=== PATIENT | female | born 1950 | race Caucasian/White ===

== ENCOUNTER → 2016-07-22 | Outpatient (CLI) | payer MEDICARE ==
--- NOTE | 2016-07-23 12:52 | MM ---
Reason for exam: screening (asymptomatic). Last mammogram was performed 1 year ago. History: Patient is postmenopausal and is nulliparous. Physical Findings: A clinical breast exam by your physician is recommended on an annual basis and results should be correlated with mammographic findings. MG Screening Mammo w CAD Bilateral CC and MLO view(s) were taken. Prior study comparison: July 21, 2015, bilateral MG screening mammo w CAD. March 17, 2011, bilateral digital screening mammo w/CAD. The breast tissue is heterogeneously dense. This may lower the sensitivity of mammography. Finding: There are indeterminate calcifications in the upper quadrant of the left breast on MLO view only, 13cm from the nipple. New finding since July 21, 2015 and March 17, 2011. ASSESSMENT: Incomplete: need additional imaging evaluation, BI-RAD 0 RECOMMENDATION: Special view mammogram of the left breast. [facility] will attempt to contact patient to return for supplemental views.
== END | disposition home or self-care (01) ==
LOC: RADMAMWWP 12:56
PROVIDERS: ATTEND Family Medicine
DX: Z12.31 Encounter for screening mammogram for malignant neoplasm of breast (principal)

== ENCOUNTER → 2016-08-04 | Outpatient (CLI) | payer MEDICARE ==
--- NOTE | 2016-08-04 14:27 | MM ---
Reason for exam: additional evaluation requested from abnormal screening. Last mammogram was performed less than 1 month ago. History: Patient is postmenopausal and is nulliparous. Physical Findings: Nurse did not find any significant physical abnormalities on exam. MG 3D Work Up W/Cad LT ML, ML with magnification, and CC with magnification view(s) were taken of the left breast. Prior study comparison: July 22, 2016, bilateral MG screening mammo w CAD. July 21, 2015, bilateral MG screening mammo w CAD. The breast tissue is heterogeneously dense. This may lower the sensitivity of mammography. Tiny group of posterior microcalcifications. These are very small and appear superficially located possibly round and punctate. 6 month follow up recommended. These results were verbally communicated with the patient and result sheet given to the patient on 08/04/16. ASSESSMENT: Probably benign, BI-RAD 3 RECOMMENDATION: Follow-up diagnostic mammogram of the left breast in 6 months. DMITRIY
== END | disposition home or self-care (01) ==
LOC: RADMAMWWP 12:55
PROVIDERS: ATTEND Family Medicine
DX: R92.8 Other abnormal and inconclusive findings on diagnostic imaging of breast (principal)
CPT/HCPCS: G0206; G0279

== ENCOUNTER 2016-11-15 14:28 | Inpatient (IN) | payer MEDICARE ==
[2016-11-15] MEDS ORDERED: SODIUM CHLORIDE 0.9% 1,000 ML IV STA (15:39)
--- NOTE | 2016-11-15 15:48 | ED ---
General Adult HPI - General Chief complaint: GI Bleed Stated complaint: kidney stones Time Seen by Provider: 11/15/16 15:23 Source: patient, family, RN notes reviewed Mode of arrival: wheelchair Limitations: no limitations - History of Present Illness Initial comments: Chief complaint and history of present illness is a 66-year-old female complaint of having noticed blood per rectum on 2 occasions over the past several days. The patient has chronic kidney stone issues. Patient has chronic severe arthritis takes OxyContin 4-5 times daily. Has constipation frequently. - Related Data Home Medications Medication Instructions Recorded Confirmed ALPRAZolam [Xanax] 0.25 mg PO Q8HR PRN 11/15/16 11/15/16 Ascorbic Acid [Vitamin C] 500 mg PO DAILY 11/15/16 11/15/16 Aspirin EC [Ecotrin Low Dose] 81 mg PO DAILY 11/15/16 11/15/16 Cholecalciferol [Vitamin D3] 5,000 unit PO Q48H 11/15/16 11/15/16 Cyanocobalamin (Vitamin B-12) 1,000 mcg PO MOWEFR 11/15/16 11/15/16 [Vitamin B-12] Diltiazem HCl 120 mg PO Q8H 11/15/16 11/15/16 Flaxseed Oil [[place]-3 Flaxseed Oil] 1,000 mg PO DAILY 11/15/16 11/15/16 Folic Acid 0.4 mg PO DAILY 11/15/16 11/15/16 Furosemide [Lasix] 20 mg PO DAILY 11/15/16 11/15/16 Lutein 20 mg PO DAILY 11/15/16 11/15/16 Metoprolol Tartrate [Lopressor] 25 mg PO DAILY PRN 11/15/16 11/15/16 Pyridoxine HCl (Vitamin B6) 100 mg PO MOWEFR 11/15/16 11/15/16 [Vitamin B-6] Vitamin A 8,000 unit PO DAILY 11/15/16 11/15/16 oxyCODONE HCL 10 mg PO Q4-6H PRN 11/15/16 11/15/16 Previous Rx's Medication Instructions Recorded Ondansetron Odt [Zofran ODT] 4 mg PO Q8HR PRN #20 tab 05/08/15 Allergies Allergy/AdvReac Type Severity Reaction Status Date / Time erythromycin base Allergy Rash/Hives Verified 11/15/16 16:04 hydrochlorothiazide Allergy "DROPS Verified 11/15/16 16:04 SODIUM LEVEL" peppermint Allergy Rash/Hives Verified 11/15/16 16:04 Tetracyclines Allergy Swelling Verified 11/15/16 16:04 atenolol AdvReac PASSES OUT Verified 11/15/16 16:04 nifedipine [From Procardia] AdvReac HAIR LOSS Verified 11/15/16 16:04 pregabalin [From Lyrica] AdvReac LEG PAIN Verified 11/15/16 16:04 Yfkhgyc-Qzu-Egt Reductase AdvReac LEG PAIN Verified 11/15/16 16:04 Inhibitor [employer] Allergy Rash/Hives Uncoded 11/15/16 16:04 Review of Systems ROS Statement: Those systems with pertinent positive or pertinent negative responses have been documented in the HPI. Review of systems. Denies headache or visual acuity changes. Has chronic severe arthritic pain to her joints. Denies chest pain or shortness of breath. States she noted blood per rectum on 2 occasions. Has a history of kidney stones. Also history of hyponatremia from fluid overload or Lasix use. States she has history of renal insufficiency stage III. All systems reviewed. Past medical problems severe arthritis, coronary artery disease, hyperlipidemia, hypertension, gallstone, degenerative joint disease. Surgeries tonsils, adenoids and appendectomy. Also Lasix to her eyes. Family history heart disease. Patient has ALLERGIES to erythromycin base, tetracycline, atenolol and pregabalin. She reports she continues to smoke. Strongly encouraged to stop ROS Other: All systems not noted in ROS Statement are negative. Past Medical History Past Medical History: Coronary Artery Disease (CAD), Hyperlipidemia, Hypertension Additional Past Medical History / Comment(s): pancreatitis, djd, neuropathy History of Any Multi-Drug Resistant Organisms: None Reported Past Surgical History: Adenoidectomy, Appendectomy, Tonsillectomy Past Psychological History: Anxiety Smoking Status: Current every day smoker Past Alcohol Use History: None Reported Past Drug Use History: None Reported General Exam - General Exam Comments Initial Comments: General: The patient is awake and alert, under chronic musculoskeletal pains pressure to the joints. And blood per rectum on 2 occasions. Vital signs show temperature 99.9 pulse 90 respiratory rate 20 pulse ox 98% room air blood pressure 120/57 Eye: Pupils are equal, round and reactive to light, extra-ocular movements are intact ; there is normal conjunctiva bilaterally. No signs of icterus. Ears, nose, mouth and throat: There are moist mucous membranes and no oral lesions. Neck: The neck is supple, there is no tenderness . Cardiovascular: There is a regular rate and rhythm. No murmur, rub or gallop is appreciated. Respiratory: Lungs are clear to auscultation, respirations are non-labored, breath sounds are equal. No wheezes, stridor, rales, or rhonchi. Gastrointestinal: Tender to the left lower quadrant but no masses palpable. Back: Right back pain on opiates, degenerative joint disease. Musculoskeletal: Full range of motion of extremities but with discomfort of the joints. Neurological: No apparent neuro deficits no complained of. Skin: Skin is warm and dry and no rashes or lesions are noted. Limitations: no limitations Course Vital Signs 11/15/16 14:31 Temperature 99.9 F H Pulse Rate 90 Respiratory 20 Rate Blood Pressure 120/57 O2 Sat by Pulse 98 Oximetry Medical Decision Making - Medical Decision Making Medical decision making patient's white count is elevated 25,000 hemoglobin 10 hematocrit of 30 with a potassium 4.4. BUN 19 creatinine 0.93 to GFR greater than 60. Glucose 83. Lipase normal alk phos is elevated to 44. Tray of the patient's hip was done and reviewed by radiologist his impression is advanced degenerative change of the right hip. Left hip degenerative changes are noted on the AP pelvis as well. As read by Dr. Georges X-ray of the abdomen was done and reviewed by radiologist his impression is there is normal bowel gas pattern. Psoas margins are normal. No organomegaly is present. Advanced degenerative change with deformity of the femoral head and acetabulum is present on the left and right hips. Degenerative disc changes are present. Impression; no acute abdominal process. #2 advanced degenerative changes. As read by Guaiac was positive. Vital exam showed soft stool plus fresh blood no palpable masses. - Lab Data Result diagrams: 11/15/16 16:10 11/15/16 16:10 Lab Results 11/15/16 11/15/16 11/15/16 Range/Units 16:10 16:10 16:10 WBC 25.1 H* (3.8-10.6) k/uL RBC 3.34 L (3.80-5.40) m/uL Hgb 10.2 L D (11.4-16.0) gm/dL Hct 30.1 L (34.0-46.0) % MCV 90.1 D (80.0-100.0) fL MCH 30.4 (25.0-35.0) pg MCHC 33.7 (31.0-37.0) g/dL RDW 14.0 (11.5-15.5) % PT 12.0 (9.0-12.0) sec INR 1.2 (<1.1) APTT 30.8 H (22.0-30.0) sec Sodium 130 L (137-145) mmol/L Potassium 4.4 (3.5-5.1) mmol/L Chloride 92 L (98-107) mmol/L Carbon Dioxide 26 (22-30) mmol/L Anion Gap 12 mmol/L BUN 19 H (7-17) mg/dL Creatinine 0.93 (0.52-1.04) mg/dL Est GFR (MDRD) Af Amer >60 (>60 ml/min/1.73 sqM) Est GFR (MDRD) Non-Af >60 (>60 ml/min/1.73 sqM) Glucose 83 (74-99) mg/dL Plasma Lactic Acid Narendra (0.7-2.0) mmol/L Calcium 9.4 (8.4-10.2) mg/dL Total Bilirubin 0.8 (0.2-1.3) mg/dL AST 35 (14-36) U/L ALT 32 (9-52) U/L Alkaline Phosphatase 244 H (38-126) U/L Total Protein 6.7 (6.3-8.2) g/dL Albumin 3.9 (3.5-5.0) g/dL Lipase 39 (23-300) U/L 11/15/16 Range/Units 16:10 WBC (3.8-10.6) k/uL RBC (3.80-5.40) m/uL Hgb (11.4-16.0) gm/dL Hct (34.0-46.0) % MCV (80.0-100.0) fL MCH (25.0-35.0) pg MCHC (31.0-37.0) g/dL RDW (11.5-15.5) % PT (9.0-12.0) sec INR (<1.1) APTT (22.0-30.0) sec Sodium (137-145) mmol/L Potassium (3.5-5.1) mmol/L Chloride (98-107) mmol/L Carbon Dioxide (22-30) mmol/L Anion Gap mmol/L BUN (7-17) mg/dL Creatinine (0.52-1.04) mg/dL Est GFR (MDRD) Af Amer (>60 ml/min/1.73 sqM) Est GFR (MDRD) Non-Af (>60 ml/min/1.73 sqM) Glucose (74-99) mg/dL Plasma Lactic Acid Narendra 0.9 (0.7-2.0) mmol/L Calcium (8.4-10.2) mg/dL Total Bilirubin (0.2-1.3) mg/dL AST (14-36) U/L ALT (9-52) U/L Alkaline Phosphatase (38-126) U/L Total Protein (6.3-8.2) g/dL Albumin (3.5-5.0) g/dL Lipase (23-300) U/L Disposition Clinical Impression: GI bleeding Disposition: ADMITTED IP TO THIS [facility] Condition: Serious Referrals: Zachary Dorantes DO [Primary Care Provider] - 1-2 days
[2016-11-15 16:47] LABS: INR 1.2 (<1.1); Partial Thromboplastin Time 30.8 sec (22.0-30.0)
[2016-11-15 16:49] LABS: ALT 32 U/L (9-52); AST 35 U/L (14-36); Alkaline Phosphatase 244 U/L (38-126); Anion Gap 12 mmol/L; Blood Urea Nitrogen 19 mg/dL (7-17); Calcium 9.4 mg/dL (8.4-10.2); Carbon Dioxide 26 mmol/L (22-30); Chloride 92 mmol/L (98-107); Glucose 83 mg/dL (74-99); Non-African American GFR(MDRD) >60 (>60 ml/min/1.73 sqM); Potassium 4.4 mmol/L (3.5-5.1); Sodium 130 mmol/L (137-145); Total Bilirubin 0.8 mg/dL (0.2-1.3); Total Protein 6.7 g/dL (6.3-8.2)
--- NOTE | 2016-11-15 16:52 | XR ---
EXAMINATION TYPE: XR abdomen 2V DATE OF EXAM: 11/15/2016 COMPARISON: NONE INDICATION: GI bleed and rectal bleeding x2 days TECHNIQUE: Single view abdomen upright view FINDINGS: There is a normal bowel gas pattern. Psoas margins are normal. No organomegaly is present. Advanced degenerative change with deformity of the femoral head and acetabulum is present on the left and right hips. Degenerative disc changes are present. IMPRESSION: 1. No acute abdominal process. 2. Advanced degenerative changes.
--- NOTE | 2016-11-15 16:54 | XR ---
EXAMINATION TYPE: XR Hip RT and AP Pelvis DATE OF EXAM: 11/15/2016 COMPARISON: NONE HISTORY: Pain TECHNIQUE: AP pelvis and right hip 2 views FINDINGS: There is femoral head deformity present bilaterally. Subchondral cyst formation is present. There is destruction of the superior femoral head and acetabulum bilaterally. Spina bifida occulta L5 is present. Sacroiliac joints are preserved. Symphysis pubis is normal. IMPRESSION: 1. Advanced degenerative changes right hip. 2. Left hip and degenerative changes are noted on the AP pelvis as well.
[2016-11-15 16:55] LABS: Basophils # (A) 0.2 k/uL (0-0.2); Basophils % (A) 1 %; CH 30.2; CHCM 33.7; Eosinophils # (A) 0.2 k/uL (0-0.7); Eosinophils % (A) 1 %; HCT 30.1 % (34.0-46.0); HDW 2.51; Immature Gran Flag Marked; Large Platelets Flag Moderate; Luc # (Auto) 0.95; Luc % (Auto) 4; Lymphocytes # (A) 1.7 k/uL (1.0-4.8); Lymphocytes % (A) 7 %; MCH 30.4 pg (25.0-35.0); MCHC 33.7 g/dL (31.0-37.0); Mean Platelet Volume 12.4; Monocytes # (A) 2.6 k/uL (0-1.0); Monocytes % (A) 10 %; Neutrophils # (A) 19.5 k/uL (1.3-7.7); Neutrophils % (A) 78 %; RBC 3.34 m/uL (3.80-5.40)
[2016-11-15 16:57] LABS: HGB 10.2 gm/dL (11.4-16.0); MCV 90.1 fL (80.0-100.0)
[2016-11-15 16:58] LABS: WBC 25.1 k/uL (3.8-10.6)
[2016-11-15 17:28] LABS: Large Platelets Present; Manual Review Performed
[2016-11-15] MEDS ORDERED: NALOXONE 0.4 MG/ML 1 ML VIAL IV PRN (17:31)
[2016-11-15] MEDS ORDERED: ONDANSETRON 4 MG/2 ML VIAL IVP PRN (17:31)
[2016-11-15] MEDS ORDERED: HYDROmorphone 1 MG/ML 1 ML SYRINGE IV PRN (17:31)
[2016-11-15] MEDS: SODIUM CHLORIDE 0.9% 1,000 ML IV SCH (18:53)
[2016-11-15] MEDS: DILTIAZEM ORAL 60 MG TAB PO SCH (20:51)
[2016-11-15 21:39] LABS: Basophils # (A) 0.3 k/uL (0-0.2); Basophils % (A) 1 %; CH 30.2; CHCM 33.5; Eosinophils # (A) 0.1 k/uL (0-0.7); Eosinophils % (A) 1 %; HCT 28.5 % (34.0-46.0); HGB 9.5 gm/dL (11.4-16.0); Immature Gran Flag Marked; Large Platelets Flag Slight; Luc % (Auto) 4; Lymphocytes # (A) 2.1 k/uL (1.0-4.8); Lymphocytes % (A) 9 %; MCH 30.2 pg (25.0-35.0); MCHC 33.3 g/dL (31.0-37.0); MCV 90.5 fL (80.0-100.0); Mean Platelet Volume 11.9; Monocytes # (A) 2.4 k/uL (0-1.0); Monocytes % (A) 10 %; Neutrophils # (A) 18.1 k/uL (1.3-7.7); Neutrophils % (A) 76 %; RBC 3.15 m/uL (3.80-5.40); RDW 14.1 % (11.5-15.5); WBC 23.9 k/uL (3.8-10.6)
[2016-11-15 21:46] LABS: INR 1.3 (<1.1); Prothrombin Time 12.6 sec (9.0-12.0)
[2016-11-15 21:59] LABS: ALT 39 U/L (9-52); AST 29 U/L (14-36); Alkaline Phosphatase 241 U/L (38-126); Anion Gap 10 mmol/L; Blood Urea Nitrogen 16 mg/dL (7-17); Calcium 9.2 mg/dL (8.4-10.2); Carbon Dioxide 27 mmol/L (22-30); Chloride 96 mmol/L (98-107); Glucose 82 mg/dL (74-99); Magnesium 2.4 mg/dL (1.6-2.3); Non-African American GFR(MDRD) >60 (>60 ml/min/1.73 sqM); Phosphorous 4.6 mg/dL (2.5-4.5); Potassium 4.4 mmol/L (3.5-5.1); Sodium 133 mmol/L (137-145); Total Bilirubin 0.6 mg/dL (0.2-1.3); Total Protein 5.9 g/dL (6.3-8.2)
[2016-11-16] MEDS: ALPRAZolam 0.25 MG TAB PO PRN ×2 (01:01→09:05)
[2016-11-16] MEDS: DILTIAZEM ORAL 60 MG TAB PO SCH ×4 (01:40→21:02)
[2016-11-16 04:45] LABS: CH 30.2; CHCM 33.1; HCT 25.9 % (34.0-46.0); HDW 2.46; HGB 8.5 gm/dL (11.4-16.0); MCHC 32.7 g/dL (31.0-37.0); MCV 91.7 fL (80.0-100.0); RBC 2.82 m/uL (3.80-5.40); WBC 21.7 k/uL (3.8-10.6)
[2016-11-16 05:03] LABS: Anion Gap 8 mmol/L; Blood Urea Nitrogen 13 mg/dL (7-17); Calcium 8.8 mg/dL (8.4-10.2); Carbon Dioxide 28 mmol/L (22-30); Chloride 99 mmol/L (98-107); Glucose 76 mg/dL (74-99); Magnesium 2.3 mg/dL (1.6-2.3); Non-African American GFR(MDRD) >60 (>60 ml/min/1.73 sqM); Phosphorous 4.5 mg/dL (2.5-4.5); Potassium 4.3 mmol/L (3.5-5.1); Sodium 135 mmol/L (137-145)
[2016-11-16 05:46] LABS: Appearance,Urine Clear (Clear); Bacteria,Urine Occasional /hpf; Bilirubin,Urine Negative (Negative); Glucose,Urine (UA) Negative (Negative); Ketones,Urine Trace (Negative); Leukocyte Esterase,Urine Negative (Negative); Nitrite,Urine Negative (Negative); Particle Count 1224; Protein,Urine Negative (Negative); RBC,Urine 6 /hpf (0-5); Specific Gravity,Urine 1.004 (1.001-1.035); Squamous Epithelial Cell,Urine 1 /hpf (0-4); UA Billing (MACRO vs. MICRO) MICRO; Urobilinogen,Urine <2.0 mg/dL (<2.0); WBC,Urine 1 /hpf (0-5)
[2016-11-16] MEDS: FOLIC ACID 1 MG TAB PO SCH (08:46)
[2016-11-16] MEDS: SODIUM CHLORIDE 0.9% 1,000 ML IV SCH ×2 (08:46→21:03)
[2016-11-16] MEDS: ASCORBIC ACID 500 MG TAB PO SCH (08:46)
--- NOTE | 2016-11-16 08:55 | XR ---
EXAMINATION TYPE: XR chest 1V portable DATE OF EXAM: 11/16/2016 COMPARISON: 05/08/2014 INDICATION: Possible pneumonia TECHNIQUE: Single frontal view of the chest is obtained. Position is semiupright. FINDINGS: The heart size is normal. The pulmonary vasculature is normal. No suspicious infiltrates are evident. IMPRESSION: 1. No acute pulmonary process.
[2016-11-16] MEDS ORDERED: CHOLECALCIFEROL 1,000 UNIT TAB PO SCH (09:00)
[2016-11-16] MEDS ORDERED: NON-FORMULARY DRUG (Lutein [Lutein] 20 MG) PO SCH (09:00)
[2016-11-16 10:48] LABS: CH 30.1; CHCM 33.1; HCT 26.6 % (34.0-46.0); HDW 2.47; HGB 8.7 gm/dL (11.4-16.0); Large Platelets Flag Slight; MCH 30.1 pg (25.0-35.0); MCHC 32.8 g/dL (31.0-37.0); MCV 91.6 fL (80.0-100.0); Mean Platelet Volume 11.4; RBC 2.91 m/uL (3.80-5.40); WBC 23.1 k/uL (3.8-10.6)
[2016-11-16] MEDS: PANTOPRAZOLE 40 MG/10 ML VIAL IV SCH (10:56)
[2016-11-16] MEDS ORDERED: RX INFO: IV CONTRAST WAS GIVEN 1 EACH MISC MISCELLANE PRN (11:45)
[2016-11-16] MEDS: VITAMIN A 10,000 UNIT CAPSULE PO SCH (12:50)
[2016-11-16] MEDS: LEVOFLOXACIN 500MG-D5W PMX 500 MG in DEXTROSE/WATER 1 100ML.BAG IVPB SCH (12:50)
--- NOTE | 2016-11-16 12:59 | P.GSCN ---
History of Present Illness Consult date: 11/16/16 Reason for Consult: GI bleeding History of present illness: Recent history of bright red blood per rectum. She describes it as looking like siddiqui Blair-Aid. Denies any vaginal discharge. No history of similar events in the past. Some chronic abdominal pain. She has a history of pancreatic cysts and undergoes annual MRCP. Last MRCP was one year ago roughly. She was found to have thrombocytopenia and significant leukocytosis. She is in the ICU for observation purposes. Consultation to hematology has been placed. We are asked to see this patient for possible endoscopy. Denies any melanotic stools. Hemoglobin started at 10.2 currently 8.7. No significant active bleeding during the ICU stay. CT abdomen was ordered earlier today and those results are pending. Review of Systems The patient denies any acute changes in his vision or hearing, no dysphagia or odynophagia, no chest pain or shortness of breath, no dysuria or hematuria, no headache, no runny nose, no melena, no unexplained weight loss Past Medical History Past Medical History: Coronary Artery Disease (CAD), Hyperlipidemia, Hypertension, Osteoarthritis (OA) Additional Past Medical History / Comment(s): pancreatitis, djd, neuropathy, Chronic back pain, mild stenosis in the neck History of Any Multi-Drug Resistant Organisms: None Reported Past Surgical History: Adenoidectomy, Appendectomy, Tonsillectomy Additional Past Surgical History / Comment(s): B/L lasix in 1999 Past Anesthesia/Blood Transfusion Reactions: No Reported Reaction Past Psychological History: Anxiety Smoking Status: Current every day smoker Past Alcohol Use History: None Reported Past Drug Use History: None Reported - Past Family History Mother Family Medical History: Diabetes Mellitus, Hypertension, Renal Disease Additional Family Medical History / Comment(s): Heart and anxiety issues. Had quadraple bypass, Father Additional Family Medical History / Comment(s): Quad heart bypass Medications and Allergies Home Medications Medication Instructions Recorded Confirmed Type ALPRAZolam [Xanax] 0.25 mg PO Q8HR PRN 11/15/16 11/15/16 History Ascorbic Acid [Vitamin C] 500 mg PO DAILY 11/15/16 11/15/16 History Cholecalciferol [Vitamin D3] 5,000 unit PO Q48H 11/15/16 11/15/16 History Cyanocobalamin (Vitamin B-12) 1,000 mcg PO MOWEFR 11/15/16 11/15/16 History [Vitamin B-12] Diltiazem HCl 120 mg PO Q8H 11/15/16 11/15/16 History Folic Acid 0.4 mg PO DAILY 11/15/16 11/15/16 History Furosemide [Lasix] 20 mg PO DAILY 11/15/16 11/15/16 History Lutein 20 mg PO DAILY 11/15/16 11/15/16 History Metoprolol Tartrate [Lopressor] 25 mg PO DAILY PRN 11/15/16 11/15/16 History Pyridoxine HCl (Vitamin B6) 100 mg PO MOWEFR 11/15/16 11/15/16 History [Vitamin B-6] Vitamin A 8,000 unit PO DAILY 11/15/16 11/15/16 History oxyCODONE HCL 10 mg PO Q4HR PRN 11/15/16 11/15/16 History Allergies Allergy/AdvReac Type Severity Reaction Status Date / Time erythromycin base Allergy Rash/Hives Verified 11/15/16 20:23 hydrochlorothiazide Allergy "DROPS Verified 11/15/16 20:23 SODIUM LEVEL" peppermint Allergy Rash/Hives Verified 11/15/16 20:23 Tetracyclines Allergy Swelling Verified 11/15/16 20:23 atenolol AdvReac PASSES OUT Verified 11/15/16 20:23 nifedipine [From Procardia] AdvReac HAIR LOSS Verified 11/15/16 20:23 pregabalin [From Lyrica] AdvReac LEG PAIN Verified 11/15/16 20:23 Doenzwu-Asg-Gqk Reductase AdvReac LEG PAIN Verified 11/15/16 20:23 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[employer] Allergy Rash/Hives Uncoded 11/15/16 20:23 Surgical - Exam Vital Signs Temp Pulse Resp BP Pulse Ox 99.9 F H 90 20 120/57 98 11/15/16 14:31 11/15/16 14:31 11/15/16 14:31 11/15/16 14:31 11/15/16 14:31 Physical exam: General: Well-developed, malnourished appearing HEENT: Normocephalic, sclerae nonicteric Abdomen: Nontender, nondistended Extremities: No edema Neuro: Alert and oriented Results - Labs 11/16/16 10:33 11/16/16 04:30 Abnormal Lab Results - Last 24 Hours (Table) 11/15/16 11/15/16 11/15/16 Range/Units 16:10 16:10 16:10 WBC 25.1 H* (3.8-10.6) k/uL RBC 3.34 L (3.80-5.40) m/uL Hgb 10.2 L D (11.4-16.0) gm/dL Hct 30.1 L (34.0-46.0) % Plt Count 72 L D (150-450) k/uL Neutrophils # 19.5 H (1.3-7.7) k/uL Monocytes # 2.6 H (0-1.0) k/uL Basophils # (0-0.2) k/uL PT (9.0-12.0) sec APTT 30.8 H (22.0-30.0) sec Sodium 130 L (137-145) mmol/L Chloride 92 L (98-107) mmol/L BUN 19 H (7-17) mg/dL Phosphorus (2.5-4.5) mg/dL Magnesium (1.6-2.3) mg/dL Alkaline Phosphatase 244 H (38-126) U/L Total Protein (6.3-8.2) g/dL Urine Ketones (Negative) Urine Blood (Negative) Urine RBC (0-5) /hpf Urine Bacteria (None) /hpf Stool Occult Blood (Negative) 11/15/16 11/15/16 11/15/16 Range/Units 17:25 21:26 21:26 WBC 23.9 H (3.8-10.6) k/uL RBC 3.15 L (3.80-5.40) m/uL Hgb 9.5 L (11.4-16.0) gm/dL Hct 28.5 L (34.0-46.0) % Plt Count 69 L (150-450) k/uL Neutrophils # 18.1 H (1.3-7.7) k/uL Monocytes # 2.4 H (0-1.0) k/uL Basophils # 0.3 H (0-0.2) k/uL PT (9.0-12.0) sec APTT (22.0-30.0) sec Sodium 133 L (137-145) mmol/L Chloride 96 L (98-107) mmol/L BUN (7-17) mg/dL Phosphorus 4.6 H (2.5-4.5) mg/dL Magnesium 2.4 H (1.6-2.3) mg/dL Alkaline Phosphatase 241 H (38-126) U/L Total Protein 5.9 L (6.3-8.2) g/dL Urine Ketones (Negative) Urine Blood (Negative) Urine RBC (0-5) /hpf Urine Bacteria (None) /hpf Stool Occult Blood Positive H (Negative) 11/15/16 11/16/16 11/16/16 Range/Units 21:26 04:30 04:30 WBC 21.7 H (3.8-10.6) k/uL RBC 2.82 L (3.80-5.40) m/uL Hgb 8.5 L (11.4-16.0) gm/dL Hct 25.9 L (34.0-46.0) % Plt Count 49 L* (150-450) k/uL Neutrophils # (1.3-7.7) k/uL Monocytes # (0-1.0) k/uL Basophils # (0-0.2) k/uL PT 12.6 H (9.0-12.0) sec APTT (22.0-30.0) sec Sodium 135 L (137-145) mmol/L Chloride (98-107) mmol/L BUN (7-17) mg/dL Phosphorus (2.5-4.5) mg/dL Magnesium (1.6-2.3) mg/dL Alkaline Phosphatase (38-126) U/L Total Protein (6.3-8.2) g/dL Urine Ketones (Negative) Urine Blood (Negative) Urine RBC (0-5) /hpf Urine Bacteria (None) /hpf Stool Occult Blood (Negative) 11/16/16 11/16/16 Range/Units 05:00 10:33 WBC 23.1 H (3.8-10.6) k/uL RBC 2.91 L (3.80-5.40) m/uL Hgb 8.7 L (11.4-16.0) gm/dL Hct 26.6 L (34.0-46.0) % Plt Count 54 L (150-450) k/uL Neutrophils # (1.3-7.7) k/uL Monocytes # (0-1.0) k/uL Basophils # (0-0.2) k/uL PT (9.0-12.0) sec APTT (22.0-30.0) sec Sodium (137-145) mmol/L Chloride (98-107) mmol/L BUN (7-17) mg/dL Phosphorus (2.5-4.5) mg/dL Magnesium (1.6-2.3) mg/dL Alkaline Phosphatase (38-126) U/L Total Protein (6.3-8.2) g/dL Urine Ketones Trace H (Negative) Urine Blood Small H (Negative) Urine RBC 6 H (0-5) /hpf Urine Bacteria Occasional H (None) /hpf Stool Occult Blood (Negative) Microbiology - Last 24 Hours (Table) 11/16/16 05:00 Urine Culture - Preliminary Urine,Voided Diabetes panel 11/15/16 11/15/16 11/16/16 Range/Units 16:10 21:26 04:30 Sodium 130 L 133 L 135 L (137-145) mmol/L Potassium 4.4 4.4 4.3 (3.5-5.1) mmol/L Chloride 92 L 96 L 99 (98-107) mmol/L Carbon Dioxide 26 27 28 (22-30) mmol/L BUN 19 H 16 13 (7-17) mg/dL Creatinine 0.93 0.90 0.76 (0.52-1.04) mg/dL Glucose 83 82 76 (74-99) mg/dL Calcium 9.4 9.2 8.8 (8.4-10.2) mg/dL AST 35 29 (14-36) U/L ALT 32 39 (9-52) U/L Alkaline Phosphatase 244 H 241 H (38-126) U/L Total Protein 6.7 5.9 L (6.3-8.2) g/dL Albumin 3.9 3.5 (3.5-5.0) g/dL Calcium panel 11/15/16 11/15/16 11/16/16 Range/Units 16:10 21:26 04:30 Calcium 9.4 9.2 8.8 (8.4-10.2) mg/dL Phosphorus 4.6 H 4.5 (2.5-4.5) mg/dL Albumin 3.9 3.5 (3.5-5.0) g/dL Pituitary panel 11/15/16 11/15/16 11/16/16 Range/Units 16:10 21:26 04:30 Sodium 130 L 133 L 135 L (137-145) mmol/L Potassium 4.4 4.4 4.3 (3.5-5.1) mmol/L Chloride 92 L 96 L 99 (98-107) mmol/L Carbon Dioxide 26 27 28 (22-30) mmol/L BUN 19 H 16 13 (7-17) mg/dL Creatinine 0.93 0.90 0.76 (0.52-1.04) mg/dL Glucose 83 82 76 (74-99) mg/dL Calcium 9.4 9.2 8.8 (8.4-10.2) mg/dL Adrenal panel 11/15/16 11/15/16 11/16/16 Range/Units 16:10 21:26 04:30 Sodium 130 L 133 L 135 L (137-145) mmol/L Potassium 4.4 4.4 4.3 (3.5-5.1) mmol/L Chloride 92 L 96 L 99 (98-107) mmol/L Carbon Dioxide 26 27 28 (22-30) mmol/L BUN 19 H 16 13 (7-17) mg/dL Creatinine 0.93 0.90 0.76 (0.52-1.04) mg/dL Glucose 83 82 76 (74-99) mg/dL Calcium 9.4 9.2 8.8 (8.4-10.2) mg/dL Total Bilirubin 0.8 0.6 (0.2-1.3) mg/dL AST 35 29 (14-36) U/L ALT 32 39 (9-52) U/L Alkaline Phosphatase 244 H 241 H (38-126) U/L Total Protein 6.7 5.9 L (6.3-8.2) g/dL Albumin 3.9 3.5 (3.5-5.0) g/dL Assessment and Plan (1) GI bleeding Narrative/Plan: We'll await the findings of the CAT scan already ordered. Await oncology evaluation. Plan upper and lower endoscopy during this hospitalization. Status: Acute
[2016-11-16] MEDS: IOHEXOL 350 MG/ML 25 ML BOTTLE (ORAL USE) PO PRN ×2 (13:54→14:59)
[2016-11-16] MEDS: metroNIDAZOLE-NS PMX 500 MG in SALINE 1 100ML.BAG IVPB SCH ×2 (13:54→21:02)
[2016-11-16] MEDS ORDERED: ALPRAZolam 0.25 MG TAB PO STA (14:24)
--- NOTE | 2016-11-16 18:05 | CT ---
EXAMINATION TYPE: CT abdomen pelvis w con DATE OF EXAM: 11/16/2016 COMPARISON: MRCP December 18, 2015 HISTORY: Leukocytosis, abdominal pain and GI bleed. CT DLP: 427.70 mGycm. Automated exposure control for dose reduction was used. TECHNIQUE: Helical acquisition of images was performed from the lung bases through the pelvis. CONTRAST: Performed with Oral Contrast and with IV Contrast, patient injected with 100 mL of Omnipaqu e 300. FINDINGS: LUNG BASES: No significant abnormality is appreciated. Coronary calcifications noted. LIVER/GB AND PANCREAS: The previously seen dilated extrahepatic biliary tree and pancreatic ductal an atomy is redemonstrated, and similar in appearance. Would request liver function tests to assure no p hysiologic change. SPLEEN: No significant abnormality is seen. ADRENALS: No significant abnormality is seen. KIDNEYS: No significant abnormality is seen. FREE AIR: No free air is visualized. RETROPERITONEAL ADENOPATHY: None visualized REPRODUCTIVE ORGANS: No significant abnormality is seen URINARY BLADDER: No significant abnormality is seen. PELVIC ADENOPATHY: None visualized. OSSEOUS STRUCTURES: Bilateral hip markedly-advanced osteoarthritis changes, and multilevel markedly advanced lumbar spondylosis changes. No focal lesions. BOWEL: No significant abnormality is seen. VASCULATURE: Prominent pattern of nonaneurysmal atherosclerotic aortoiliac intimal calcifications. Co ronary calcifications also noted. IMPRESSION: 1. NO ACUTE PROCESS. 2. STABLE APPEARANCE TO THE BILIARY PANCREATIC DUCTAL DILATION, DISCUSSED. 3. ADVANCED AND DIFFUSE ATHEROSCLEROTIC CHANGES.
--- NOTE | 2016-11-16 18:28 | CONS ---
DATE OF CONSULTATION: 11/16/2016 REASON FOR CONSULTATION: History of hyponatremia. 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 She was admitted to the hospital with complaints of dark colored blood seen per rectum. This has been going on for about one to two days prior to admission. The patient does not use any nonsteroidal anti-inflammatory agents. She has not had any gastrointestinal bleed previously. She is also having some abdominal pain and she felt she was dealing with kidney stones. She has not had any episodes of kidney stones recently. Her GFR is well preserved. She does have a history of hyponatremia which has been fairly well controlled as outpatient. Serum sodium was at 130 on initial admission. She is maintained on normal saline and her sodium went up to 135. Of note, the patient was noted to have a platelet count of 72,000 which went down further to 49,000. Previous platelet count on 10/19/2016 was 236,000. 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 History of hyponatremia. Nutritional vitamin D deficiency. Hypertension. history of B12 deficiency, history of hyperlipidemia, coronary artery disease. The patient also has had pancreatitis, neuropathy. PAST SURGICAL HISTORY: Adenoidectomy, appendectomy, tonsillectomy, anxiety disorder. SOCIAL HISTORY: Positive for smoking. No history of drug abuse or alcohol abuse. MEDICATIONS: At home included: 1. Xanax. 2. Vitamin C. 3. Vitamin D3. 4. B12. 5. Diltiazem. 6. Folic acid. 7. Lasix. 8. Lutein. 9. Lopressor. 10. Vitamin A. 11. Oxycodone. ALLERGIES: MULTIPLE INCLUDE ERYTHROMYCIN, HYDROCHLOROTHIAZIDE, PEPPERMINT, TETRACYCLINE, ATENOLOL, PROCARDIA, LYRICA, STATINS, DIAL BRAND PRODUCTS. REVIEW OF SYSTEMS: Positive for bleeding per rectum. No vomiting. The patient did have some abdominal pain. No significant urinary symptoms. No fever, chills, no chest pains or shortness of breath. On examination , currently the patient is comfortable. She is awake, not in any acute distress. She is in tears and she is concerned about her thrombocytopenia. Blood pressure is 125/55. Heart rate 85 per minute. She is afebrile. Examination of the heart, S1, S2. Examination of the lungs bilateral breath sounds are heard. Abdomen is soft, nontender. Examination of the lower extremities shows no evidence of edema. CENTRAL NERVOUS SYSTEM: Grossly intact. The patient is moving all four extremities. Lymph nodes are not palpable. Thyroid is not enlarged. LABORATORY DATA: Sodium 135, potassium 4.3, creatinine 0.76. Hemoglobin 8.5 gm/dL. Platelet count 49,000 earlier. UA is unremarkable. Stool for occult blood was positive. ASSESSMENT: 1. History of hyponatremia as an outpatient, currently improved with sodium going up from 130 on initial admission to 135. The patient is receiving normal saline, therefore it was at this time hypovolemic, hyponatremia. I will continue with normal saline for now. We need to be careful with hydration as the patient is quite sensitive to fluids with history of development of significant edema. Worsening of the hyponatremia with large volume replacement. At this time, she was hypovolemic, therefore, we can continue particularly given her active gastrointestinal bleed. 2. Gastrointestinal bleed, surgery has been consulted. Hemoglobin was 8.7 gm/dL this morning. 3. Thrombocytopenia. Unclear etiology. Hematology has been consulted. PLAN: Continue with normal saline. Repeat labs in the a.m. Follow-up on consults with gastroenterology and follow-up with hematology and surgery. Thank you for this consultation, we will continue to follow the patient during her hospitalization.
[2016-11-16 18:45] LABS: CH 30.5; CHCM 33.9; HCT 27.4 % (34.0-46.0); HDW 2.56; MCH 29.9 pg (25.0-35.0); MCV 90.5 fL (80.0-100.0); Mean Platelet Volume 10.7; RBC 3.03 m/uL (3.80-5.40); RDW 13.8 % (11.5-15.5); WBC 21.8 k/uL (3.8-10.6)
--- NOTE | 2016-11-16 20:38 | CONS ---
DATE OF CONSULTATION: 11/16/2016 Ms. Rosita Bucio is a 66-year-old female who is seen, evaluated, examined in the ICU. Patient has issues associated with severe anemia, also has a history of renal calculi, has extensive history of smoking and nicotine use. Patient has been found to be not only anemic, but thrombocytopenic as well. I was asked to evaluate the patient from respiratory and critical care perspective. This patient admitted into the emergency department with 3 to 4-day history of increased swelling of the lower extremity. Patient has been taking her OxyContin 3 or 4 times a day for severe pain. She stopped taking her Lasix. Her legs were more swollen than the usual. One day prior to coming into the hospital, started having bleeding per rectum on multiple occasions throughout the day and symptoms started somewhere around 2 days prior to coming into the hospital initially, decided to come into the hospital yesterday. Patient has been admitted to ICU late last night. Patient was admitted to the medical floor and eventually due to drop in hemoglobin and ongoing intermittent bloody stools, transferred to the ICU. Patient is seeing Dr. Abrams for GI services and requesting Dr. Granados for renal services as well. PAST MEDICAL HISTORY: Significant for coronary artery disease, dyslipidemia, hypertension, hypertensive cardiovascular disease, chronic pancreatitis, degenerative joint disease, osteoarthritis, chronic neuropathy. PAST SURGICAL HISTORY: Significant for adenoidectomy, appendectomy, tonsillectomy. FAMILY HISTORY AND SOCIAL HISTORY: Significant for smoking 1 pack per day for over 40 years; lately, however, is smoking a few cigarettes a day. Does use prescription narcotic agents. Rest of the family history otherwise unremarkable and noncontributory. Medications at home reviewed. Current medications while in the hospital include: 1. Xanax 0.25 to 3 times a day. 2. Vitamin C 500 mg daily. 3. Also on cholecalciferol. 4. Vitamin B12. 5. Diltiazem is 120 mg p.o. 2 times a day. 6. Folic acid 0.5 daily. 7. Dilaudid for pain control. 8. Also on Levaquin 500 mg IV q.24. 9. Flagyl 500 mg q.8 hourly. 10. K-Mag-Phos replacement protocol. 11. Zofran. 12. Oxycodone. 13. Protonix 40 mg daily. 14. IV fluid normal saline at 80 mL an hour. 15. Thiamine. 16. Vitamin A. REVIEW OF SYSTEMS: Otherwise unremarkable and noncontributory. On examination, most recent vitals include blood pressure 132/50, respiratory rate 14, pulse 95, temperature 98, saturation 99% on room air. HEENT: Atraumatic, normocephalic. Pharynx clear. Narrow pharyngeal opening is present. NECK: Supple without any lymphadenopathy, jugular venous distention or carotid bruit. LUNGS: Bilateral good air entry is present without significant rales, rhonchi or rub. HEART: Regular rate and rhythm. S1 and S2 audible. ABDOMEN: Soft. No rebound or rigidity. Mild tenderness on deep palpation is present. EXTREMITIES: +1 peripheral pulses. NEUROLOGICAL: Otherwise, awake and alert Labs reviewed. Medications reviewed. The chest x-ray performed revealed no acute cardiopulmonary process. Abdominal x-ray performed in the ER. No acute abdomen is seen. The hip and pelvic x-ray: Right hip degenerative joint disease seen bilaterally. Other laboratory data reviewed. The white cell count is 23,900, hemoglobin of 9.7, hematocrit 28, platelet count 69,000 The white cell count remains elevated. Hemoglobin came down to 9.5. Repeat is 8.7. Platelet count was 72,000, came down to 49,000, up to 54,000. PT and INR and PTT within normal limits. Sodium is 130, potassium 4.4. BUN and creatinine 19 and 0.93. Alk phos is 244. Urinalysis is unremarkable. The stool for occult blood is positive. IMPRESSION: 1. Gastrointestinal bleed with acute blood loss anemia with heme positive stools along with thrombocytopenia and slowly dropping hemoglobin. CT scan of the abdomen is pending. Patient has component of inflammatory process. Bleeding, diverticulosis or diverticulitis cannot be excluded. For now, patient is empirically being started on Levaquin and Flagyl. Further recommendations pending as per finding on the CT scan of the abdomen and pelvis. General Surgery has been following. 2. Sepsis, likely intra-abdominal process. 3. History of renal calculi. 4. Anemia, thrombocytopenia, leukocytosis. 5. Chronic pain syndrome. 6. History of pancreatic cyst. Plan and recommendation is as above. Empiric antibiotics, IV rehydration, rosen cultures, including blood and urine. Follow up on CT scan. Will follow. Will transfuse blood if hemoglobin drops less than 7 and/or if the patient develops hypertension. In the meantime, continue supportive care. Consultation with Hematology has been initiated.
[2016-11-17 02:29] LABS: CH 29.9; CHCM 32.6; HDW 2.49; HGB 8.3 gm/dL (11.4-16.0); MCH 30.7 pg (25.0-35.0); MCHC 33.2 g/dL (31.0-37.0); MCV 92.5 fL (80.0-100.0); Mean Platelet Volume 10.6; RBC 2.71 m/uL (3.80-5.40); RDW 14.1 % (11.5-15.5); WBC 20.5 k/uL (3.8-10.6)
[2016-11-17] MEDS: metroNIDAZOLE-NS PMX 500 MG in SALINE 1 100ML.BAG IVPB SCH ×3 (04:50→20:22)
[2016-11-17] MEDS: ALPRAZolam 0.25 MG TAB PO PRN ×3 (05:05→21:08)
[2016-11-17] MEDS: DILTIAZEM ORAL 60 MG TAB PO SCH ×3 (05:12→21:09)
[2016-11-17 05:37] LABS: CH 30.2; CHCM 33.7; HDW 2.68; HGB 8.5 gm/dL (11.4-16.0); Immature Gran Flag Marked; MCH 30.8 pg (25.0-35.0); MCHC 34.1 g/dL (31.0-37.0); MCV 90.2 fL (80.0-100.0); Mean Platelet Volume 10.1; RBC 2.77 m/uL (3.80-5.40); RDW 13.9 % (11.5-15.5); WBC 22.3 k/uL (3.8-10.6); WBC (Perox) 23.55
[2016-11-17 05:41] LABS: ALT 24 U/L (9-52); AST 25 U/L (14-36); Alkaline Phosphatase 186 U/L (38-126); Anion Gap 8 mmol/L; Blood Urea Nitrogen 10 mg/dL (7-17); Calcium 8.8 mg/dL (8.4-10.2); Carbon Dioxide 26 mmol/L (22-30); Chloride 101 mmol/L (98-107); Glucose 57 mg/dL (74-99); Magnesium 2.1 mg/dL (1.6-2.3); Non-African American GFR(MDRD) >60 (>60 ml/min/1.73 sqM); Phosphorous 4.6 mg/dL (2.5-4.5); Potassium 4.5 mmol/L (3.5-5.1); Sodium 135 mmol/L (137-145); Total Bilirubin 0.7 mg/dL (0.2-1.3); Total Protein 5.5 g/dL (6.3-8.2)
[2016-11-17 06:53] LABS: Glucose,Whole Blood 62 mg/dL (75-99)
[2016-11-17 07:34] LABS: Glucose,Whole Blood 71 mg/dL (75-99)
[2016-11-17 07:47] LABS: Add Differential Manual Differential
[2016-11-17 07:53] LABS: Myelocytes % 6.5 %; Nucleated Red Blood Cells 0 /100 WBC (0-0); Total Cells Counted 200
[2016-11-17] MEDS: SODIUM CHLORIDE 0.9% 1,000 ML IV SCH ×2 (08:33→18:03)
[2016-11-17] MEDS: CHOLECALCIFEROL 1,000 UNIT TAB PO SCH (08:34)
[2016-11-17] MEDS: FOLIC ACID 1 MG TAB PO SCH (08:34)
[2016-11-17] MEDS: PANTOPRAZOLE 40 MG/10 ML VIAL IV SCH (08:34)
[2016-11-17] MEDS: CYANOCOBALAMIN 500 MCG TAB PO SCH ×2 (08:35→13:26)
[2016-11-17] MEDS: THIAMINE 100 MG TAB PO SCH (08:35)
[2016-11-17] MEDS: VITAMIN A 10,000 UNIT CAPSULE PO SCH (08:35)
[2016-11-17] MEDS: ASCORBIC ACID 500 MG TAB PO SCH ×2 (08:35→08:45)
[2016-11-17] MEDS: LEVOFLOXACIN 500MG-D5W PMX 500 MG in DEXTROSE/WATER 1 100ML.BAG IVPB SCH (08:37)
--- NOTE | 2016-11-17 10:16 | P.PN ---
Subjective This is a 66-year-old female patient is being seen, evaluated and examined in the ICU today. This patient have histories associated with severe anemia also history of renal calculi. She has an extensive history of smoking and nicotine use as well. The patient was found to not only be anemic bilateral thrombocytopenic as well. Patient was admitted to the emergency department with 3-4 day history of increased swelling of the lower extremity. Patient does take OxyContin 3-4 times a day for severe pain. Patient also states she stops taking her Lasix. Her legs were more swollen than usual. One day prior to coming into the hospital the patient stated she started having bleeding per rectum on multiple occasions throughout the day. Patient was admitted to the medical floor and eventually due to the drop in hemoglobin and intermittent bloody stools was transferred to the intensive care unit. Patient is being seen by Dr. Reyna and GI services, Dr. Granados for nephrology, and consults for hematology as well. Upon examination the patient's resting up in bed on room air. Patient denies any cough congestion shortness of breath at this time. Patient states she has not had a bowel movement or bleeding since yesterday. Hemoglobin has been stable today at 8.5, patient's platelet count is 35. Objective - Vital Signs Vital signs: Vital Signs Temp 98 F 11/17/16 08:00 Pulse 91 11/17/16 09:30 Resp 16 11/17/16 09:30 BP 120/56 11/17/16 09:30 Pulse Ox 96 11/17/16 09:30 Intake & Output 11/16/16 11/17/16 11/17/16 18:59 06:59 18:59 Intake Total 995 1000 360 Output Total 1050 1430 Balance -55 -430 360 Weight 52.4 kg 48 kg Intake: IV 75 Sodium Chloride 0.9% 1, 75 000 ml @ 75 mls/hr IV . [id number] [facility] Rx#:[id number] Intake, IV Titration 920 1000 260 Amount Levofloxacin 500Mg-D5w 100 Pmx 500 mg In Dextrose/ Water 1 100ml.bag @ 100 mls/hr IVPB Q24HR [facility] Rx# :[id number] Sodium Chloride 0.9% 1, 720 800 260 000 ml @ 80 mls/hr IV . [id number] [facility] Rx#:[id number] metroNIDAZOLE-NS PMX 500 100 200 mg In Saline 1 100ml.bag @ 100 mls/hr IVPB Q8H [facility] Rx#:[id number] Oral 100 Output: Urine 1050 1430 Other: Voiding Method Bedside Commode Bedside Commode Bedside Commode # Voids 1 1 - Exam GENERAL EXAM: Alert, active, comfortable in no apparent distress. HEAD: Normocephalic. EYES: Normal reaction of pupils, equal size. NOSE: Clear with pink turbinates. THROAT: No erythema or exudates. NECK: No masses, no JVD. CHEST: No chest wall deformity. LUNGS: Equal air entry with no crackles, wheeze, rhonchi or dullness. CVS: S1 and S2 normal with no audible mumurs, regular rhythm. ABDOMEN: No hepatosplenomegaly, normal bowel sounds, no guarding or rigidity. EXTREMITIES: No edema noted, pedal pulses palpable. SKIN: No rashes CENTRAL NERVOUS SYSTEM: No focal deficits, tone is normal in all 4 extremities. - Labs CBC & Chem 7: 11/17/16 05:02 11/17/16 05:02 Labs: Abnormal Lab Results - Last 24 Hours (Table) 11/16/16 11/16/16 11/16/16 Range/Units 10:33 18:16 18:16 WBC 23.1 H 21.8 H (3.8-10.6) k/uL RBC 2.91 L 3.03 L (3.80-5.40) m/uL Hgb 8.7 L 9.0 L (11.4-16.0) gm/dL Hct 26.6 L 27.4 L (34.0-46.0) % Plt Count 54 L 48 L* (150-450) k/uL Neutrophils # (Manual) (1.3-7.7) k/uL Monocytes # (Manual) (0-1.0) k/uL Sodium 133 L (137-145) mmol/L Glucose (74-99) mg/dL POC Glucose (mg/dL) (75-99) mg/dL Phosphorus (2.5-4.5) mg/dL Alkaline Phosphatase (38-126) U/L Total Protein (6.3-8.2) g/dL Albumin (3.5-5.0) g/dL 11/17/16 11/17/16 11/17/16 Range/Units 02:15 05:02 05:02 WBC 20.5 H 22.3 H (3.8-10.6) k/uL RBC 2.71 L 2.77 L (3.80-5.40) m/uL Hgb 8.3 L 8.5 L (11.4-16.0) gm/dL Hct 25.0 L 25.0 L (34.0-46.0) % Plt Count 38 L* 35 L* (150-450) k/uL Neutrophils # (Manual) 14.5 H (1.3-7.7) k/uL Monocytes # (Manual) 2.1 H (0-1.0) k/uL Sodium 135 L (137-145) mmol/L Glucose 57 L (74-99) mg/dL POC Glucose (mg/dL) (75-99) mg/dL Phosphorus 4.6 H (2.5-4.5) mg/dL Alkaline Phosphatase 186 H (38-126) U/L Total Protein 5.5 L (6.3-8.2) g/dL Albumin 3.0 L (3.5-5.0) g/dL 11/17/16 11/17/16 Range/Units 06:52 07:31 WBC (3.8-10.6) k/uL RBC (3.80-5.40) m/uL Hgb (11.4-16.0) gm/dL Hct (34.0-46.0) % Plt Count (150-450) k/uL Neutrophils # (Manual) (1.3-7.7) k/uL Monocytes # (Manual) (0-1.0) k/uL Sodium (137-145) mmol/L Glucose (74-99) mg/dL POC Glucose (mg/dL) 62 L 71 L (75-99) mg/dL Phosphorus (2.5-4.5) mg/dL Alkaline Phosphatase (38-126) U/L Total Protein (6.3-8.2) g/dL Albumin (3.5-5.0) g/dL Microbiology - Last 24 Hours (Table) 11/15/16 21:26 Blood Culture - Preliminary Blood No Growth after 24 hours 11/16/16 05:00 Urine Culture - Preliminary Urine,Voided Assessment and Plan Plan: Assessment Gastrointestinal bleed with acute blood loss anemia. Thrombocytopenia Sepsis, likely intra-abdominal process Anemia, thrombocytopenia, leukocytosis Chronic pain syndrome History of pancreatic cyst Nicotine dependence Plan Medications have been reviewed and will be continued as ordered. We will transfuse blood if hemoglobin drops less than 7 and/or if the patient becomes hemodynamically unstable. Continue empiric antibiotics, IV rehydration. Continue with pulmonary hygiene, coughing and deep breathing exercises, and supportive care. Supplemental oxygen to maintain oxygen saturations of 92% or better. GI and DVT prophylaxis. Diet as ordered per Dr. Abrams. Continue with consultations and recommendations. We will continue to monitor labs/results and adjust treatment as necessary. Further recommendations pending. I performed an examination of the patient and discussed their management with the nurse practitioner. I have reviewed the nurse practitioner's note and agree with the documented findings and plan of care.
[2016-11-17 10:37] VITALS: BMI 18.1
--- NOTE | 2016-11-17 13:03 | P.PN ---
Subjective Principal diagnosis: GI bleed Patient without further bleeding. Denies abdominal pain at this time. CAT scan was reviewed and shows no acute abnormalities. Platelet level remains low and the white blood cell count remains elevated. Objective - Vital Signs Vital signs: Vital Signs Temp 98.1 F 11/17/16 12:00 Pulse 89 11/17/16 12:00 Resp 12 11/17/16 12:00 BP 125/53 11/17/16 12:00 Pulse Ox 97 11/17/16 12:00 Intake & Output 11/16/16 11/17/16 11/17/16 18:59 06:59 18:59 Intake Total 995 1000 620 Output Total 1050 1430 500 Balance -55 -430 120 Weight 52.4 kg 48 kg Intake: IV 75 Sodium Chloride 0.9% 1, 75 000 ml @ 75 mls/hr IV . [id number] [facility] Rx#:[id number] Intake, IV Titration 920 1000 520 Amount Levofloxacin 500Mg-D5w 100 100 Pmx 500 mg In Dextrose/ Water 1 100ml.bag @ 100 mls/hr IVPB Q24HR [facility] Rx# :[id number] Sodium Chloride 0.9% 1, 720 800 420 000 ml @ 80 mls/hr IV . [id number] [facility] Rx#:[id number] metroNIDAZOLE-NS PMX 500 100 200 mg In Saline 1 100ml.bag @ 100 mls/hr IVPB Q8H [facility] Rx#:[id number] Oral 100 Output: Urine 1050 1430 500 Other: Voiding Method Bedside Commode Bedside Commode Bedside Commode # Voids 1 1 - Exam Abdomen: Soft, nontender, nondistended - Labs CBC & Chem 7: 11/17/16 05:02 11/17/16 05:02 Labs: Abnormal Lab Results - Last 24 Hours (Table) 11/16/16 11/16/16 11/17/16 Range/Units 18:16 18:16 02:15 WBC 21.8 H 20.5 H (3.8-10.6) k/uL RBC 3.03 L 2.71 L (3.80-5.40) m/uL Hgb 9.0 L 8.3 L (11.4-16.0) gm/dL Hct 27.4 L 25.0 L (34.0-46.0) % Plt Count 48 L* 38 L* (150-450) k/uL Neutrophils # (Manual) (1.3-7.7) k/uL Monocytes # (Manual) (0-1.0) k/uL Sodium 133 L (137-145) mmol/L Glucose (74-99) mg/dL POC Glucose (mg/dL) (75-99) mg/dL Phosphorus (2.5-4.5) mg/dL Alkaline Phosphatase (38-126) U/L Total Protein (6.3-8.2) g/dL Albumin (3.5-5.0) g/dL 11/17/16 11/17/16 11/17/16 Range/Units 05:02 05:02 06:52 WBC 22.3 H (3.8-10.6) k/uL RBC 2.77 L (3.80-5.40) m/uL Hgb 8.5 L (11.4-16.0) gm/dL Hct 25.0 L (34.0-46.0) % Plt Count 35 L* (150-450) k/uL Neutrophils # (Manual) 14.5 H (1.3-7.7) k/uL Monocytes # (Manual) 2.1 H (0-1.0) k/uL Sodium 135 L (137-145) mmol/L Glucose 57 L (74-99) mg/dL POC Glucose (mg/dL) 62 L (75-99) mg/dL Phosphorus 4.6 H (2.5-4.5) mg/dL Alkaline Phosphatase 186 H (38-126) U/L Total Protein 5.5 L (6.3-8.2) g/dL Albumin 3.0 L (3.5-5.0) g/dL 11/17/16 Range/Units 07:31 WBC (3.8-10.6) k/uL RBC (3.80-5.40) m/uL Hgb (11.4-16.0) gm/dL Hct (34.0-46.0) % Plt Count (150-450) k/uL Neutrophils # (Manual) (1.3-7.7) k/uL Monocytes # (Manual) (0-1.0) k/uL Sodium (137-145) mmol/L Glucose (74-99) mg/dL POC Glucose (mg/dL) 71 L (75-99) mg/dL Phosphorus (2.5-4.5) mg/dL Alkaline Phosphatase (38-126) U/L Total Protein (6.3-8.2) g/dL Albumin (3.5-5.0) g/dL Microbiology - Last 24 Hours (Table) 11/16/16 05:00 Urine Culture - Final Urine,Voided 11/15/16 21:26 Blood Culture - Preliminary Blood No Growth after 24 hours Assessment and Plan (1) GI bleeding Narrative/Plan: Patient with admission related to GI bleeding. No evidence of abdominal sepsis at this time. Continue workup of the patient's leukocytosis and thrombocytopenia. We'll plan upper and lower endoscopy when medically cleared. Possibly as outpatient. Status: Acute
--- NOTE | 2016-11-17 13:16 | P.HPIM ---
History of Present Illness H&P Date: 11/16/16 Chief Complaint: rectal blood This is a pleasant 66-year-old lady patient of Dr. Dorantes. He has underlying history off CAD hyperlipidemia hypertension pancreatitis neuropathy chronic back pain chronic opioid-induced constipation, admitted to the hospital secondary to anemia and hematochezia,. Her previous hemoglobin was 13.7 on and was admitted with hemoglobin of 10.2 apparently patient has been passing siddiqui colored stools her abdominal pain is localized mainly in the periumbilical region, her last colonoscopy is was at age 14 and on since, patient never had any imaging studies of her abdomen in the past evaluate for the chronic abdominal pain and chronic constipation. She also has a WBC count of 23.9 on admission with a previous wbc of 9.5 on 10/19/2016 patient denies any fever no chills dysuria no hematemesis, her last MRCP 12/18/2015 with findings showing distal pancreatic body with atrophic pancreas and dilated pancreatic duct reflecting chronic pancreatitis with adjacent pseudocyst formation She was admitted to the ICU secondary to ongoing lower GI losses with a current hemoglobin of 8.7 not requiring any blood transfusion, consults were made with Dr. Navarrete secondary to thrombocytopenia leukocytosis and anemia which is new, patient was started on IV Levaquin and Flagyl sepsis is in the consideration, CAT scan of the abdomen and pelvis will be done to evaluate abdominal pain and leukocytosis. No plans from Dr. Abrams for immediate colonoscopy however she would be needing it to evaluate GI bleed once platelet count stabilizes Review of Systems Constitutional: Reports as per HPI, Denies anorexia, Denies chills, Denies chronic headaches, Denies chronic pain, Denies daytime sleepiness, Denies fatigue, Denies fever, Denies lethargy, Denies malaise, Denies night sweats, Denies poor appetite, Denies sweats, Denies weakness, Denies weight gain, Denies weight loss Ears, nose, mouth and throat: Reports as per HPI, Denies ant. neck pain, Denies bleeding gums, Denies dental pain, Denies dysphagia, Denies epistaxis, Denies headache, Denies hoarseness, Denies mouth pain, Denies nasal congestion, Denies nasal discharge, Denies neck fullness/pressure, Denies neck lump, Denies nose pain, Denies odynophagia, Denies post-nasal drip, Denies sinus pain, Denies sinus pressure, Denies swelling in mouth, Denies swelling in throat, Denies sore throat, Denies vertigo, Denies voice changes Cardiovascular: Reports as per HPI, Denies chest pain, Denies claudication, Denies decreased exercise tolerance, Denies dyspnea on exertion, Denies edema, Denies high blood pressure, Denies irregular heart beat, Denies leg edema, Denies lightheadedness, Denies orthopnea, Denies palpitations, Denies paroxysmal nocturnal dyspnea, Denies phlebitis, Denies rapid heart beat, Denies shortness of breath, Denies syncope Past Medical History Past Medical History: Coronary Artery Disease (CAD), Hyperlipidemia, Hypertension, Osteoarthritis (OA) Additional Past Medical History / Comment(s): pancreatitis, djd, neuropathy, Chronic back pain, mild stenosis in the neck History of Any Multi-Drug Resistant Organisms: None Reported Past Surgical History: Adenoidectomy, Appendectomy, Tonsillectomy Additional Past Surgical History / Comment(s): B/L lasix in 1999 Past Anesthesia/Blood Transfusion Reactions: No Reported Reaction Past Psychological History: Anxiety Smoking Status: Current every day smoker Past Alcohol Use History: None Reported Past Drug Use History: None Reported - Past Family History Mother Family Medical History: Diabetes Mellitus, Hypertension, Renal Disease Additional Family Medical History / Comment(s): Heart and anxiety issues. Had quadraple bypass, Father Additional Family Medical History / Comment(s): Quad heart bypass Medications and Allergies Home Medications Medication Instructions Recorded Confirmed Type ALPRAZolam [Xanax] 0.25 mg PO Q8HR PRN 11/15/16 11/15/16 History Ascorbic Acid [Vitamin C] 500 mg PO DAILY 11/15/16 11/15/16 History Cholecalciferol [Vitamin D3] 5,000 unit PO Q48H 11/15/16 11/15/16 History Cyanocobalamin (Vitamin B-12) 1,000 mcg PO MOWEFR 11/15/16 11/15/16 History [Vitamin B-12] Diltiazem HCl 120 mg PO Q8H 11/15/16 11/15/16 History Folic Acid 0.4 mg PO DAILY 11/15/16 11/15/16 History Furosemide [Lasix] 20 mg PO DAILY 11/15/16 11/15/16 History Lutein 20 mg PO DAILY 11/15/16 11/15/16 History Metoprolol Tartrate [Lopressor] 25 mg PO DAILY PRN 11/15/16 11/15/16 History Pyridoxine HCl (Vitamin B6) 100 mg PO MOWEFR 11/15/16 11/15/16 History [Vitamin B-6] Vitamin A 8,000 unit PO DAILY 11/15/16 11/15/16 History oxyCODONE HCL 10 mg PO Q4HR PRN 11/15/16 11/15/16 History Allergies Allergy/AdvReac Type Severity Reaction Status Date / Time erythromycin base Allergy Rash/Hives Verified 11/15/16 20:23 hydrochlorothiazide Allergy "DROPS Verified 11/15/16 20:23 SODIUM LEVEL" peppermint Allergy Rash/Hives Verified 11/15/16 20:23 Tetracyclines Allergy Swelling Verified 11/15/16 20:23 atenolol AdvReac PASSES OUT Verified 11/15/16 20:23 nifedipine [From Procardia] AdvReac HAIR LOSS Verified 11/15/16 20:23 pregabalin [From Lyrica] AdvReac LEG PAIN Verified 11/15/16 20:23 Yfrmssj-Fcq-Foq Reductase AdvReac LEG PAIN Verified 11/15/16 20:23 Inhibitor [employer] Allergy Rash/Hives Uncoded 11/15/16 20:23 Physical Exam Vitals: Vital Signs Temp Pulse Pulse Resp BP BP Pulse Ox 11/16/16 10:00 91 12 118/54 96 11/16/16 09:30 85 14 119/57 93 L 11/16/16 09:00 86 14 132/80 95 11/16/16 08:30 98.2 F 87 15 122/58 96 11/16/16 08:00 87 14 130/55 94 L 11/16/16 07:00 93 137/58 96 11/16/16 06:30 89 131/52 93 L 11/16/16 06:00 99 133/53 96 11/16/16 05:30 91 134/57 11/16/16 05:00 104 H 134/57 98 11/16/16 04:30 89 135/57 96 11/16/16 04:00 87 90 14 135/57 95 11/16/16 03:30 83 123/54 96 11/16/16 03:00 84 123/54 92 L 11/16/16 02:30 88 134/60 94 L 11/16/16 02:00 88 134/60 95 11/16/16 01:30 87 140/67 93 L 11/16/16 01:00 92 97 11/16/16 00:30 98.2 F 91 124/53 96 11/16/16 00:00 93 92 14 124/53 97 11/15/16 23:30 91 140/60 97 11/15/16 23:00 90 140/60 96 11/15/16 22:40 90 11/15/16 22:17 98.2 F 92 14 128/60 98 11/15/16 21:50 94 19 142/63 99 11/15/16 20:00 16 11/15/16 19:13 98.8 F 92 16 144/71 99 11/15/16 17:27 99 F 83 18 131/61 95 11/15/16 14:31 99.9 F H 90 20 120/57 98 Intake and Output 11/15/16 11/16/16 11/16/16 22:59 06:59 14:59 Intake Total 600 315 Output Total 200 0 Balance 400 315 Intake: IV 600 75 Sodium Chloride 0.9% 1, 600 75 000 ml @ 75 mls/hr IV . [id number] Rx#:[id number] Intake, IV Titration 240 Amount Sodium Chloride 0.9% 1, 240 000 ml @ 80 mls/hr IV . [id number] KRISTI Rx#:[id number] Output: Urine 200 0 Other: Voiding Method Bedside Commode Bedside Commode Bedpan # Voids 1 Weight 52.8 kg 52.4 kg - Constitutional General appearance: cooperative, no acute distress, thin - EENT Eyes: anicteric sclerae, EOMI, PERRLA, poor dentition, normal appearance ENT: hearing grossly normal, NA/AT, normal oropharynx - Neck Neck: normal ROM - Respiratory Respiratory: bilateral: CTA, negative: diminished, dullness, rales, rhonchi, wheezing - Cardiovascular Rhythm: regular Heart sounds: normal: S1, S2 Abnormal Heart Sounds: no systolic murmur, no diastolic murmur, no rub, no S3 Gallop, no S4 Gallop, no click, no other - Gastrointestinal General gastrointestinal: normal bowel sounds, soft - Integumentary Integumentary: normal, normal turgor - Neurologic Neurologic: CNII-XII intact - Musculoskeletal Musculoskeletal: gait normal, strength equal bilaterally - Psychiatric Psychiatric: A&O x's 3, appropriate affect, intact judgment & insight Results CBC & Chem 7: 11/17/16 05:02 11/17/16 05:02 Labs: Abnormal Lab Results - Last 24 Hours (Table) 11/15/16 11/15/16 11/15/16 Range/Units 16:10 16:10 16:10 WBC 25.1 H* (3.8-10.6) k/uL RBC 3.34 L (3.80-5.40) m/uL Hgb 10.2 L D (11.4-16.0) gm/dL Hct 30.1 L (34.0-46.0) % Plt Count 72 L D (150-450) k/uL Neutrophils # 19.5 H (1.3-7.7) k/uL Monocytes # 2.6 H (0-1.0) k/uL Basophils # (0-0.2) k/uL PT (9.0-12.0) sec APTT 30.8 H (22.0-30.0) sec Sodium 130 L (137-145) mmol/L Chloride 92 L (98-107) mmol/L BUN 19 H (7-17) mg/dL Phosphorus (2.5-4.5) mg/dL Magnesium (1.6-2.3) mg/dL Alkaline Phosphatase 244 H (38-126) U/L Total Protein (6.3-8.2) g/dL Urine Ketones (Negative) Urine Blood (Negative) Urine RBC (0-5) /hpf Urine Bacteria (None) /hpf Stool Occult Blood (Negative) 11/15/16 11/15/16 11/15/16 Range/Units 17:25 21:26 21:26 WBC 23.9 H (3.8-10.6) k/uL RBC 3.15 L (3.80-5.40) m/uL Hgb 9.5 L (11.4-16.0) gm/dL Hct 28.5 L (34.0-46.0) % Plt Count 69 L (150-450) k/uL Neutrophils # 18.1 H (1.3-7.7) k/uL Monocytes # 2.4 H (0-1.0) k/uL Basophils # 0.3 H (0-0.2) k/uL PT (9.0-12.0) sec APTT (22.0-30.0) sec Sodium 133 L (137-145) mmol/L Chloride 96 L (98-107) mmol/L BUN (7-17) mg/dL Phosphorus 4.6 H (2.5-4.5) mg/dL Magnesium 2.4 H (1.6-2.3) mg/dL Alkaline Phosphatase 241 H (38-126) U/L Total Protein 5.9 L (6.3-8.2) g/dL Urine Ketones (Negative) Urine Blood (Negative) Urine RBC (0-5) /hpf Urine Bacteria (None) /hpf Stool Occult Blood Positive H (Negative) 11/15/16 11/16/16 11/16/16 Range/Units 21:26 04:30 04:30 WBC 21.7 H (3.8-10.6) k/uL RBC 2.82 L (3.80-5.40) m/uL Hgb 8.5 L (11.4-16.0) gm/dL Hct 25.9 L (34.0-46.0) % Plt Count 49 L* (150-450) k/uL Neutrophils # (1.3-7.7) k/uL Monocytes # (0-1.0) k/uL Basophils # (0-0.2) k/uL PT 12.6 H (9.0-12.0) sec APTT (22.0-30.0) sec Sodium 135 L (137-145) mmol/L Chloride (98-107) mmol/L BUN (7-17) mg/dL Phosphorus (2.5-4.5) mg/dL Magnesium (1.6-2.3) mg/dL Alkaline Phosphatase (38-126) U/L Total Protein (6.3-8.2) g/dL Urine Ketones (Negative) Urine Blood (Negative) Urine RBC (0-5) /hpf Urine Bacteria (None) /hpf Stool Occult Blood (Negative) 11/16/16 11/16/16 Range/Units 05:00 10:33 WBC 23.1 H (3.8-10.6) k/uL RBC 2.91 L (3.80-5.40) m/uL Hgb 8.7 L (11.4-16.0) gm/dL Hct 26.6 L (34.0-46.0) % Plt Count 54 L (150-450) k/uL Neutrophils # (1.3-7.7) k/uL Monocytes # (0-1.0) k/uL Basophils # (0-0.2) k/uL PT (9.0-12.0) sec APTT (22.0-30.0) sec Sodium (137-145) mmol/L Chloride (98-107) mmol/L BUN (7-17) mg/dL Phosphorus (2.5-4.5) mg/dL Magnesium (1.6-2.3) mg/dL Alkaline Phosphatase (38-126) U/L Total Protein (6.3-8.2) g/dL Urine Ketones Trace H (Negative) Urine Blood Small H (Negative) Urine RBC 6 H (0-5) /hpf Urine Bacteria Occasional H (None) /hpf Stool Occult Blood (Negative) Microbiology - Last 24 Hours (Table) 11/16/16 05:00 Urine Culture - Preliminary Urine,Voided Thrombosis Risk Factor Assmnt - Choose All That Apply Each Risk Factor Represents 2 Points: Age 61-74 years Thrombosis Risk Factor Assessment Total Risk Factor Score: 2 Thrombosis Risk Factor Assessment Level: Low Risk Assessment and Plan Plan: 1. Lower GI bleed with significant drop off hemoglobin, patient was monitored in the ICU for intensive retiring of H&H's and hemodynamic instability, patient would be to transfuse for hemoglobin of 7 and under, patient was seen consultation by Dr. Navarrete oncology secondary to bicytopenia with thrombocytopenia and leukocytosis, sepsis is in the differential, patient is followed closely by Dr. Abrams from general surgery, however in view of the thrombocytopenia this is on hold 2. Abdominal pain. Periumbilical, CAT scan of the abdomen and pelvis was ordered to evaluate for any clinical abscesses from diverticulitis patient is on IV Levaquin and IV Flagyl 3. Bicytopenia with thrombocytopenia and anemia, significant leukocytosis which is new, patient started on IV antibiotics for clinical diverticulitis, evaluate for CAT scan to look for pancreatic abscesses and diverticular abscesses 4. Chronic history off pancreatic duct", last MRCP was in December 2015 5. Chronic malabsorption state from poor oral intake, and ongoing pancreas problems, lipase to be checked, vitamin B12 would be obtained later await CAT scan 6. Weight loss off 17 pounds in 15 months nutritional supplementation would be ordered 7. GI prophylaxis on Protonix DVT prophylaxis on TRISTAN hose and SCDs, contraindication for chemical prophylaxis secondary to GI bleed in from the cytopenia
--- NOTE | 2016-11-17 23:47 | P.CONS ---
History of Present Illness - Reason for Consult Consult date: 11/17/16 Thrombocytopenia and anemia - History of Present Illness Patient is a 66-year-old lady with multiple medical issues. These include chronic pain, opioid dependence, as well as severe opioid-induced constipation and laxative use. The patient was admitted with complains of passing blood per rectum, over the last several days intermittently. This was associated with the some subjective feeling of weakness. On presentation, hemoglobin was found to be in the 10-11 range, with platelets 72,000 . CBC last month was normal. The patient was admitted to the ICU for close observation. Platelet count showed further decline to 35,000 today. Hemoglobin dropped into the 8 range and has been stable there over the last 24 hours. Consult was therefore placed for further evaluation. The patient denied any prior history of low platelet counts. She does report a history of upper respiratory tract infection in the last 2 weeks. She was treated with Keflex for the same. Review of Systems Constitutional: Reports chronic pain, Reports fatigue, Reports weakness Eyes: denies blurred vision, denies pain Ears: deny: decreased hearing, ear discharge, earache, tinnitus Ears, nose, mouth and throat: Denies headache, Denies sore throat Cardiovascular: Reports dyspnea on exertion Respiratory: Reports dyspnea Gastrointestinal: Reports abdominal pain (Chronic pancreatitis), Reports constipation, Reports hematochezia Genitourinary: Denies dysuria, Denies hematuria Menstruation: Reports postmenopausal Musculoskeletal: Denies myalgias Integumentary: Denies pruritus, Denies rash Neurological: Reports weakness, Denies numbness Psychiatric: Reports depression Endocrine: Denies fatigue, Denies weight change Hematologic/Lymphatic: Reports as per HPI Past Medical History Past Medical History: Coronary Artery Disease (CAD), Hyperlipidemia, Hypertension, Osteoarthritis (OA) Additional Past Medical History / Comment(s): pancreatitis, djd, neuropathy, Chronic back pain, mild stenosis in the neck History of Any Multi-Drug Resistant Organisms: None Reported Past Surgical History: Adenoidectomy, Appendectomy, Tonsillectomy Additional Past Surgical History / Comment(s): B/L lasix in 1999 Past Anesthesia/Blood Transfusion Reactions: No Reported Reaction Past Psychological History: Anxiety Smoking Status: Current every day smoker Past Alcohol Use History: None Reported Past Drug Use History: None Reported - Past Family History Mother Family Medical History: Diabetes Mellitus, Hypertension, Renal Disease Additional Family Medical History / Comment(s): Heart and anxiety issues. Had quadraple bypass, Father Additional Family Medical History / Comment(s): Quad heart bypass Medications and Allergies Home Medications Medication Instructions Recorded Confirmed Type ALPRAZolam [Xanax] 0.25 mg PO Q8HR PRN 11/15/16 11/15/16 History Ascorbic Acid [Vitamin C] 500 mg PO DAILY 11/15/16 11/15/16 History Cholecalciferol [Vitamin D3] 5,000 unit PO Q48H 11/15/16 11/15/16 History Cyanocobalamin (Vitamin B-12) 1,000 mcg PO MOWEFR 11/15/16 11/15/16 History [Vitamin B-12] Diltiazem HCl 120 mg PO Q8H 11/15/16 11/15/16 History Folic Acid 0.4 mg PO DAILY 11/15/16 11/15/16 History Furosemide [Lasix] 20 mg PO DAILY 11/15/16 11/15/16 History Lutein 20 mg PO DAILY 11/15/16 11/15/16 History Metoprolol Tartrate [Lopressor] 25 mg PO DAILY PRN 11/15/16 11/15/16 History Pyridoxine HCl (Vitamin B6) 100 mg PO MOWEFR 11/15/16 11/15/16 History [Vitamin B-6] Vitamin A 8,000 unit PO DAILY 11/15/16 11/15/16 History oxyCODONE HCL 10 mg PO Q4HR PRN 11/15/16 11/15/16 History Allergies Allergy/AdvReac Type Severity Reaction Status Date / Time erythromycin base Allergy Rash/Hives Verified 11/15/16 20:23 hydrochlorothiazide Allergy "DROPS Verified 11/15/16 20:23 SODIUM LEVEL" peppermint Allergy Rash/Hives Verified 11/15/16 20:23 Tetracyclines Allergy Swelling Verified 11/15/16 20:23 atenolol AdvReac PASSES OUT Verified 11/15/16 20:23 nifedipine [From Procardia] AdvReac HAIR LOSS Verified 11/15/16 20:23 pregabalin [From Lyrica] AdvReac LEG PAIN Verified 11/15/16 20:23 Ljvddqn-Lae-Vld Reductase AdvReac LEG PAIN Verified 11/15/16 20:23 Inhibitor [employer] Allergy Rash/Hives Uncoded 11/15/16 20:23 Physical Exam Vitals: Vital Signs Temp Pulse Resp BP Pulse Ox 11/17/16 21:00 99 16 137/67 96 11/17/16 20:00 98.4 F 88 12 136/54 96 11/17/16 19:00 93 14 155/52 95 11/17/16 18:00 112 H 14 150/58 98 11/17/16 17:00 97 20 150/58 97 11/17/16 16:00 98.9 F 94 14 137/63 95 11/17/16 15:00 97 14 158/54 98 11/17/16 14:00 108 H 14 124/60 99 11/17/16 13:00 92 12 131/58 98 11/17/16 12:00 98.1 F 89 12 125/53 97 11/17/16 11:00 85 14 125/57 97 11/17/16 10:30 90 12 125/57 96 11/17/16 10:00 93 12 120/56 96 11/17/16 09:30 91 16 120/56 96 11/17/16 09:00 92 12 125/54 97 11/17/16 08:30 84 14 125/54 92 L 11/17/16 08:00 98 F 90 12 127/57 97 11/17/16 07:46 96 11/17/16 07:30 95 99 11/17/16 07:00 85 16 122/52 96 11/17/16 06:30 88 122/52 93 L 11/17/16 06:00 82 128/56 98 11/17/16 05:30 87 95 11/17/16 05:00 90 119/52 98 11/17/16 04:30 86 94 L 11/17/16 04:00 98.3 F 85 121/52 97 11/17/16 03:30 80 94 L 11/17/16 03:00 79 16 120/50 96 11/17/16 02:30 81 16 96 11/17/16 02:00 76 16 119/50 96 11/17/16 01:30 78 16 96 11/17/16 01:00 86 16 111/46 96 11/17/16 00:30 79 16 97 11/17/16 00:02 80 16 116/49 95 11/17/16 00:00 98.2 F 80 116/49 96 11/16/16 23:59 14 11/16/16 23:30 103 H 96 Intake and Output 11/17/16 11/17/16 11/18/16 14:59 22:59 06:59 Intake Total 800 865 Output Total 500 500 Balance 300 365 Intake: IV 600 0.9 normal saline at 80 400 flagyl 200 Intake, IV Titration 700 Amount Levofloxacin 500Mg-D5w 100 Pmx 500 mg In Dextrose/ Water 1 100ml.bag @ 100 mls/hr IVPB Q24HR KRISTI Rx# :[id number] Sodium Chloride 0.9% 1, 500 000 ml @ 80 mls/hr IV . [id number] KRISTI Rx#:[id number] metroNIDAZOLE-NS PMX 500 100 mg In Saline 1 100ml.bag @ 100 mls/hr IVPB Q8H KRISTI Rx#:[id number] Oral 100 265 Output: Urine 500 500 Other: Voiding Method Bedside Commode Bedside Commode # Voids 1 Weight 48 kg 48 kg Patient Weight 11/18/16 06:59 Weight 48 kg - Constitutional General appearance: no acute distress - EENT Eyes: EOMI, PERRLA ENT: hearing grossly normal, normal oropharynx - Neck Neck: no lymphadenopathy Thyroid: bilateral: normal size - Respiratory Respiratory: bilateral: CTA - Cardiovascular Rhythm: regular Heart sounds: normal: S1, S2 - Gastrointestinal General gastrointestinal: normal bowel sounds, soft Localized gastrointestinal: tender: epigastric periumbilical - Integumentary Integumentary: normal - Neurologic Neurologic: CNII-XII intact - Musculoskeletal Musculoskeletal: generalized weakness - Psychiatric Psychiatric: A&O x's 3, appropriate affect Results CBC & Chem 7: 11/17/16 05:02 11/17/16 05:02 Labs: Abnormal Lab Results - Last 24 Hours (Table) 11/17/16 11/17/16 11/17/16 Range/Units 02:15 05:02 05:02 WBC 20.5 H 22.3 H (3.8-10.6) k/uL RBC 2.71 L 2.77 L (3.80-5.40) m/uL Hgb 8.3 L 8.5 L (11.4-16.0) gm/dL Hct 25.0 L 25.0 L (34.0-46.0) % Plt Count 38 L* 35 L* (150-450) k/uL Neutrophils # (Manual) 14.5 H (1.3-7.7) k/uL Monocytes # (Manual) 2.1 H (0-1.0) k/uL Sodium 135 L (137-145) mmol/L Glucose 57 L (74-99) mg/dL POC Glucose (mg/dL) (75-99) mg/dL Phosphorus 4.6 H (2.5-4.5) mg/dL Alkaline Phosphatase 186 H (38-126) U/L Total Protein 5.5 L (6.3-8.2) g/dL Albumin 3.0 L (3.5-5.0) g/dL 11/17/16 11/17/16 Range/Units 06:52 07:31 WBC (3.8-10.6) k/uL RBC (3.80-5.40) m/uL Hgb (11.4-16.0) gm/dL Hct (34.0-46.0) % Plt Count (150-450) k/uL Neutrophils # (Manual) (1.3-7.7) k/uL Monocytes # (Manual) (0-1.0) k/uL Sodium (137-145) mmol/L Glucose (74-99) mg/dL POC Glucose (mg/dL) 62 L 71 L (75-99) mg/dL Phosphorus (2.5-4.5) mg/dL Alkaline Phosphatase (38-126) U/L Total Protein (6.3-8.2) g/dL Albumin (3.5-5.0) g/dL Microbiology - Last 24 Hours (Table) 11/16/16 05:00 Urine Culture - Final Urine,Voided 11/15/16 21:26 Blood Culture - Preliminary Blood No Growth after 24 hours Chest x-ray: report reviewed Abdominal x-ray: report reviewed CT scan - abdomen: report reviewed CT scan - pelvis: report reviewed Assessment and Plan (1) Thrombocytopenia Narrative/Plan: This is a new finding for her. Previous labs were reviewed going back to 2014. Platelet counts previously have been normal. They were normal even last month. Given the acuity of the drop, and the history of using a new medication specifically beta-lactam antibiotics in the last couple of weeks, a drug- induced immune phenomenon is most likely. Labs to rule out other causes will be ordered. Drug induced immune thrombocytopenia is likely to be self-limiting. Transfusion support can be provided in the meantime as appropriate. Currently the patient does not appear to be having any active bleeding, and her hemoglobin is stable. Therefore platelet count of greater than 30,000 is appropriate. If recurrent bleeding occurs, transfusions can be ordered when necessary to try to keep platelet counts greater than 35-40,000. Status: Acute (2) Anemia due to blood loss, acute Narrative/Plan: Active bleeding appears to have CTs, with hemoglobin stable over the last 24- 48 hours. The patient will need a GI workup. If hemoglobin remains stable, this can be performed once [place] [id number]. If procedure is required emergently due to recurrent bleeding, this can be performed with the pleasure transfusions at the time of the procedure. A possible cause could be laxative induced colitis. Status: Acute
[2016-11-18] MEDS: metroNIDAZOLE-NS PMX 500 MG in SALINE 1 100ML.BAG IVPB SCH ×3 (03:54→20:05)
[2016-11-18 04:57] LABS: CH 30.2; CHCM 33.4; HDW 2.63; HGB 8.7 gm/dL (11.4-16.0); Immature Gran Flag Marked; MCH 30.3 pg (25.0-35.0); MCHC 33.3 g/dL (31.0-37.0); Mean Platelet Volume 9.8; RBC 2.86 m/uL (3.80-5.40); RDW 13.9 % (11.5-15.5); WBC 20.1 k/uL (3.8-10.6); WBC (Perox) 21.41
[2016-11-18 05:09] LABS: ALT 35 U/L (9-52); AST 25 U/L (14-36); Alkaline Phosphatase 182 U/L (38-126); Anion Gap 8 mmol/L; Blood Urea Nitrogen 9 mg/dL (7-17); Calcium 9.1 mg/dL (8.4-10.2); Carbon Dioxide 25 mmol/L (22-30); Chloride 101 mmol/L (98-107); Glucose 79 mg/dL (74-99); Non-African American GFR(MDRD) >60 (>60 ml/min/1.73 sqM); Sodium 134 mmol/L (137-145); Total Bilirubin 0.5 mg/dL (0.2-1.3); Total Protein 5.5 g/dL (6.3-8.2)
[2016-11-18 05:12] LABS: Rheumatoid Factor, Qnt <9 IU/mL (<12)
[2016-11-18 05:23] LABS: Add Differential Manual Differential
[2016-11-18 05:28] LABS: Band Neutrophils % 7.5 %; Manual Review Performed; Metamyelocytes % 4.5 %; Myelocytes % 13.5 %; Nucleated Red Blood Cells 0 /100 WBC (0-0); Total Cells Counted 200
[2016-11-18] MEDS: ALPRAZolam 0.25 MG TAB PO PRN ×4 (06:00→21:59)
[2016-11-18] MEDS: DILTIAZEM ORAL 60 MG TAB PO SCH ×3 (06:59→21:59)
[2016-11-18] MEDS: VITAMIN A 10,000 UNIT CAPSULE PO SCH (09:08)
[2016-11-18] MEDS: LEVOFLOXACIN 500MG-D5W PMX 500 MG in DEXTROSE/WATER 1 100ML.BAG IVPB SCH (09:08)
[2016-11-18] MEDS: FOLIC ACID 1 MG TAB PO SCH (09:08)
[2016-11-18] MEDS: PANTOPRAZOLE 40 MG/10 ML VIAL IV SCH (09:08)
[2016-11-18] MEDS: ASCORBIC ACID 500 MG TAB PO SCH (09:09)
--- NOTE | 2016-11-18 09:48 | P.PN ---
Subjective This is a pleasant 66-year-old lady patient of Dr. Dorantes. He has underlying history off CAD hyperlipidemia hypertension pancreatitis neuropathy chronic back pain chronic opioid-induced constipation, admitted to the hospital secondary to anemia and hematochezia,. Her previous hemoglobin was 13.7 on and was admitted with hemoglobin of 10.2 apparently patient has been passing siddiqui colored stools her abdominal pain is localized mainly in the periumbilical region, her last colonoscopy is was at age 14 and on since, patient never had any imaging studies of her abdomen in the past evaluate for the chronic abdominal pain and chronic constipation. She also has a WBC count of 23.9 on admission with a previous wbc of 9.5 on 10/19/2016 patient denies any fever no chills dysuria no hematemesis, her last MRCP 12/18/2015 with findings showing distal pancreatic body with atrophic pancreas and dilated pancreatic duct reflecting chronic pancreatitis with adjacent pseudocyst formation She was admitted to the ICU secondary to ongoing lower GI losses with a current hemoglobin of 8.7 not requiring any blood transfusion, consults were made with Dr. Navarrete secondary to thrombocytopenia leukocytosis and anemia which is new, patient was started on IV Levaquin and Flagyl sepsis is in the consideration, CAT scan of the abdomen and pelvis will be done to evaluate abdominal pain and leukocytosis. No plans from Dr. Abrams for immediate colonoscopy however she would be needing it to evaluate GI bleed once platelet count stabilizes 11/17: Patient has been seen by Dr. Abrams with plan for colonoscopy but platelet count is now 38. She is on clear liquids and we will plan for full liquids until colonoscopy can be scheduled possibly tomorrow. Patient would start a clear liquid diet in the morning tomorrow. Oncology consult has been requested for bicytopenia and leukocytosis. Dr. Granados is following regarding history of hyponatremia with recommendations for normal saline. Dr. Coleman is following for intensive care management. CAT scan of the abdomen and pelvis shows no acute process. Stable appearance of the biliary pancreatic ductal dilatation. Prajapati and diffuse atherosclerotic changes. Platelet count and hemoglobin remained low at 35 and 8.5 respectively. White count is at 22.3. Sodium today is 135. Blood sugars have been on the low side running in the 50s to 70s. Alkaline phosphatase 186. Blood culture showing no growth after 24 hours and urine culture is in progress. Patient has been afebrile and hemodynamically stable. She has not had a bowel movement in the past 24 hours. Plan to monitor in the intensive care unit overnight and transferred to [facility] for tomorrow. Vitamin B12 level will be obtained. Objective - Vital Signs Vital signs: Vital Signs Temp 98 F 11/17/16 08:00 Pulse 90 11/17/16 08:00 Resp 12 11/17/16 08:00 BP 127/57 11/17/16 08:00 Pulse Ox 97 11/17/16 08:00 Intake & Output 11/16/16 11/17/16 11/17/16 18:59 06:59 18:59 Intake Total 995 1000 280 Output Total 1050 1430 Balance -55 -430 280 Weight 52.4 kg 48 kg Intake: IV 75 Sodium Chloride 0.9% 1, 75 000 ml @ 75 mls/hr IV . [id number] [facility] Rx#:[id number] Intake, IV Titration 920 1000 180 Amount Levofloxacin 500Mg-D5w 100 Pmx 500 mg In Dextrose/ Water 1 100ml.bag @ 100 mls/hr IVPB Q24HR [facility] Rx# :[id number] Sodium Chloride 0.9% 1, 720 800 180 000 ml @ 80 mls/hr IV . [id number] [facility] Rx#:[id number] metroNIDAZOLE-NS PMX 500 100 200 mg In Saline 1 100ml.bag @ 100 mls/hr IVPB Q8H [facility] Rx#:[id number] Oral 100 Output: Urine 1050 1430 Other: Voiding Method Bedside Commode Bedside Commode Bedside Commode # Voids 1 1 - Exam General appearance: cooperative, no acute distress, thin - EENT Eyes: anicteric sclerae, EOMI, PERRLA, poor dentition, normal appearance ENT: hearing grossly normal, NA/AT, normal oropharynx - Neck Neck: normal ROM - Respiratory Respiratory: bilateral: CTA, negative: diminished, dullness, rales, rhonchi, wheezing - Cardiovascular Rhythm: regular Heart sounds: normal: S1, S2 Abnormal Heart Sounds: no systolic murmur, no diastolic murmur, no rub, no S3 Gallop, no S4 Gallop, no click, no other - Gastrointestinal General gastrointestinal: normal bowel sounds, soft - Integumentary Integumentary: normal, normal turgor - Neurologic Neurologic: CNII-XII intact - Musculoskeletal Musculoskeletal: gait normal, strength equal bilaterally - Psychiatric Psychiatric: A&O x's 3, appropriate affect, intact judgment & insight - Labs CBC & Chem 7: 11/18/16 04:15 11/18/16 04:15 Labs: Abnormal Lab Results - Last 24 Hours (Table) 11/16/16 11/16/16 11/16/16 Range/Units 10:33 18:16 18:16 WBC 23.1 H 21.8 H (3.8-10.6) k/uL RBC 2.91 L 3.03 L (3.80-5.40) m/uL Hgb 8.7 L 9.0 L (11.4-16.0) gm/dL Hct 26.6 L 27.4 L (34.0-46.0) % Plt Count 54 L 48 L* (150-450) k/uL Neutrophils # (Manual) (1.3-7.7) k/uL Monocytes # (Manual) (0-1.0) k/uL Sodium 133 L (137-145) mmol/L Glucose (74-99) mg/dL POC Glucose (mg/dL) (75-99) mg/dL Phosphorus (2.5-4.5) mg/dL Alkaline Phosphatase (38-126) U/L Total Protein (6.3-8.2) g/dL Albumin (3.5-5.0) g/dL 11/17/16 11/17/16 11/17/16 Range/Units 02:15 05:02 05:02 WBC 20.5 H 22.3 H (3.8-10.6) k/uL RBC 2.71 L 2.77 L (3.80-5.40) m/uL Hgb 8.3 L 8.5 L (11.4-16.0) gm/dL Hct 25.0 L 25.0 L (34.0-46.0) % Plt Count 38 L* 35 L* (150-450) k/uL Neutrophils # (Manual) 14.5 H (1.3-7.7) k/uL Monocytes # (Manual) 2.1 H (0-1.0) k/uL Sodium 135 L (137-145) mmol/L Glucose 57 L (74-99) mg/dL POC Glucose (mg/dL) (75-99) mg/dL Phosphorus 4.6 H (2.5-4.5) mg/dL Alkaline Phosphatase 186 H (38-126) U/L Total Protein 5.5 L (6.3-8.2) g/dL Albumin 3.0 L (3.5-5.0) g/dL 11/17/16 11/17/16 Range/Units 06:52 07:31 WBC (3.8-10.6) k/uL RBC (3.80-5.40) m/uL Hgb (11.4-16.0) gm/dL Hct (34.0-46.0) % Plt Count (150-450) k/uL Neutrophils # (Manual) (1.3-7.7) k/uL Monocytes # (Manual) (0-1.0) k/uL Sodium (137-145) mmol/L Glucose (74-99) mg/dL POC Glucose (mg/dL) 62 L 71 L (75-99) mg/dL Phosphorus (2.5-4.5) mg/dL Alkaline Phosphatase (38-126) U/L Total Protein (6.3-8.2) g/dL Albumin (3.5-5.0) g/dL Microbiology - Last 24 Hours (Table) 11/15/16 21:26 Blood Culture - Preliminary Blood No Growth after 24 hours 11/16/16 05:00 Urine Culture - Preliminary Urine,Voided Assessment and Plan Plan: 1. Acute lower GI bleed with acute blood loss anemia. Monitor in the ICU, patient would be to transfuse for hemoglobin of 7 and under, patient was seen consultation by Dr. Navarrete oncology secondary to bicytopenia with thrombocytopenia and leukocytosis, sepsis is in the differential, patient is followed closely by Dr. Abrams from general surgery with plan for colonoscopy however in view of the thrombocytopenia this is on hold 2. Abdominal pain. Periumbilical,. CAT scan as above. Patient is on IV Levaquin and Flagyl. 3. Bicytopenia with thrombocytopenia and anemia, significant leukocytosis which is new, patient started on IV antibiotics for clinical diverticulitis, evaluate for CAT scan as above. 4. Chronic history of pancreatic duct cysts, last MRCP was in December 2015 5. Chronic malabsorption state from poor oral intake, and ongoing pancreas problems, lipase to be checked, vitamin B12 would be obtained later await CAT scan 6. Weight loss of 17 pounds in 15 months and a BMI of 18 with severe protein calorie malnutrition. Nutritional supplementation would be ordered 7. GI prophylaxis on Protonix DVT prophylaxis on TRISTAN hose and SCDs, contraindication for chemical prophylaxis secondary to GI bleed and thrombocytopenia. Discharge plan: To be determined, most likely return home Impression and plan of care have been directed as dictated by the signing physician. Kelli Marion nurse practitioner acting as scribe for signing physician.
--- NOTE | 2016-11-18 11:19 | P.PN ---
Subjective This is a 66-year-old female patient is being seen, evaluated and examined in the ICU today. This patient have histories associated with severe anemia also history of renal calculi. She has an extensive history of smoking and nicotine use as well. The patient was found to not only be anemic bilateral thrombocytopenic as well. Patient was admitted to the emergency department with 3-4 day history of increased swelling of the lower extremity. Patient does take OxyContin 3-4 times a day for severe pain. Patient also states she stops taking her Lasix. Her legs were more swollen than usual. One day prior to coming into the hospital the patient stated she started having bleeding per rectum on multiple occasions throughout the day. Patient was admitted to the medical floor and eventually due to the drop in hemoglobin and intermittent bloody stools was transferred to the intensive care unit. Patient is being seen by Dr. Reyna and GI services, Dr. Granados for nephrology, and consults for hematology as well. Upon examination the patient's resting up in bed on room air. Patient denies any cough congestion shortness of breath at this time. Patient continues to have no further bleeding, no bowel movement however does pass flatus. Hemoglobin has been stable today at 8.7, patient's platelet count is 37. Patient has been hemodynamically stable and could be transferred out of the intensive care unit today. Objective - Vital Signs Vital signs: Vital Signs Temp 98.1 F 11/18/16 08:00 Pulse 88 11/18/16 11:00 Resp 16 11/18/16 08:00 BP 128/60 11/18/16 11:00 Pulse Ox 93 L 11/18/16 11:00 Intake & Output 11/17/16 11/18/16 11/18/16 18:59 06:59 18:59 Intake Total 1365 1040 460 Output Total 1000 1600 400 Balance 365 -560 60 Weight 48 kg 48 kg 48 kg Intake: IV 340 1000 240 0.9 normal saline at 80 240 800 240 flagyl 100 200 Intake, IV Titration 700 100 Amount Levofloxacin 500Mg-D5w 100 100 Pmx 500 mg In Dextrose/ Water 1 100ml.bag @ 100 mls/hr IVPB Q24HR [facility] Rx# :[id number] Sodium Chloride 0.9% 1, 500 000 ml @ 80 mls/hr IV . [id number] [facility] Rx#:[id number] metroNIDAZOLE-NS PMX 500 100 mg In Saline 1 100ml.bag @ 100 mls/hr IVPB Q8H [facility] Rx#:[id number] Oral 325 40 120 Output: Urine 1000 1600 400 Other: Voiding Method Bedside Commode Bedside Commode Bedside Commode # Voids 1 1 - Exam GENERAL EXAM: Alert, active, comfortable in no apparent distress. HEAD: Normocephalic. EYES: Normal reaction of pupils, equal size. NOSE: Clear with pink turbinates. THROAT: No erythema or exudates. NECK: No masses, no JVD. CHEST: No chest wall deformity. LUNGS: Equal air entry with no crackles, wheeze, rhonchi or dullness. CVS: S1 and S2 normal with no audible mumurs, regular rhythm. ABDOMEN: No hepatosplenomegaly, normal bowel sounds, no guarding or rigidity. EXTREMITIES: No edema noted, pedal pulses palpable. SKIN: No rashes CENTRAL NERVOUS SYSTEM: No focal deficits, tone is normal in all 4 extremities. - Labs CBC & Chem 7: 11/18/16 04:15 11/18/16 04:15 Labs: Abnormal Lab Results - Last 24 Hours (Table) 11/18/16 11/18/16 Range/Units 04:15 04:15 WBC 20.1 H (3.8-10.6) k/uL RBC 2.86 L (3.80-5.40) m/uL Hgb 8.7 L (11.4-16.0) gm/dL Hct 26.0 L (34.0-46.0) % Plt Count 37 L* (150-450) k/uL Neutrophils # (Manual) 13.0 H (1.3-7.7) k/uL Monocytes # (Manual) 2.2 H (0-1.0) k/uL Sodium 134 L (137-145) mmol/L Alkaline Phosphatase 182 H (38-126) U/L Total Protein 5.5 L (6.3-8.2) g/dL Albumin 3.1 L (3.5-5.0) g/dL Microbiology - Last 24 Hours (Table) 11/15/16 21:26 Blood Culture - Preliminary Blood No Growth after 48 hours 11/16/16 05:00 Urine Culture - Final Urine,Voided Assessment and Plan Plan: Assessment Gastrointestinal bleed with acute blood loss anemia. Thrombocytopenia Sepsis, likely intra-abdominal process Anemia, thrombocytopenia, leukocytosis Chronic pain syndrome History of pancreatic cyst Nicotine dependence Plan Patient could be downgraded from the intensive care unit today as long as other consults agree. Medications have been reviewed and will be continued as ordered. We will transfuse blood if hemoglobin drops less than 7 and/or if the patient becomes hemodynamically unstable. Continue to monitor For any further bleeding. Continue empiric antibiotics, IV rehydration. Continue with pulmonary hygiene, coughing and deep breathing exercises, and supportive care. Supplemental oxygen to maintain oxygen saturations of 92% or better. GI and DVT prophylaxis. Diet as ordered per Dr. Abrams. At this time due to the patient's platelet level a scope will be held and possibly done in the outpatient setting. Continue with consultations and recommendations. We will continue to monitor labs/results and adjust treatment as necessary. Further recommendations pending. I performed an examination of the patient and discussed their management with the nurse practitioner. I have reviewed the nurse practitioner's note and agree with the documented findings and plan of care.
[2016-11-18 12:29] LABS: % Iron Saturation 50.3 % (20-50)
[2016-11-18] MEDS: LACTULOSE 20 GM/30 ML CUP PO SCH ×3 (13:45→21:58)
--- NOTE | 2016-11-18 14:36 | P.PN ---
Subjective This is a pleasant 66-year-old lady patient of Dr. Dorantes. He has underlying history off CAD hyperlipidemia hypertension pancreatitis neuropathy chronic back pain chronic opioid-induced constipation, admitted to the hospital secondary to anemia and hematochezia,. Her previous hemoglobin was 13.7 on and was admitted with hemoglobin of 10.2 apparently patient has been passing siddiqui colored stools her abdominal pain is localized mainly in the periumbilical region, her last colonoscopy is was at age 14 and on since, patient never had any imaging studies of her abdomen in the past evaluate for the chronic abdominal pain and chronic constipation. She also has a WBC count of 23.9 on admission with a previous wbc of 9.5 on 10/19/2016 patient denies any fever no chills dysuria no hematemesis, her last MRCP 12/18/2015 with findings showing distal pancreatic body with atrophic pancreas and dilated pancreatic duct reflecting chronic pancreatitis with adjacent pseudocyst formation She was admitted to the ICU secondary to ongoing lower GI losses with a current hemoglobin of 8.7 not requiring any blood transfusion, consults were made with Dr. Navarrete secondary to thrombocytopenia leukocytosis and anemia which is new, patient was started on IV Levaquin and Flagyl sepsis is in the consideration, CAT scan of the abdomen and pelvis will be done to evaluate abdominal pain and leukocytosis. No plans from Dr. Abrams for immediate colonoscopy however she would be needing it to evaluate GI bleed once platelet count stabilizes 11/17: Patient has been seen by Dr. Abrams with plan for colonoscopy but platelet count is now 38. She is on clear liquids and we will plan for full liquids until colonoscopy can be scheduled possibly tomorrow. Patient would start a clear liquid diet in the morning tomorrow. Oncology consult has been requested for bicytopenia and leukocytosis. Dr. Granados is following regarding history of hyponatremia with recommendations for normal saline. Dr. Coleman is following for intensive care management. CAT scan of the abdomen and pelvis shows no acute process. Stable appearance of the biliary pancreatic ductal dilatation. Prajapati and diffuse atherosclerotic changes. Platelet count and hemoglobin remained low at 35 and 8.5 respectively. White count is at 22.3. Sodium today is 135. Blood sugars have been on the low side running in the 50s to 70s. Alkaline phosphatase 186. Blood culture showing no growth after 24 hours and urine culture is in progress. Patient has been afebrile and hemodynamically stable. She has not had a bowel movement in the past 24 hours. Plan to monitor in the intensive care unit overnight and transferred to [facility] for tomorrow. Vitamin B12 level will be obtained. 11/18: Patient remains in intensive care unit. Dr. Abrams will do upper and lower endoscopy once patient was stable or as an outpatient. Patient was seen by Dr. Navarrete. Thrombocytopenia thought to be due to drug-induced immune phenomenon most likely which will be self-limiting. Transfusion to keep platelet count between 35 and 40,000. Platelet count is at 37 today and hemoglobin 8.7. CA 199 was 6.6, vitamin B12 greater than 1000 and rheumatoid factor less than 9. She has been afebrile and hemodynamically stable. Patient will be transferred to [facility] floor today. We anticipate possible discharge by or Tuesday. Iron studies have been ordered. Diet advanced to soft. Objective - Vital Signs Vital signs: Vital Signs Temp 98.1 F 11/18/16 08:00 Pulse 82 11/18/16 09:00 Resp 16 11/18/16 08:00 BP 133/54 11/18/16 09:00 Pulse Ox 96 11/18/16 09:00 Intake & Output 11/17/16 11/18/16 11/18/16 18:59 06:59 18:59 Intake Total 1365 1040 380 Output Total 1000 1600 400 Balance 365 -560 -20 Weight 48 kg 48 kg 48 kg Intake: IV 340 1000 160 0.9 normal saline at 80 240 800 160 flagyl 100 200 Intake, IV Titration 700 100 Amount Levofloxacin 500Mg-D5w 100 100 Pmx 500 mg In Dextrose/ Water 1 100ml.bag @ 100 mls/hr IVPB Q24HR [facility] Rx# :[id number] Sodium Chloride 0.9% 1, 500 000 ml @ 80 mls/hr IV . [id number] [facility] Rx#:[id number] metroNIDAZOLE-NS PMX 500 100 mg In Saline 1 100ml.bag @ 100 mls/hr IVPB Q8H [facility] Rx#:[id number] Oral 325 40 120 Output: Urine 1000 1600 400 Other: Voiding Method Bedside Commode Bedside Commode Bedside Commode # Voids 1 1 - Exam General appearance: cooperative, no acute distress, thin - EENT Eyes: anicteric sclerae, EOMI, PERRLA, poor dentition, normal appearance ENT: hearing grossly normal, NA/AT, normal oropharynx - Neck Neck: normal ROM - Respiratory Respiratory: bilateral: CTA, negative: diminished, dullness, rales, rhonchi, wheezing - Cardiovascular Rhythm: regular Heart sounds: normal: S1, S2 Abnormal Heart Sounds: no systolic murmur, no diastolic murmur, no rub, no S3 Gallop, no S4 Gallop, no click, no other - Gastrointestinal General gastrointestinal: normal bowel sounds, soft - Integumentary Integumentary: normal, normal turgor - Neurologic Neurologic: CNII-XII intact - Musculoskeletal Musculoskeletal: gait normal, strength equal bilaterally - Psychiatric Psychiatric: A&O x's 3, appropriate affect, intact judgment & insight - Labs CBC & Chem 7: 11/18/16 04:15 11/18/16 04:15 Labs: Abnormal Lab Results - Last 24 Hours (Table) 11/18/16 11/18/16 Range/Units 04:15 04:15 WBC 20.1 H (3.8-10.6) k/uL RBC 2.86 L (3.80-5.40) m/uL Hgb 8.7 L (11.4-16.0) gm/dL Hct 26.0 L (34.0-46.0) % Plt Count 37 L* (150-450) k/uL Neutrophils # (Manual) 13.0 H (1.3-7.7) k/uL Monocytes # (Manual) 2.2 H (0-1.0) k/uL Sodium 134 L (137-145) mmol/L Alkaline Phosphatase 182 H (38-126) U/L Total Protein 5.5 L (6.3-8.2) g/dL Albumin 3.1 L (3.5-5.0) g/dL Microbiology - Last 24 Hours (Table) 11/15/16 21:26 Blood Culture - Preliminary Blood No Growth after 48 hours 11/16/16 05:00 Urine Culture - Final Urine,Voided Assessment and Plan Plan: 1. Acute lower GI bleed with acute blood loss anemia. Monitor in the ICU, patient would be to transfuse for hemoglobin of 7 and under, patient was seen consultation by Dr. Navarrete oncology secondary to bicytopenia with thrombocytopenia and leukocytosis, sepsis is in the differential, patient is followed closely by Dr. Abrams from general surgery with plan for endoscopies probably as an outpatient. Patient transferred to the [facility] floor. 2. Abdominal pain. Periumbilical,. CAT scan as above. Continue IV Levaquin and Flagyl for subclinical diverticulitis. 3. Bicytopenia with thrombocytopenia and anemia, significant leukocytosis which is new, patient started on IV antibiotics for clinical diverticulitis, evaluate for CAT scan as above. Secondary to drug-induced immune thrombocytopenia. 4. Chronic history of pancreatic duct cysts, last MRCP was in December 2015 5. Chronic malabsorption state from poor oral intake, and ongoing pancreas problems, lipase to be checked, vitamin B12 would be obtained later await CAT scan 6. Weight loss of 17 pounds in 15 months and a BMI of 18 with severe protein calorie malnutrition. Nutritional supplementation would be ordered 7. GI prophylaxis on Protonix DVT prophylaxis on TRISTAN hose and SCDs, contraindication for chemical prophylaxis secondary to GI bleed and thrombocytopenia. Discharge plan: To be determined, most likely return home. PT and OT added. Impression and plan of care have been directed as dictated by the signing physician. Kelli Marion nurse practitioner acting as scribe for signing physician.
[2016-11-18] MEDS: SODIUM CHLORIDE 0.9% 1,000 ML IV SCH (14:39)
--- NOTE | 2016-11-18 16:03 | PN ---
Patient is seen for followup for hyponatremia and chronic kidney disease. Her renal function has been stable. Sodium has been staying at 133 to 135 mEq/L. Patient was admitted with thrombocytopenia which is presumed to be possibly related to medications, possibly the Keflex. She has been evaluated by Hematology. Patient also had GI bleed at the time of admission, which seems to have stopped for now. On examination, blood pressure is 133/57, heart rate 92 per minute. She is afebrile. EXAMINATION OF THE HEART: S1 and S2. EXAMINATION OF LUNGS: Bilateral breath sounds are heard. ABDOMEN: Soft, nontender. Examination of lower extremities shows no significant edema. FINISHED YARN EXAMINER exam is grossly intact. Labs show sodium of 134, potassium 4.0, serum creatinine 0.8. Hemoglobin was 8.7 g/dL. Platelet count of 37,000. ASSESSMENT: 1. History of hyponatremia; serum sodium staying at about 130 to 135. Patient is maintained on saline. She has been started on clear liquid diet. I will discontinue the saline for now. We will repeat labs in a.m. 2. Thrombocytopenia, possibly related to antibiotics in the form of Keflex prior to admission. Patient has been evaluated by Hematology. 3. Gastrointestinal bleed, with no active bleeding noted at this time. PLAN: Hep-Lock IV fluids. Repeat labs in a.m.
[2016-11-18 16:14] LABS: ANA w/Reflex to Titer NEGATIVE (NEGATIVE)
--- NOTE | 2016-11-18 16:31 | P.PN ---
Subjective Principal diagnosis: GI bleed Patient has no new complaints. She was transferred out of the ICU today. No rectal bleeding. Labs are not significantly changed. Denies abdominal pain currently. She is tolerating her diet thus far. Objective - Vital Signs Vital signs: Vital Signs Temp 98.5 F 11/18/16 15:00 Pulse 97 11/18/16 15:00 Resp 16 11/18/16 15:00 BP 142/69 11/18/16 15:00 Pulse Ox 96 11/18/16 15:00 Intake & Output 11/17/16 11/18/16 11/18/16 18:59 06:59 18:59 Intake Total 1365 1040 800 Output Total 1000 1600 1800 Balance 365 -560 -1000 Weight 48 kg 48 kg 48 kg Intake: IV 340 1000 580 0.9 normal saline at 80 240 800 480 flagyl 100 200 100 Intake, IV Titration 700 100 Amount Levofloxacin 500Mg-D5w 100 100 Pmx 500 mg In Dextrose/ Water 1 100ml.bag @ 100 mls/hr IVPB Q24HR [facility] Rx# :[id number] Sodium Chloride 0.9% 1, 500 000 ml @ 80 mls/hr IV . [id number] [facility] Rx#:[id number] metroNIDAZOLE-NS PMX 500 100 mg In Saline 1 100ml.bag @ 100 mls/hr IVPB Q8H [facility] Rx#:[id number] Oral 325 40 120 Output: Urine 1000 1600 1800 Other: Voiding Method Bedside Commode Bedside Commode Bedside Commode # Voids 1 1 - Exam Abdomen: Soft, nondistended, minimal lower abdominal tenderness - Labs CBC & Chem 7: 11/18/16 04:15 11/18/16 04:15 Labs: Abnormal Lab Results - Last 24 Hours (Table) 11/18/16 11/18/16 11/18/16 Range/Units 04:15 04:15 04:15 WBC 20.1 H (3.8-10.6) k/uL RBC 2.86 L (3.80-5.40) m/uL Hgb 8.7 L (11.4-16.0) gm/dL Hct 26.0 L (34.0-46.0) % Plt Count 37 L* (150-450) k/uL Neutrophils # (Manual) 13.0 H (1.3-7.7) k/uL Monocytes # (Manual) 2.2 H (0-1.0) k/uL Sodium 134 L (137-145) mmol/L TIBC 171 L (265-497) ug/dL % Saturation 50.3 H (20-50) % Ferritin 639 H (11-264) ng/mL Alkaline Phosphatase 182 H (38-126) U/L Total Protein 5.5 L (6.3-8.2) g/dL Albumin 3.1 L (3.5-5.0) g/dL Microbiology - Last 24 Hours (Table) 11/15/16 21:26 Blood Culture - Preliminary Blood No Growth after 48 hours 11/16/16 05:00 Urine Culture - Final Urine,Voided Assessment and Plan (1) GI bleeding Narrative/Plan: Continue diet as tolerated. Anticipate outpatient colonoscopy and upper endoscopy once medically stable. We'll sign off this point. Please contact if needed. Status: Acute
[2016-11-19] MEDS: metroNIDAZOLE 500 MG TAB PO SCH ×3 (05:48→19:31)
[2016-11-19] MEDS: ALPRAZolam 0.25 MG TAB PO PRN ×3 (06:16→22:24)
[2016-11-19] MEDS: DILTIAZEM ORAL 60 MG TAB PO SCH ×3 (06:17→22:22)
[2016-11-19] MEDS: THIAMINE 100 MG TAB PO SCH (08:52)
[2016-11-19] MEDS: CHOLECALCIFEROL 1,000 UNIT TAB PO SCH (08:52)
[2016-11-19] MEDS: PANTOPRAZOLE 40 MG TABLET PO SCH (08:52)
[2016-11-19] MEDS: LACTULOSE 20 GM/30 ML CUP PO SCH (08:53)
[2016-11-19] MEDS: VITAMIN A 10,000 UNIT CAPSULE PO SCH (08:53)
[2016-11-19] MEDS: CYANOCOBALAMIN 500 MCG TAB PO SCH (08:53)
[2016-11-19] MEDS: FOLIC ACID 1 MG TAB PO SCH (08:53)
[2016-11-19] MEDS: LEVOFLOXACIN 500 MG TAB PO SCH (08:53)
[2016-11-19] MEDS: ASCORBIC ACID 500 MG TAB PO SCH (08:53)
[2016-11-19 08:55] LABS: CH 29.9; CHCM 33.5; HCT 25.3 % (34.0-46.0); HDW 2.69; HGB 8.7 gm/dL (11.4-16.0); Immature Gran Flag Marked; Large Platelets Flag Marked; MCH 30.7 pg (25.0-35.0); MCHC 34.2 g/dL (31.0-37.0); MCV 89.8 fL (80.0-100.0); Mean Platelet Volume 11.9; RBC 2.82 m/uL (3.80-5.40); RDW 14.2 % (11.5-15.5); WBC 24.8 k/uL (3.8-10.6); WBC (Perox) 26.09
[2016-11-19 09:31] LABS: Add Differential Manual Differential
[2016-11-19 09:35] LABS: Nucleated Red Blood Cells 0 /100 WBC (0-0); Plasma Cells % 0.5; Total Cells Counted 200
[2016-11-19 09:36] LABS: Large Platelets Present
[2016-11-19 12:00] LABS: Free Kappa Lt Chain Qnt, Serum 2.15 mg/dL (0.33 - 1.94); Kappa/Lambda Light Chain Ratio 0.75 (0.26 - 1.65)
[2016-11-19 12:06] LABS: Anion Gap 8 mmol/L; Blood Urea Nitrogen 8 mg/dL (7-17); Carbon Dioxide 25 mmol/L (22-30); Chloride 103 mmol/L (98-107); Glucose 86 mg/dL (74-99); Non-African American GFR(MDRD) >60 (>60 ml/min/1.73 sqM); Potassium 3.9 mmol/L (3.5-5.1); Sodium 136 mmol/L (137-145)
[2016-11-19] MEDS ORDERED: LACTULOSE 20 GM/30 ML CUP PO PRN (13:04)
--- NOTE | 2016-11-19 14:10 | P.PN ---
Subjective This is a pleasant 66-year-old lady patient of Dr. Dorantes. He has underlying history off CAD hyperlipidemia hypertension pancreatitis neuropathy chronic back pain chronic opioid-induced constipation, admitted to the hospital secondary to anemia and hematochezia,. Her previous hemoglobin was 13.7 on and was admitted with hemoglobin of 10.2 apparently patient has been passing siddiqui colored stools her abdominal pain is localized mainly in the periumbilical region, her last colonoscopy is was at age 14 and on since, patient never had any imaging studies of her abdomen in the past evaluate for the chronic abdominal pain and chronic constipation. She also has a WBC count of 23.9 on admission with a previous wbc of 9.5 on 10/19/2016 patient denies any fever no chills dysuria no hematemesis, her last MRCP 12/18/2015 with findings showing distal pancreatic body with atrophic pancreas and dilated pancreatic duct reflecting chronic pancreatitis with adjacent pseudocyst formation She was admitted to the ICU secondary to ongoing lower GI losses with a current hemoglobin of 8.7 not requiring any blood transfusion, consults were made with Dr. Navarrete secondary to thrombocytopenia leukocytosis and anemia which is new, patient was started on IV Levaquin and Flagyl sepsis is in the consideration, CAT scan of the abdomen and pelvis will be done to evaluate abdominal pain and leukocytosis. No plans from Dr. Abrams for immediate colonoscopy however she would be needing it to evaluate GI bleed once platelet count stabilizes 11/17: Patient has been seen by Dr. Abrams with plan for colonoscopy but platelet count is now 38. She is on clear liquids and we will plan for full liquids until colonoscopy can be scheduled possibly tomorrow. Patient would start a clear liquid diet in the morning tomorrow. Oncology consult has been requested for bicytopenia and leukocytosis. Dr. Granados is following regarding history of hyponatremia with recommendations for normal saline. Dr. Coleman is following for intensive care management. CAT scan of the abdomen and pelvis shows no acute process. Stable appearance of the biliary pancreatic ductal dilatation. Prajapati and diffuse atherosclerotic changes. Platelet count and hemoglobin remained low at 35 and 8.5 respectively. White count is at 22.3. Sodium today is 135. Blood sugars have been on the low side running in the 50s to 70s. Alkaline phosphatase 186. Blood culture showing no growth after 24 hours and urine culture is in progress. Patient has been afebrile and hemodynamically stable. She has not had a bowel movement in the past 24 hours. Plan to monitor in the intensive care unit overnight and transferred to [facility] for tomorrow. Vitamin B12 level will be obtained. 11/18: Patient remains in intensive care unit. Dr. Abrams will do upper and lower endoscopy once patient was stable or as an outpatient. Patient was seen by Dr. Navarrete. Thrombocytopenia thought to be due to drug-induced immune phenomenon most likely which will be self-limiting. Transfusion to keep platelet count between 35 and 40,000. Platelet count is at 37 today and hemoglobin 8.7. CA 199 was 6.6, vitamin B12 greater than 1000 and rheumatoid factor less than 9. She has been afebrile and hemodynamically stable. Patient will be transferred to [facility] floor today. We anticipate possible discharge by or Tuesday. Iron studies have been ordered. Diet advanced to soft. 11/19: Patient is now on the [facility] floor. She has not had any more bleeding. Wbc to 24.8, hemoglobin same at 8.7 and platelet count at 36. Patient has been continued on Levaquin with note improvement of leukocytosis. Consult placed with Dr. Saravia from infectious disease. Patient has urinary retention with bladder scan for 117 postoperative residual and Flomax started. Patient will need follow-up as an outpatient with Dr. Navarrete regarding anemia and thrombocytopenia Objective - Vital Signs Vital signs: Vital Signs Temp 98.1 F 11/19/16 07:00 Pulse 89 11/19/16 07:00 Resp 14 11/19/16 07:00 BP 135/63 11/19/16 07:00 Pulse Ox 95 11/19/16 07:00 Intake & Output 11/18/16 11/19/16 11/19/16 18:59 06:59 18:59 Intake Total 800 Output Total 1800 Balance -1000 Weight 48 kg Intake: IV 580 0.9 normal saline at 80 480 flagyl 100 Intake, IV Titration 100 Amount Levofloxacin 500Mg-D5w 100 Pmx 500 mg In Dextrose/ Water 1 100ml.bag @ 100 mls/hr IVPB Q24HR KRISTI Rx# :[id number] Oral 120 Output: Urine 1800 Other: Voiding Method Bedside Commode Bedside Commode # Voids 1 1 # Bowel Movements 2 - Exam General appearance: cooperative, no acute distress, thin - EENT Eyes: anicteric sclerae, EOMI, PERRLA, poor dentition, normal appearance ENT: hearing grossly normal, NA/AT, normal oropharynx - Neck Neck: normal ROM - Respiratory Respiratory: bilateral: CTA, negative: diminished, dullness, rales, rhonchi, wheezing - Cardiovascular Rhythm: regular Heart sounds: normal: S1, S2 Abnormal Heart Sounds: no systolic murmur, no diastolic murmur, no rub, no S3 Gallop, no S4 Gallop, no click, no other - Gastrointestinal General gastrointestinal: normal bowel sounds, soft - Integumentary Integumentary: normal, normal turgor - Neurologic Neurologic: CNII-XII intact - Musculoskeletal Musculoskeletal: gait normal, strength equal bilaterally - Psychiatric Psychiatric: A&O x's 3, appropriate affect, intact judgment & insight - Labs CBC & Chem 7: 11/19/16 07:04 11/19/16 07:04 Labs: Abnormal Lab Results - Last 24 Hours (Table) 11/18/16 11/18/16 11/18/16 Range/Units 04:15 04:15 04:15 WBC (3.8-10.6) k/uL RBC (3.80-5.40) m/uL Hgb (11.4-16.0) gm/dL Hct (34.0-46.0) % Plt Count (150-450) k/uL Neutrophils # (Manual) (1.3-7.7) k/uL Monocytes # (Manual) (0-1.0) k/uL Plasma Lactic Acid Narendra (0.7-2.0) mmol/L TIBC 171 L (265-497) ug/dL % Saturation 50.3 H (20-50) % Ferritin 639 H (11-264) ng/mL Total Protein (PEP) 5.5 L (6.2-8.2) g/dL RBC Folate 1,283 H (280 - 791) ng/mL 11/19/16 11/19/16 Range/Units 01:48 07:04 WBC 24.8 H (3.8-10.6) k/uL RBC 2.82 L (3.80-5.40) m/uL Hgb 8.7 L (11.4-16.0) gm/dL Hct 25.3 L (34.0-46.0) % Plt Count 36 L* (150-450) k/uL Neutrophils # (Manual) 17.7 H (1.3-7.7) k/uL Monocytes # (Manual) 2.2 H (0-1.0) k/uL Plasma Lactic Acid Narendra 0.6 L (0.7-2.0) mmol/L TIBC (265-497) ug/dL % Saturation (20-50) % Ferritin (11-264) ng/mL Total Protein (PEP) (6.2-8.2) g/dL RBC Folate (280 - 791) ng/mL Microbiology - Last 24 Hours (Table) 11/15/16 21:26 Blood Culture - Preliminary Blood No Growth after 72 hours Assessment and Plan Plan: 1. Acute lower GI bleed with acute blood loss anemia. Patient was seen consultation by Dr. Navarrete oncology secondary to bicytopenia with thrombocytopenia and leukocytosis, patient is followed closely by Dr. Abrams from general surgery with plan for endoscopies probably as an outpatient. Patient transferred to the [facility] floor. 2. Abdominal pain. Periumbilical,. CAT scan as above. Continue IV Levaquin and Flagyl for subclinical diverticulitis. 3. Bicytopenia with thrombocytopenia and anemia, significant leukocytosis which is new, patient started on IV antibiotics for clinical diverticulitis, evaluate for CAT scan as above. Secondary to drug-induced immune thrombocytopenia as evaluated by Dr. Navarrete. Due to consistent leukocytosis, consult with Dr. Saravia added. 4. Chronic history of pancreatic duct cysts, last MRCP was in December 2015 5. Chronic malabsorption state from poor oral intake, and ongoing pancreas problems, lipase to be checked, vitamin B12 would be obtained later await CAT scan 6. Weight loss of 17 pounds in 15 months and a BMI of 18 with severe protein calorie malnutrition. Nutritional supplementation would be ordered 7. GI prophylaxis on Protonix DVT prophylaxis on TRISTAN hose and SCDs, contraindication for chemical prophylaxis secondary to GI bleed and thrombocytopenia. Discharge plan: return home on Tuesday. PT recommended home with homecare Impression and plan of care have been directed as dictated by the signing physician. Kelli Marion nurse practitioner acting as scribe for signing physician.
[2016-11-19] MEDS: TAMSULOSIN 0.4 MG CAP.ER.24H PO SCH (14:31)
--- NOTE | 2016-11-19 14:57 | P.PN ---
Subjective This is a 66-year-old female patient is being seen, evaluated and examined in the ICU today. This patient have histories associated with severe anemia also history of renal calculi. She has an extensive history of smoking and nicotine use as well. The patient was found to not only be anemic bilateral thrombocytopenic as well. Patient was admitted to the emergency department with 3-4 day history of increased swelling of the lower extremity. Patient does take OxyContin 3-4 times a day for severe pain. Patient also states she stops taking her Lasix. Her legs were more swollen than usual. One day prior to coming into the hospital the patient stated she started having bleeding per rectum on multiple occasions throughout the day. Patient was admitted to the medical floor and eventually due to the drop in hemoglobin and intermittent bloody stools was transferred to the intensive care unit. Patient is being seen by Dr. Reyna and GI services, Dr. Granados for nephrology, and consults for hematology as well. Upon examination the patient's resting up in bed on room air. Patient denies any cough congestion shortness of breath at this time. Patient continues to have no further bleeding. Patient has had a normal bowel movement with no blood noted. Hemoglobin has remained stable today at 8.7, patient's platelet count is 36. W BC is 24.8 today. Objective - Vital Signs Vital signs: Vital Signs Temp 98.1 F 11/19/16 07:00 Pulse 89 11/19/16 07:00 Resp 14 11/19/16 07:00 BP 135/63 11/19/16 07:00 Pulse Ox 95 11/19/16 07:00 Intake & Output 11/18/16 11/19/16 11/19/16 18:59 06:59 18:59 Intake Total 800 Output Total 1800 Balance -1000 Weight 48 kg Intake: IV 580 0.9 normal saline at 80 480 flagyl 100 Intake, IV Titration 100 Amount Levofloxacin 500Mg-D5w 100 Pmx 500 mg In Dextrose/ Water 1 100ml.bag @ 100 mls/hr IVPB Q24HR KRISTI Rx# :[id number] Oral 120 Output: Urine 1800 Other: Voiding Method Bedside Commode Bedside Commode # Voids 1 1 # Bowel Movements 2 - Exam GENERAL EXAM: Alert, active, comfortable in no apparent distress. HEAD: Normocephalic. EYES: Normal reaction of pupils, equal size. NOSE: Clear with pink turbinates. THROAT: No erythema or exudates. NECK: No masses, no JVD. CHEST: No chest wall deformity. LUNGS: Equal air entry with no crackles, wheeze, rhonchi or dullness. CVS: S1 and S2 normal with no audible mumurs, regular rhythm. ABDOMEN: No hepatosplenomegaly, normal bowel sounds, no guarding or rigidity. EXTREMITIES: No edema noted, pedal pulses palpable. SKIN: No rashes CENTRAL NERVOUS SYSTEM: No focal deficits, tone is normal in all 4 extremities. - Labs CBC & Chem 7: 11/19/16 07:04 11/19/16 07:04 Labs: Abnormal Lab Results - Last 24 Hours (Table) 11/18/16 11/18/16 11/18/16 Range/Units 04:15 04:15 04:15 WBC (3.8-10.6) k/uL RBC (3.80-5.40) m/uL Hgb (11.4-16.0) gm/dL Hct (34.0-46.0) % Plt Count (150-450) k/uL Neutrophils # (Manual) (1.3-7.7) k/uL Monocytes # (Manual) (0-1.0) k/uL Plasma Lactic Acid Narendra (0.7-2.0) mmol/L TIBC 171 L (265-497) ug/dL % Saturation 50.3 H (20-50) % Ferritin 639 H (11-264) ng/mL Total Protein (PEP) 5.5 L (6.2-8.2) g/dL RBC Folate 1,283 H (280 - 791) ng/mL 11/19/16 11/19/16 Range/Units 01:48 07:04 WBC 24.8 H (3.8-10.6) k/uL RBC 2.82 L (3.80-5.40) m/uL Hgb 8.7 L (11.4-16.0) gm/dL Hct 25.3 L (34.0-46.0) % Plt Count 36 L* (150-450) k/uL Neutrophils # (Manual) 17.7 H (1.3-7.7) k/uL Monocytes # (Manual) 2.2 H (0-1.0) k/uL Plasma Lactic Acid Narendra 0.6 L (0.7-2.0) mmol/L TIBC (265-497) ug/dL % Saturation (20-50) % Ferritin (11-264) ng/mL Total Protein (PEP) (6.2-8.2) g/dL RBC Folate (280 - 791) ng/mL Microbiology - Last 24 Hours (Table) 11/15/16 21:26 Blood Culture - Preliminary Blood No Growth after 72 hours Assessment and Plan Plan: Assessment Gastrointestinal bleed with acute blood loss anemia. Thrombocytopenia Sepsis, likely intra-abdominal process Anemia, thrombocytopenia, leukocytosis Chronic pain syndrome History of pancreatic cyst Nicotine dependence Plan Patient could be cleared for discharge from pulmonary standpoint in the near future. Medications have been reviewed and will be continued as ordered. Patient has had no further bleeding. She is having normal bowel movements. Hemoglobin and platelet count have remained stable. Continue to monitor For any further bleeding. Continue empiric antibiotics, IV rehydration. Continue with pulmonary hygiene, coughing and deep breathing exercises, and supportive care. GI and DVT prophylaxis. At this time due to the patient's platelet level a scope will be held and possibly done in the outpatient setting. Continue with consultations and recommendations. Infectious disease new consult. We will continue to monitor labs/results and adjust treatment as necessary. Further recommendations pending. I performed an examination of the patient and discussed their management with the nurse practitioner. I have reviewed the nurse practitioner's note and agree with the documented findings and plan of care.
--- NOTE | 2016-11-19 17:32 | P.PN ---
Subjective Principal diagnosis: thrombocytopenia, leukocytosis Pt seen today in follow up, she denies fevers, nausea, appetite is fair, no SOB , cough, swelling or progressive pain to report Objective - Vital Signs Vital signs: Vital Signs Temp 99.5 F 11/19/16 14:52 Pulse 90 11/19/16 14:52 Resp 16 11/19/16 14:52 BP 151/55 11/19/16 14:52 Pulse Ox 95 11/19/16 14:52 Intake & Output 11/18/16 11/19/16 11/19/16 18:59 06:59 18:59 Intake Total 800 Output Total 1800 Balance -1000 Weight 48 kg 48 kg Intake: IV 580 0.9 normal saline at 80 480 flagyl 100 Intake, IV Titration 100 Amount Levofloxacin 500Mg-D5w 100 Pmx 500 mg In Dextrose/ Water 1 100ml.bag @ 100 mls/hr IVPB Q24HR KRISTI Rx# :[id number] Oral 120 Output: Urine 1800 Other: Voiding Method Bedside Commode Bedside Commode # Voids 1 1 1 # Bowel Movements 2 1 - Constitutional General appearance: Present: cooperative, no acute distress, thin - Neurologic Neurologic: Present: CNII-XII intact - Musculoskeletal Musculoskeletal: Present: generalized weakness, strength equal bilaterally - Psychiatric Psychiatric: Present: A&O x's 3, appropriate affect, intact judgment & insight - Labs CBC & Chem 7: 11/19/16 07:04 11/19/16 07:04 Labs: Abnormal Lab Results - Last 24 Hours (Table) 11/18/16 11/18/16 11/19/16 Range/Units 04:15 04:15 01:48 WBC (3.8-10.6) k/uL RBC (3.80-5.40) m/uL Hgb (11.4-16.0) gm/dL Hct (34.0-46.0) % Plt Count (150-450) k/uL Neutrophils # (Manual) (1.3-7.7) k/uL Monocytes # (Manual) (0-1.0) k/uL Sodium (137-145) mmol/L Plasma Lactic Acid Narendra 0.6 L (0.7-2.0) mmol/L Total Protein (PEP) 5.5 L (6.2-8.2) g/dL RBC Folate 1,283 H (280 - 791) ng/mL Free [place] LC, Quant 2.15 H (0.33 - 1.94) mg/dL Free Lambda LC, Quant 2.86 H (0.57 - 2.63) mg/dL 11/19/16 11/19/16 Range/Units 07:04 07:04 WBC 24.8 H (3.8-10.6) k/uL RBC 2.82 L (3.80-5.40) m/uL Hgb 8.7 L (11.4-16.0) gm/dL Hct 25.3 L (34.0-46.0) % Plt Count 36 L* (150-450) k/uL Neutrophils # (Manual) 17.7 H (1.3-7.7) k/uL Monocytes # (Manual) 2.2 H (0-1.0) k/uL Sodium 136 L (137-145) mmol/L Plasma Lactic Acid Narendra (0.7-2.0) mmol/L Total Protein (PEP) (6.2-8.2) g/dL RBC Folate (280 - 791) ng/mL Free [place] LC, Quant (0.33 - 1.94) mg/dL Free Lambda LC, Quant (0.57 - 2.63) mg/dL Microbiology - Last 24 Hours (Table) 11/15/16 21:26 Blood Culture - Preliminary Blood No Growth after 72 hours Assessment and Plan (1) Neutrophilic leukocytosis Status: Acute (2) Thrombocytopenia Status: Acute Plan: Work up in progress, so far no results available are leading to a cause. Labs stable at this time. Recommended to pt that she follow up with Dr. Navarrete in 4 weeks for CBC and complete work up results. She will check to see if he is a Physician on her medical plan and call office for appt.
--- NOTE | 2016-11-19 20:29 | CONS ---
DATE OF CONSULTATION: 11/19/2016 REASON FOR CONSULTATION: Persistent leukocytosis. HISTORY OF PRESENT ILLNESS: The patient is a 66-year-old female who was presented to the ER at [facility] 11/15/2016 with chief complaints of bleeding per rectum. The patient was noticed to have siddiqui covered stools the day of presentation to the hospital. The patient did mention that she recently has been treated with oral Keflex for a sinus infection. She finished her antibiotic on Tuesday or Tuesday and Tuesday she started having this problem with bleeding per rectum. She did have some lower crampy abdominal pain, nausea but no vomiting. No high-grade fever. Subsequently, the patient was evaluated by the ER physician. The patient did have CT of the abdomen and pelvis that was negative for any acute wine. Chest x-ray reported to be negative for any acute pulmonary process. Patient with no fever during this hospital admission, only 99.9 on admission. The patient did have a white count of 23.1 on admission that did come up to 20.5 as of 11/17, but is now up to 24.8. The patient did have a UA that was relatively negative. The urine culture negative. Blood cultures so far are negative. Patient treated with Levaquin and Flagyl. I was asked to see the patient today for further recommendation regarding her persistently elevated white count. In addition to that the patient also has a low hemoglobin and low platelet count for which the patient is being monitored by Hematology and Oncology Service and thinks it is more likely related to drug effect ( ). Patient did mention that her not having any further bleeding per rectum. Still has some creamy colored stools though. REVIEW OF SYSTEMS: CONSTITUTIONAL: Positive for weakness and no high-grade fever. EYES: No complaint. ENT: No complaint. RESPIRATORY: As per HPI. CARDIOVASCULAR: No complaint. GENITOURINARY: No complaint. GASTROINTESTINAL: As per HPI. MUSCULOSKELETAL: No complaint. INTEGUMENTARY: No complaint. PSYCHOLOGICAL: No complaint. ENDOCRINE: No complaint. NEUROLOGICAL: No complaint. PAST MEDICAL HISTORY: Significant for coronary artery disease, hypertension, hyperlipidemia, osteoarthritis, pancreatitis, degenerative joint disease, neuropathy, chronic back pain. PAST SURGICAL HISTORY: Adenoidectomy, appendectomy, tonsillectomy, bilateral knee surgery. SOCIAL HISTORY: Patient is currently an every day smoker. No drinking or drug use. FAMILY HISTORY: Mother with history of diabetes, hypertension, renal disease. Father with history of coronary artery disease. ALLERGIES TO MULTIPLE MEDICATIONS INCLUDING ERYTHROMYCIN, ( ), HYDROCHLOROTHIAZIDE, PREMARIN, TETRACYCLINE, PARASTATIN. Medications currently include the patient is on Xanax, vitamin E, vitamin D3, Cardizem, folic acid, Dilaudid, lactulose, levofloxacin, Flagyl, Narcan, Zofran, oxycodone, Flomax. On examination, blood pressure is 151/55 with a pulse of 90, temperature 99.5. She is 95% on room air. General description is an elderly female up in the chair in no distress. HEENT EXAMINATION: Shows pallor. No scleral icterus. Oral mucous membrane dry. NECK: Trach central. No thyromegaly. LUNGS: Unlabored breathing. Clear to auscultation anteriorly. No wheeze or crackles. HEART: S1, S2. Regular rate and rhythm and rhythm. ABDOMEN: Soft. No tenderness. EXTREMITIES: No edema feet. SKIN EXAMINATION: No rash or mass palpable. NEUROLOGICAL: The patient awake, alert, oriented x3. Mood and affect normal. LABS: Hemoglobin 8.7, white count 24.8, platelet count is 36, BUN of 8 with a creatinine 0.71. Urine not significantly positive. Chest x-ray and CT report as mentioned above. DIAGNOSTIC IMPRESSION AND PLAN: Patient with an unexplained leukocytosis in patient admitted to hospital with bleeding per rectum in a patient who does give some history of diarrhea and recent exposure to antibiotics in the form of Keflex for sinus infection. Underlying ( ) needs to be ruled out though the CT abdomen and pelvis did not show any acute abnormality that would make it less likely, though not entirely exclude. Patient with no other clinical focus of infection. Urine is negative. Chest x-ray report is negative. No evidence of any cellulitis. In view of the underlying anemia as well as thrombocytopenia an underlying hematological malignancy needs to be ruled out as well. PLAN: 1. Will check a stool for C. difficile with PCR and stool culture. 2. Continue antibiotic Levaquin and Flagyl at this point. 3. Will follow up on the clinical condition and cultures to further adjust the medication if needed. Thank you for this consultation. Will follow this patient along with you.
[2016-11-20] MEDS: DILTIAZEM ORAL 60 MG TAB PO SCH ×3 (05:51→21:45)
[2016-11-20] MEDS: metroNIDAZOLE 500 MG TAB PO SCH ×3 (05:51→20:07)
[2016-11-20] MEDS: ALPRAZolam 0.25 MG TAB PO PRN ×3 (06:34→23:09)
[2016-11-20 07:41] LABS: CH 29.7; CHCM 32.3; HCT 25.8 % (34.0-46.0); HDW 2.62; HGB 8.4 gm/dL (11.4-16.0); Large Platelets Flag Moderate; MCH 30.1 pg (25.0-35.0); MCHC 32.4 g/dL (31.0-37.0); MCV 92.8 fL (80.0-100.0); Mean Platelet Volume 11.9; RBC 2.79 m/uL (3.80-5.40); RDW 14.4 % (11.5-15.5)
[2016-11-20] MEDS: TAMSULOSIN 0.4 MG CAP.ER.24H PO SCH (07:58)
[2016-11-20] MEDS: LEVOFLOXACIN 500 MG TAB PO SCH (07:58)
[2016-11-20] MEDS: PANTOPRAZOLE 40 MG TABLET PO SCH (07:58)
[2016-11-20] MEDS: ASCORBIC ACID 500 MG TAB PO SCH (07:58)
[2016-11-20] MEDS: VITAMIN A 10,000 UNIT CAPSULE PO SCH (07:58)
[2016-11-20] MEDS: FOLIC ACID 1 MG TAB PO SCH (07:58)
[2016-11-20 08:02] LABS: WBC 27.8 k/uL (3.8-10.6)
[2016-11-20 08:13] LABS: ALT 20 U/L (9-52); AST 21 U/L (14-36); Alkaline Phosphatase 160 U/L (38-126); Anion Gap 8 mmol/L; Blood Urea Nitrogen 9 mg/dL (7-17); Calcium 9.2 mg/dL (8.4-10.2); Carbon Dioxide 25 mmol/L (22-30); Chloride 103 mmol/L (98-107); Glucose 91 mg/dL (74-99); Non-African American GFR(MDRD) >60 (>60 ml/min/1.73 sqM); Potassium 3.9 mmol/L (3.5-5.1); Sodium 136 mmol/L (137-145); Total Bilirubin 0.7 mg/dL (0.2-1.3); Total Protein 5.6 g/dL (6.3-8.2)
--- NOTE | 2016-11-20 15:16 | PN ---
INTERVAL HISTORY: The patient continues to be hemodynamically stable. No major events reported by nursing staff. Patient is currently alert and oriented x3. Denying chest pain, shortness breath, nausea, vomiting, abdominal pain, dizziness, lightheadedness, or blurry vision. The patient said that there is no bloody bowel movement or blood coming out of rectum since yesterday. Vital signs continue to be stable. Hemoglobin is stable this morning. PHYSICAL EXAMINATION: VITAL SIGNS: 97.9, highest temperature in last 24 hours was yesterday night 99.9, otherwise afebrile. Heart rate 85, respiratory rate 16, blood pressure 127/52, saturation is 93% on room air. LUNGS: Clear to auscultation bilaterally. HEART: Normal S1, S2. ABDOMEN: Soft, no tenderness, positive bowel sounds in all 4 quadrants. LOWER EXTREMITY: No edema. PSYCH: Alert, awake and oriented. NEURO: No focal deficit. IMAGING AND LABS: White blood count showed increase in the white blood count to 27 from 24 yesterday. Platelets dropped to 32 from 35 yesterday. Hemoglobin is stable at 8.4. Sodium stable at 136. Normal chemistry otherwise. Total albumin is 3.0. Stool culture and blood cultures are negative. ASSESSMENT AND PLAN: 1. Lower gastrointestinal bleed. The patient was evaluated by Dr. Abrams who recommended EGD and colonoscopy but this needs to be done outpatient and after stability of her platelets where her platelets continue to drop 32. 2. Thrombocytopenia with leukocytosis. I had a long discussion with Dr. Navarrete over the phone where he felt that this is a response to recent antibiotics used and likely will resolve on its own. He will consider transfusion of platelets only if it drops further, but currently will continue conservative management. Consider discharging patient home once the number is improving. Regarding the leukocytosis he felt that this could be a reaction to the lower gastrointestinal bleed and he would like to watch carefully. No diarrhea reported in the last 24 hours and stool study for Clostridium difficile is pending, but need to be canceled given the patient's no bowel movement for the last 24 hours. 3. Chronic history of pancreatic duct cyst and close followup was done with Dr. Bourgeois at [facility] with EUS yearly and the patient is due in December 2016 to follow up outpatient closely. 4. Ongoing weight loss and patient said that she lost greater than 15 pounds in the last one year. Patient to follow up closely with Dr. Navarrete and with her GI specialist at [place]. 5. Chronic pain syndrome. Will continue current pain regimen. 6. Discharge planning as mentioned above.
--- NOTE | 2016-11-20 17:12 | PN ---
She was seen on 11/20/2016. She does not complain of any respiratory distress. She feels fairly well. On physical examination, her blood pressure 127/52, respiratory rate 16, pulse rate of 85, temperature 97.9, O2 sat on room air is 93%. HEENT is unremarkable. Chest reveals decreased breath sounds. Cardiovascular system reveals an S1, S2. Abdomen is soft. There is no edema. Platelet count of 32,000. White count 27.8. Hemoglobin of 8.4. Sodium 136, potassium 3.9, chloride 103, bicarb 25. IMPRESSION AT THIS TIME: 1. Neutrophilic leukocytosis. 2. Thrombocytopenia with anemia, etiology of which is unclear. At this point in time, would continue supportive care. Increase her activity level. Continue Levaquin. ID is following the patient. She will require bone marrow evaluation which can be done as an outpatient as well. She was counseled regarding her condition and this approach and has a fair understanding of her condition.
[2016-11-21] MEDS: metroNIDAZOLE 500 MG TAB PO SCH ×3 (03:37→20:29)
[2016-11-21] MEDS: DILTIAZEM ORAL 60 MG TAB PO SCH ×3 (06:23→22:27)
[2016-11-21] MEDS: ALPRAZolam 0.25 MG TAB PO PRN ×2 (07:57→16:05)
[2016-11-21] MEDS: PANTOPRAZOLE 40 MG TABLET PO SCH (07:59)
[2016-11-21] MEDS: TAMSULOSIN 0.4 MG CAP.ER.24H PO SCH (07:59)
[2016-11-21] MEDS: VITAMIN A 10,000 UNIT CAPSULE PO SCH (07:59)
[2016-11-21] MEDS: FOLIC ACID 1 MG TAB PO SCH (07:59)
[2016-11-21] MEDS: ASCORBIC ACID 500 MG TAB PO SCH (07:59)
[2016-11-21] MEDS: CHOLECALCIFEROL 1,000 UNIT TAB PO SCH (08:00)
[2016-11-21] MEDS: LEVOFLOXACIN 500 MG TAB PO SCH (08:00)
[2016-11-21 09:01] LABS: CH 29.8; CHCM 32.6; HCT 28.9 % (34.0-46.0); HDW 2.66; HGB 9.4 gm/dL (11.4-16.0); Immature Gran Flag Marked; Large Platelets Flag Marked; MCHC 32.6 g/dL (31.0-37.0); MCV 92.1 fL (80.0-100.0); Mean Platelet Volume 12.6; RBC 3.13 m/uL (3.80-5.40); RDW 14.4 % (11.5-15.5); WBC (Perox) 34.19
[2016-11-21 09:10] LABS: WBC 31.5 k/uL (3.8-10.6)
[2016-11-21 09:13] LABS: ALT 26 U/L (9-52); AST 22 U/L (14-36); Alkaline Phosphatase 171 U/L (38-126); Anion Gap 10 mmol/L; Blood Urea Nitrogen 10 mg/dL (7-17); Calcium 9.6 mg/dL (8.4-10.2); Carbon Dioxide 24 mmol/L (22-30); Chloride 103 mmol/L (98-107); Glucose 139 mg/dL (74-99); Non-African American GFR(MDRD) >60 (>60 ml/min/1.73 sqM); Potassium 3.8 mmol/L (3.5-5.1); Sodium 137 mmol/L (137-145); Total Bilirubin 0.7 mg/dL (0.2-1.3)
[2016-11-21 10:20] LABS: Add Differential Manual Differential
[2016-11-21 10:24] LABS: Band Neutrophils % 13.5 %; Manual Review Performed; Metamyelocytes % 6.5 %; Nucleated Red Blood Cells 0 /100 WBC (0-0); Promyelocytes % 1.5 %; Total Cells Counted 200
[2016-11-21 10:26] LABS: Toxic Granulation Present
[2016-11-21] MEDS ORDERED: MD COMMUNICATION TO PHARMACY 1 EACH MISC PO PRN (13:23)
[2016-11-21] MEDS ORDERED: [UNRECOGNIZED DRUG - OTHER] TOPICAL PRN (13:28)
--- NOTE | 2016-11-21 15:27 | PN ---
Patient is seen for follow-up for hyponatremia. She was mainly admitted for thrombocytopenia on this admission, which was quite remarkable following initiation of Keflex as outpatient. Patient also took MiraLax. Not sure if it was related to these medications. Patient is being followed by director orange. Her previous platelet count was 236 on 10/19/2016. She was mainly admitted with GI bleed and there is no plan for colonoscopy at this time given her thrombocytopenia. Her serum sodium has remained fairly stable during her admission. On examination, blood pressure is 120/56, heart rate 98 per minute. Patient is euvolemic, No significant edema noted in her lower extremities. ABDOMEN: Soft, nontender. Labs show a white count of 31.5. Hemoglobin 9.4, platelet count is 41,000. Serum sodium was 137. ASSESSMENT: 1. History of hyponatremia as outpatient, currently stable. Patient is not on any IV fluids or diuretics. 2. Gastrointestinal bleed, currently stable with no further active bleeding noted. 3. Thrombocytopenia, being followed by hematology. Platelet count is slightly improved. PLAN: We will follow as outpatient. No changes from nephrology standpoint.
--- NOTE | 2016-11-21 18:39 | PN ---
INTERVAL HISTORY: Patient continued to be hemodynamically stable, still complaining of some back pain and muscle aches. Patient white blood count this morning showed increase to 31.5. Platelet still around 41. Repeated stat ordered confirmed the stability of the numbers. The patient is denying chest pain, shortness breath, nausea, vomiting, abdominal pain, dizziness, lightheadedness, or blurry vision. Patient denied any fever or chills and her vital signs continue to be stable over the last 24 hours. PHYSICAL EXAMINATION: VITAL SIGNS: Patient has been afebrile since admission. Blood pressure with normal limits and saturation 97% on room air. LUNGS: Clear to auscultation bilaterally. HEART: Normal S1, S2. ABDOMEN: Soft, no tenderness, positive bowel sounds in all 4 quadrants. LOWER EXTREMITIES: Stable from prior examination. SKIN: No new rash. PSYCH: Alert, and oriented x3. Imaging and labs: White blood count is a 31.5, up from 127 yesterday, hemoglobin stable at 9.4, platelets slightly improved since yesterday 241, from 32, chemistry showed normal findings and the albumin is slightly low at 3.4, alk phos slightly elevated at 171, and blood cultures are still pending, negative. ASSESSMENT AND PLAN: 1. Leukocytosis with still unclear etiology. I discussed the case with hematology/oncology felt that this likely reactive. Patient continued to be afebrile, asymptomatic and I would like to keep the patient 24 hours in the hospital if she continues to be afebrile and asymptomatic without obvious signs of infection, I might pick consider discharging patient home with white blood count to be followed by oncology outpatient. We will follow up with her recommendation. 2. Thrombocytopenia slight improvement since yesterday. Again hematology evaluated the patient and we will consider discharging patient if there is continued improvement in the morning. 3. Lower gastrointestinal bleed, resolved. Hemoglobin is stable. Patient will benefit from EGD and colonoscopy as an outpatient by Dr. Wood agreeable to the current treatment plan. 4. Chronic history of pancreatic duct cyst and close follow-up was done at [facility] with recent EUS which has been done yearly for a long time, patient follow up outpatient with her primary GI specialist at [facility]. 5. Ongoing weight loss, suspicion for malignancy. Patient will require appropriate age screening outpatient as mentioned above and the patient will follow up outpatient. 6. Chronic back pain. Patient required her ointment to be labeled and given here during the hospital stay and discussed with the nursing staff. 7. Hypertension, seems to be under fair control. 8. Gastroesophageal reflux disease. We will continue Protonix. 9. Anxiety. The patient will be continued on Xanax as needed.
[2016-11-21] MEDS ORDERED: FLUCONAZOLE 100 MG TAB PO SCH (19:30)
--- NOTE | 2016-11-21 20:39 | PN ---
DATE OF SERVICE: 11/21/2016 Patient has been hemodynamically stable. She does not have any respiratory distress. Blood pressure 120/56, respiratory rate 20, pulse rate of 98, temperature 97.9, O2 sat on room air is 97%. HEENT is an unremarkable. Chest reveals occasional rhonchi. Cardiovascular S1 and S2. Abdomen is soft. There is no edema. Microbiological cultures were negative. White count is 31.5, hemoglobin 9.4, platelet count of 41,000. IMPRESSION: 1. Acute gastrointestinal bleed. 2. Thrombocytopenia with leukocytosis. 3. Chronic pain. Increase her activity and agree with possible discharge planning from a pulmonary standpoint.
[2016-11-21 22:16] VITALS: RESP 18
[2016-11-21] MEDS: NYSTATIN 100,000 UNIT/ML SUSP 500,000 UNIT/5 ML CUP PO SCH (22:27)
[2016-11-22] MEDS: ALPRAZolam 0.25 MG TAB PO PRN ×2 (00:58→09:16)
[2016-11-22] MEDS: metroNIDAZOLE 500 MG TAB PO SCH ×2 (03:21→13:06)
[2016-11-22] MEDS ORDERED: DILTIAZEM ORAL 30 MG TAB PO ONE (06:00)
[2016-11-22 06:46] LABS: Methylmalonic Acid 0.24 umol/L (<0.40)
[2016-11-22 07:43] VITALS: BP 90/51; PULSE 103; TEMP 96.9
[2016-11-22] MEDS: NYSTATIN 100,000 UNIT/ML SUSP 500,000 UNIT/5 ML CUP PO SCH ×2 (07:59→13:06)
[2016-11-22] MEDS: VITAMIN A 10,000 UNIT CAPSULE PO SCH (07:59)
[2016-11-22] MEDS: PANTOPRAZOLE 40 MG TABLET PO SCH (07:59)
[2016-11-22] MEDS: ASCORBIC ACID 500 MG TAB PO SCH (07:59)
[2016-11-22] MEDS: CYANOCOBALAMIN 500 MCG TAB PO SCH (07:59)
[2016-11-22] MEDS: THIAMINE 100 MG TAB PO SCH (07:59)
[2016-11-22] MEDS: TAMSULOSIN 0.4 MG CAP.ER.24H PO SCH (08:00)
[2016-11-22] MEDS: FOLIC ACID 1 MG TAB PO SCH (08:00)
[2016-11-22 08:18] LABS: Anion Gap 13 mmol/L; Blood Urea Nitrogen 14 mg/dL (7-17); Calcium 9.5 mg/dL (8.4-10.2); Carbon Dioxide 22 mmol/L (22-30); Chloride 101 mmol/L (98-107); Glucose 97 mg/dL (74-99); Non-African American GFR(MDRD) >60 (>60 ml/min/1.73 sqM); Potassium 3.6 mmol/L (3.5-5.1); Sodium 136 mmol/L (137-145)
[2016-11-22 08:21] LABS: CH 29.7; CHCM 32.9; HCT 27.2 % (34.0-46.0); HDW 2.87; Immature Gran Flag Marked; Large Platelets Flag Marked; MCH 30.2 pg (25.0-35.0); MCHC 33.2 g/dL (31.0-37.0); Mean Platelet Volume 11.8; RBC 2.99 m/uL (3.80-5.40); RDW 14.3 % (11.5-15.5); WBC (Perox) 31.29
[2016-11-22 08:23] LABS: WBC 29.5 k/uL (3.8-10.6)
--- NOTE | 2016-11-22 08:23 | PN ---
DATE OF SERVICE: 11/21/2016 Reason for followup is leukocytosis. INTERVAL HISTORY: The patient is afebrile. She is breathing comfortably. Denies any significant chest pain. Occasional cough. No significant abdominal pain. Did admit the diarrhea has improved. Did have some semi-formed stool. On examination, blood pressure 118/58 with a pulse of 91, temperature 96.2. She is 95% on room air. General description is an elderly female lying in bed in no distress. RESPIRATORY SYSTEM: Unlabored breathing. Clear to auscultation anteriorly. HEART: S1, S2, Regular rate and rhythm. ABDOMEN: Soft, no tenderness. EXTREMITIES: No edema of feet. LABS: Hemoglobin is 9.4, white count is 31.5 with a BUN of 10 and creatinine 0.71. Stool for C. difficile was requested, unfortunately ( ) PCR. Urine cultures were negative. DIAGNOSTIC IMPRESSION AND PLAN: Patient with leukocytosis ( ) admitted to the hospital with acute gastrointestinal bleed. The patient did give history of antibiotic exposure with ( ) Clostridium difficile. Stool for Clostridium difficile requested, unfortunately ( ) PCR with overall improvement in the diarrhea pattern. Will continue the patient on Flagyl. Discontinue the Levaquin. Patient also has slight component of oral thrush for which Nystatin swish and swallow ( ) will be order and repeating a CBC tomorrow. Continue supportive care.
[2016-11-22 09:42] LABS: Add Differential Manual Differential
[2016-11-22 09:47] LABS: Manual Review Performed; Metamyelocytes % 7.5 %; Myelocytes % 6.5 %; Nucleated Red Blood Cells 0 /100 WBC (0-0); Total Cells Counted 200
--- NOTE | 2016-11-22 10:12 | P.PN ---
Subjective This is a 66-year-old female patient is being seen, evaluated and examined in the ICU today. This patient have histories associated with severe anemia also history of renal calculi. She has an extensive history of smoking and nicotine use as well. The patient was found to not only be anemic bilateral thrombocytopenic as well. Patient was admitted to the emergency department with 3-4 day history of increased swelling of the lower extremity. Patient does take OxyContin 3-4 times a day for severe pain. Patient also states she stops taking her Lasix. Her legs were more swollen than usual. One day prior to coming into the hospital the patient stated she started having bleeding per rectum on multiple occasions throughout the day. Patient was admitted to the medical floor and eventually due to the drop in hemoglobin and intermittent bloody stools was transferred to the intensive care unit. Patient is being seen by Dr. Reyna and GI services, Dr. Granados for nephrology, and consults for hematology as well. Upon examination the patient's resting up in bed on room air. Patient denies any cough congestion shortness of breath at this time. Patient continues to have no further bleeding. Patient has had a bowel movement with no blood noted. Hemoglobin has remained stable today at 9.0, patient's platelet count is 36. WBC is 29.5 today. Patient has continued to remain hemodynamically stable. Patient should continue to increase her activity. Objective - Vital Signs Vital signs: Vital Signs Temp 96.9 F L 11/22/16 07:00 Pulse 103 H 11/22/16 07:00 Resp 18 11/22/16 07:00 BP 90/51 11/22/16 07:00 Pulse Ox 96 11/22/16 07:00 Intake & Output 11/21/16 11/22/16 11/22/16 18:59 06:59 18:59 Output Total 551 Balance -551 Output: Urine 551 Other: Voiding Method Bedside Commode # Voids 3 3 # Bowel Movements 1 - Exam GENERAL EXAM: Alert, active, comfortable in no apparent distress. HEAD: Normocephalic. EYES: Normal reaction of pupils, equal size. NOSE: Clear with pink turbinates. THROAT: No erythema or exudates. NECK: No masses, no JVD. CHEST: No chest wall deformity. LUNGS: Equal air entry with no crackles, wheeze, rhonchi or dullness. CVS: S1 and S2 normal with no audible mumurs, regular rhythm. ABDOMEN: No hepatosplenomegaly, normal bowel sounds, no guarding or rigidity. EXTREMITIES: No edema noted, pedal pulses palpable. SKIN: No rashes CENTRAL NERVOUS SYSTEM: No focal deficits, tone is normal in all 4 extremities. - Labs CBC & Chem 7: 11/22/16 07:44 11/22/16 07:44 Labs: Abnormal Lab Results - Last 24 Hours (Table) 11/21/16 11/22/16 11/22/16 Range/Units 08:26 07:44 07:44 WBC 31.5 H* 29.5 H* (3.8-10.6) k/uL RBC 3.13 L 2.99 L (3.80-5.40) m/uL Hgb 9.4 L 9.0 L (11.4-16.0) gm/dL Hct 28.9 L 27.2 L (34.0-46.0) % Plt Count 41 L* 36 L* (150-450) k/uL Neutrophils # (Manual) 19.2 H 17.4 H (1.3-7.7) k/uL Monocytes # (Manual) 2.0 H 4.6 H (0-1.0) k/uL Sodium 136 L (137-145) mmol/L Microbiology - Last 24 Hours (Table) 11/19/16 18:00 Stool Culture - Preliminary Stool Martine albicans 11/15/16 21:26 Blood Culture - Final Blood No Growth after 144 hours Assessment and Plan Plan: Assessment Gastrointestinal bleed with acute blood loss anemia. Thrombocytopenia Sepsis, likely intra-abdominal process Anemia, thrombocytopenia, leukocytosis Chronic pain syndrome History of pancreatic cyst Nicotine dependence Plan Patient could be cleared for discharge from pulmonary standpoint. Medications have been reviewed and will be continued as ordered. Patient has had no further bleeding. She is having normal bowel movements. Hemoglobin has remained stable. Continue to monitor For any further bleeding. Continue empiric antibiotics. Continue with pulmonary hygiene, coughing and deep breathing exercises, and supportive care. GI and DVT prophylaxis. Continue with consultations and recommendations. We will follow-up with this patient in the outpatient setting. Please don't hesitate to contact us if there is any change in the patient's condition or a decline in respiratory status. I performed an examination of the patient and discussed their management with the nurse practitioner. I have reviewed the nurse practitioner's note and agree with the documented findings and plan of care.
--- NOTE | 2016-11-22 10:29 | P.PN ---
Subjective Patient is seen in follow-up for hyponatremia. Sodium level is stable at 136. Patient has history of urinary retention and is maintained on Flomax. Admits to good urine output. Oral intake is good. Denies any active bleeding. No melena or hematochezia. Vital signs are stable. General: The patient appeared well nourished and normally developed. HEENT: Head exam is unremarkable. Neck is without jugular venous distension. LUNGS: Lungs are clear to auscultation and percussion. Breath sounds decreased. HEART: Rate and Rhythm are regular. First and second heart sounds normal. No murmurs, rubs or gallops. ABDOMEN: Abdominal exam reveals normal bowel sounds. Non-tender and non- distended. No evidence of peritonitis. EXTREMITITES: No clubbing, cyanosis, or edema. Objective - Vital Signs Vital signs: Vital Signs Temp 96.9 F L 11/22/16 07:00 Pulse 103 H 11/22/16 07:00 Resp 18 11/22/16 07:00 BP 90/51 11/22/16 07:00 Pulse Ox 96 11/22/16 07:00 Intake & Output 11/21/16 11/22/16 11/22/16 18:59 06:59 18:59 Output Total 551 Balance -551 Output: Urine 551 Other: Voiding Method Bedside Commode # Voids 3 3 # Bowel Movements 1 - Labs CBC & Chem 7: 11/22/16 07:44 11/22/16 07:44 Labs: Abnormal Lab Results - Last 24 Hours (Table) 11/21/16 11/22/16 11/22/16 Range/Units 08:26 07:44 07:44 WBC 29.5 H* (3.8-10.6) k/uL RBC 2.99 L (3.80-5.40) m/uL Hgb 9.0 L (11.4-16.0) gm/dL Hct 27.2 L (34.0-46.0) % Plt Count 41 L* 36 L* (150-450) k/uL Neutrophils # (Manual) 19.2 H 17.4 H (1.3-7.7) k/uL Monocytes # (Manual) 2.0 H 4.6 H (0-1.0) k/uL Sodium 136 L (137-145) mmol/L Microbiology - Last 24 Hours (Table) 11/19/16 18:00 Stool Culture - Preliminary Stool Martine albicans 11/15/16 21:26 Blood Culture - Final Blood No Growth after 144 hours Assessment and Plan Plan: Assessment: #1. Euvolemic hyponatremia. Sodium level stable at 136 today. #2. History of urinary retention maintained on Flomax. #3. Thrombocytopenia. Oncology following. #4. GI bleed. No active bleeding at this time. Plan: Encourage oral intake as tolerated. Maintain Flomax. No changes from nephrology standpoint.
[2016-11-22] MEDS ORDERED: DILTIAZEM ORAL 60 MG TAB PO SCH (14:00)
--- NOTE | 2016-11-22 16:13 | P.DS ---
Providers Date of admission: 11/15/16 17:31 Expected date of discharge: 11/22/16 Attending physician: Shaneka Burrell Consults: 11/15/16 17:31 Consult Physician Stat Consulting Provider: Tony Abrams Consult Reason/Comments: GI bleed Do you want consulting provider notified?: Yes 11/15/16 21:39 Consult Physician Stat Consulting Provider: Kwame Coleman Consult Reason/Comments: ICU management Do you want consulting provider notified?: Yes 11/16/16 10:18 Consult Physician Routine Consulting Provider: Ariana Granados Consult Reason/Comments: renal calculi/patient request Do you want consulting provider notified?: Yes 11/16/16 10:42 Consult Physician Urgent Consulting Provider: Nimesh Navarrete Consult Reason/Comments: thrombocytopenia Do you want consulting provider notified?: Yes 11/16/16 11:46 Consult Physician Routine Consulting Provider: Nimesh Navarrete Consult Reason/Comments: bicytopenia, leukocytosis Do you want consulting provider notified?: Yes 11/19/16 12:59 Consult Physician Routine Consulting Provider: Vinicius Saravia Consult Reason/Comments: Persistent leukocytosis Do you want consulting provider notified?: Yes Primary care physician: Zachary Dorantes [facility] Course: This is a pleasant 66-year-old lady patient of Dr. Dorantes. He has underlying history off CAD hyperlipidemia hypertension pancreatitis neuropathy chronic back pain chronic opioid-induced constipation, admitted to the hospital secondary to anemia and hematochezia,. Her previous hemoglobin was 13.7 on and was admitted with hemoglobin of 10.2 apparently patient has been passing siddiqui colored stools her abdominal pain is localized mainly in the periumbilical region, her last colonoscopy is was at age 14 and on since, patient never had any imaging studies of her abdomen in the past evaluate for the chronic abdominal pain and chronic constipation. She also has a WBC count of 23.9 on admission with a previous wbc of 9.5 on 10/19/2016 patient denies any fever no chills dysuria no hematemesis, her last MRCP 12/18/2015 with findings showing distal pancreatic body with atrophic pancreas and dilated pancreatic duct reflecting chronic pancreatitis with adjacent pseudocyst formation She was admitted to the ICU secondary to ongoing lower GI losses with a current hemoglobin of 8.7 not requiring any blood transfusion, consults were made with Dr. Navarrete secondary to thrombocytopenia leukocytosis and anemia which is new, patient was started on IV Levaquin and Flagyl sepsis is in the consideration, CAT scan of the abdomen and pelvis will be done to evaluate abdominal pain and leukocytosis. No plans from Dr. Abrams for immediate colonoscopy however she would be needing it to evaluate GI bleed once platelet count stabilizes 11/17: Patient has been seen by Dr. Abrams with plan for colonoscopy but platelet count is now 38. She is on clear liquids and we will plan for full liquids until colonoscopy can be scheduled possibly tomorrow. Patient would start a clear liquid diet in the morning tomorrow. Oncology consult has been requested for bicytopenia and leukocytosis. Dr. Granados is following regarding history of hyponatremia with recommendations for normal saline. Dr. Coleman is following for intensive care management. CAT scan of the abdomen and pelvis shows no acute process. Stable appearance of the biliary pancreatic ductal dilatation. Prajapati and diffuse atherosclerotic changes. Platelet count and hemoglobin remained low at 35 and 8.5 respectively. White count is at 22.3. Sodium today is 135. Blood sugars have been on the low side running in the 50s to 70s. Alkaline phosphatase 186. Blood culture showing no growth after 24 hours and urine culture is in progress. Patient has been afebrile and hemodynamically stable. She has not had a bowel movement in the past 24 hours. Plan to monitor in the intensive care unit overnight and transferred to [facility] for tomorrow. Vitamin B12 level will be obtained. 11/18: Patient remains in intensive care unit. Dr. Abrams will do upper and lower endoscopy once patient was stable or as an outpatient. Patient was seen by Dr. Navarrete. Thrombocytopenia thought to be due to drug-induced immune phenomenon most likely which will be self-limiting. Transfusion to keep platelet count between 35 and 40,000. Platelet count is at 37 today and hemoglobin 8.7. CA 199 was 6.6, vitamin B12 greater than 1000 and rheumatoid factor less than 9. She has been afebrile and hemodynamically stable. Patient will be transferred to [facility] floor today. We anticipate possible discharge by or Tuesday. Iron studies have been ordered. Diet advanced to soft. 11/19: Patient is now on the [facility] floor. She has not had any more bleeding. Wbc to 24.8, hemoglobin same at 8.7 and platelet count at 36. Patient has been continued on Levaquin with note improvement of leukocytosis. Consult placed with Dr. Saravia from infectious disease. Patient has urinary retention with bladder scan for 117 postoperative residual and Flomax started. Patient will need follow-up as an outpatient with Dr. Navarrete regarding anemia and thrombocytopenia 11/22: Patient has also been followed by Dr. Cervantes for hyponatremia which is improved. Dr. Saravia has recommended continuing Flagyl and nystatin for oral thrush. Patient has no new complaints. Vital signs are stable. Patient will be discharged home today in stable condition. Discharge diagnoses: 1. Acute lower GI bleed with acute blood loss anemia. 2. Abdominal pain. Secondary to diverticulitis. 3. Bicytopenia with thrombocytopenia and anemia, significant leukocytosis possibly due to drug-induced immune thrombocytopenia or diverticulitis, mild dysplasia not ruled out. Patient will need further workup with Dr. Navarrete as an outpatient 4. Chronic history of pancreatic duct cysts, last MRCP was in December 2015 5. Chronic malabsorption state from poor oral intake, and ongoing pancreas problems 6. Weight loss of 17 pounds in 15 months and a BMI of 18 with severe protein calorie malnutrition 7. Euvolemic hyponatremia 8. Urinary retention Discharge plan: home with homecare Impression and plan of care have been directed as dictated by the signing physician. Kelli Marion nurse practitioner acting as scribe for signing physician. Patient Condition at Discharge: Good Plan - Discharge Summary New Discharge Prescriptions: New metroNIDAZOLE [Flagyl] 500 mg PO Q8H #21 tab Nystatin 100,000 Unit/ml Susp [Mycostatin Oral Susp] 500,000 unit PO QID # 250 ml Pantoprazole [Protonix] 40 mg PO DAILY #30 tab Tamsulosin [Flomax] 0.4 mg PO PC-BRKFST #30 cap Continue Ondansetron Odt [Zofran ODT] 4 mg PO Q8HR PRN #20 tab PRN Reason: Nausea Lutein 20 mg PO DAILY Folic Acid 0.4 mg PO DAILY Ascorbic Acid [Vitamin C] 500 mg PO DAILY Pyridoxine HCl (Vitamin B6) [Vitamin B-6] 100 mg PO MOWEFR Cyanocobalamin (Vitamin B-12) [Vitamin B-12] 1,000 mcg PO MOWEFR Cholecalciferol [Vitamin D3] 5,000 unit PO Q48H ALPRAZolam [Xanax] 0.25 mg PO Q8HR PRN PRN Reason: Muscle Spasm oxyCODONE HCL 10 mg PO Q4HR PRN PRN Reason: Severe Pain Diltiazem HCl 120 mg PO Q8H Vitamin A 8,000 unit PO DAILY Furosemide [Lasix] 20 mg PO DAILY #0 Discontinued Metoprolol Tartrate [Lopressor] 25 mg PO DAILY PRN PRN Reason: HEART RATE>125 Discharge Medication List Ondansetron Odt [Zofran ODT] 4 mg PO Q8HR PRN #20 tab 05/08/15 [Rx] ALPRAZolam [Xanax] 0.25 mg PO Q8HR PRN 11/15/16 [History] Ascorbic Acid [Vitamin C] 500 mg PO DAILY 11/15/16 [History] Cholecalciferol [Vitamin D3] 5,000 unit PO Q48H 11/15/16 [History] Cyanocobalamin (Vitamin B-12) [Vitamin B-12] 1,000 mcg PO MOWEFR 11/15/16 [ History] Diltiazem HCl 120 mg PO Q8H 11/15/16 [History] Folic Acid 0.4 mg PO DAILY 11/15/16 [History] Lutein 20 mg PO DAILY 11/15/16 [History] Pyridoxine HCl (Vitamin B6) [Vitamin B-6] 100 mg PO MOWEFR 11/15/16 [History] Vitamin A 8,000 unit PO DAILY 11/15/16 [History] oxyCODONE HCL 10 mg PO Q4HR PRN 11/15/16 [History] Furosemide [Lasix] 20 mg PO DAILY #0 11/22/16 [Rx] Nystatin 100,000 Unit/ml Susp [Mycostatin Oral Susp] 500,000 unit PO QID #250 ml 11/22/16 [Rx] Pantoprazole [Protonix] 40 mg PO DAILY #30 tab 11/22/16 [Rx] Tamsulosin [Flomax] 0.4 mg PO PC-BRKFST #30 cap 11/22/16 [Rx] metroNIDAZOLE [Flagyl] 500 mg PO Q8H #21 tab 11/22/16 [Rx] Follow up Appointment(s)/Referral(s): Nimesh Navarrete MD [STAFF PHYSICIAN] - 12/16/16 (Office closed, please call for appointment. ) [facility], [NON-STAFF] - As Needed Zachary Dorantes DO [Primary Care Provider] - 1 Week (Office will call you with appointment time. ) Kwame Coleman MD [STAFF PHYSICIAN] - 11/30/16 2:45 pm Vinicius Saravia MD [STAFF PHYSICIAN] - 12/09/16 9:45 am Patient Instructions/Handouts: Gastrointestinal Bleeding (DC) Activity/Diet/Wound Care/Special Instructions: Cardiac diet. NO smoking, cessation information provided Fall precautions, up with walker. Discharge Disposition: HOME WITH HOME HEALTH SERVICES
--- NOTE | 2016-11-22 16:40 | PN ---
DATE OF SERVICE: 11/22/2016 REASON FOR FOLLOWUP: Leukocytosis with a question of possible oral thrush. INTERVAL HISTORY: The patient is afebrile. She is feeling better. Denies any difficulty in swallowing. Denies significant chest pain or shortness of breath or cough. No abdominal pain and no diarrhea. On examination, blood pressure is 90/51 with a pulse of 103, temperature 96.9. She is 96% on room air. General description is an elderly female lying in bed in no distress. HEENT EXAMINATION: Oral mucous membrane is moist. LUNGS: Unlabored breathing. Clear to auscultation anteriorly. HEART: S1, S2. Regular rate and rhythm. ABDOMEN: Soft. No tenderness. LABS: Hemoglobin is 9 with a white count of 29.5. BUN of 14, creatinine 0.93. DIAGNOSTIC IMPRESSION AND PLAN: Patient with elevated white count, more likely multifactorial with a component of possible reactive oral thrush. White count is slightly improved with Nystatin swish and swallow and Diflucan. That should be continued for about a week. Continue supportive care.
== END 2016-11-22 14:56 | disposition home health service (06) | DRG 871 ==
LOC: EC 14:28 → 3OBS 17:31 → OBSVTOIN 17:31 → 3OBS 18:01 → 6ICU 21:43 → 4MS4W 11-18 14:35
PROVIDERS: ADMIT Family Medicine; ATTEND Family Medicine
DX: A41.9 Sepsis, unspecified organism (principal); K57.33 Diverticulitis of large intestine without perforation or abscess with bleeding; E43 Unspecified severe protein-calorie malnutrition; D69.59 Other secondary thrombocytopenia; K86.2 Cyst of pancreas; B37.0 Candidal stomatitis; I13.10 Hypertensive heart and chronic kidney disease without heart failure, with stage 1 through stage 4 chronic kidney disease, or unspecified chronic kidney disease; D62 Acute posthemorrhagic anemia; E87.1 Hypo-osmolality and hyponatremia; F11.20 Opioid dependence, uncomplicated; K86.3 Pseudocyst of pancreas; K86.1 Other chronic pancreatitis; Z68.1 Body mass index [BMI] 19.9 or less, adult; G62.9 Polyneuropathy, unspecified; M48.02 Spinal stenosis, cervical region; T40.2X5A Adverse effect of other opioids, initial encounter; K59.03 Drug induced constipation; R33.9 Retention of urine, unspecified; K21.9 Gastro-esophageal reflux disease without esophagitis; N18.2 Chronic kidney disease, stage 2 (mild); E86.1 Hypovolemia; T36.1X5A Adverse effect of cephalosporins and other beta-lactam antibiotics, initial encounter; E78.5 Hyperlipidemia, unspecified; F41.9 Anxiety disorder, unspecified; E55.9 Vitamin D deficiency, unspecified; E53.8 Deficiency of other specified B group vitamins; M54.9 Dorsalgia, unspecified; D72.828 Other elevated white blood cell count; R53.1 Weakness; R05 Cough; R19.7 Diarrhea, unspecified; I25.10 Atherosclerotic heart disease of native coronary artery without angina pectoris; M19.90 Unspecified osteoarthritis, unspecified site; M16.0 Bilateral primary osteoarthritis of hip; F17.210 Nicotine dependence, cigarettes, uncomplicated; G89.4 Chronic pain syndrome; Z87.442 Personal history of urinary calculi; Z71.3 Dietary counseling and surveillance; Z71.6 Tobacco abuse counseling; Z82.49 Family history of ischemic heart disease and other diseases of the circulatory system; Z83.3 Family history of diabetes mellitus; Z79.899 Other long term (current) drug therapy; Z90.49 Acquired absence of other specified parts of digestive tract; Z84.1 Family history of disorders of kidney and ureter; Z78.0 Asymptomatic menopausal state; Z88.1 Allergy status to other antibiotic agents; Z88.8 Allergy status to other drugs, medicaments and biological substances; Z91.048 Other nonmedicinal substance allergy status; Z87.09 Personal history of other diseases of the respiratory system; Z86.19 Personal history of other infectious and parasitic diseases
CPT/HCPCS: 36415; 71010; 73502; 74020; 74177; 80048; 80053; 81001; 82272; 82607; 82728; 82747; 83540; 83550; 83605; 83690; 83735; 83883; 83921; 84100; 84165; 84295; 84484; 85025; 85027; 85610; 85730; 86038; 86301; 86334; 86431; 86850; 86900; 86901; 87040; 87045; 87046; 87086; 87324; 96360; 96361; 99285

== ENCOUNTER 2016-11-24 00:42 | Emergency (ER) | payer MEDICARE ==
--- NOTE | 2016-11-24 02:02 | ED ---
Female Urogenital HPI - General Chief complaint: Urogenital Stated complaint: problems urinating Time Seen by Provider: 11/24/16 00:56 Source: patient, RN notes reviewed, old records reviewed Mode of arrival: wheelchair Limitations: no limitations - History of Present Illness Initial comments: Patient is a 66 yEAR old female with CC of urinary retention for one day. She reports she last urinated yesterday at 5pm. She states that she was discharged from the hospital yesterday. She denies having any bowel movement since then either. Patient is concerned that she is not able to urinate as she is constipated. She reports she takes flomax for urinary retention, and they did attempt to place a shepard in the hospital while she was in last week. She states that she did not drink much water day. Patient reports that she did well with constiapiotn with lactulose that was given in the hospital. She reports that she did not get a script for lactulose. - Related Data Home Medications Medication Instructions Recorded Confirmed ALPRAZolam [Xanax] 0.25 mg PO Q8HR PRN 11/15/16 11/15/16 Ascorbic Acid [Vitamin C] 500 mg PO DAILY 11/15/16 11/15/16 Cholecalciferol [Vitamin D3] 5,000 unit PO Q48H 11/15/16 11/15/16 Cyanocobalamin (Vitamin B-12) 1,000 mcg PO MOWEFR 11/15/16 11/15/16 [Vitamin B-12] Diltiazem HCl 120 mg PO Q8H 11/15/16 11/15/16 Folic Acid 0.4 mg PO DAILY 11/15/16 11/15/16 Lutein 20 mg PO DAILY 11/15/16 11/15/16 Pyridoxine HCl (Vitamin B6) 100 mg PO MOWEFR 11/15/16 11/15/16 [Vitamin B-6] Vitamin A 8,000 unit PO DAILY 11/15/16 11/15/16 oxyCODONE HCL 10 mg PO Q4HR PRN 11/15/16 11/15/16 Previous Rx's Medication Instructions Recorded Ondansetron Odt [Zofran ODT] 4 mg PO Q8HR PRN #20 tab 05/08/15 Furosemide [Lasix] 20 mg PO DAILY #0 06/19/17 Nystatin 100,000 Unit/ml Susp 500,000 unit PO QID #250 ml 11/22/16 [Mycostatin Oral Susp] Pantoprazole [Protonix] 40 mg PO DAILY #30 tab 11/22/16 Tamsulosin [Flomax] 0.4 mg PO PC-BRKFST #30 cap 11/22/16 metroNIDAZOLE [Flagyl] 500 mg PO Q8H #21 tab 11/22/16 Lactulose [Cephulac] 20 gm PO BID #60 ml 11/24/16 Allergies Allergy/AdvReac Type Severity Reaction Status Date / Time erythromycin base Allergy Rash/Hives Verified 11/24/16 00:49 hydrochlorothiazide Allergy "DROPS Verified 11/24/16 00:49 SODIUM LEVEL" peppermint Allergy Rash/Hives Verified 11/24/16 00:49 Tetracyclines Allergy Swelling Verified 11/24/16 00:49 atenolol AdvReac PASSES OUT Verified 11/24/16 00:49 nifedipine [From Procardia] AdvReac HAIR LOSS Verified 11/24/16 00:49 pregabalin [From Lyrica] AdvReac LEG PAIN Verified 11/24/16 00:49 Emmmpma-Jak-Ovz Reductase AdvReac LEG PAIN Verified 11/24/16 00:49 Inhibitor [employer] Allergy Rash/Hives Uncoded 11/24/16 00:49 Review of Systems ROS Statement: Those systems with pertinent positive or pertinent negative responses have been documented in the HPI. ROS Other: All systems not noted in ROS Statement are negative. Past Medical History Past Medical History: Coronary Artery Disease (CAD), Hyperlipidemia, Hypertension, Osteoarthritis (OA) Additional Past Medical History / Comment(s): pancreatitis, djd, neuropathy, Chronic back pain, mild stenosis in the neck History of Any Multi-Drug Resistant Organisms: None Reported Past Surgical History: Adenoidectomy, Appendectomy, Tonsillectomy Additional Past Surgical History / Comment(s): B/L lasix in 1999 Past Anesthesia/Blood Transfusion Reactions: No Reported Reaction Past Psychological History: Anxiety Smoking Status: Current every day smoker Past Alcohol Use History: None Reported Past Drug Use History: None Reported - Past Family History Mother Family Medical History: Diabetes Mellitus, Hypertension, Renal Disease Additional Family Medical History / Comment(s): Heart and anxiety issues. Had quadraple bypass, Father Additional Family Medical History / Comment(s): Quad heart bypass General Exam Limitations: no limitations General appearance: alert, in no apparent distress Head exam: Present: atraumatic, normocephalic, normal inspection Eye exam: Present: normal appearance, PERRL, EOMI. Absent: scleral icterus, conjunctival injection, periorbital swelling ENT exam: Present: normal exam, mucous membranes moist Neck exam: Present: normal inspection. Absent: tenderness, meningismus, lymphadenopathy Respiratory exam: Present: normal lung sounds bilaterally. Absent: respiratory distress, wheezes, rales, rhonchi, stridor Cardiovascular Exam: Present: regular rate, normal rhythm, normal heart sounds. Absent: systolic murmur, diastolic murmur, rubs, gallop, clicks GI/Abdominal exam: Present: soft, tenderness (suprapubic tenderness. ), normal bowel sounds. Absent: distended, guarding, rebound, rigid Extremities exam: Present: normal inspection, full ROM, normal capillary refill. Absent: tenderness, pedal edema, joint swelling, calf tenderness Back exam: Present: normal inspection Neurological exam: Present: alert, oriented X3, CN II-XII intact Psychiatric exam: Present: normal affect, normal mood Skin exam: Present: warm, dry, intact, normal color. Absent: rash Course Vital Signs 11/24/16 11/24/16 00:46 02:30 Temperature 97.3 F L 97.6 F Pulse Rate 60 91 Respiratory 16 18 Rate Blood Pressure 110/53 127/58 O2 Sat by Pulse 98 99 Oximetry Medical Decision Making - Medical Decision Making Patient is a 66 yEAR old female with CC of urinary retention for one day. She reports she last urinated yesterday at 5pm. She states that she was discharged from the hospital yesterday. She denies having any bowel movement since then either. Patient is concerned that she is not able to urinate as she is constipated. She reports she takes flomax for urinary retention, and they did attempt to place a shepard in the hospital while she was in last week. She states that she did not drink much water day. 3 attempts made to initiate a shepard catheter, patient has abnormal anatomy. bladder scan showed 500 cc. She is refusing further attempts for urinary catheter. Patient is very concerned about not recieving lactullose to have a bowel mocment. Patient given first dose of lactulose in EC. She refuses any other treatment or testing. Patient will be discharged AMA without able to aleve urinary retention. Patient understands treatment plan and will comply. Disposition Clinical Impression: Constipation, Acute urinary retention Disposition: Left Against Medical Advice Condition: Stable Additional Instructions: Follow up with her primary care provider tomorrow. Patient can take second dose of lactulose. Return to the emergency department if any alarming signs or symptoms occur. Prescriptions: Lactulose [Cephulac] 20 gm PO BID #60 ml Referrals: Zachary Dorantes DO [Primary Care Provider] - 1-2 days Time of Disposition: 02:00
[2016-11-24] MEDS: LACTULOSE 20 GM/30 ML CUP PO ONE (02:03)
[2016-11-24] MEDS: LACTULOSE 20 GM/30 ML CUP PO STA (02:23)
[2016-11-24 02:37] VITALS: BP 127/58; PULSE 91; RESP 18; TEMP 97.6
== END 2016-11-24 02:41 | disposition left against medical advice (07) ==
LOC: EC 00:42
DX: K59.00 Constipation, unspecified (principal); R33.9 Retention of urine, unspecified; I10 Essential (primary) hypertension; F17.200 Nicotine dependence, unspecified, uncomplicated; Z79.899 Other long term (current) drug therapy; Z88.1 Allergy status to other antibiotic agents; Z88.8 Allergy status to other drugs, medicaments and biological substances; Z91.018 Allergy to other foods; Z91.09 Other allergy status, other than to drugs and biological substances; Z90.49 Acquired absence of other specified parts of digestive tract; Z84.1 Family history of disorders of kidney and ureter
CPT/HCPCS: 51798; 99284

== ENCOUNTER 2016-11-26 21:13 | Inpatient (IN) | payer MEDICARE ==
[2016-11-26 22:21] LABS: CH 29.6; HCT 22.1 % (34.0-46.0); HDW 2.87; HGB 7.9 gm/dL (11.4-16.0); Immature Gran Flag Marked; MCH 31.1 pg (25.0-35.0); MCHC 35.5 g/dL (31.0-37.0); MCV 87.6 fL (80.0-100.0); Mean Platelet Volume 10.8; RBC 2.53 m/uL (3.80-5.40); RDW 14.5 % (11.5-15.5); WBC (Perox) 24.66
[2016-11-26 22:29] LABS: INR 1.3 (<1.1); Partial Thromboplastin Time 26.9 sec (22.0-30.0); Prothrombin Time 12.6 sec (9.0-12.0)
[2016-11-26 22:30] LABS: ALT 19 U/L (9-52); AST 18 U/L (14-36); Alkaline Phosphatase 175 U/L (38-126); Anion Gap 13 mmol/L; Blood Urea Nitrogen 17 mg/dL (7-17); Carbon Dioxide 24 mmol/L (22-30); Chloride 96 mmol/L (98-107); Glucose 116 mg/dL (74-99); Magnesium 1.9 mg/dL (1.6-2.3); Non-African American GFR(MDRD) >60 (>60 ml/min/1.73 sqM); Potassium 3.9 mmol/L (3.5-5.1); Sodium 133 mmol/L (137-145); Total Bilirubin 0.6 mg/dL (0.2-1.3); Total Protein 6.2 g/dL (6.3-8.2)
[2016-11-26 22:34] LABS: Add Differential Manual Differential
[2016-11-26 22:40] LABS: Metamyelocytes % 3.5 %; Nucleated Red Blood Cells 0 /100 WBC (0-0); Total Cells Counted 200
[2016-11-26 22:41] LABS: Manual Review Performed
[2016-11-26 22:43] LABS: WBC 25.1 k/uL (3.8-10.6)
[2016-11-26 22:58] LABS: Appearance,Urine Clear (Clear); Bilirubin,Urine Negative (Negative); Glucose,Urine (UA) Negative (Negative); Ketones,Urine Negative (Negative); Leukocyte Esterase,Urine Negative (Negative); Nitrite,Urine Negative (Negative); Protein,Urine Negative (Negative); Specific Gravity,Urine 1.003 (1.001-1.035); UA Billing (MACRO vs. MICRO) CHEM; Urobilinogen,Urine <2.0 mg/dL (<2.0)
[2016-11-26] MEDS ORDERED: NALOXONE 0.4 MG/ML 1 ML VIAL IV PRN (23:45)
[2016-11-26] MEDS ORDERED: ONDANSETRON 4 MG/2 ML VIAL IVP PRN (23:45)
[2016-11-26] MEDS ORDERED: ACETAMINOPHEN TAB 325 MG TAB PO PRN (23:45)
--- NOTE | 2016-11-27 00:47 | ED ---
Recheck HPI - General Chief Complaint: Recheck/Abnormal Lab/Rx Stated Complaint: blood transfusion-sent by Time Seen by Provider: 11/26/16 21:27 Source: patient Mode of arrival: wheelchair Limitations: no limitations - History of Present Illness Initial Comments: This patient is a 66-year-old woman who states that she was called by her primary physician Dr. Espino, and told to come to the emergency department to have a transfusion because the blood counts that he checked yesterday were low. Patient had been in the hospital for a number of hematologic abnormalities , including anemia, thrombocytopenia and leukocytosis. She had gone home on the prior day and then when she checked back today she had her CBC rechecked and was informed that the results were lower than at discharge. The patient does state that she has been feeling weaker than usual and having shortness of breath. MD Complaint: abnormal lab -: hour(s) - Related Data Home Medications Medication Instructions Recorded Confirmed ALPRAZolam [Xanax] 0.25 mg PO Q8HR PRN 11/15/16 11/26/16 Ascorbic Acid [Vitamin C] 500 mg PO DAILY 11/15/16 11/26/16 Cholecalciferol [Vitamin D3] 5,000 unit PO Q48H 11/15/16 11/26/16 Cyanocobalamin (Vitamin B-12) 1,000 mcg PO MOWEFR 11/15/16 11/26/16 [Vitamin B-12] Diltiazem HCl 120 mg PO Q8H 11/15/16 11/26/16 Folic Acid 0.4 mg PO DAILY 11/15/16 11/26/16 Lutein 20 mg PO DAILY 11/15/16 11/26/16 Vitamin A 8,000 unit PO DAILY 11/15/16 11/26/16 oxyCODONE HCL 10 mg PO Q4HR PRN 11/15/16 11/26/16 Fluconazole [Diflucan] 100 mg PO DAILY 11/26/16 11/26/16 Previous Rx's Medication Instructions Recorded Ondansetron Odt [Zofran ODT] 4 mg PO Q8HR PRN #20 tab 05/08/15 Furosemide [Lasix] 20 mg PO DAILY #0 11/22/16 Nystatin 100,000 Unit/ml Susp 500,000 unit PO QID #250 ml 11/22/16 [Mycostatin Oral Susp] Pantoprazole [Protonix] 40 mg PO DAILY #30 tab 11/22/16 Tamsulosin [Flomax] 0.4 mg PO PC-BRKFST #30 cap 11/22/16 metroNIDAZOLE [Flagyl] 500 mg PO Q8H #21 tab 11/22/16 Lactulose [Cephulac] 20 gm PO BID #60 ml 11/24/16 Allergies Allergy/AdvReac Type Severity Reaction Status Date / Time erythromycin base Allergy Rash/Hives Verified 11/26/16 22:17 hydrochlorothiazide Allergy "DROPS Verified 11/26/16 22:17 SODIUM LEVEL" peppermint Allergy Rash/Hives Verified 11/26/16 22:17 Tetracyclines Allergy Swelling Verified 11/26/16 22:17 atenolol AdvReac PASSES OUT Verified 11/26/16 22:17 nifedipine [From Procardia] AdvReac HAIR LOSS Verified 11/26/16 22:17 pregabalin [From Lyrica] AdvReac LEG PAIN Verified 11/26/16 22:17 Gvjmjlw-Fpp-Uxz Reductase AdvReac LEG PAIN Verified 11/26/16 22:17 Inhibitor [employer] Allergy Rash/Hives Uncoded 11/26/16 21:20 Review of Systems ROS Statement: Those systems with pertinent positive or pertinent negative responses have been documented in the HPI. ROS Other: All systems not noted in ROS Statement are negative. Constitutional: Reports: weakness. Denies: fever, chills ENT: Reports: throat pain Respiratory: Denies: cough, dyspnea Cardiovascular: Denies: chest pain, palpitations, edema, syncope Gastrointestinal: Denies: abdominal pain, vomiting Genitourinary: Denies: dysuria Musculoskeletal: Denies: back pain Skin: Denies: rash Neurological: Reports: weakness (Generalized). Denies: headache, numbness, paresthesias Hematological/Lymphatic: Denies: easy bleeding Past Medical History Past Medical History: Coronary Artery Disease (CAD), Hyperlipidemia, Hypertension, Osteoarthritis (OA) Additional Past Medical History / Comment(s): pancreatitis, djd, neuropathy, Chronic back pain, mild stenosis in the neck History of Any Multi-Drug Resistant Organisms: None Reported Past Surgical History: Adenoidectomy, Appendectomy, Tonsillectomy Additional Past Surgical History / Comment(s): B/L lasix in 1999 Past Anesthesia/Blood Transfusion Reactions: No Reported Reaction Past Psychological History: Anxiety Smoking Status: Current every day smoker Past Alcohol Use History: None Reported Past Drug Use History: None Reported - Past Family History Mother Family Medical History: Diabetes Mellitus, Hypertension, Renal Disease Additional Family Medical History / Comment(s): Heart and anxiety issues. Had quadraple bypass, Father Additional Family Medical History / Comment(s): Quad heart bypass General Exam Limitations: no limitations General appearance: alert, in no apparent distress Head exam: Present: atraumatic, normocephalic Eye exam: Present: normal appearance. Absent: scleral icterus, conjunctival injection ENT exam: Present: mucous membranes dry, other (Mild injection of the pharynx and mild glossitis) Neck exam: Present: normal inspection, full ROM Respiratory exam: Present: normal lung sounds bilaterally. Absent: respiratory distress, wheezes, rales, rhonchi, stridor Cardiovascular Exam: Present: regular rate, normal rhythm, systolic murmur ( Rate 16 systolic ejection murmur). Absent: diastolic murmur, rubs, gallop GI/Abdominal exam: Present: soft. Absent: distended, tenderness, guarding, rebound, rigid Back exam: Present: normal inspection. Absent: CVA tenderness (R), CVA tenderness (L) Neurological exam: Present: alert Skin exam: Present: warm, dry, intact, pallor. Absent: rash Course Vital Signs 11/26/16 11/26/16 11/26/16 21:15 22:10 23:10 Temperature 98.7 F Pulse Rate 107 H 97 99 Respiratory 20 20 20 Rate Blood Pressure 120/57 132/62 131/64 O2 Sat by Pulse 98 96 99 Oximetry 11/27/16 00:57 Temperature 97.9 F Pulse Rate 110 H Respiratory 20 Rate Blood Pressure 126/58 O2 Sat by Pulse 96 Oximetry Medical Decision Making - Lab Data Result diagrams: 11/26/16 21:45 11/26/16 21:45 Lab Results 11/26/16 11/26/16 11/26/16 Range/Units 21:45 21:45 21:45 WBC 25.1 H* (3.8-10.6) k/uL RBC 2.53 L (3.80-5.40) m/uL Hgb 7.9 L (11.4-16.0) gm/dL Hct 22.1 L (34.0-46.0) % MCV 87.6 (80.0-100.0) fL MCH 31.1 (25.0-35.0) pg MCHC 35.5 (31.0-37.0) g/dL RDW 14.5 (11.5-15.5) % Plt Count 27 L* (150-450) k/uL Neutrophils % (Manual) 51.5 % Band Neutrophils % 22.0 % Lymphocytes % (Manual) 13.5 % Monocytes % (Manual) 2.5 % Metamyelocytes % 3.5 % Myelocytes % 7.0 % Neutrophils # (Manual) 18.4 H (1.3-7.7) k/uL Lymphocytes # (Manual) 3.4 (1.0-4.8) k/uL Monocytes # (Manual) 0.6 (0-1.0) k/uL Nucleated RBCs 0 (0-0) /100 WBC Manual Slide Review Performed Poikilocytosis (manual Present PT (9.0-12.0) sec INR (<1.1) APTT (22.0-30.0) sec Sodium 133 L (137-145) mmol/L Potassium 3.9 (3.5-5.1) mmol/L Chloride 96 L (98-107) mmol/L Carbon Dioxide 24 (22-30) mmol/L Anion Gap 13 mmol/L BUN 17 (7-17) mg/dL Creatinine 0.91 (0.52-1.04) mg/dL Est GFR (MDRD) Af Amer >60 (>60 ml/min/1.73 sqM) Est GFR (MDRD) Non-Af >60 (>60 ml/min/1.73 sqM) Glucose 116 H (74-99) mg/dL Plasma Lactic Acid Narendra 0.6 L (0.7-2.0) mmol/L Calcium 9.0 (8.4-10.2) mg/dL Magnesium 1.9 (1.6-2.3) mg/dL Total Bilirubin 0.6 (0.2-1.3) mg/dL AST 18 (14-36) U/L ALT 19 (9-52) U/L Alkaline Phosphatase 175 H (38-126) U/L Troponin I (0.000-0.034) ng/mL Total Protein 6.2 L (6.3-8.2) g/dL Albumin 3.6 (3.5-5.0) g/dL Urine Color Urine Appearance (Clear) Urine pH (5.0-8.0) Ur Specific [place] (1.001-1.035) Urine Protein (Negative) Urine Glucose (UA) (Negative) Urine Ketones (Negative) Urine Blood (Negative) Urine Nitrite (Negative) Urine Bilirubin (Negative) Urine Urobilinogen (<2.0) mg/dL Ur Leukocyte Esterase (Negative) Blood Type Blood Type Recheck Antibody Screen Crossmatch Spec Expiration Date 11/26/16 11/26/16 11/26/16 Range/Units 21:45 21:45 21:45 WBC (3.8-10.6) k/uL RBC (3.80-5.40) m/uL Hgb (11.4-16.0) gm/dL Hct (34.0-46.0) % MCV (80.0-100.0) fL MCH (25.0-35.0) pg MCHC (31.0-37.0) g/dL RDW (11.5-15.5) % Plt Count (150-450) k/uL Neutrophils % (Manual) % Band Neutrophils % % Lymphocytes % (Manual) % Monocytes % (Manual) % Metamyelocytes % % Myelocytes % % Neutrophils # (Manual) (1.3-7.7) k/uL Lymphocytes # (Manual) (1.0-4.8) k/uL Monocytes # (Manual) (0-1.0) k/uL Nucleated RBCs (0-0) /100 WBC Manual Slide Review Poikilocytosis (manual PT 12.6 H (9.0-12.0) sec INR 1.3 (<1.1) APTT 26.9 (22.0-30.0) sec Sodium (137-145) mmol/L Potassium (3.5-5.1) mmol/L Chloride (98-107) mmol/L Carbon Dioxide (22-30) mmol/L Anion Gap mmol/L BUN (7-17) mg/dL Creatinine (0.52-1.04) mg/dL Est GFR (MDRD) Af Amer (>60 ml/min/1.73 sqM) Est GFR (MDRD) Non-Af (>60 ml/min/1.73 sqM) Glucose (74-99) mg/dL Plasma Lactic Acid Narendra (0.7-2.0) mmol/L Calcium (8.4-10.2) mg/dL Magnesium (1.6-2.3) mg/dL Total Bilirubin (0.2-1.3) mg/dL AST (14-36) U/L ALT (9-52) U/L Alkaline Phosphatase (38-126) U/L Troponin I <0.012 (0.000-0.034) ng/mL Total Protein (6.3-8.2) g/dL Albumin (3.5-5.0) g/dL Urine Color Urine Appearance (Clear) Urine pH (5.0-8.0) Ur Specific [place] (1.001-1.035) Urine Protein (Negative) Urine Glucose (UA) (Negative) Urine Ketones (Negative) Urine Blood (Negative) Urine Nitrite (Negative) Urine Bilirubin (Negative) Urine Urobilinogen (<2.0) mg/dL Ur Leukocyte Esterase (Negative) Blood Type O Positive Blood Type Recheck No Antibody Screen NEGATIVE Crossmatch See Detail Spec Expiration Date 11/29/2016 - 6428 11/26/16 Range/Units 22:40 WBC (3.8-10.6) k/uL RBC (3.80-5.40) m/uL Hgb (11.4-16.0) gm/dL Hct (34.0-46.0) % MCV (80.0-100.0) fL MCH (25.0-35.0) pg MCHC (31.0-37.0) g/dL RDW (11.5-15.5) % Plt Count (150-450) k/uL Neutrophils % (Manual) % Band Neutrophils % % Lymphocytes % (Manual) % Monocytes % (Manual) % Metamyelocytes % % Myelocytes % % Neutrophils # (Manual) (1.3-7.7) k/uL Lymphocytes # (Manual) (1.0-4.8) k/uL Monocytes # (Manual) (0-1.0) k/uL Nucleated RBCs (0-0) /100 WBC Manual Slide Review Poikilocytosis (manual PT (9.0-12.0) sec INR (<1.1) APTT (22.0-30.0) sec Sodium (137-145) mmol/L Potassium (3.5-5.1) mmol/L Chloride (98-107) mmol/L Carbon Dioxide (22-30) mmol/L Anion Gap mmol/L BUN (7-17) mg/dL Creatinine (0.52-1.04) mg/dL Est GFR (MDRD) Af Amer (>60 ml/min/1.73 sqM) Est GFR (MDRD) Non-Af (>60 ml/min/1.73 sqM) Glucose (74-99) mg/dL Plasma Lactic Acid Narendra (0.7-2.0) mmol/L Calcium (8.4-10.2) mg/dL Magnesium (1.6-2.3) mg/dL Total Bilirubin (0.2-1.3) mg/dL AST (14-36) U/L ALT (9-52) U/L Alkaline Phosphatase (38-126) U/L Troponin I (0.000-0.034) ng/mL Total Protein (6.3-8.2) g/dL Albumin (3.5-5.0) g/dL Urine Color Light Yellow Urine Appearance Clear (Clear) Urine pH 5.0 (5.0-8.0) Ur Specific [place] 1.003 (1.001-1.035) Urine Protein Negative (Negative) Urine Glucose (UA) Negative (Negative) Urine Ketones Negative (Negative) Urine Blood Negative (Negative) Urine Nitrite Negative (Negative) Urine Bilirubin Negative (Negative) Urine Urobilinogen <2.0 (<2.0) mg/dL Ur Leukocyte Esterase Negative (Negative) Blood Type Blood Type Recheck Antibody Screen Crossmatch Spec Expiration Date - EKG Data -: EKG Interpreted by Ok EKG shows normal: sinus rhythm, axis (Normal), intervals (Normal), QRS complexes (Normal), ST-T waves (Normal) Rate: normal (Rate 96 bpm) Interpretation: normal EKG Disposition Clinical Impression: Thrombocytopenia, Anemia due to blood loss, acute, Neutrophilic leukocytosis Disposition: ADMITTED IP TO THIS [facility] Condition: Poor
[2016-11-27 02:57] VITALS: BMI 20.8
[2016-11-27] MEDS: metroNIDAZOLE 500 MG TAB PO SCH ×4 (03:09→23:48)
[2016-11-27] MEDS: SODIUM CHLORIDE 0.9% 1,000 ML IV SCH ×2 (03:10→22:33)
[2016-11-27] MEDS: DILTIAZEM ORAL 60 MG TAB PO SCH ×3 (06:49→22:31)
[2016-11-27] MEDS ORDERED: NON-FORMULARY DRUG (Lutein [Lutein] 20 MG) PO SCH (09:00)
[2016-11-27] MEDS ORDERED: FLUCONAZOLE 100 MG TAB PO SCH (09:00)
[2016-11-27] MEDS ORDERED: FOLIC ACID 1 MG TAB PO SCH (09:00)
[2016-11-27] MEDS ORDERED: ASCORBIC ACID 500 MG TAB PO SCH (09:00)
[2016-11-27] MEDS: PANTOPRAZOLE 40 MG TABLET PO SCH (09:15)
[2016-11-27] MEDS: LACTULOSE 20 GM/30 ML CUP PO SCH ×2 (09:16→20:15)
[2016-11-27] MEDS: NYSTATIN 100,000 UNIT/ML SUSP 500,000 UNIT/5 ML CUP PO SCH ×4 (09:16→20:17)
[2016-11-27] MEDS: ALPRAZolam 0.25 MG TAB PO PRN ×2 (09:19→22:32)
[2016-11-27] MEDS: TAMSULOSIN 0.4 MG CAP.ER.24H PO SCH (10:18)
[2016-11-27] MEDS ORDERED: VITAMIN A 10,000 UNIT CAPSULE PO SCH (12:00)
[2016-11-27 12:02] LABS: CH 29.8; HCT 27.8 % (34.0-46.0); HDW 2.79; HGB 8.9 gm/dL (11.4-16.0); Immature Gran Flag Marked; MCH 29.2 pg (25.0-35.0); MCHC 32.1 g/dL (31.0-37.0); Mean Platelet Volume 7.9; RBC 3.05 m/uL (3.80-5.40); RDW 14.7 % (11.5-15.5); WBC 19.4 k/uL (3.8-10.6); WBC (Perox) 19.68
[2016-11-27 12:08] LABS: Anion Gap 10 mmol/L; Blood Urea Nitrogen 11 mg/dL (7-17); Calcium 9.2 mg/dL (8.4-10.2); Carbon Dioxide 27 mmol/L (22-30); Chloride 99 mmol/L (98-107); Glucose 106 mg/dL (74-99); Non-African American GFR(MDRD) >60 (>60 ml/min/1.73 sqM); Sodium 136 mmol/L (137-145)
[2016-11-27 13:59] LABS: Add Differential Manual Differential
[2016-11-27 14:02] LABS: Metamyelocytes % 8.5 %; Nucleated Red Blood Cells 0 /100 WBC (0-0); Total Cells Counted 200
[2016-11-27 14:03] LABS: Manual Review Performed
--- NOTE | 2016-11-27 14:54 | P.HPIM ---
History of Present Illness H&P Date: 11/27/16 Chief Complaint: anemia/thrombocytopenia This is a pleasant 66-year-old lady patient of Dr. Dorantes. He has underlying history of CAD, hyperlipidemia, hypertension, pancreatitis, neuropathy chronic back pain chronic opioid-induced constipation, admitted to the hospital secondary to anemia and hematochezia,. Her previous hemoglobin was 13.7 on 10/19/2016 and was admitted with hemoglobin of 10.2 apparently patient has been passing siddiqui colored stools her abdominal pain is localized mainly in the periumbilical region, her last colonoscopy is was at age 14 and on since, patient never had any imaging studies of her abdomen in the past evaluate for the chronic abdominal pain and chronic constipation. She also had a WBC count of 23.9 on admission with a previous wbc of 9.5 on 10/19/2016 patient denies any fever no chills dysuria no hematemesis, her last MRCP 2015 with findings showing distal pancreatic body with atrophic pancreas and dilated pancreatic duct reflecting chronic pancreatitis with adjacent pseudocyst formation. She was admitted to the ICU secondary to ongoing lower GI losses with a hemoglobin of 8.7 not requiring any blood transfusion, consults were made with Dr. Navarrete secondary to thrombocytopenia leukocytosis and anemia which is new, patient was started on IV Levaquin and Flagyl sepsis is in the consideration, CAT scan of the abdomen and pelvis was done and that showed biliary extrahepatic dilatation and pancreatic duct dilatation without any significant change from the prior study. Patient has been seen by Dr. Abrams with plan for EGD and colonoscopy as an outpatient, at that time she was seen by and was placed on Diflucan and nystatin for oral thrush along with nephrology evaluation for hyponatremia which was then resolved and the patient was released home on 11/22/2016. Patient went for follow up with yesterday and had laboratory evaluation that documented anemia and thrombocytopenia and she was sent to the ER because of ongoing issues with anemia and thrombocytopenia that was thought to be due to drug- related,and was subsequently admitted to the hospital for further evaluation. Review of Systems Constitutional: Reports anorexia, Reports chronic pain, Reports fatigue, Reports malaise, Reports weakness, Reports weight loss, Denies chills Eyes: denies blurred vision, denies bulging eye, denies decreased vision, denies diplopia, denies discharge Ears: deny: decreased hearing Ears, nose, mouth and throat: Denies dysphagia, Denies neck lump, Denies swelling in throat, Denies sore throat, Denies vertigo Cardiovascular: Denies chest pain, Denies decreased exercise tolerance, Denies dyspnea on exertion, Denies high blood pressure, Denies phlebitis, Denies rapid heart beat, Denies shortness of breath, Denies syncope Respiratory: Denies congestion, Denies cough, Denies cough with sputum, Denies home oxygen, Denies respiratory infections, Denies sleep apnea, Denies snoring, Denies wheezing Gastrointestinal: Reports abdominal pain, Reports BRBPR, Reports change in bowel habits, Reports constipation, Reports loss of appetite, Reports nausea, Denies bloating, Denies heartburn, Denies melena, Denies vomiting Genitourinary: Denies dysuria, Denies urgency Menstruation: Reports postmenopausal Musculoskeletal: Reports gait dysfunction, Reports morning stiffness, Denies myalgias Musculoskeletal: bilateral: ankle swelling, hip pain, hip stiffness, hip swelling, absent: ankle pain, ankle stiffness, elbow pain, elbow stiffness, elbow swelling, foot pain, foot stiffness, foot swelling, hand pain, hand stiffness, hand swelling, knee pain, knee stiffness, knee swelling, shoulder pain, shoulder stiffness, shoulder swelling, wrist pain, wrist stiffness, wrist swelling Integumentary: Denies pruritus, Denies rash Neurological: Denies numbness, Denies weakness Psychiatric: Reports anxiety Endocrine: Denies fatigue, Denies weight change Past Medical History Past Medical History: Coronary Artery Disease (CAD), Hyperlipidemia, Hypertension, Osteoarthritis (OA), Renal Disease Additional Past Medical History / Comment(s): pancreatitis, djd, neuropathy, Chronic back pain, mild stenosis in the neck History of Any Multi-Drug Resistant Organisms: None Reported Past Surgical History: Adenoidectomy, Appendectomy, Tonsillectomy Additional Past Surgical History / Comment(s): B/L lasix in 1999 Past Anesthesia/Blood Transfusion Reactions: No Reported Reaction Past Psychological History: Anxiety Smoking Status: Current every day smoker Past Alcohol Use History: None Reported Past Drug Use History: None Reported - Past Family History Mother Family Medical History: Diabetes Mellitus, Hypertension, Renal Disease Additional Family Medical History / Comment(s): Heart and anxiety issues. Had quadraple bypass, Father Additional Family Medical History / Comment(s): Quad heart bypass Medications and Allergies Home Medications Medication Instructions Recorded Confirmed Type ALPRAZolam [Xanax] 0.25 mg PO Q8HR PRN 11/15/16 11/26/16 History Ascorbic Acid [Vitamin C] 500 mg PO DAILY 11/15/16 11/26/16 History Cholecalciferol [Vitamin D3] 5,000 unit PO Q48H 11/15/16 11/26/16 History Cyanocobalamin (Vitamin B-12) 1,000 mcg PO MOWEFR 11/15/16 11/26/16 History [Vitamin B-12] Diltiazem HCl 120 mg PO Q8H 11/15/16 11/26/16 History Folic Acid 0.4 mg PO DAILY 11/15/16 11/26/16 History Lutein 20 mg PO DAILY 11/15/16 11/26/16 History Vitamin A 8,000 unit PO DAILY 11/15/16 11/26/16 History oxyCODONE HCL 10 mg PO Q4HR PRN 11/15/16 11/26/16 History Fluconazole [Diflucan] 100 mg PO DAILY 11/26/16 11/26/16 History Allergies Allergy/AdvReac Type Severity Reaction Status Date / Time erythromycin base Allergy Rash/Hives Verified 11/26/16 22:17 hydrochlorothiazide Allergy "DROPS Verified 11/26/16 22:17 SODIUM LEVEL" peppermint Allergy Rash/Hives Verified 11/26/16 22:17 Tetracyclines Allergy Swelling Verified 11/26/16 22:17 atenolol AdvReac PASSES OUT Verified 11/26/16 22:17 nifedipine [From Procardia] AdvReac HAIR LOSS Verified 11/26/16 22:17 pregabalin [From Lyrica] AdvReac LEG PAIN Verified 11/26/16 22:17 Dedexho-Onx-Ucw Reductase AdvReac LEG PAIN Verified 11/26/16 22:17 Inhibitor [employer] Allergy Rash/Hives Uncoded 11/26/16 21:20 Physical Exam Vitals: Vital Signs Temp Pulse Pulse Resp BP BP Pulse Ox 11/27/16 07:00 96.5 F L 94 14 122/58 96 11/27/16 03:11 97.1 F L 93 16 121/61 97 11/27/16 02:41 97.1 F L 96 16 128/64 11/27/16 02:34 97.0 F L 92 16 120/53 11/27/16 02:31 97.0 F L 92 16 120/53 11/27/16 02:12 97.2 F L 72 18 136/62 99 11/27/16 00:57 97.9 F 110 H 20 126/58 96 11/26/16 23:10 99 20 131/64 99 11/26/16 22:10 97 20 132/62 96 11/26/16 21:15 98.7 F 107 H 20 120/57 98 Intake and Output 11/26/16 11/27/16 11/27/16 22:59 06:59 14:59 Intake Total 310 Output Total 800 Balance -800 310 Intake: Blood Product 310 Rc As-1 Unit 310 [id number] Output: Urine 800 Other: # Voids 2 Weight 51.256 kg 55 kg - Constitutional General appearance: mild distress, thin - EENT Eyes: anicteric sclerae, EOMI, PERRLA, no ptosis, no scleral icterus, normal appearance ENT: hearing grossly normal, normal oropharynx, thrush Ears: bilateral: normal - Neck Neck: no lymphadenopathy, normal ROM, no rigidity, no stridor, no thyromegaly Carotids: bilateral: upstroke normal Thyroid: bilateral: normal size - Respiratory Respiratory: bilateral: diminished, negative: dullness, rales, rhonchi, wheezing , prolonged expiration, prolonged inspiration - Cardiovascular Rhythm: regular Heart sounds: normal: S1, S2 Abnormal Heart Sounds: systolic murmur, no rub, no S3 Gallop, no S4 Gallop, no click - Gastrointestinal General gastrointestinal: normal bowel sounds, soft, no splenomegaly, no tenderness, no umbilical hernia, no ventral hernia - Integumentary Integumentary: normal, normal turgor, no rash, ulcer (Stage II buttock ulcer.) - Neurologic Neurologic: CNII-XII intact - Musculoskeletal Musculoskeletal: generalized weakness, strength equal bilaterally - Psychiatric Psychiatric: A&O x's 3, appropriate affect, intact judgment & insight Results CBC & Chem 7: 11/27/16 11:32 11/27/16 11:32 Labs: Abnormal Lab Results - Last 24 Hours (Table) 11/26/16 11/26/16 11/26/16 Range/Units 21:45 21:45 21:45 WBC 25.1 H* (3.8-10.6) k/uL RBC 2.53 L (3.80-5.40) m/uL Hgb 7.9 L (11.4-16.0) gm/dL Hct 22.1 L (34.0-46.0) % Plt Count 27 L* (150-450) k/uL Neutrophils # (Manual) 18.4 H (1.3-7.7) k/uL PT (9.0-12.0) sec Sodium 133 L (137-145) mmol/L Chloride 96 L (98-107) mmol/L Glucose 116 H (74-99) mg/dL Plasma Lactic Acid Narendra 0.6 L (0.7-2.0) mmol/L Alkaline Phosphatase 175 H (38-126) U/L Total Protein 6.2 L (6.3-8.2) g/dL Crossmatch 11/26/16 11/26/16 Range/Units 21:45 21:45 WBC (3.8-10.6) k/uL RBC (3.80-5.40) m/uL Hgb (11.4-16.0) gm/dL Hct (34.0-46.0) % Plt Count (150-450) k/uL Neutrophils # (Manual) (1.3-7.7) k/uL PT 12.6 H (9.0-12.0) sec Sodium (137-145) mmol/L Chloride (98-107) mmol/L Glucose (74-99) mg/dL Plasma Lactic Acid Narendra (0.7-2.0) mmol/L Alkaline Phosphatase (38-126) U/L Total Protein (6.3-8.2) g/dL Crossmatch See Detail Thrombosis Risk Factor Assmnt - DVT/VTE Prophylaxis DVT/VTE Prophylaxis: Mechanical Prophylaxis ordered, Contraindicated - See note - Choose All That Apply Any of the Below Risk Factors Present?: No Other Risk Factors: Yes Each Risk Factor Represents 2 Points: Age 61-74 years Thrombosis Risk Factor Assessment Total Risk Factor Score: 2 Thrombosis Risk Factor Assessment Level: Low Risk Assessment and Plan Plan: Assessment and Plan Plan: 1. Lower GI bleed thought to be due to diverticvulitis and low platelets.patient was admitted for 1 unit of PRBC transfusion. We will maintain the patient on oral antibiotic in the form of metronidazole 500 mg orally 3 times every day, advance diet as tolerated. 2. Bicytopenia with thrombocytopenia and anemia. we will consult hematology again. This is likely related immune-related the form of cytopenia, patient may need to go on solid ventral 60 mg IV push every 6 hours 4 doses, and she may need to be on IVIG if her platelet count did drop again. 3. Chronic history of pancreatic duct stent, last MRCP was in December 2015. Her computed tomography scan of the abdomen and pelvis did show dilatation of the extrahepatic biliary and pancreatic duct. Without any significant changes 4. Chronic malabsorption state from poor oral intake, and ongoing pancreas problems, lipase to be checked, vitamin B12 would be obtained later await CAT scan 5. Weight loss off 17 pounds in 15 months nutritional supplementation would be ordered, patient would need to go for an EGD and colonoscopy, she would need to have a celiac panel. 6. GI prophylaxis on Protonix 40 mg orally once every day. 7. DVT prophylaxis on TRISTAN hose and SCDs. 8. Anxiety. Continue Xanax as needed. 9. Urinary retention. Continue patient on Flomax 0.4 mg orally once every day. 10. Reported history of renal disease stage II. Her GFR is greater than 60. Avoid NSAIDs. Her intact PTH is elevated. 11. Chronic pain syndrome. Continue patient on current pain management. 12. Severe osteoarthritis of both hips. Continue to use the walker and avoid falling. 13. Admit to inpatient. Estimated length of stay 2 midnights.
[2016-11-27 16:50] LABS: CH 29.9; CHCM 33.3; HCT 26.6 % (34.0-46.0); HDW 2.81; HGB 8.9 gm/dL (11.4-16.0); Immature Gran Flag Marked; MCH 30.5 pg (25.0-35.0); MCHC 33.7 g/dL (31.0-37.0); MCV 90.5 fL (80.0-100.0); Mean Platelet Volume 7.4; RBC 2.93 m/uL (3.80-5.40); RDW 14.8 % (11.5-15.5); WBC (Perox) 18.83
--- NOTE | 2016-11-27 16:53 | P.PN ---
Progress Note - Text Consult dictated Impression: 1- Progression of Anemia/Thrombocytopenia 2- Leukocytosis 3- R/O Bone marrow myeloproliferative disorder (Acute Leukemia) Rec: 1- Reviewed CBC results with patient/family 2- Advise Bone Marrow aspirate & Bx > she agrees, but not sure if she wants it done under systemic sedation or bedside with local anesthesia 3- PLT transfusion if PLT < 20K Answered all questions/concerns
[2016-11-27] MEDS: FUROSEMIDE 20 MG TAB PO SCH (17:39)
[2016-11-27] MEDS: FLUCONAZOLE 100 MG TAB PO SCH (17:40)
[2016-11-27 17:53] LABS: Add Differential Manual Differential
[2016-11-27 17:59] LABS: Myelocytes % 3.5 %; Nucleated Red Blood Cells 0 /100 WBC (0-0); Total Cells Counted 200
[2016-11-27 18:00] LABS: Manual Review Performed
--- NOTE | 2016-11-27 20:10 | CONS ---
REASON FOR CONSULTATION: Thrombocytopenia, anemia and leukocytosis. HISTORY OF PRESENT ILLNESS: Rosita is a 66-year-old female who was seen by my associate Dr. Navarrete on 11/17/2016. For further details, please refer to his consultation. The patient then was seen for thrombocytopenia and anemia. She was thought to be reactive to GI bleed and consumption; however, the patient had no further significant bleeding until she was admitted to the hospital at this time with suspected GI blood loss. She was found to be anemic with hemoglobin of 7.9, given 2 units of packed red blood cells and hemoglobin is stable at 8.9. Platelet counts were found to be 27,000 and today it they were 20,000. There was no immediate blood loss noted while hospitalized. Chemistry studies were relatively unremarkable except slight elevation of alkaline phosphatase. The patient was found to have leukocytosis with a differential showing most white cells are mature neutrophils and slightly monocytosis as well. The patient denies any prior hematologic diseases. For past medical and surgical history, please refer to our recent consultation. CURRENT MEDICATIONS: Reviewed and listed in electronic medical record. On examination, the patient was alert and oriented. She was pale but not icteric. Hair distribution within normal for age and gender. Blood pressure was 133/68, pulse is 92 and regular, respiratory rate was 18, not labored, temperature was 98.1. There were no pathologic cervical, supraclavicular, infraclavicular or axillary lymphadenopathy. Trachea was in midline. CHEST: Clear with good air exchange bilaterally. Heart sounds are normal, S1 and S2. There was no S3, rubs or murmurs auscultated. ABDOMEN: Soft. The liver and the spleen were not clinically palpable. There were no masses, tenderness or inguinal lymphadenopathy. Extremities appear to be grossly unremarkable. Range of motion was within normal. No deformity seen. Neurologic showed no focal motor or sensory deficits. Cranial nerves 2-12 unremarkable. IMPRESSION: Progressive thrombocytopenia with anemia as well as leukocytosis. This has not recovered since the initial consultation 10 days ago. The findings are concerning for potential underlying bone marrow process, including myeloproliferative disorder such as acute leukemia. A chronic bone marrow disease is felt to be unlikely, knowing that previously totally normal peripheral blood findings. RECOMMENDATIONS: 1. Reviewed CBC results with the patient along with the suspicion for potential underlying bone marrow process. 2. Transfusion support if platelets under 20,000. 3. I strongly advise bone marrow aspirate and biopsy. The patient agrees. She is unsure if she wants the study done under systemic sedation or local anesthesia. The study would be performed on 11/29/2016. We will follow the patient along with you in the hospital.
[2016-11-28 00:13] LABS: CH 29.7; CHCM 33.4; HCT 24.1 % (34.0-46.0); HDW 2.93; HGB 8.5 gm/dL (11.4-16.0); Immature Gran Flag Marked; MCH 31.6 pg (25.0-35.0); MCHC 35.3 g/dL (31.0-37.0); MCV 89.4 fL (80.0-100.0); Mean Platelet Volume 7.7; RDW 14.7 % (11.5-15.5); WBC 17.5 k/uL (3.8-10.6); WBC (Perox) 17.67
[2016-11-28 00:50] LABS: Add Differential Manual Differential
[2016-11-28 00:54] LABS: Myelocytes % 11.5 %; Nucleated Red Blood Cells 0 /100 WBC (0-0); Total Cells Counted 200
[2016-11-28 00:55] LABS: Manual Review Performed
[2016-11-28 04:54] LABS: CH 29.5; CHCM 32.8; HCT 26.7 % (34.0-46.0); HDW 2.86; HGB 8.5 gm/dL (11.4-16.0); Immature Gran Flag Marked; MCH 28.9 pg (25.0-35.0); MCHC 31.9 g/dL (31.0-37.0); MCV 90.5 fL (80.0-100.0); Mean Platelet Volume 7.6; RBC 2.95 m/uL (3.80-5.40); RDW 14.9 % (11.5-15.5); WBC 14.6 k/uL (3.8-10.6); WBC (Perox) 15.09
[2016-11-28 05:15] LABS: ALT 28 U/L (9-52); AST 15 U/L (14-36); Alkaline Phosphatase 171 U/L (38-126); Anion Gap 8 mmol/L; Blood Urea Nitrogen 9 mg/dL (7-17); Calcium 9.1 mg/dL (8.4-10.2); Carbon Dioxide 27 mmol/L (22-30); Chloride 102 mmol/L (98-107); Glucose 73 mg/dL (74-99); Non-African American GFR(MDRD) >60 (>60 ml/min/1.73 sqM); Potassium 3.7 mmol/L (3.5-5.1); Sodium 137 mmol/L (137-145); Total Bilirubin 0.4 mg/dL (0.2-1.3); Total Protein 5.5 g/dL (6.3-8.2)
[2016-11-28 05:32] LABS: Add Differential Manual Differential
[2016-11-28 05:36] LABS: Manual Review Performed; Nucleated Red Blood Cells 0 /100 WBC (0-0); Total Cells Counted 200
[2016-11-28] MEDS: FOLIC ACID 1 MG TAB PO SCH ×2 (05:55→10:09)
[2016-11-28] MEDS: CHOLECALCIFEROL 1,000 UNIT TAB PO SCH (05:55)
[2016-11-28] MEDS: LACTULOSE 20 GM/30 ML CUP PO SCH ×2 (10:08→21:40)
[2016-11-28] MEDS: PANTOPRAZOLE 40 MG TABLET PO SCH (10:09)
[2016-11-28] MEDS: metroNIDAZOLE 500 MG TAB PO SCH ×2 (10:09→17:29)
[2016-11-28] MEDS: NYSTATIN 100,000 UNIT/ML SUSP 500,000 UNIT/5 ML CUP PO SCH ×4 (10:09→21:40)
[2016-11-28] MEDS: TAMSULOSIN 0.4 MG CAP.ER.24H PO SCH (10:09)
[2016-11-28] MEDS: DILTIAZEM ORAL 60 MG TAB PO SCH ×4 (10:17→23:06)
[2016-11-28] MEDS ORDERED: VITAMIN A 10,000 UNIT CAPSULE PO SCH (12:00)
[2016-11-28] MEDS ORDERED: CHOLECALCIFEROL 1,000 UNIT TAB PO SCH (12:00)
[2016-11-28 12:06] LABS: CH 29.6; CHCM 32.8; HCT 26.5 % (34.0-46.0); HDW 2.81; HGB 8.7 gm/dL (11.4-16.0); Immature Gran Flag Marked; MCH 29.7 pg (25.0-35.0); MCHC 32.7 g/dL (31.0-37.0); Mean Platelet Volume 7.7; RBC 2.91 m/uL (3.80-5.40); RDW 14.8 % (11.5-15.5); WBC 19.2 k/uL (3.8-10.6); WBC (Perox) 20.24
--- NOTE | 2016-11-28 13:02 | P.PN ---
Subjective his is a pleasant 66-year-old lady patient of Dr. Dorantes. He has underlying history of CAD, hyperlipidemia, hypertension, pancreatitis, neuropathy chronic back pain chronic opioid-induced constipation, admitted to the hospital secondary to anemia and hematochezia,. Her previous hemoglobin was 13.7 on 10/19/2016 and was admitted with hemoglobin of 10.2 apparently patient has been passing siddiqui colored stools her abdominal pain is localized mainly in the periumbilical region, her last colonoscopy is was at age 14 and on since, patient never had any imaging studies of her abdomen in the past evaluate for the chronic abdominal pain and chronic constipation. She also had a WBC count of 23.9 on admission with a previous wbc of 9.5 on 10/19/2016 patient denies any fever no chills dysuria no hematemesis, her last MRCP 2015 with findings showing distal pancreatic body with atrophic pancreas and dilated pancreatic duct reflecting chronic pancreatitis with adjacent pseudocyst formation. She was admitted to the ICU secondary to ongoing lower GI losses with a hemoglobin of 8.7 not requiring any blood transfusion, consults were made with Dr. Navarrete secondary to thrombocytopenia leukocytosis and anemia which is new, patient was started on IV Levaquin and Flagyl sepsis is in the consideration, CAT scan of the abdomen and pelvis was done and that showed biliary extrahepatic dilatation and pancreatic duct dilatation without any significant change from the prior study. Patient has been seen by Dr. Abrams with plan for EGD and colonoscopy as an outpatient, at that time she was seen by and was placed on Diflucan and nystatin for oral thrush along with nephrology evaluation for hyponatremia which was then resolved and the patient was released home on 11/22/2016. Patient went for follow up with yesterday and had laboratory evaluation that documented anemia and thrombocytopenia and she was sent to the ER because of ongoing issues with anemia and thrombocytopenia that was thought to be due to drug- related,and was subsequently admitted to the hospital for further evaluation. 11/28/2016: Patient was seen in consultation by hematology yesterday, he was recommended for the patient to go for bone marrow aspirate, her platelet count dropped to 18,000 yesterday and now 16,000 was recommended for the patient have a platelet transfusion.. Objective - Vital Signs Vital signs: Vital Signs Temp 97.2 F L 11/28/16 06:59 Pulse 88 11/28/16 06:59 Resp 16 11/28/16 06:59 BP 122/60 11/28/16 06:59 Pulse Ox 96 11/28/16 06:59 Intake & Output 11/27/16 11/28/16 11/28/16 18:59 06:59 18:59 Other: Voiding Method Bedside Commode Bedside Commode # Voids 3 2 # Bowel Movements 1 - Exam - Constitutional General appearance: mild distress, thin - EENT Eyes: anicteric sclerae, EOMI, PERRLA, no ptosis, no scleral icterus, normal appearance ENT: hearing grossly normal, normal oropharynx, thrush Ears: bilateral: normal - Neck Neck: no lymphadenopathy, normal ROM, no rigidity, no stridor, no thyromegaly Carotids: bilateral: upstroke normal Thyroid: bilateral: normal size - Respiratory Respiratory: bilateral: diminished, negative: dullness, rales, rhonchi, wheezing , prolonged expiration, prolonged inspiration - Cardiovascular Rhythm: regular Heart sounds: normal: S1, S2 Abnormal Heart Sounds: systolic murmur, no rub, no S3 Gallop, no S4 Gallop, no click - Gastrointestinal General gastrointestinal: normal bowel sounds, soft, no splenomegaly, no tenderness, no umbilical hernia, no ventral hernia - Integumentary Integumentary: normal, normal turgor, no rash, ulcer (Stage II buttock ulcer.) - Neurologic Neurologic: CNII-XII intact - Musculoskeletal Musculoskeletal: generalized weakness, strength equal bilaterally - Psychiatric Psychiatric: A&O x's 3, appropriate affect, intact judgment & insight - Labs CBC & Chem 7: 11/28/16 11:36 11/28/16 04:41 Labs: Abnormal Lab Results - Last 24 Hours (Table) 11/27/16 11/27/16 11/27/16 Range/Units 11:32 11:32 11:32 WBC 19.4 H (3.8-10.6) k/uL RBC 3.05 L (3.80-5.40) m/uL Hgb 8.9 L (11.4-16.0) gm/dL Hct 27.8 L (34.0-46.0) % Plt Count 20 L* (150-450) k/uL Neutrophils # (Manual) 12.5 H (1.3-7.7) k/uL Monocytes # (Manual) 2.3 H (0-1.0) k/uL Sodium 136 L (137-145) mmol/L Glucose 106 H (74-99) mg/dL Plasma Lactic Acid Narendra 0.6 L (0.7-2.0) mmol/L Alkaline Phosphatase (38-126) U/L Total Protein (6.3-8.2) g/dL Albumin (3.5-5.0) g/dL 11/27/16 11/28/16 11/28/16 Range/Units 16:26 00:00 04:41 WBC 21.0 H 17.5 H (3.8-10.6) k/uL RBC 2.93 L 2.70 L (3.80-5.40) m/uL Hgb 8.9 L 8.5 L (11.4-16.0) gm/dL Hct 26.6 L 24.1 L (34.0-46.0) % Plt Count 22 L* 18 L* (150-450) k/uL Neutrophils # (Manual) 14.5 H 11.6 H (1.3-7.7) k/uL Monocytes # (Manual) 1.7 H 2.1 H (0-1.0) k/uL Sodium (137-145) mmol/L Glucose 73 L (74-99) mg/dL Plasma Lactic Acid Narendra (0.7-2.0) mmol/L Alkaline Phosphatase 171 H (38-126) U/L Total Protein 5.5 L (6.3-8.2) g/dL Albumin 3.2 L (3.5-5.0) g/dL 11/28/16 Range/Units 04:41 WBC 14.6 H (3.8-10.6) k/uL RBC 2.95 L (3.80-5.40) m/uL Hgb 8.5 L (11.4-16.0) gm/dL Hct 26.7 L (34.0-46.0) % Plt Count 16 L* (150-450) k/uL Neutrophils # (Manual) 9.0 H (1.3-7.7) k/uL Monocytes # (Manual) (0-1.0) k/uL Sodium (137-145) mmol/L Glucose (74-99) mg/dL Plasma Lactic Acid Narendra (0.7-2.0) mmol/L Alkaline Phosphatase (38-126) U/L Total Protein (6.3-8.2) g/dL Albumin (3.5-5.0) g/dL Assessment and Plan Plan: Assessment and Plan Plan: 1. Lower GI bleed thought to be due to diverticvulitis and low platelets.patient was admitted for 1 unit of PRBC transfusion. We will maintain the patient on oral antibiotic in the form of metronidazole 500 mg orally 3 times every day, advance diet as tolerated. 2. Bicytopenia with thrombocytopenia and anemia. we will consult hematology again. This is likely related immune-related the form of cytopenia, patient may need to go on solu-medroll 60 mg IV push every 6 hours 4 doses, and she may need to be on IVIG if her platelet count did drop again, and/or bone marrow aspirate. 3. Chronic history of pancreatic duct stent, last MRCP was in December 2015. Her computed tomography scan of the abdomen and pelvis did show dilatation of the extrahepatic biliary and pancreatic duct. Without any significant changes 4. Chronic malabsorption state from poor oral intake, and ongoing pancreas problems, lipase to be checked, vitamin B12 would be obtained later await CAT scan 5. Weight loss off 17 pounds in 15 months nutritional supplementation would be ordered, patient would need to go for an EGD and colonoscopy, she would need to have a celiac panel. 6. GI prophylaxis on Protonix 40 mg orally once every day. 7. DVT prophylaxis on TRISTAN hose and SCDs. 8. Anxiety. Continue Xanax as needed. 9. Urinary retention. Continue patient on Flomax 0.4 mg orally once every day. 10. Reported history of renal disease stage II. Her GFR is greater than 60. Avoid NSAIDs. Her intact PTH is elevated. 11. Chronic pain syndrome. Continue patient on current pain management. 12. Severe osteoarthritis of both hips. Continue to use the walker and avoid falling. 13. Overall prognosis guarded. 14. Patient will need it admitted for transfusion since she dropped less than 20,000.
[2016-11-28 13:36] LABS: Add Differential Manual Differential
[2016-11-28 13:41] LABS: Band Neutrophils % 9.5 %; Metamyelocytes % 17.5 %; Nucleated Red Blood Cells 0 /100 WBC (0-0); Total Cells Counted 200
[2016-11-28] MEDS: ALPRAZolam 0.25 MG TAB PO PRN ×2 (14:43→23:10)
[2016-11-28] MEDS: FLUCONAZOLE 100 MG TAB PO SCH (16:43)
[2016-11-28] MEDS: FUROSEMIDE 20 MG TAB PO SCH (16:43)
[2016-11-28 20:52] LABS: CH 29.7; CHCM 33.1; HCT 24.6 % (34.0-46.0); HDW 2.93; HGB 8.6 gm/dL (11.4-16.0); Immature Gran Flag Marked; MCH 31.4 pg (25.0-35.0); MCHC 34.7 g/dL (31.0-37.0); MCV 90.5 fL (80.0-100.0); Mean Platelet Volume 10.4; RBC 2.72 m/uL (3.80-5.40); RDW 14.7 % (11.5-15.5); WBC 16.1 k/uL (3.8-10.6); WBC (Perox) 17.56
[2016-11-28 21:09] LABS: Add Differential Manual Differential
[2016-11-28 21:16] LABS: Manual Review Performed; Metamyelocytes % 4.5 %; Nucleated Red Blood Cells 0 /100 WBC (0-0); Total Cells Counted 200
[2016-11-28 21:17] LABS: Toxic Granulation Present
[2016-11-29] MEDS: metroNIDAZOLE 500 MG TAB PO SCH ×4 (00:07→23:42)
[2016-11-29] MEDS: SODIUM CHLORIDE 0.9% 1,000 ML IV SCH (01:48)
[2016-11-29] MEDS: VITAMIN A 10,000 UNIT CAPSULE PO SCH (05:41)
[2016-11-29 07:26] LABS: CH 29.8; CHCM 32.9; HCT 27.5 % (34.0-46.0); HDW 2.81; HGB 8.9 gm/dL (11.4-16.0); Immature Gran Flag Marked; MCH 29.5 pg (25.0-35.0); MCHC 32.4 g/dL (31.0-37.0); MCV 91.2 fL (80.0-100.0); Mean Platelet Volume 7.6; RBC 3.01 m/uL (3.80-5.40); RDW 14.8 % (11.5-15.5); Reticulocyte % 0.3 % (0.5-2.0); WBC 16.4 k/uL (3.8-10.6); WBC (Perox) 17.12
[2016-11-29] MEDS: PANTOPRAZOLE 40 MG TABLET PO SCH (07:43)
[2016-11-29] MEDS: DILTIAZEM ORAL 60 MG TAB PO SCH ×2 (07:44→21:50)
[2016-11-29] MEDS: FOLIC ACID 1 MG TAB PO SCH (07:44)
[2016-11-29] MEDS: ALPRAZolam 0.25 MG TAB PO PRN ×3 (07:45→23:42)
[2016-11-29] MEDS: NYSTATIN 100,000 UNIT/ML SUSP 500,000 UNIT/5 ML CUP PO SCH ×4 (07:45→21:50)
[2016-11-29] MEDS: LACTULOSE 20 GM/30 ML CUP PO SCH ×2 (08:04→21:48)
[2016-11-29] MEDS: FUROSEMIDE 20 MG TAB PO SCH (08:29)
[2016-11-29] MEDS: TAMSULOSIN 0.4 MG CAP.ER.24H PO SCH ×2 (08:29→15:44)
[2016-11-29 08:42] LABS: ALT 15 U/L (9-52); AST 15 U/L (14-36); Alkaline Phosphatase 174 U/L (38-126); Anion Gap 7 mmol/L; Blood Urea Nitrogen 9 mg/dL (7-17); Calcium 8.9 mg/dL (8.4-10.2); Carbon Dioxide 27 mmol/L (22-30); Chloride 104 mmol/L (98-107); Glucose 87 mg/dL (74-99); Non-African American GFR(MDRD) >60 (>60 ml/min/1.73 sqM); Potassium 3.5 mmol/L (3.5-5.1); Sodium 138 mmol/L (137-145); Total Bilirubin 0.5 mg/dL (0.2-1.3); Total Protein 5.5 g/dL (6.3-8.2)
[2016-11-29 09:09] LABS: Add Differential Manual Differential
[2016-11-29 09:16] LABS: Myelocytes % 9.5 %; Nucleated Red Blood Cells 0 /100 WBC (0-0); Promyelocytes % 2.5 %; Total Cells Counted 200
[2016-11-29 09:41] LABS: LDH 1974 U/L (313-618)
[2016-11-29 11:03] LABS: Iron 113 ug/dL (37-170)
[2016-11-29] MEDS: CYANOCOBALAMIN 500 MCG TAB PO SCH (11:11)
[2016-11-29 11:14] LABS: % Iron Saturation 71.5 % (20-50); Total Iron Binding Capacity 158 ug/dL (265-497)
[2016-11-29] MEDS ORDERED: CYANOCOBALAMIN 500 MCG TAB PO SCH (12:00)
[2016-11-29 12:04] LABS: Vitamin B12 >1000 pg/mL
--- NOTE | 2016-11-29 12:58 | P.PN ---
Subjective his is a pleasant 66-year-old lady patient of Dr. Dorantes. He has underlying history of CAD, hyperlipidemia, hypertension, pancreatitis, neuropathy chronic back pain chronic opioid-induced constipation, admitted to the hospital secondary to anemia and hematochezia,. Her previous hemoglobin was 13.7 on 10/19/2016 and was admitted with hemoglobin of 10.2 apparently patient has been passing siddiqui colored stools her abdominal pain is localized mainly in the periumbilical region, her last colonoscopy is was at age 14 and on since, patient never had any imaging studies of her abdomen in the past evaluate for the chronic abdominal pain and chronic constipation. She also had a WBC count of 23.9 on admission with a previous wbc of 9.5 on 10/19/2016 patient denies any fever no chills dysuria no hematemesis, her last MRCP 2015 with findings showing distal pancreatic body with atrophic pancreas and dilated pancreatic duct reflecting chronic pancreatitis with adjacent pseudocyst formation. She was admitted to the ICU secondary to ongoing lower GI losses with a hemoglobin of 8.7 not requiring any blood transfusion, consults were made with Dr. Navarrete secondary to thrombocytopenia leukocytosis and anemia which is new, patient was started on IV Levaquin and Flagyl sepsis is in the consideration, CAT scan of the abdomen and pelvis was done and that showed biliary extrahepatic dilatation and pancreatic duct dilatation without any significant change from the prior study. Patient has been seen by Dr. Abrams with plan for EGD and colonoscopy as an outpatient, at that time she was seen by and was placed on Diflucan and nystatin for oral thrush along with nephrology evaluation for hyponatremia which was then resolved and the patient was released home on 11/22/2016. Patient went for follow up with yesterday and had laboratory evaluation that documented anemia and thrombocytopenia and she was sent to the ER because of ongoing issues with anemia and thrombocytopenia that was thought to be due to drug- related,and was subsequently admitted to the hospital for further evaluation. 11/28/2016: Patient was seen in consultation by hematology yesterday, he was recommended for the patient to go for bone marrow aspirate, her platelet count dropped to 18,000 yesterday and now 16,000 was recommended for the patient have a platelet transfusion.. 11/29/2016: Patient sitting up in bed in no apparent distress, she denies any chest pain, shortness of breath, she has no abdominal pain, nausea, she is constipated, she was seen earlier by Dr. Navarrete and the plan is to go for bone marrow aspirate hopefully in the next 24 hours. Objective - Vital Signs Vital signs: Vital Signs Temp 97.8 F 11/29/16 07:00 Pulse 101 H 11/29/16 07:00 Resp 18 11/29/16 07:00 BP 147/62 11/29/16 07:00 Pulse Ox 98 11/29/16 07:00 Intake & Output 11/28/16 11/29/16 11/29/16 18:59 06:59 18:59 Intake Total 220 Output Total 800 Balance -580 Intake: Intake, IV Titration 220 Amount Sodium Chloride 0.9% 1, 220 000 ml @ 20 mls/hr IV . Q24H [facility] Rx#:[id number] Oral 0 Output: Urine 800 Other: Voiding Method Bedside Commode Bedside Commode Bedside Commode # Voids 3 1 1 - Exam - Constitutional General appearance: mild distress, thin - EENT Eyes: anicteric sclerae, EOMI, PERRLA, no ptosis, no scleral icterus, normal appearance ENT: hearing grossly normal, normal oropharynx, thrush Ears: bilateral: normal - Neck Neck: no lymphadenopathy, normal ROM, no rigidity, no stridor, no thyromegaly Carotids: bilateral: upstroke normal Thyroid: bilateral: normal size - Respiratory Respiratory: bilateral: diminished, negative: dullness, rales, rhonchi, wheezing , prolonged expiration, prolonged inspiration - Cardiovascular Rhythm: regular Heart sounds: normal: S1, S2 Abnormal Heart Sounds: systolic murmur, no rub, no S3 Gallop, no S4 Gallop, no click - Gastrointestinal General gastrointestinal: normal bowel sounds, soft, no splenomegaly, no tenderness, no umbilical hernia, no ventral hernia - Integumentary Integumentary: normal, normal turgor, no rash, ulcer (Stage II buttock ulcer.) - Neurologic Neurologic: CNII-XII intact - Musculoskeletal Musculoskeletal: generalized weakness, strength equal bilaterally - Psychiatric Psychiatric: A&O x's 3, appropriate affect, intact judgment & insight - Labs CBC & Chem 7: 11/29/16 07:02 11/29/16 07:02 Labs: Abnormal Lab Results - Last 24 Hours (Table) 11/28/16 11/28/16 11/29/16 Range/Units 11:36 20:23 07:02 WBC 19.2 H 16.1 H 16.4 H (3.8-10.6) k/uL RBC 2.91 L 2.72 L 3.01 L (3.80-5.40) m/uL Hgb 8.7 L 8.6 L 8.9 L (11.4-16.0) gm/dL Hct 26.5 L 24.6 L 27.5 L (34.0-46.0) % Plt Count 21 L* 25 L* 18 L* (150-450) k/uL Neutrophils # (Manual) 12.0 H 10.3 H 10.4 H (1.3-7.7) k/uL Monocytes # (Manual) 1.2 H 1.2 H (0-1.0) k/uL Alkaline Phosphatase (38-126) U/L Lactate Dehydrogenase (313-618) U/L Total Protein (6.3-8.2) g/dL Albumin (3.5-5.0) g/dL 11/29/16 Range/Units 07:02 WBC (3.8-10.6) k/uL RBC (3.80-5.40) m/uL Hgb (11.4-16.0) gm/dL Hct (34.0-46.0) % Plt Count (150-450) k/uL Neutrophils # (Manual) (1.3-7.7) k/uL Monocytes # (Manual) (0-1.0) k/uL Alkaline Phosphatase 174 H (38-126) U/L Lactate Dehydrogenase 1974 H (313-618) U/L Total Protein 5.5 L (6.3-8.2) g/dL Albumin 3.1 L (3.5-5.0) g/dL Assessment and Plan Plan: Assessment and Plan Plan: 1. Lower GI bleed thought to be due to diverticvulitis and low platelets.patient was admitted for 1 unit of PRBC transfusion. We will maintain the patient on oral antibiotic in the form of metronidazole 500 mg orally 3 times every day, advance diet as tolerated. 2. Bicytopenia with thrombocytopenia and anemia. we will consult hematology again. This is likely related immune-related the form of cytopenia, patient may need to go on solu-medroll 60 mg IV push every 6 hours 4 doses, and she may need to be on IVIG if her platelet count did drop again, and/or bone marrow aspirate. 3. Chronic history of pancreatic duct stent, last MRCP was in December 2015. Her computed tomography scan of the abdomen and pelvis did show dilatation of the extrahepatic biliary and pancreatic duct. Without any significant changes 4. Chronic malabsorption state from poor oral intake, and ongoing pancreas problems, lipase to be checked, vitamin B12 would be obtained later await CAT scan 5. Weight loss off 17 pounds in 15 months nutritional supplementation would be ordered, patient would need to go for an EGD and colonoscopy, she would need to have a celiac panel. 6. GI prophylaxis on Protonix 40 mg orally once every day. 7. DVT prophylaxis on TRISTAN hose and SCDs. 8. Anxiety. Continue Xanax as needed. 9. Urinary retention. Continue patient on Flomax 0.4 mg orally once every day. 10. Reported history of renal disease stage II. Her GFR is greater than 60. Avoid NSAIDs. Her intact PTH is elevated. 11. Chronic pain syndrome. Continue patient on current pain management. 12. Severe osteoarthritis of both hips. Continue to use the walker and avoid falling. 13. Overall prognosis guarded. 14. Patient will need it admitted for transfusion since she dropped less than 20,000.
[2016-11-29] MEDS ORDERED: DILTIAZEM CD 120 MG CAP.ER.24H PO SCH (14:00)
[2016-11-29 15:32] LABS: CH 29.4; CHCM 32.7; HCT 25.7 % (34.0-46.0); HDW 2.89; HGB 8.8 gm/dL (11.4-16.0); Immature Gran Flag Marked; MCH 30.9 pg (25.0-35.0); MCV 90.7 fL (80.0-100.0); Mean Platelet Volume 8.4; RBC 2.84 m/uL (3.80-5.40); RDW 14.9 % (11.5-15.5); WBC 15.7 k/uL (3.8-10.6); WBC (Perox) 16.69
[2016-11-29] MEDS: FLUCONAZOLE 100 MG TAB PO SCH (15:33)
--- NOTE | 2016-11-29 15:43 | P.PN ---
Subjective Principal diagnosis: Bicytopenia with leukocytosis Pt seen in follow up, she is weak, very tired, has difficulty positioning herself in the bed. She denies fever, has SOB with exertion, no chest pain or bleeding. Objective - Vital Signs Vital signs: Vital Signs Temp 97.8 F 11/29/16 07:00 Pulse 101 H 11/29/16 07:00 Resp 18 11/29/16 07:00 BP 147/62 11/29/16 07:00 Pulse Ox 98 11/29/16 07:00 Intake & Output 11/28/16 11/29/16 11/29/16 18:59 06:59 18:59 Intake Total 220 Output Total 800 Balance -580 Weight 55 kg Intake: Intake, IV Titration 220 Amount Sodium Chloride 0.9% 1, 220 000 ml @ 20 mls/hr IV . Q24H [facility] Rx#:[id number] Oral 0 Output: Urine 800 Other: Voiding Method Bedside Commode Bedside Commode Bedside Commode # Voids 3 1 2 - Constitutional General appearance: Present: no acute distress, thin - EENT Eyes: Present: anicteric sclerae - Neurologic Neurologic: Present: CNII-XII intact - Musculoskeletal Musculoskeletal: Present: generalized weakness, strength equal bilaterally - Psychiatric Psychiatric: Present: A&O x's 3, appropriate affect, intact judgment & insight - Labs CBC & Chem 7: 11/29/16 07:02 11/29/16 07:02 Labs: Abnormal Lab Results - Last 24 Hours (Table) 11/28/16 11/29/16 11/29/16 Range/Units 20:23 07:02 07:02 WBC 16.1 H 16.4 H (3.8-10.6) k/uL RBC 2.72 L 3.01 L (3.80-5.40) m/uL Hgb 8.6 L 8.9 L (11.4-16.0) gm/dL Hct 24.6 L 27.5 L (34.0-46.0) % Plt Count 25 L* 18 L* (150-450) k/uL Neutrophils # (Manual) 10.3 H 10.4 H (1.3-7.7) k/uL Monocytes # (Manual) 1.2 H (0-1.0) k/uL Retic Count 0.3 L (0.5-2.0) % TIBC 158 L (265-497) ug/dL % Saturation 71.5 H (20-50) % Ferritin 699 H (11-264) ng/mL Alkaline Phosphatase 174 H (38-126) U/L Lactate Dehydrogenase 1974 H (313-618) U/L Total Protein 5.5 L (6.3-8.2) g/dL Albumin 3.1 L (3.5-5.0) g/dL Assessment and Plan (1) Bicytopenia Status: Acute (2) Neutrophilic leukocytosis Status: Acute Plan: Pt CBC is not recovering and all previous work up has not identified an underlying cause to bone marrow evaluation is indicated. Dr. Navarrete discussed bone marrow biopsy and aspirate procedure, purpose, risks and benefits with pt, she verbalized understanding and is agreeable to have procedure under conscious sedation. Sched will be contacted, pt will be NPO after midnight. NO asa, NSAIDs or anticoagulation due to throbocytopenia CBC reviewed, no transfusion for today. Labs in AM
[2016-11-29 16:16] LABS: Add Differential Manual Differential
[2016-11-29 16:25] LABS: Band Neutrophils % 18.5 %; Metamyelocytes % 5.5 %; Myelocytes % 10.5 %; Nucleated Red Blood Cells 0 /100 WBC (0-0); Promyelocytes % 3.5 %; Total Cells Counted 200
[2016-11-29 16:26] LABS: Manual Review Performed
[2016-11-29 16:27] LABS: Spherocytes Present
[2016-11-29] MEDS: LACTATED RINGERS 1,000 ML IV SCH (17:51)
[2016-11-30] MEDS: SODIUM CHLORIDE 0.9% 1,000 ML IV SCH ×2 (04:18→22:14)
[2016-11-30] MEDS: VITAMIN A 10,000 UNIT CAPSULE PO SCH (07:39)
[2016-11-30] MEDS: CHOLECALCIFEROL 1,000 UNIT TAB PO SCH (07:39)
[2016-11-30] MEDS: PANTOPRAZOLE 40 MG TABLET PO SCH (07:39)
[2016-11-30] MEDS: DILTIAZEM ORAL 60 MG TAB PO SCH ×3 (07:39→22:10)
[2016-11-30] MEDS: LACTULOSE 20 GM/30 ML CUP PO SCH ×2 (07:39→22:10)
[2016-11-30] MEDS: TAMSULOSIN 0.4 MG CAP.ER.24H PO SCH (07:59)
[2016-11-30] MEDS: NYSTATIN 100,000 UNIT/ML SUSP 500,000 UNIT/5 ML CUP PO SCH ×4 (08:00→22:11)
[2016-11-30] MEDS: ALPRAZolam 0.25 MG TAB PO PRN ×2 (08:00→17:10)
[2016-11-30] MEDS: FOLIC ACID 1 MG TAB PO SCH (08:00)
[2016-11-30] MEDS: metroNIDAZOLE 500 MG TAB PO SCH ×3 (08:00→23:00)
[2016-11-30] MEDS: FUROSEMIDE 20 MG TAB PO SCH (08:00)
[2016-11-30 08:09] LABS: CH 29.1; CHCM 32.6; HCT 23.6 % (34.0-46.0); HDW 2.92; HGB 8.3 gm/dL (11.4-16.0); Immature Gran Flag Marked; MCH 31.4 pg (25.0-35.0); MCV 89.8 fL (80.0-100.0); Mean Platelet Volume 7.5; RBC 2.63 m/uL (3.80-5.40); RDW 14.8 % (11.5-15.5); WBC 14.2 k/uL (3.8-10.6); WBC (Perox) 15.18
[2016-11-30 08:17] LABS: INR 1.2 (<1.1); Prothrombin Time 11.6 sec (9.0-12.0)
[2016-11-30 08:31] LABS: Anion Gap 6 mmol/L; Blood Urea Nitrogen 10 mg/dL (7-17); Calcium 8.8 mg/dL (8.4-10.2); Carbon Dioxide 28 mmol/L (22-30); Chloride 105 mmol/L (98-107); Glucose 89 mg/dL (74-99); Non-African American GFR(MDRD) >60 (>60 ml/min/1.73 sqM); Potassium 3.8 mmol/L (3.5-5.1); Sodium 139 mmol/L (137-145)
[2016-11-30 08:44] LABS: Add Differential Manual Differential
[2016-11-30 08:49] LABS: Blast Cells 0.5; Myelocytes % 6.5 %; Nucleated Red Blood Cells 0 /100 WBC (0-0); Total Cells Counted 200
[2016-11-30 08:50] LABS: Manual Review Performed
[2016-11-30] MEDS ORDERED: LIDOCAINE 2% INJ 20 MG/ML SQ ONE ×2 (12:39→13:20)
--- NOTE | 2016-11-30 12:50 | P.PN ---
Subjective This is a pleasant 66-year-old lady patient of Dr. Dorantes. He has underlying history of CAD, hyperlipidemia, hypertension, pancreatitis, neuropathy chronic back pain chronic opioid-induced constipation, admitted to the hospital secondary to anemia and hematochezia,. Her previous hemoglobin was 13.7 on 10/19/2016 and was admitted with hemoglobin of 10.2 apparently patient has been passing siddiqui colored stools her abdominal pain is localized mainly in the periumbilical region, her last colonoscopy is was at age 14 and on since, patient never had any imaging studies of her abdomen in the past evaluate for the chronic abdominal pain and chronic constipation. She also had a WBC count of 23.9 on admission with a previous wbc of 9.5 on 10/19/2016 patient denies any fever no chills dysuria no hematemesis, her last MRCP 2015 with findings showing distal pancreatic body with atrophic pancreas and dilated pancreatic duct reflecting chronic pancreatitis with adjacent pseudocyst formation. She was admitted to the ICU secondary to ongoing lower GI losses with a hemoglobin of 8.7 not requiring any blood transfusion, consults were made with Dr. Navrarete secondary to thrombocytopenia leukocytosis and anemia which is new, patient was started on IV Levaquin and Flagyl sepsis is in the consideration, CAT scan of the abdomen and pelvis was done and that showed biliary extrahepatic dilatation and pancreatic duct dilatation without any significant change from the prior study. Patient has been seen by Dr. Abrams with plan for EGD and colonoscopy as an outpatient, at that time she was seen by and was placed on Diflucan and nystatin for oral thrush along with nephrology evaluation for hyponatremia which was then resolved and the patient was released home on 11/22/2016. Patient went for follow up with yesterday and had laboratory evaluation that documented anemia and thrombocytopenia and she was sent to the ER because of ongoing issues with anemia and thrombocytopenia that was thought to be due to drug- related,and was subsequently admitted to the hospital for further evaluation. 11/28/2016: Patient was seen in consultation by hematology yesterday, he was recommended for the patient to go for bone marrow aspirate, her platelet count dropped to 18,000 yesterday and now 16,000 was recommended for the patient have a platelet transfusion.. 11/29/2016: Patient sitting up in bed in no apparent distress, she denies any chest pain, shortness of breath, she has no abdominal pain, nausea, she is constipated, she was seen earlier by Dr. Navarrete and the plan is to go for bone marrow aspirate hopefully in the next 24 hours. 11/30: Patient is scheduled for bone marrow biopsy today. Platelet count is down to 15. She has been afebrile and vital signs stable. Objective - Vital Signs Vital signs: Vital Signs Temp 97.8 F 11/30/16 07:00 Pulse 87 11/30/16 07:00 Resp 18 11/30/16 07:00 BP 118/58 11/30/16 07:00 Pulse Ox 99 11/30/16 07:00 Intake & Output 11/29/16 11/30/16 11/30/16 18:59 06:59 18:59 Intake Total 0 Balance 0 Weight 55 kg Intake: Oral 0 Other: Voiding Method Bedside Commode Bedside Commode Bedside Commode # Voids 2 3 - Exam General appearance: mild distress, thin - EENT Eyes: anicteric sclerae, EOMI, PERRLA, no ptosis, no scleral icterus, normal appearance ENT: hearing grossly normal, normal oropharynx, thrush Ears: bilateral: normal - Neck Neck: no lymphadenopathy, normal ROM, no rigidity, no stridor, no thyromegaly Carotids: bilateral: upstroke normal Thyroid: bilateral: normal size - Respiratory Respiratory: bilateral: diminished, negative: dullness, rales, rhonchi, wheezing , prolonged expiration, prolonged inspiration - Cardiovascular Rhythm: regular Heart sounds: normal: S1, S2 Abnormal Heart Sounds: systolic murmur, no rub, no S3 Gallop, no S4 Gallop, no click - Gastrointestinal General gastrointestinal: normal bowel sounds, soft, no splenomegaly, no tenderness, no umbilical hernia, no ventral hernia - Integumentary Integumentary: normal, normal turgor, no rash, ulcer (Stage II buttock ulcer.) - Neurologic Neurologic: CNII-XII intact - Musculoskeletal Musculoskeletal: generalized weakness, strength equal bilaterally - Psychiatric Psychiatric: A&O x's 3, appropriate affect, intact judgment & insight - Labs CBC & Chem 7: 11/30/16 07:47 11/30/16 07:47 Labs: Abnormal Lab Results - Last 24 Hours (Table) 0611/29/16 11/29/16 Range/Units 07:02 07:02 15:17 WBC 15.7 H (3.8-10.6) k/uL RBC 2.84 L (3.80-5.40) m/uL Hgb 8.8 L (11.4-16.0) gm/dL Hct 25.7 L (34.0-46.0) % Plt Count 21 L* (150-450) k/uL Neutrophils # (Manual) 10.2 H (1.3-7.7) k/uL Monocytes # (Manual) 1.2 H (0-1.0) k/uL Retic Count 0.3 L (0.5-2.0) % TIBC 158 L (265-497) ug/dL % Saturation 71.5 H (20-50) % Ferritin 699 H (11-264) ng/mL 11/30/16 Range/Units 07:47 WBC 14.2 H (3.8-10.6) k/uL RBC 2.63 L (3.80-5.40) m/uL Hgb 8.3 L (11.4-16.0) gm/dL Hct 23.6 L (34.0-46.0) % Plt Count 15 L* (150-450) k/uL Neutrophils # (Manual) 9.4 H (1.3-7.7) k/uL Monocytes # (Manual) 1.6 H (0-1.0) k/uL Retic Count (0.5-2.0) % TIBC (265-497) ug/dL % Saturation (20-50) % Ferritin (11-264) ng/mL Assessment and Plan Plan: 1. Lower GI bleed thought to be due to diverticvulitis and low platelets.patient was admitted for 1 unit of PRBC transfusion. We will maintain the patient on oral antibiotic in the form of metronidazole 500 mg orally 3 times every day, advance diet as tolerated. 2. Bicytopenia with thrombocytopenia and anemia. we will consult hematology again. This is likely related immune-related the form of cytopenia, patient may need to go on solu-medroll 60 mg IV push every 6 hours 4 doses, and she may need to be on IVIG if her platelet count did drop again, and/or bone marrow aspirate. 3. Chronic history of pancreatic duct stent, last MRCP was in December 2015. Her computed tomography scan of the abdomen and pelvis did show dilatation of the extrahepatic biliary and pancreatic duct. Without any significant changes 4. Chronic malabsorption state from poor oral intake, and ongoing pancreas problems, lipase to be checked, vitamin B12 would be obtained later await CAT scan 5. Weight loss off 17 pounds in 15 months nutritional supplementation would be ordered, patient would need to go for an EGD and colonoscopy, she would need to have a celiac panel. 6. GI prophylaxis on Protonix 40 mg orally once every day. 7. DVT prophylaxis on TRISTAN hose and SCDs. 8. Anxiety. Continue Xanax as needed. 9. Urinary retention. Continue patient on Flomax 0.4 mg orally once every day. 10. Reported history of renal disease stage II. Her GFR is greater than 60. Avoid NSAIDs. Her intact PTH is elevated. 11. Chronic pain syndrome. Continue patient on current pain management. 12. Severe osteoarthritis of both hips. Continue to use the walker and avoid falling. 13. Overall prognosis guarded. 14. Patient will need it admitted for transfusion since she dropped less than 20,000. Discharge plan: Home with [facility] Impression and plan of care have been directed as dictated by the signing physician. Kelli Marion nurse practitioner acting as scribe for signing physician.
[2016-11-30] MEDS ORDERED: IV FLUID CONTINUATION 1,000 ML IV ONE (13:06)
[2016-11-30] MEDS ORDERED: PROPOFOL 10 MG/ML 20 ML VIAL IV ONE (13:10)
[2016-11-30] MEDS ORDERED: LIDOCAINE 1% INJ 10MG/ML (20 ML MDV) ONE (13:10)
[2016-11-30] MEDS: FLUCONAZOLE 100 MG TAB PO SCH (15:20)
[2016-11-30] MEDS: LACTATED RINGERS 1,000 ML IV SCH (15:20)
--- NOTE | 2016-12-01 00:33 | P.PN ---
Subjective Pt was evaluated prior to procedure. No new bleeding. Her chronic pain issues are stable. No f/c/n/v/ Objective - Vital Signs Vital signs: Vital Signs Temp 97.6 F 11/30/16 23:00 Pulse 101 H 11/30/16 23:00 Resp 16 11/30/16 23:00 BP 128/60 11/30/16 23:00 Pulse Ox 97 11/30/16 23:00 Intake & Output 11/30/16 11/30/16 12/01/16 06:59 18:59 06:59 Intake Total 0 300 120 Balance 0 300 120 Intake: IV 300 Oral 0 120 Other: Voiding Method Bedside Commode Bedside Commode # Voids 3 1 - Constitutional General appearance: Present: no acute distress - EENT Eyes: Present: EOMI, PERRLA ENT: Present: hearing grossly normal, normal oropharynx - Respiratory Respiratory: bilateral: CTA - Cardiovascular Rhythm: regular Heart sounds: normal: S1, S2 - Gastrointestinal General gastrointestinal: Present: normal bowel sounds, soft - Integumentary Integumentary: Present: normal - Musculoskeletal Musculoskeletal: Present: generalized weakness - Psychiatric Psychiatric: Present: A&O x's 3 - Labs CBC & Chem 7: 11/30/16 07:47 11/30/16 07:47 Labs: Abnormal Lab Results - Last 24 Hours (Table) 11/30/16 Range/Units 07:47 WBC 14.2 H (3.8-10.6) k/uL RBC 2.63 L (3.80-5.40) m/uL Hgb 8.3 L (11.4-16.0) gm/dL Hct 23.6 L (34.0-46.0) % Plt Count 15 L* (150-450) k/uL Neutrophils # (Manual) 9.4 H (1.3-7.7) k/uL Monocytes # (Manual) 1.6 H (0-1.0) k/uL Assessment and Plan (1) Thrombocytopenia Narrative/Plan: This is slowly progressive. As there is no obvious bleeding with stable Hgb, and plt > 10K ( [id number] today), plt transfusion is not required. A primary marrow etiology is now suspected, given progressive decline, and other CBC findings. Thus a bone marrow is being performed. The procedure has been explained in detail to the pt Status: Acute (2) Neutrophilic leukocytosis Narrative/Plan: Over the last 2 days, there has been a progressive left shift, with appearance of blasts and other immature forms noted more prominently today. Bone marrow is being performed as noted Status: Acute (3) Anemia due to blood loss, acute Narrative/Plan: No obvious bleeding noted, with HGb stable. If bleeding recurs, measures from the Heme standpoint would include plt transfusion, and medications ( DDAVP/ Sandostatin/Amicar) Status: Acute
[2016-12-01] MEDS: ALPRAZolam 0.25 MG TAB PO PRN ×3 (00:45→17:08)
[2016-12-01] MEDS: VITAMIN A 10,000 UNIT CAPSULE PO SCH (06:25)
[2016-12-01 07:47] LABS: CH 29.5; CHCM 33.3; HCT 26.9 % (34.0-46.0); HDW 2.91; HGB 9.1 gm/dL (11.4-16.0); MCH 30.1 pg (25.0-35.0); MCHC 33.7 g/dL (31.0-37.0); MCV 89.3 fL (80.0-100.0); Mean Platelet Volume 7.4; RBC 3.01 m/uL (3.80-5.40); RDW 14.8 % (11.5-15.5); WBC 16.9 k/uL (3.8-10.6)
[2016-12-01] MEDS: DILTIAZEM ORAL 60 MG TAB PO SCH ×3 (08:18→22:07)
[2016-12-01] MEDS: metroNIDAZOLE 500 MG TAB PO SCH (08:21)
[2016-12-01] MEDS: PANTOPRAZOLE 40 MG TABLET PO SCH (08:21)
[2016-12-01] MEDS: FUROSEMIDE 20 MG TAB PO SCH (08:22)
[2016-12-01] MEDS: TAMSULOSIN 0.4 MG CAP.ER.24H PO SCH (08:22)
[2016-12-01] MEDS: FOLIC ACID 1 MG TAB PO SCH (08:22)
[2016-12-01] MEDS: LACTULOSE 20 GM/30 ML CUP PO SCH ×2 (08:23→21:58)
[2016-12-01] MEDS: NYSTATIN 100,000 UNIT/ML SUSP 500,000 UNIT/5 ML CUP PO SCH ×4 (08:23→21:59)
[2016-12-01] MEDS: LACTATED RINGERS 1,000 ML IV SCH (08:24)
[2016-12-01 08:42] LABS: ALT 25 U/L (9-52); AST 18 U/L (14-36); Alkaline Phosphatase 192 U/L (38-126); Anion Gap 10 mmol/L; Blood Urea Nitrogen 11 mg/dL (7-17); Calcium 9.3 mg/dL (8.4-10.2); Carbon Dioxide 24 mmol/L (22-30); Chloride 105 mmol/L (98-107); Glucose 83 mg/dL (74-99); Non-African American GFR(MDRD) >60 (>60 ml/min/1.73 sqM); Potassium 3.8 mmol/L (3.5-5.1); Sodium 139 mmol/L (137-145); Total Bilirubin 0.6 mg/dL (0.2-1.3)
[2016-12-01] MEDS: CYANOCOBALAMIN 500 MCG TAB PO SCH (11:42)
--- NOTE | 2016-12-01 14:09 | P.PN ---
Subjective This is a pleasant 66-year-old lady patient of Dr. Dorantes. He has underlying history of CAD, hyperlipidemia, hypertension, pancreatitis, neuropathy chronic back pain chronic opioid-induced constipation, admitted to the hospital secondary to anemia and hematochezia,. Her previous hemoglobin was 13.7 on 10/19/2016 and was admitted with hemoglobin of 10.2 apparently patient has been passing siddiqui colored stools her abdominal pain is localized mainly in the periumbilical region, her last colonoscopy is was at age 14 and on since, patient never had any imaging studies of her abdomen in the past evaluate for the chronic abdominal pain and chronic constipation. She also had a WBC count of 23.9 on admission with a previous wbc of 9.5 on 10/19/2016 patient denies any fever no chills dysuria no hematemesis, her last MRCP 2015 with findings showing distal pancreatic body with atrophic pancreas and dilated pancreatic duct reflecting chronic pancreatitis with adjacent pseudocyst formation. She was admitted to the ICU secondary to ongoing lower GI losses with a hemoglobin of 8.7 not requiring any blood transfusion, consults were made with Dr. Navarrete secondary to thrombocytopenia leukocytosis and anemia which is new, patient was started on IV Levaquin and Flagyl sepsis is in the consideration, CAT scan of the abdomen and pelvis was done and that showed biliary extrahepatic dilatation and pancreatic duct dilatation without any significant change from the prior study. Patient has been seen by Dr. Abrams with plan for EGD and colonoscopy as an outpatient, at that time she was seen by and was placed on Diflucan and nystatin for oral thrush along with nephrology evaluation for hyponatremia which was then resolved and the patient was released home on 11/22/2016. Patient went for follow up with yesterday and had laboratory evaluation that documented anemia and thrombocytopenia and she was sent to the ER because of ongoing issues with anemia and thrombocytopenia that was thought to be due to drug- related,and was subsequently admitted to the hospital for further evaluation. 11/28/2016: Patient was seen in consultation by hematology yesterday, he was recommended for the patient to go for bone marrow aspirate, her platelet count dropped to 18,000 yesterday and now 16,000 was recommended for the patient have a platelet transfusion.. 11/29/2016: Patient sitting up in bed in no apparent distress, she denies any chest pain, shortness of breath, she has no abdominal pain, nausea, she is constipated, she was seen earlier by Dr. Navarrete and the plan is to go for bone marrow aspirate hopefully in the next 24 hours. 11/30: Patient is scheduled for bone marrow biopsy today. Platelet count is down to 15. She has been afebrile and vital signs stable. 12/01: Patient underwent bone marrow biopsy. Platelet count today is 18, white count 16.9 and hemoglobin at 9.1. Patient has had no nausea vomiting or diarrhea. Alkaline phosphatase is increased to 192. Objective - Vital Signs Vital signs: Vital Signs Temp 98.0 F 12/01/16 07:47 Pulse 99 12/01/16 08:00 Resp 16 12/01/16 08:00 BP 124/52 12/01/16 07:47 Pulse Ox 99 12/01/16 07:53 Intake & Output 11/30/16 12/01/16 12/01/16 18:59 06:59 18:59 Intake Total 300 120 Balance 300 120 Intake: IV 300 Oral 120 Other: Voiding Method Bedside Commode Bedside Commode Bedside Commode # Voids 1 1 - Exam General appearance: mild distress, thin - EENT Eyes: anicteric sclerae, EOMI, PERRLA, no ptosis, no scleral icterus, normal appearance ENT: hearing grossly normal, normal oropharynx, thrush Ears: bilateral: normal - Neck Neck: no lymphadenopathy, normal ROM, no rigidity, no stridor, no thyromegaly Carotids: bilateral: upstroke normal Thyroid: bilateral: normal size - Respiratory Respiratory: bilateral: diminished, negative: dullness, rales, rhonchi, wheezing , prolonged expiration, prolonged inspiration - Cardiovascular Rhythm: regular Heart sounds: normal: S1, S2 Abnormal Heart Sounds: systolic murmur, no rub, no S3 Gallop, no S4 Gallop, no click - Gastrointestinal General gastrointestinal: normal bowel sounds, soft, no splenomegaly, no tenderness, no umbilical hernia, no ventral hernia - Integumentary Integumentary: normal, normal turgor, no rash, ulcer (Stage II buttock ulcer.) - Neurologic Neurologic: CNII-XII intact - Musculoskeletal Musculoskeletal: generalized weakness, strength equal bilaterally - Psychiatric Psychiatric: A&O x's 3, appropriate affect, intact judgment & insight - Labs CBC & Chem 7: 12/01/16 07:34 12/01/16 07:34 Labs: Abnormal Lab Results - Last 24 Hours (Table) 12/01/16 12/01/16 Range/Units 07:34 07:34 WBC 16.9 H (3.8-10.6) k/uL RBC 3.01 L (3.80-5.40) m/uL Hgb 9.1 L (11.4-16.0) gm/dL Hct 26.9 L (34.0-46.0) % Plt Count 18 L* (150-450) k/uL Alkaline Phosphatase 192 H (38-126) U/L Total Protein 6.0 L (6.3-8.2) g/dL Assessment and Plan Plan: 1. Lower GI bleed thought to be due to diverticvulitis and low platelets.patient was admitted for 1 unit of PRBC transfusion. We will maintain the patient on oral antibiotic in the form of metronidazole 500 mg orally 3 times every day, advance diet as tolerated. 2. Bicytopenia with thrombocytopenia and anemia. we will consult hematology again. This is likely related immune-related the form of cytopenia, patient may need to go on solu-medroll 60 mg IV push every 6 hours 4 doses, and she may need to be on IVIG if her platelet count did drop again, and/or bone marrow aspirate. 3. Chronic history of pancreatic duct stent, last MRCP was in December 2015. Her computed tomography scan of the abdomen and pelvis did show dilatation of the extrahepatic biliary and pancreatic duct. Without any significant changes 4. Chronic malabsorption state from poor oral intake, and ongoing pancreas problems, lipase to be checked, vitamin B12 would be obtained later await CAT scan 5. Weight loss off 17 pounds in 15 months nutritional supplementation would be ordered, patient would need to go for an EGD and colonoscopy, she would need to have a celiac panel. 6. GI prophylaxis on Protonix 40 mg orally once every day. 7. DVT prophylaxis on TRISTAN hose and SCDs. 8. Anxiety. Continue Xanax as needed. 9. Urinary retention. Continue patient on Flomax 0.4 mg orally once every day. 10. Reported history of renal disease stage II. Her GFR is greater than 60. Avoid NSAIDs. Her intact PTH is elevated. 11. Chronic pain syndrome. Continue patient on current pain management. 12. Severe osteoarthritis of both hips. Continue to use the walker and avoid falling. 13. Overall prognosis guarded. Discharge plan: Home with [facility] Impression and plan of care have been directed as dictated by the signing physician. Kelli Marion nurse practitioner acting as scribe for signing physician.
[2016-12-02] MEDS: SODIUM CHLORIDE 0.9% 1,000 ML IV SCH ×2 (00:36→23:47)
[2016-12-02] MEDS: ALPRAZolam 0.25 MG TAB PO PRN ×3 (01:49→20:35)
[2016-12-02] MEDS: VITAMIN A 10,000 UNIT CAPSULE PO SCH (06:31)
[2016-12-02] MEDS: DILTIAZEM ORAL 60 MG TAB PO SCH ×3 (06:31→21:20)
[2016-12-02 08:01] LABS: CH 28.7; CHCM 32.2; HCT 26.3 % (34.0-46.0); HDW 2.98; HGB 8.9 gm/dL (11.4-16.0); MCH 30.2 pg (25.0-35.0); MCHC 33.6 g/dL (31.0-37.0); MCV 89.9 fL (80.0-100.0); Mean Platelet Volume 7.4; RBC 2.93 m/uL (3.80-5.40)
[2016-12-02] MEDS: FOLIC ACID 1 MG TAB PO SCH (08:04)
[2016-12-02] MEDS: PANTOPRAZOLE 40 MG TABLET PO SCH (08:08)
[2016-12-02] MEDS: LACTULOSE 20 GM/30 ML CUP PO SCH ×2 (08:08→21:18)
[2016-12-02] MEDS: NYSTATIN 100,000 UNIT/ML SUSP 500,000 UNIT/5 ML CUP PO SCH ×4 (08:09→21:20)
[2016-12-02] MEDS: TAMSULOSIN 0.4 MG CAP.ER.24H PO SCH (08:11)
[2016-12-02] MEDS: CHOLECALCIFEROL 1,000 UNIT TAB PO SCH (08:12)
[2016-12-02 08:14] LABS: ALT 17 U/L (9-52); AST 17 U/L (14-36); Alkaline Phosphatase 194 U/L (38-126); Anion Gap 8 mmol/L; Blood Urea Nitrogen 13 mg/dL (7-17); Calcium 9.5 mg/dL (8.4-10.2); Carbon Dioxide 24 mmol/L (22-30); Chloride 106 mmol/L (98-107); Glucose 131 mg/dL (74-99); Non-African American GFR(MDRD) >60 (>60 ml/min/1.73 sqM); Sodium 138 mmol/L (137-145); Total Bilirubin 0.5 mg/dL (0.2-1.3); Total Protein 6.2 g/dL (6.3-8.2)
[2016-12-02] MEDS: FUROSEMIDE 20 MG TAB PO SCH (10:26)
[2016-12-02 15:42] VITALS: RESP 18
--- NOTE | 2016-12-02 15:49 | P.PN ---
Subjective This is a pleasant 66-year-old lady patient of Dr. Dorantes. He has underlying history of CAD, hyperlipidemia, hypertension, pancreatitis, neuropathy chronic back pain chronic opioid-induced constipation, admitted to the hospital secondary to anemia and hematochezia,. Her previous hemoglobin was 13.7 on 10/19/2016 and was admitted with hemoglobin of 10.2 apparently patient has been passing siddiqui colored stools her abdominal pain is localized mainly in the periumbilical region, her last colonoscopy is was at age 14 and on since, patient never had any imaging studies of her abdomen in the past evaluate for the chronic abdominal pain and chronic constipation. She also had a WBC count of 23.9 on admission with a previous wbc of 9.5 on 10/19/2016 patient denies any fever no chills dysuria no hematemesis, her last MRCP 2015 with findings showing distal pancreatic body with atrophic pancreas and dilated pancreatic duct reflecting chronic pancreatitis with adjacent pseudocyst formation. She was admitted to the ICU secondary to ongoing lower GI losses with a hemoglobin of 8.7 not requiring any blood transfusion, consults were made with Dr. Navarrete secondary to thrombocytopenia leukocytosis and anemia which is new, patient was started on IV Levaquin and Flagyl sepsis is in the consideration, CAT scan of the abdomen and pelvis was done and that showed biliary extrahepatic dilatation and pancreatic duct dilatation without any significant change from the prior study. Patient has been seen by Dr. Abrams with plan for EGD and colonoscopy as an outpatient, at that time she was seen by and was placed on Diflucan and nystatin for oral thrush along with nephrology evaluation for hyponatremia which was then resolved and the patient was released home on 11/22/2016. Patient went for follow up with yesterday and had laboratory evaluation that documented anemia and thrombocytopenia and she was sent to the ER because of ongoing issues with anemia and thrombocytopenia that was thought to be due to drug- related,and was subsequently admitted to the hospital for further evaluation. 11/28/2016: Patient was seen in consultation by hematology yesterday, he was recommended for the patient to go for bone marrow aspirate, her platelet count dropped to 18,000 yesterday and now 16,000 was recommended for the patient have a platelet transfusion.. 11/29/2016: Patient sitting up in bed in no apparent distress, she denies any chest pain, shortness of breath, she has no abdominal pain, nausea, she is constipated, she was seen earlier by Dr. Navarrete and the plan is to go for bone marrow aspirate hopefully in the next 24 hours. 11/30: Patient is scheduled for bone marrow biopsy today. Platelet count is down to 15. She has been afebrile and vital signs stable. 12/01: Patient underwent bone marrow biopsy. Platelet count today is 18, white count 16.9 and hemoglobin at 9.1. Patient has had no nausea vomiting or diarrhea. Alkaline phosphatase is increased to 192. 12/02: Repeat labs this morning show white count of 16, hemoglobin 8.9 and platelet count of 27. Alkaline phosphatase is 194. Bone marrow biopsy is still not available. Patient is complaining of feeling tired. She denies any shortness of breath. Objective - Vital Signs Vital signs: Vital Signs Temp 97.0 F L 12/02/16 07:38 Pulse 104 H 12/02/16 07:38 Resp 16 12/02/16 07:38 BP 128/63 12/02/16 07:38 Pulse Ox 99 12/02/16 07:38 Intake & Output 12/01/16 12/02/16 12/02/16 18:59 06:59 18:59 Intake Total 920 160 Balance 920 160 Intake: IV 160 160 Sodium Chloride 0.9% 1, 160 160 000 ml @ 20 mls/hr IV . Q24H [facility] Rx#:[id number] Oral 760 Other: Voiding Method Bedside Commode # Voids 2 - Exam General appearance: mild distress, thin - EENT Eyes: anicteric sclerae, EOMI, PERRLA, no ptosis, no scleral icterus, normal appearance ENT: hearing grossly normal, normal oropharynx, thrush Ears: bilateral: normal - Neck Neck: no lymphadenopathy, normal ROM, no rigidity, no stridor, no thyromegaly Carotids: bilateral: upstroke normal Thyroid: bilateral: normal size - Respiratory Respiratory: bilateral: diminished, negative: dullness, rales, rhonchi, wheezing , prolonged expiration, prolonged inspiration - Cardiovascular Rhythm: regular Heart sounds: normal: S1, S2 Abnormal Heart Sounds: systolic murmur, no rub, no S3 Gallop, no S4 Gallop, no click - Gastrointestinal General gastrointestinal: normal bowel sounds, soft, no splenomegaly, no tenderness, no umbilical hernia, no ventral hernia - Integumentary Integumentary: normal, normal turgor, no rash, ulcer (Stage II buttock ulcer.) - Neurologic Neurologic: CNII-XII intact - Musculoskeletal Musculoskeletal: generalized weakness, strength equal bilaterally - Psychiatric Psychiatric: A&O x's 3, appropriate affect, intact judgment & insight - Labs CBC & Chem 7: 12/02/16 07:45 12/02/16 07:45 Labs: Abnormal Lab Results - Last 24 Hours (Table) 12/02/16 12/02/16 Range/Units 07:45 07:45 WBC 16.0 H (3.8-10.6) k/uL RBC 2.93 L (3.80-5.40) m/uL Hgb 8.9 L (11.4-16.0) gm/dL Hct 26.3 L (34.0-46.0) % Plt Count 27 L* (150-450) k/uL Glucose 131 H (74-99) mg/dL Alkaline Phosphatase 194 H (38-126) U/L Total Protein 6.2 L (6.3-8.2) g/dL Assessment and Plan Plan: 1. Lower GI bleed thought to be due to diverticvulitis and low platelets.patient was admitted for 1 unit of PRBC transfusion. We will maintain the patient on oral antibiotic in the form of metronidazole 500 mg orally 3 times every day, advance diet as tolerated. 2. Bicytopenia with thrombocytopenia and anemia. we will consult hematology again. This is likely related immune-related the form of cytopenia, patient may need to go on solu-medroll 60 mg IV push every 6 hours 4 doses, and she may need to be on IVIG if her platelet count did drop again, and/or bone marrow aspirate. 3. Chronic history of pancreatic duct stent, last MRCP was in December 2015. Her computed tomography scan of the abdomen and pelvis did show dilatation of the extrahepatic biliary and pancreatic duct. Without any significant changes 4. Chronic malabsorption state from poor oral intake, and ongoing pancreas problems, lipase to be checked, vitamin B12 would be obtained later await CAT scan 5. Weight loss off 17 pounds in 15 months nutritional supplementation would be ordered, patient would need to go for an EGD and colonoscopy, she would need to have a celiac panel. 6. GI prophylaxis on Protonix 40 mg orally once every day. 7. DVT prophylaxis on TRISTAN hose and SCDs. 8. Anxiety. Continue Xanax as needed. 9. Urinary retention. Continue patient on Flomax 0.4 mg orally once every day. 10. Reported history of renal disease stage II. Her GFR is greater than 60. Avoid NSAIDs. Her intact PTH is elevated. 11. Chronic pain syndrome. Continue patient on current pain management. 12. Severe osteoarthritis of both hips. Continue to use the walker and avoid falling. 13. Overall prognosis guarded. Discharge plan: Home with [facility] Impression and plan of care have been directed as dictated by the signing physician. Kelli Marion nurse practitioner acting as scribe for signing physician.
[2016-12-03] MEDS: ALPRAZolam 0.25 MG TAB PO PRN ×2 (06:04→14:36)
[2016-12-03] MEDS: DILTIAZEM ORAL 60 MG TAB PO SCH ×2 (06:07→12:53)
[2016-12-03] MEDS: VITAMIN A 10,000 UNIT CAPSULE PO SCH (06:32)
[2016-12-03] MEDS: FOLIC ACID 1 MG TAB PO SCH (08:13)
[2016-12-03] MEDS: TAMSULOSIN 0.4 MG CAP.ER.24H PO SCH (08:13)
[2016-12-03] MEDS: PANTOPRAZOLE 40 MG TABLET PO SCH (08:13)
[2016-12-03] MEDS: FUROSEMIDE 20 MG TAB PO SCH (08:14)
[2016-12-03] MEDS: LACTULOSE 20 GM/30 ML CUP PO SCH (08:15)
[2016-12-03] MEDS: NYSTATIN 100,000 UNIT/ML SUSP 500,000 UNIT/5 ML CUP PO SCH ×2 (08:16→12:52)
[2016-12-03 08:37] LABS: CH 29.6; HCT 26.5 % (34.0-46.0); HDW 3.01; HGB 8.9 gm/dL (11.4-16.0); MCH 30.4 pg (25.0-35.0); MCHC 33.5 g/dL (31.0-37.0); MCV 90.6 fL (80.0-100.0); Mean Platelet Volume 10.9; RBC 2.92 m/uL (3.80-5.40); RDW 15.1 % (11.5-15.5); WBC 18.7 k/uL (3.8-10.6)
[2016-12-03 08:54] LABS: ALT 19 U/L (9-52); AST 19 U/L (14-36); Alkaline Phosphatase 205 U/L (38-126); Anion Gap 10 mmol/L; Blood Urea Nitrogen 10 mg/dL (7-17); Calcium 9.5 mg/dL (8.4-10.2); Carbon Dioxide 25 mmol/L (22-30); Chloride 105 mmol/L (98-107); Glucose 101 mg/dL (74-99); Non-African American GFR(MDRD) >60 (>60 ml/min/1.73 sqM); Potassium 3.9 mmol/L (3.5-5.1); Sodium 140 mmol/L (137-145); Total Bilirubin 0.5 mg/dL (0.2-1.3); Total Protein 6.3 g/dL (6.3-8.2)
[2016-12-03 10:49] VITALS: BP 118/54; PULSE 88; TEMP 97
[2016-12-03] MEDS: CYANOCOBALAMIN 500 MCG TAB PO SCH (12:53)
--- NOTE | 2016-12-03 14:31 | P.PN ---
Subjective This is a pleasant 66-year-old lady patient of Dr. Dorantes. He has underlying history of CAD, hyperlipidemia, hypertension, pancreatitis, neuropathy chronic back pain chronic opioid-induced constipation, admitted to the hospital secondary to anemia and hematochezia,. Her previous hemoglobin was 13.7 on 10/19/2016 and was admitted with hemoglobin of 10.2 apparently patient has been passing siddiqui colored stools her abdominal pain is localized mainly in the periumbilical region, her last colonoscopy is was at age 14 and on since, patient never had any imaging studies of her abdomen in the past evaluate for the chronic abdominal pain and chronic constipation. She also had a WBC count of 23.9 on admission with a previous wbc of 9.5 on 10/19/2016 patient denies any fever no chills dysuria no hematemesis, her last MRCP 2015 with findings showing distal pancreatic body with atrophic pancreas and dilated pancreatic duct reflecting chronic pancreatitis with adjacent pseudocyst formation. She was admitted to the ICU secondary to ongoing lower GI losses with a hemoglobin of 8.7 not requiring any blood transfusion, consults were made with Dr. Navarrete secondary to thrombocytopenia leukocytosis and anemia which is new, patient was started on IV Levaquin and Flagyl sepsis is in the consideration, CAT scan of the abdomen and pelvis was done and that showed biliary extrahepatic dilatation and pancreatic duct dilatation without any significant change from the prior study. Patient has been seen by Dr. Abrams with plan for EGD and colonoscopy as an outpatient, at that time she was seen by and was placed on Diflucan and nystatin for oral thrush along with nephrology evaluation for hyponatremia which was then resolved and the patient was released home on 11/22/2016. Patient went for follow up with yesterday and had laboratory evaluation that documented anemia and thrombocytopenia and she was sent to the ER because of ongoing issues with anemia and thrombocytopenia that was thought to be due to drug- related,and was subsequently admitted to the hospital for further evaluation. 11/28/2016: Patient was seen in consultation by hematology yesterday, he was recommended for the patient to go for bone marrow aspirate, her platelet count dropped to 18,000 yesterday and now 16,000 was recommended for the patient have a platelet transfusion.. 11/29/2016: Patient sitting up in bed in no apparent distress, she denies any chest pain, shortness of breath, she has no abdominal pain, nausea, she is constipated, she was seen earlier by Dr. Navarrete and the plan is to go for bone marrow aspirate hopefully in the next 24 hours. 11/30: Patient is scheduled for bone marrow biopsy today. Platelet count is down to 15. She has been afebrile and vital signs stable. 12/01: Patient underwent bone marrow biopsy. Platelet count today is 18, white count 16.9 and hemoglobin at 9.1. Patient has had no nausea vomiting or diarrhea. Alkaline phosphatase is increased to 192. 12/02: Repeat labs this morning show white count of 16, hemoglobin 8.9 and platelet count of 27. Alkaline phosphatase is 194. Bone marrow biopsy is still not available. Patient is complaining of feeling tired. She denies any shortness of breath. 12/03: WBC is 18.7, hemoglobin 8.9 and platelet count is up to 43. Alkaline phosphatase 205. Bone marrow biopsy remains pending. No new issues from the patient. Patient will be prepared for discharge home and patient can make arrangements for her brother to pick her up, otherwise patient will be discharged home in the morning. Objective - Vital Signs Vital signs: Vital Signs Temp 96.6 F L 12/03/16 07:28 Pulse 93 12/03/16 08:54 Resp 18 12/03/16 07:28 BP 119/58 12/03/16 07:28 Pulse Ox 98 12/03/16 07:50 Intake & Output 12/02/16 12/03/16 12/03/16 18:59 06:59 18:59 Intake Total 320 Balance 320 Weight 55 kg Intake: IV 320 Sodium Chloride 0.9% 1, 320 000 ml @ 20 mls/hr IV . Q24H [facility] Rx#:[id number] Other: Voiding Method Bedside Commode # Voids 3 4 # Bowel Movements 2 - Exam General appearance: mild distress, thin - EENT Eyes: anicteric sclerae, EOMI, PERRLA, no ptosis, no scleral icterus, normal appearance ENT: hearing grossly normal, normal oropharynx, thrush Ears: bilateral: normal - Neck Neck: no lymphadenopathy, normal ROM, no rigidity, no stridor, no thyromegaly Carotids: bilateral: upstroke normal Thyroid: bilateral: normal size - Respiratory Respiratory: bilateral: diminished, negative: dullness, rales, rhonchi, wheezing , prolonged expiration, prolonged inspiration - Cardiovascular Rhythm: regular Heart sounds: normal: S1, S2 Abnormal Heart Sounds: systolic murmur, no rub, no S3 Gallop, no S4 Gallop, no click - Gastrointestinal General gastrointestinal: normal bowel sounds, soft, no splenomegaly, no tenderness, no umbilical hernia, no ventral hernia - Integumentary Integumentary: normal, normal turgor, no rash, ulcer (Stage II buttock ulcer.) - Neurologic Neurologic: CNII-XII intact - Musculoskeletal Musculoskeletal: generalized weakness, strength equal bilaterally - Psychiatric Psychiatric: A&O x's 3, appropriate affect, intact judgment & insight - Labs CBC & Chem 7: 12/03/16 08:20 12/03/16 08:20 Labs: Abnormal Lab Results - Last 24 Hours (Table) 12/03/16 12/03/16 Range/Units 08:20 08:20 WBC 18.7 H (3.8-10.6) k/uL RBC 2.92 L (3.80-5.40) m/uL Hgb 8.9 L (11.4-16.0) gm/dL Hct 26.5 L (34.0-46.0) % Plt Count 43 L* D (150-450) k/uL Glucose 101 H (74-99) mg/dL Alkaline Phosphatase 205 H (38-126) U/L Assessment and Plan Plan: 1. Lower GI bleed thought to be due to diverticvulitis and low platelets.patient was admitted for 1 unit of PRBC transfusion. We will maintain the patient on oral antibiotic in the form of metronidazole 500 mg orally 3 times every day, advance diet as tolerated. 2. Bicytopenia with thrombocytopenia and anemia. we will consult hematology again. This is likely related immune-related the form of cytopenia, patient may need to go on solu-medroll 60 mg IV push every 6 hours 4 doses, and she may need to be on IVIG if her platelet count did drop again, and/or bone marrow aspirate. 3. Chronic history of pancreatic duct stent, last MRCP was in December 2015. Her computed tomography scan of the abdomen and pelvis did show dilatation of the extrahepatic biliary and pancreatic duct. Without any significant changes 4. Chronic malabsorption state from poor oral intake, and ongoing pancreas problems, lipase to be checked, vitamin B12 would be obtained later await CAT scan 5. Weight loss of 17 pounds in 15 months nutritional supplementation would be ordered, patient would need to go for an EGD and colonoscopy, she would need to have a celiac panel. 6. GI prophylaxis on Protonix 40 mg orally once every day. 7. DVT prophylaxis on TRISTAN hose and SCDs. 8. Anxiety. Continue Xanax as needed. 9. Urinary retention. Continue patient on Flomax 0.4 mg orally once every day. 10. Reported history of renal disease stage II. Her GFR is greater than 60. Avoid NSAIDs. Her intact PTH is elevated. 11. Chronic pain syndrome. Continue patient on current pain management. 12. Severe osteoarthritis of both hips. Continue to use the walker and avoid falling. 13. Overall prognosis guarded. Discharge plan: Home with [facility] Impression and plan of care have been directed as dictated by the signing physician. Kelli Marion nurse practitioner acting as scribe for signing physician.
--- NOTE | 2016-12-03 14:59 | PCN ---
DATE OF SERVICE: 11/30/2016 TYPE OF PROCEDURE: Bone marrow aspiration biopsy. INDICATIONS FOR PROCEDURE: Thrombocytopenia and leukocytosis. TYPE OF ANESTHESIA: Local with IV sedation. PROCEDURE NOTE: The procedure was explained in detail to the patient on the floor. Informed consent was obtained on the floor. She presented to the outpatient endoscopy suite. She was placed in the right lateral decubitus position. An area over both posterior iliac crests was cleaned and prepped with chlorhexidine and sterile draping. IV sedation was then initiated. Local anesthesia was administered with lidocaine. A Jamshidi needle was then inserted and bone marrow aspirate and biopsy were obtained. On withdrawal of the needle, hemostasis was easily achieved. Blood loss was minimal and recovery from sedation was satisfactory. She appeared to have tolerated the procedure well, without any obvious complications. DMITRIY
== END 2016-12-03 17:05 | disposition home health service (06) | DRG 378 ==
LOC: EC 21:13 → 4MS4W 23:45 → OBSVTOIN 11-27 10:04
PROVIDERS: ADMIT Internal Medicine; ATTEND Internal Medicine
PROC: 30233N1 Transfusion of Nonautologous Red Blood Cells into Peripheral Vein, Percutaneous Approach (ICD-10-PCS; principal; 2016-11-27)
PROC: 07DR3ZX Extraction of Iliac Bone Marrow, Percutaneous Approach, Diagnostic (ICD-10-PCS; 2016-12-03)
DX: K57.93 Diverticulitis of intestine, part unspecified, without perforation or abscess with bleeding (principal); D62 Acute posthemorrhagic anemia; K90.9 Intestinal malabsorption, unspecified; D69.6 Thrombocytopenia, unspecified; G62.9 Polyneuropathy, unspecified; D72.828 Other elevated white blood cell count; E78.5 Hyperlipidemia, unspecified; F17.200 Nicotine dependence, unspecified, uncomplicated; F41.9 Anxiety disorder, unspecified; G89.4 Chronic pain syndrome; I25.10 Atherosclerotic heart disease of native coronary artery without angina pectoris; M16.0 Bilateral primary osteoarthritis of hip; R33.9 Retention of urine, unspecified; K59.03 Drug induced constipation; L98.499 Non-pressure chronic ulcer of skin of other sites with unspecified severity; M54.9 Dorsalgia, unspecified; I12.9 Hypertensive chronic kidney disease with stage 1 through stage 4 chronic kidney disease, or unspecified chronic kidney disease; N18.2 Chronic kidney disease, stage 2 (mild); R63.4 Abnormal weight loss; Z68.20 Body mass index [BMI] 20.0-20.9, adult; Z79.899 Other long term (current) drug therapy; Z88.1 Allergy status to other antibiotic agents; Z88.8 Allergy status to other drugs, medicaments and biological substances; Z82.49 Family history of ischemic heart disease and other diseases of the circulatory system
CPT/HCPCS: 36415; 38221; 80048; 80053; 81003; 82607; 82728; 82746; 83540; 83550; 83605; 83615; 83735; 84484; 85025; 85027; 85045; 85610; 85730; 86038; 86850; 86900; 86901; 86920; 93005; 99285

== ENCOUNTER 2016-12-08 20:18 | Inpatient (IN) | payer MEDICARE ==
[2016-12-08] MEDS ORDERED: MORPHINE SULFATE 2 MG/ML SYRINGE IVP STA (20:40)
[2016-12-08] MEDS ORDERED: SODIUM CHLORIDE 0.9% 1,000 ML IV STA (20:40)
[2016-12-08] MEDS ORDERED: ONDANSETRON 4 MG/2 ML VIAL IVP STA (20:40)
[2016-12-08 21:40] LABS: Aty Lym Flag Moderate; CH 29.6; HCT 21.7 % (34.0-46.0); HDW 3.01; HGB 7.6 gm/dL (11.4-16.0); MCH 30.7 pg (25.0-35.0); MCV 87.8 fL (80.0-100.0); Mean Platelet Volume 10.6; RBC 2.47 m/uL (3.80-5.40); RDW 15.7 % (11.5-15.5)
--- NOTE | 2016-12-08 21:45 | XR ---
EXAMINATION TYPE: XR chest 2V DATE OF EXAM: 12/08/2016 COMPARISON: 11/16/2016 HISTORY: Chest pain TECHNIQUE: Frontal and lateral views of the chest are obtained. FINDINGS: There is no heart failure nor confluent pneumonic infiltrate. Heart size is normal. There are chest leads. Bony thorax is intact. IMPRESSION: No active cardiopulmonary disease. No change.
[2016-12-08 21:54] LABS: INR 1.3 (<1.1); Partial Thromboplastin Time 28.3 sec (22.0-30.0); Prothrombin Time 12.9 sec (9.0-12.0)
[2016-12-08 22:02] LABS: ALT 22 U/L (9-52); AST 40 U/L (14-36); Alkaline Phosphatase 273 U/L (38-126); Anion Gap 10 mmol/L; Blood Urea Nitrogen 13 mg/dL (7-17); Calcium 9.3 mg/dL (8.4-10.2); Carbon Dioxide 27 mmol/L (22-30); Chloride 93 mmol/L (98-107); Glucose 129 mg/dL (74-99); Non-African American GFR(MDRD) >60 (>60 ml/min/1.73 sqM); Potassium 4.7 mmol/L (3.5-5.1); Sodium 130 mmol/L (137-145); Total Protein 6.4 g/dL (6.3-8.2)
[2016-12-08 22:03] LABS: Creatine Kinase <20 U/L (30-135)
[2016-12-08 22:06] LABS: Add Differential Manual Differential
[2016-12-08 22:13] LABS: Nucleated Red Blood Cells 0 /100 WBC (0-0)
[2016-12-08 22:16] LABS: Creatine Kinase MB <0.2 ng/mL (0.0-2.4); Troponin I <0.012 ng/mL (0.000-0.034)
[2016-12-08 22:18] LABS: Band Neutrophils % 8.5 %; Myelocytes % 4.5 %; Promyelocytes % 1.5 %; Total Cells Counted 200
[2016-12-08 22:19] LABS: Manual Review Performed; Polychromasia Present
[2016-12-08 22:22] LABS: WBC 27.2 k/uL (3.8-10.6)
[2016-12-08] MEDS ORDERED: RX INFO: IV CONTRAST WAS GIVEN 1 EACH MISC MISCELLANE PRN (22:57)
[2016-12-08] MEDS ORDERED: PIPERACILLIN-TAZOBACTAM 3.375 GM in DEXTROSE/WATER 1 50ML.BAG IVPB STA (22:58)
[2016-12-08 23:04] LABS: Appearance,Urine Cloudy (Clear); Bilirubin,Urine Negative (Negative); Glucose,Urine (UA) Negative (Negative); Granular Casts,Urine 160 /lpf (0); Ketones,Urine Negative (Negative); Leukocyte Esterase,Urine Negative (Negative); Mucus,Urine Rare /hpf; Nitrite,Urine Negative (Negative); Particle Count 10479; Protein,Urine 2+ (Negative); RBC,Urine 3 /hpf (0-5); Specific Gravity,Urine 1.018 (1.001-1.035); Squamous Epithelial Cell,Urine 5 /hpf (0-4); UA Billing (MACRO vs. MICRO) MICRO; WBC,Urine 6 /hpf (0-5)
[2016-12-08] MEDS ORDERED: ALPRAZolam 0.25 MG TAB PO STA (23:09)
[2016-12-08] MEDS ORDERED: MORPHINE SULFATE 2 MG/ML SYRINGE IVP ONE (23:34)
--- NOTE | 2016-12-09 00:20 | ED ---
Chest Pain HPI - General Chief Complaint: Chest Pain Stated Complaint: chest pain/fever Time Seen by Provider: 12/08/16 20:33 Source: patient, family Mode of arrival: wheelchair Limitations: no limitations - History of Present Illness Initial Comments: Extremities 6 years old female presents with chest pain, she is bit vague about the onset of her chest pain she thought it started yesterday and it got worse today. She also had a fever on arrival was 100.8 complaining about shortness of breath and it hurts when she takes a deep breath she denies any trauma to the chest wall or any fall. She recently had quite a complex) she had history of GI bleed and she developed some anemia anxious and then she dropped her platelet counts several quite low and she has seen infectious disease doctors. She denies any headaches no neck stiffness does have a chest pain or shortness of breath no abdominal pain no frequency urgency dysuria - Related Data Home Medications Medication Instructions Recorded Confirmed ALPRAZolam [Xanax] 0.25 mg PO Q8HR PRN 11/15/16 12/08/16 Cholecalciferol [Vitamin D3] 5,000 unit PO Q48H 11/15/16 12/08/16 Cyanocobalamin (Vitamin B-12) 1,000 mcg PO MOWEFR 11/15/16 12/08/16 [Vitamin B-12] Diltiazem HCl 120 mg PO TID@0600,1400,2200 11/15/16 12/08/16 Folic Acid 0.4 mg PO DAILY 11/15/16 12/08/16 Lutein 20 mg PO DAILY 11/15/16 12/08/16 Vitamin A 8,000 unit PO DAILY 11/15/16 12/08/16 oxyCODONE HCL 10 mg PO Q4HR PRN 11/15/16 12/08/16 Compounded Cream 1 applic TOPICAL QID PRN 12/08/16 12/08/16 Furosemide [Lasix] 20 mg PO DAILY PRN 12/08/16 12/08/16 Lactulose [Cephulac] 20 gm PO BID PRN 12/08/16 12/08/16 SILVER sulfADIAZINE CREAM 1 applic TOPICAL BID 12/08/16 12/08/16 [Silvadene Cream] Unknown Cream 1 applic TOPICAL DIRECTED 12/08/16 12/08/16 Vitamin C Odt Tablet 1 tab PO DAILY 12/08/16 12/08/16 Previous Rx's Medication Instructions Recorded Ondansetron Odt [Zofran ODT] 4 mg PO Q8HR PRN #20 tab 05/08/15 Nystatin 100,000 Unit/ml Susp 500,000 unit PO QID #250 ml 11/22/16 [Mycostatin Oral Susp] Pantoprazole [Protonix] 40 mg PO DAILY #30 tab 11/22/16 Tamsulosin [Flomax] 0.4 mg PO PC-BRKFST #30 cap 11/22/16 Allergies Allergy/AdvReac Type Severity Reaction Status Date / Time erythromycin base Allergy Rash/Hives Verified 12/08/16 20:25 hydrochlorothiazide Allergy "DROPS Verified 12/08/16 20:25 SODIUM LEVEL" peppermint Allergy Rash/Hives Verified 12/08/16 20:25 Tetracyclines Allergy Swelling Verified 12/08/16 20:25 atenolol AdvReac PASSES OUT Verified 12/08/16 20:25 nifedipine [From Procardia] AdvReac HAIR LOSS Verified 12/08/16 20:25 pregabalin [From Lyrica] AdvReac LEG PAIN Verified 12/08/16 20:25 Rtdwcxf-Ljq-Dud Reductase AdvReac LEG PAIN Verified 12/08/16 20:25 Inhibitor [employer] Allergy Rash/Hives Uncoded 12/08/16 20:25 Review of Systems ROS Statement: Those systems with pertinent positive or pertinent negative responses have been documented in the HPI. ROS Other: All systems not noted in ROS Statement are negative. EKG Findings - EKG Comments: EKG Findings:: KG is a sinus tachycardia heart rate is 11 CT interval is 148 QRS duration is 68 QT/QTc is 324/420) EKG does not reveal any ST elevation or ST depression Past Medical History Past Medical History: Coronary Artery Disease (CAD), Hyperlipidemia, Hypertension, Osteoarthritis (OA), Renal Disease Additional Past Medical History / Comment(s): pancreatitis, djd, neuropathy, Chronic back pain, mild stenosis in the neck History of Any Multi-Drug Resistant Organisms: None Reported Past Surgical History: Adenoidectomy, Appendectomy, Tonsillectomy Additional Past Surgical History / Comment(s): B/L lasix in 1999 Past Anesthesia/Blood Transfusion Reactions: No Reported Reaction Past Psychological History: Anxiety Smoking Status: Current every day smoker Past Alcohol Use History: None Reported Past Drug Use History: None Reported - Past Family History Mother Family Medical History: Diabetes Mellitus, Hypertension, Renal Disease Additional Family Medical History / Comment(s): Heart and anxiety issues. Had quadraple bypass, Father Additional Family Medical History / Comment(s): Quad heart bypass General Exam - General Exam Comments Initial Comments: General: The patient is awake and alert, in no distress, and does not appear acutely ill. ACS is 15 Skin: Skin is warm and dry and no rashes or lesions are noted. Eye: Pupils are equal, round and reactive to light, extra-ocular movements are intact; there is normal conjunctiva bilaterally. Ears, nose, mouth and throat: Looks bit dehydrated Neck: The neck is supple, there is no tenderness or signs of meningitis Cardiovascular: There is a regular rate and rhythm. No murmur, rub or gallop is appreciated. Respiratory: To auscultation bilateral, it is some crackles at the bases Gastrointestinal: Soft, non-distended, non-tender abdomen without masses or organomegaly noted. There is no rebound or guarding present. Bowel sounds are unremarkable. Back: There is no tenderness to palpation in the midline. There is no obvious deformity. Musculoskeletal: Normal ROM, no tenderness, There is no pedal edema. There is no calf tenderness or swelling. No cords were appreciated. Neurological: CN II-XII intact, Cranial nerves III through XII are intact. There are no obvious motor or sensory deficits. Coordination appears grossly intact. Speech is normal. Psychiatric: Cooperative, appropriate mood & affect, normal judgment. Limitations: no limitations Course Vital Signs 12/08/16 12/08/16 12/08/16 20:21 21:26 22:46 Temperature 100.8 F H 99.0 F Pulse Rate 104 H 97 97 Respiratory 20 16 16 Rate Blood Pressure 129/60 148/68 144/67 O2 Sat by Pulse 96 98 98 Oximetry 12/09/16 00:01 Temperature 100.6 F H Pulse Rate 97 Respiratory 16 Rate Blood Pressure 151/69 O2 Sat by Pulse 99 Oximetry - Reevaluation(s) Reevaluation #1: 12/09/16 00:44 CT chest angiogram TO rule out PE, she be admitted to Dr. Hdz service infectious disease and cardiology be consulted Considering her severe anemia and recent history of thrombocytopenia I am canal hold off the blood thinners Disposition Clinical Impression: Fever, Leukocytosis, Anemia, Chest pain Disposition: ADMITTED IP TO THIS HOSP Condition: Good Referrals: Zachary Dorantes DO [Primary Care Provider] - 1-2 days
[2016-12-09] MEDS ORDERED: ACETAMINOPHEN TAB 500 MG TAB PO STA (00:22)
--- NOTE | 2016-12-09 00:34 | CT ---
EXAM: CT Angiography Chest With Intravenous Contrast CLINICAL HISTORY: Reason: Pain TECHNIQUE: Axial computed tomographic angiography images of the chest with intravenous contrast using pulmonary embolism protocol. CTDI is 72.90 mGy and DLP is 147.70 mGy-cm. This CT exam was performed using one or more of the following dose reduction techniques: automated exposure control, adjustment of the mA and/or kV according to patient size, and/or use of iterative reconstruction technique. MIP reconstructed images were created and reviewed. COMPARISON: Earlier chest radiographs of the same evening. FINDINGS: Limitations: Note that the degree of pulmonary arterial enhancement is similar to the degree of systemic arterial enhancement. Pulmonary arteries: No definite evidence of pulmonary embolism including no central or segmental PE seen. Aorta: Atherosclerotic changes throughout the aorta without evidence of aneurysm. Lungs: Mild dependent changes in both lungs. Pleural space: Trace bilateral pleural effusions. No pneumothorax. Heart: Coronary atherosclerotic calcifications. Trace pericardial effusion. Bones/joints: Degenerative changes without acute fracture. Soft tissues: Unremarkable. Lymph nodes: No adenopathy. IMPRESSION: 1. No definite evidence of acute pulmonary embolism is seen. 2. Trace bilateral pleural effusions. 3. Additional findings as above.
[2016-12-09] MEDS ORDERED: NALOXONE 0.4 MG/ML 1 ML VIAL IV PRN (00:46)
[2016-12-09] MEDS ORDERED: FUROSEMIDE 20 MG TAB PO PRN (00:51)
[2016-12-09] MEDS: CHOLECALCIFEROL 1,000 UNIT TAB PO SCH (05:30)
[2016-12-09] MEDS: DILTIAZEM ORAL 60 MG TAB PO SCH ×3 (05:48→21:35)
[2016-12-09] MEDS ORDERED: NON-FORMULARY DRUG (Lutein [Lutein] 20 MG) PO SCH (09:00)
[2016-12-09] MEDS: VITAMIN A 10,000 UNIT CAPSULE PO SCH (09:08)
[2016-12-09] MEDS: FOLIC ACID 1 MG TAB PO SCH (09:08)
[2016-12-09] MEDS: ASCORBIC ACID 500 MG TAB PO SCH (09:08)
[2016-12-09] MEDS: NYSTATIN 100,000 UNIT/ML SUSP 500,000 UNIT/5 ML CUP PO SCH ×4 (09:08→21:36)
[2016-12-09] MEDS: ALPRAZolam 0.25 MG TAB PO PRN ×2 (10:15→14:06)
[2016-12-09] MEDS: ENOXAPARIN 40 MG/0.4 ML SYRINGE SQ SCH (10:15)
[2016-12-09] MEDS: PANTOPRAZOLE 40 MG TABLET PO SCH (10:17)
[2016-12-09] MEDS: TAMSULOSIN 0.4 MG CAP.ER.24H PO SCH (10:17)
[2016-12-09 10:20] LABS: Creatine Kinase <20 U/L (30-135)
--- NOTE | 2016-12-09 10:48 | P.CRDCN ---
History of Present Illness Consult date: 12/09/16 Requesting physician: Shaneka Burrell Consult reason: chest pain Chief complaint: Chest pain History of present illness: This is a 66-year-old patient, underlying history of hyperlipidemia, hypertension, chronic pancreatitis, neuropathy, recent GI bleed requiring blood transfusion. She was hospitalized in November. Patient has history also of progressive thrombocytopenia, anemia, and leukocytosis and is being followed by Dr. Navarrete as an outpatient. She underwent a bone marrow aspiration, with biopsy last month. Patient presents to the hospital on this occasion with symptoms of chest discomfort. Pain is very atypical in nature, she describes it as worsening with taking a deep breath or coughing. She denies any associated shortness of breath, diaphoresis. EKG shows a sinus tachycardia with no acute changes. Chest x-ray does not reveal any active cardiopulmonary disease. CT of the chest does not reveal any evidence of pulmonary embolism. Blood pressure 126/70 with a heart rate in the 80s, 99% on room air. WBC 27.2, hemoglobin 7.6, platelet count 131, d-dimer 3.2. Sodium 1:30, potassium 4.7, BUN 13, creatinine 0.8. Magnesium 2.0. Troponin 0.012, BNP 2120. Past Medical History Past Medical History: Coronary Artery Disease (CAD), GI Bleed, Hyperlipidemia, Hypertension, Osteoarthritis (OA), Renal Disease Additional Past Medical History / Comment(s): pancreatitis, djd, neuropathy, Chronic back pain, mild stenosis in the neck, anemia, thrombocyopenia History of Any Multi-Drug Resistant Organisms: None Reported Past Surgical History: Adenoidectomy, Appendectomy, Tonsillectomy Additional Past Surgical History / Comment(s): B/L lasix in 1999 Past Anesthesia/Blood Transfusion Reactions: No Reported Reaction Past Psychological History: Anxiety Smoking Status: Current every day smoker Past Alcohol Use History: None Reported Past Drug Use History: None Reported - Past Family History Mother Family Medical History: Diabetes Mellitus, Hypertension, Renal Disease Additional Family Medical History / Comment(s): Heart and anxiety issues. Had quadraple bypass, Father Additional Family Medical History / Comment(s): Quad heart bypass Medications and Allergies Home Medications Medication Instructions Recorded Confirmed Type ALPRAZolam [Xanax] 0.25 mg PO Q8HR PRN 11/15/16 12/08/16 History Cholecalciferol [Vitamin D3] 5,000 unit PO Q48H 11/15/16 12/08/16 History Cyanocobalamin (Vitamin B-12) 1,000 mcg PO MOWEFR 11/15/16 12/08/16 History [Vitamin B-12] Diltiazem HCl 120 mg PO TID@0600,1400,2200 11/15/16 12/08/16 History Folic Acid 0.4 mg PO DAILY 11/15/16 12/08/16 History Lutein 20 mg PO DAILY 11/15/16 12/08/16 History Vitamin A 8,000 unit PO DAILY 11/15/16 12/08/16 History oxyCODONE HCL 10 mg PO Q4HR PRN 11/15/16 12/08/16 History Compounded Cream 1 applic TOPICAL QID PRN 12/08/16 12/08/16 History Furosemide [Lasix] 20 mg PO DAILY PRN 12/08/16 12/08/16 History Lactulose [Cephulac] 20 gm PO BID PRN 12/08/16 12/08/16 History SILVER sulfADIAZINE CREAM 1 applic TOPICAL BID 12/08/16 12/08/16 History [Silvadene Cream] Unknown Cream 1 applic TOPICAL DIRECTED 12/08/16 12/08/16 History Vitamin C Odt Tablet 1 tab PO DAILY 12/08/16 12/08/16 History Allergies Allergy/AdvReac Type Severity Reaction Status Date / Time erythromycin base Allergy Rash/Hives Verified 12/08/16 20:25 hydrochlorothiazide Allergy "DROPS Verified 12/08/16 20:25 SODIUM LEVEL" peppermint Allergy Rash/Hives Verified 12/08/16 20:25 Tetracyclines Allergy Swelling Verified 12/08/16 20:25 atenolol AdvReac PASSES OUT Verified 12/08/16 20:25 nifedipine [From Procardia] AdvReac HAIR LOSS Verified 12/08/16 20:25 pregabalin [From Lyrica] AdvReac LEG PAIN Verified 12/08/16 20:25 Fwgroeh-Ezv-Ltx Reductase AdvReac LEG PAIN Verified 12/08/16 20:25 Inhibitor [employer] Allergy Rash/Hives Uncoded 12/08/16 20:25 Physical Exam Vitals: Vital Signs Temp Pulse Pulse Resp BP BP Pulse Ox 12/09/16 08:00 97.3 F L 88 18 126/73 99 12/09/16 04:00 88 18 135/67 100 12/09/16 01:22 100.8 F H 100 16 158/72 100 12/09/16 01:03 99.0 F 105 H 18 125/59 98 12/09/16 00:01 100.6 F H 97 16 151/69 99 12/08/16 22:46 99.0 F 97 16 144/67 98 12/08/16 21:26 97 16 148/68 98 12/08/16 20:21 100.8 F H 104 H 20 129/60 96 Intake and Output 12/08/16 12/09/16 12/09/16 22:59 06:59 14:59 Intake Total 150 Output Total 100 Balance 50 Intake: Intake, IV Titration 150 Amount Sodium Chloride 0.9% 1, 150 000 ml @ 100 mls/hr IV . Q10H STA Rx#:[id number] Oral 0 Output: Urine 100 Other: Voiding Method Bedside Commode Bedside Commode # Voids 1 Weight 50.349 kg 50.3 kg PHYSICAL EXAMINATION: HEENT: Head is atraumatic, normocephalic. Pupils equal, round. Neck is supple. There is no elevated jugular venous pressure. HEART EXAMINATION: Heart S1 and S2 1 systolic murmur is heard. CHEST EXAMINATION: Lungs are clear with diminished air entry to bilateral bases ABDOMEN: Soft, nontender. Bowel sounds are heard. No organomegaly noted. EXTREMITIES: 2+ peripheral pulses with no evidence of peripheral edema and no calf tenderness noted. NEUROLOGIC patient is awake, alert and oriented -3. . Results 12/08/16 21:23 12/08/16 21:23 Cardiac Enzymes 12/08/16 12/08/16 Range/Units 21:23 21:23 AST 40 H (14-36) U/L CK-MB (CK-2) <0.2 (0.0-2.4) ng/mL Troponin I <0.012 (0.000-0.034) ng/mL Coagulation 12/08/16 Range/Units 21:23 PT 12.9 H (9.0-12.0) sec APTT 28.3 (22.0-30.0) sec CBC 12/08/16 Range/Units 21:23 WBC 27.2 H* (3.8-10.6) k/uL RBC 2.47 L (3.80-5.40) m/uL Hgb 7.6 L (11.4-16.0) gm/dL Hct 21.7 L (34.0-46.0) % Plt Count 131 L (150-450) k/uL Comprehensive Metabolic Panel 12/08/16 Range/Units 21:23 Sodium 130 L (137-145) mmol/L Potassium 4.7 (3.5-5.1) mmol/L Chloride 93 L (98-107) mmol/L Carbon Dioxide 27 (22-30) mmol/L BUN 13 (7-17) mg/dL Creatinine 0.86 (0.52-1.04) mg/dL Glucose 129 H (74-99) mg/dL Calcium 9.3 (8.4-10.2) mg/dL AST 40 H (14-36) U/L ALT 22 (9-52) U/L Alkaline Phosphatase 273 H (38-126) U/L Total Protein 6.4 (6.3-8.2) g/dL Albumin 3.6 (3.5-5.0) g/dL Current Medications Generic Name Dose Route Start Last Admin Trade Name Freq PRN Reason Stop Dose Admin Acetaminophen 650 mg 12/09/16 00:46 Tylenol Tab PO Q6HR PRN Mild Pain or Fever > 100.5 Alprazolam 0.25 mg 12/09/16 00:51 12/09/16 10:15 Xanax PO 0.25 mg Q8HR PRN Administration Muscle Spasm Ascorbic Acid 500 mg 12/09/16 09:00 12/09/16 09:08 Vitamin C PO 500 mg DAILY [facility] Administration Cholecalciferol 5,000 unit 12/09/16 01:00 12/09/16 05:30 Vitamin D3 PO Not Given Q48H KRISTI Cyanocobalamin 1,000 mcg 12/10/16 00:51 Vitamin B-12 PO MOWEFR [facility] Diltiazem HCl 120 mg 12/09/16 06:00 12/09/16 05:48 Cardizem Oral PO 120 mg TID@0600,1400,2200 KRISTI Administration Enoxaparin Sodium 40 mg 12/09/16 10:00 12/09/16 10:15 Lovenox SQ 40 mg DAILY KRISTI Administration Folic Acid 1 mg 12/09/16 09:00 12/09/16 09:08 Folic Acid PO 1 mg DAILY KRISTI Administration Furosemide 20 mg 12/09/16 00:51 Lasix PO DAILY PRN Edema Piperacillin/Tazobactam/ 50 mls @ 12.5 mls/hr 12/09/16 12:00 Dextrose 3.375 gm/ IV Solution IVPB Q8H KRISTI Lactulose 20 gm 12/09/16 00:51 Cephulac PO BID PRN Constipation Miscellaneous Information 1 each 12/08/16 22:57 Rx Info: Iv Contrast Was Given MISCELLANE 12/10/16 22:57 DAILY PRN Per Protocol Morphine Sulfate 4 mg 12/09/16 00:46 Morphine Sulfate (Inj) IV Q4HR PRN Severe Pain Naloxone HCl 0.2 mg 12/09/16 00:46 Narcan IV Q2M PRN Opioid Reversal Nystatin 500,000 unit 12/09/16 09:00 12/09/16 09:08 Mycostatin Oral Susp PO 500,000 unit QID KRISTI Administration Ondansetron HCl 4 mg 12/09/16 00:51 Zofran Odt PO Q8HR PRN Nausea Oxycodone HCl 10 mg 12/09/16 00:51 12/09/16 05:48 Oxyir PO 10 mg Q4HR PRN Administration Severe Pain Pantoprazole Sodium 40 mg 12/09/16 09:00 12/09/16 10:17 Protonix PO 40 mg DAILY KRISTI Administration Silver Sulfadiazine 1 applic 12/09/16 09:00 12/09/16 10:16 Silvadene Cream TOPICAL 1 applic BID KRISTI Administration Tamsulosin HCl 0.4 mg 12/09/16 08:30 12/09/16 10:17 Flomax PO 0.4 mg PC-BRKFST KRISTI Administration Vitamin A 10,000 unit 12/09/16 09:00 12/09/16 09:08 Vitamin A PO 10,000 unit DAILY KRISTI Administration Intake and Output 12/08/16 12/09/16 12/09/16 22:59 06:59 14:59 Intake Total 150 Output Total 100 Balance 50 Intake: Intake, IV Titration 150 Amount Sodium Chloride 0.9% 1, 150 000 ml @ 100 mls/hr IV . Q10H STA Rx#:[id number] Oral 0 Output: Urine 100 Other: Voiding Method Bedside Commode Bedside Commode # Voids 1 Weight 50.349 kg 50.3 kg 12/08/16 21:23 12/08/16 21:23 EKG Interpretations (text) EKG shows normal sinus rhythm with no acute changes. Assessment and Plan Plan: Assessment and plan #1 chest discomfort, atypical in nature, troponin negative times one. D-dimer elevated, CT of the chest negative for PE #2 bicytopenia with thrombocytopenia and anemia, follows with Dr. Navarrete, recent bone marrow aspiration and biopsy performed #3 chronic history of pancreatic duct stent #4 nicotine dependence #5 anxiety #6 recent GI bleed #7 chronic malabsorption state #8 febrile illness with elevated white blood cell count currently on antibiotics Plan We will obtain an echocardiogram with Doppler study. Patient currently being treated with antibiotics for possible infection, once infection clears, patient may require stress test as an outpatient. DNP note has been reviewed, I agree with a documented findings and plan of care. Patient was seen and examined.
--- NOTE | 2016-12-09 11:33 | ECHOF ---
Referral Reason:chest pain MEASUREMENTS -------- HEIGHT: 162.6 cm WEIGHT: 49.9 kg BP: 120/80 IVSd: 1.0 cm (0.6 - 1.1) LVIDd: 3.4 cm (3.9 - 5.3) LVPWd: 1.3 cm (0.6 - 1.1) IVSs: 1.4 cm LVIDs: 2.2 cm LVPWs: 1.5 cm Ao Diam: 3.8 cm (2.0 - 3.7) AV Cusp: 2.1 cm (1.5 - 2.6) LA Diam: 2.9 cm (2.7 - 3.8) MV EXCURSION: 19.783 mm (> 18.000) MV EF SLOPE: 134 mm/s (70 - 150) EPSS: 0.8 cm MV E Deven: 1.01 m/s MV DecT: 127 ms MV A Deven: 0.85 m/s MV E/A Ratio: 1.18 RAP: 20.00 mmHg RVSP: 25.65 mmHg FINDINGS -------- Sinus rhythm. This was a technically good study. There is mild concentric left ventricular hypertrophy. Overall left ventricular systolic function is normal with, an EF between 55 - 60 %. The right ventricle is normal in size and function. The left atrium is normal in size. The right atrium is normal in size. The aortic valve is trileaflet, and appears structurally normal. No aortic stenosis or regurgitation. The mitral valve leaflets are mildly thickened. There is trace mitral regurgitation. Trace tricuspid regurgitation present. The right ventricular systolic pressure, as measured by Doppler, is 25.65mmHg. Pulmonic valve appears structurally normal. The aortic root size is normal. The pericardium is normal. CONCLUSIONS -------- 1. Sinus rhythm. 2. There is trace mitral regurgitation. 3. Trace tricuspid regurgitation present. 4. The right ventricular systolic pressure, as measured by Doppler, is 25.65mmHg. 5. Pulmonic valve appears structurally normal. 6. The aortic root size is normal. 7. The pericardium is normal. 8. This was a technically good study. 9. There is mild concentric left ventricular hypertrophy. 10. Overall left ventricular systolic function is normal with, an EF between 55 - 60 %. 11. The right ventricle is normal in size and function. 12. The left atrium is normal in size. 13. The right atrium is normal in size. 14. The aortic valve is trileaflet, and appears structurally normal. No aortic stenosis or regurgitation. 15. The mitral valve leaflets are mildly thickened. ENDS BREAKAGE CLERK: Lien To RDCS
[2016-12-09] MEDS: PIPERACILLIN-TAZOBACTAM 3.375 GM in DEXTROSE/WATER 1 50ML.BAG IVPB SCH ×2 (11:46→21:36)
--- NOTE | 2016-12-09 11:47 | P.HPIM ---
History of Present Illness H&P Date: 12/09/16 Chief Complaint: Chest pain This is a 66-year-old female patient of Dr. Dorantes with underlying history of CAD, hyperlipidemia, hypertension, pancreatitis, neuropathy chronic back pain chronic opioid-induced constipation. She has had several recent hospitalizations due to lower GI bleed thought to be due to diverticulitis as well as thrombocytopenia and anemia and leukocytosis followed by Dr. Navarrete. Patient recently underwent bone marrow biopsy. Results were not available during her last hospitalization but she was discharged home with a white count of 18.7, hemoglobin was 8.9 and platelet count of 43 on improved. She also had an elevated alkaline phosphatase of 205. Patient presented back to [facility] emergency center on December 08 with complaints of chest pain that started the day before and continued to worsen. She also had temperature of 100.8 and was complaining of shortness of breath and it hurt when she took a deep breath. There was no trauma to the chest wall or recent fall. She underwent a CTA of the chest that showed no definite acute pulmonary embolism. Trace bilateral pleural effusions. Chest x-ray showed no acute cardiopulmonary disease. She again presented with leukocytosis of 27.2, hemoglobin 7.6 and platelet count was up to 131. Her d-dimer was elevated at 3.26. Sodium 1:30 and chloride 93. Initial troponin was 0.012, proBNP 2120. Urinalysis was cloudy, nitrate and leukoesterase negative. Cardiology consult requested, repeat troponins, consult with Dr. Saravia from infectious disease and consult has been added for Dr. Navarrete. Recent biopsy report is stating possible be lymphoma or of leukemia. Patient is scheduled for an MRCP as an outpatient tomorrow which will be ordered for this hospitalization. Patient is complaining of sternal chest pain, generalized abdominal pain and back pain over her kidneys. Echocardiogram reveals mild concentric left ventricular hypertrophy, EF between 55 and 60%, trace mitral regurgitation, trace tricuspid regurgitation. Review of Systems All systems: negative Constitutional: Reports chills, Reports fever Eyes: denies blurred vision, denies pain Ears, nose, mouth and throat: Denies headache, Denies sore throat Cardiovascular: Reports chest pain, Denies shortness of breath Respiratory: Denies cough Gastrointestinal: Reports abdominal pain, Denies diarrhea, Denies nausea, Denies vomiting Genitourinary: Denies dysuria, Denies hematuria Musculoskeletal: Reports low back pain, Denies myalgias Integumentary: Denies pruritus, Denies rash Neurological: Denies numbness, Denies weakness Psychiatric: Denies anxiety, Denies depression Endocrine: Denies fatigue, Denies weight change Past Medical History Past Medical History: Coronary Artery Disease (CAD), GI Bleed, Hyperlipidemia, Hypertension, Osteoarthritis (OA), Renal Disease Additional Past Medical History / Comment(s): pancreatitis, djd, neuropathy, Chronic back pain, mild stenosis in the neck, anemia, thrombocyopenia History of Any Multi-Drug Resistant Organisms: None Reported Past Surgical History: Adenoidectomy, Appendectomy, Tonsillectomy Additional Past Surgical History / Comment(s): B/L lasix in 1999 Past Anesthesia/Blood Transfusion Reactions: No Reported Reaction Past Psychological History: Anxiety Smoking Status: Current every day smoker Past Alcohol Use History: None Reported Past Drug Use History: None Reported - Past Family History Mother Family Medical History: Diabetes Mellitus, Hypertension, Renal Disease Additional Family Medical History / Comment(s): Heart and anxiety issues. Had quadraple bypass, Father Additional Family Medical History / Comment(s): Quad heart bypass Medications and Allergies Home Medications Medication Instructions Recorded Confirmed Type ALPRAZolam [Xanax] 0.25 mg PO Q8HR PRN 11/15/16 12/08/16 History Cholecalciferol [Vitamin D3] 5,000 unit PO Q48H 11/15/16 12/08/16 History Cyanocobalamin (Vitamin B-12) 1,000 mcg PO MOWEFR 11/15/16 12/08/16 History [Vitamin B-12] Diltiazem HCl 120 mg PO TID@0600,1400,2200 11/15/16 12/08/16 History Folic Acid 0.4 mg PO DAILY 11/15/16 12/08/16 History Lutein 20 mg PO DAILY 11/15/16 12/08/16 History Vitamin A 8,000 unit PO DAILY 11/15/16 12/08/16 History oxyCODONE HCL 10 mg PO Q4HR PRN 11/15/16 12/08/16 History Compounded Cream 1 applic TOPICAL QID PRN 12/08/16 12/08/16 History Furosemide [Lasix] 20 mg PO DAILY PRN 12/08/16 12/08/16 History Lactulose [Cephulac] 20 gm PO BID PRN 12/08/16 12/08/16 History SILVER sulfADIAZINE CREAM 1 applic TOPICAL BID 12/08/16 12/08/16 History [Silvadene Cream] Unknown Cream 1 applic TOPICAL DIRECTED 12/08/16 12/08/16 History Vitamin C Odt Tablet 1 tab PO DAILY 12/08/16 12/08/16 History Allergies Allergy/AdvReac Type Severity Reaction Status Date / Time erythromycin base Allergy Rash/Hives Verified 12/08/16 20:25 hydrochlorothiazide Allergy "DROPS Verified 12/08/16 20:25 SODIUM LEVEL" peppermint Allergy Rash/Hives Verified 12/08/16 20:25 Tetracyclines Allergy Swelling Verified 12/08/16 20:25 atenolol AdvReac PASSES OUT Verified 12/08/16 20:25 nifedipine [From Procardia] AdvReac HAIR LOSS Verified 12/08/16 20:25 pregabalin [From Lyrica] AdvReac LEG PAIN Verified 12/08/16 20:25 Jbtjnea-Cne-Fjm Reductase AdvReac LEG PAIN Verified 12/08/16 20:25 Inhibitor [employer] Allergy Rash/Hives Uncoded 12/08/16 20:25 Physical Exam Vitals: Vital Signs Temp Pulse Pulse Resp BP BP Pulse Ox 12/09/16 04:00 88 18 135/67 100 12/09/16 01:22 100.8 F H 100 16 158/72 100 12/09/16 01:03 99.0 F 105 H 18 125/59 98 12/09/16 00:01 100.6 F H 97 16 151/69 99 12/08/16 22:46 99.0 F 97 16 144/67 98 12/08/16 21:26 97 16 148/68 98 12/08/16 20:21 100.8 F H 104 H 20 129/60 96 Intake and Output 12/08/16 12/09/16 12/09/16 22:59 06:59 14:59 Other: Voiding Method Bedside Commode Weight 50.349 kg 50.3 kg General appearance: mild distress, thin - EENT Eyes: anicteric sclerae, EOMI, PERRLA, no ptosis, no scleral icterus, normal appearance ENT: hearing grossly normal, normal oropharynx, thrush Ears: bilateral: normal - Neck Neck: no lymphadenopathy, normal ROM, no rigidity, no stridor, no thyromegaly Carotids: bilateral: upstroke normal Thyroid: bilateral: normal size - Respiratory Respiratory: bilateral: diminished, negative: dullness, rales, rhonchi, wheezing , prolonged expiration, prolonged inspiration - Cardiovascular Rhythm: regular Heart sounds: normal: S1, S2 Abnormal Heart Sounds: systolic murmur, no rub, no S3 Gallop, no S4 Gallop, no click - Gastrointestinal General gastrointestinal: normal bowel sounds, soft, no splenomegaly, no tenderness, no umbilical hernia, no ventral hernia - Integumentary Integumentary: normal, normal turgor, no rash, ulcer (Stage II buttock ulcer.) - Neurologic Neurologic: CNII-XII intact - Musculoskeletal Musculoskeletal: generalized weakness, strength equal bilaterally - Psychiatric Psychiatric: A&O x's 3, appropriate affect, intact judgment & insight Results CBC & Chem 7: 12/08/16 21:23 12/08/16 21:23 Labs: Abnormal Lab Results - Last 24 Hours (Table) 12/08/16 12/08/16 12/08/16 Range/Units 21:23 21:23 21:23 WBC 27.2 H* (3.8-10.6) k/uL RBC 2.47 L (3.80-5.40) m/uL Hgb 7.6 L (11.4-16.0) gm/dL Hct 21.7 L (34.0-46.0) % RDW 15.7 H (11.5-15.5) % Plt Count 131 L (150-450) k/uL Neutrophils # (Manual) 15.6 H (1.3-7.7) k/uL Monocytes # (Manual) 5.4 H (0-1.0) k/uL PT (9.0-12.0) sec D-Dimer (<0.60) mg/L FEU Sodium 130 L (137-145) mmol/L Chloride 93 L (98-107) mmol/L Glucose 129 H (74-99) mg/dL AST 40 H (14-36) U/L Alkaline Phosphatase 273 H (38-126) U/L Total Creatine Kinase <20 L (30-135) U/L Urine Appearance (Clear) Urine Protein (Negative) Urine WBC (0-5) /hpf Ur Squamous Epith Cells (0-4) /hpf Hyaline Casts (0-2) /lpf Urine Mucus (None) /hpf 12/08/16 12/08/16 Range/Units 21:23 22:44 WBC (3.8-10.6) k/uL RBC (3.80-5.40) m/uL Hgb (11.4-16.0) gm/dL Hct (34.0-46.0) % RDW (11.5-15.5) % Plt Count (150-450) k/uL Neutrophils # (Manual) (1.3-7.7) k/uL Monocytes # (Manual) (0-1.0) k/uL PT 12.9 H (9.0-12.0) sec D-Dimer 3.26 H (<0.60) mg/L FEU Sodium (137-145) mmol/L Chloride (98-107) mmol/L Glucose (74-99) mg/dL AST (14-36) U/L Alkaline Phosphatase (38-126) U/L Total Creatine Kinase (30-135) U/L Urine Appearance Cloudy H (Clear) Urine Protein 2+ H (Negative) Urine WBC 6 H (0-5) /hpf Ur Squamous Epith Cells 5 H (0-4) /hpf Hyaline Casts 7 H (0-2) /lpf Urine Mucus Rare H (None) /hpf Thrombosis Risk Factor Assmnt - DVT/VTE Prophylaxis DVT/VTE Prophylaxis: Pharmacologic Prophylaxis ordered - Choose All That Apply Other Risk Factors: Yes Each Risk Factor Represents 2 Points: Age 61-74 years Thrombosis Risk Factor Assessment Total Risk Factor Score: 2 Thrombosis Risk Factor Assessment Level: Low Risk Assessment and Plan Plan: 1. Chest pain with negative initial troponin. Cardiology consult requested. Repeat troponins have been ordered. Echocardiogram. 2. Previous admissions with bicytopenia with thrombocytopenia and anemia along with leukocytosis followed by Dr. Navarrete. Patient recently underwent bone marrow biopsy as above. 3. Leukocytosis with fever with concern for underlying infection. Dr. Saravia is on consult. MRCP is scheduled for tomorrow. Dr. brenner has ordered Zosyn. 4. Chronic history of pancreatic duct stent, last MRCP was in December 2015. MRCP was ordered for tomorrow as an outpatient. This will be scheduled for this hospitalization. 5. Chronic malabsorption state from poor oral intake, and ongoing pancreas problems, lipase to be checked, with weight loss of 17 pounds in 15 months with severe protein calorie malnutrition. Continue supplements. 6. Generalized anxiety disorder. Continue Xanax as needed. 7. Urinary retention on last hospitalization. Monitor for same. Continue Flomax. 8. Patient self reports chronic kidney disease stage II. Avoid nonsteroidal anti-inflammatories. 9. Severe osteoarthritis of both hips. Continue use walker and avoid falling. 10. Chronic pain syndrome. 11. Gastrointestinal prophylaxis. Pepcid. 12. DVT prophylaxis. Lovenox. CODE STATUS: Full code Patient will be admitted to the hospital for a minimum of 2 midnights today. Discharge plan: Most likely return home. PT ordered. Impression and plan of care have been directed as dictated by the signing physician. Kelli Marion nurse practitioner acting as scribe for signing physician.
--- NOTE | 2016-12-09 15:29 | MR ---
EXAMINATION TYPE: MR MRCP DATE OF EXAM: 12/09/2016 COMPARISON: Previous study dated 12/18/2015. HISTORY: recurrent pancreatitis Standard multiplanar, multisequence MRI departmental protocol Multiplanar, multisequence images of the abdomen were acquired. MRCP was performed. FINDINGS: There is a large amount of large and small bowel gas present. The liver has a normal appearance. There is no signal drop on out of phase imaging to suggest fatty i nfiltration. Both adrenal glands are unremarkable. The kidneys appear normal. The pancreatic duct is dilated to 5.8 mm at the level of the pancreatic head and 3.4 mm in the body. The duct is ectatic. There is cystic change in the body and tail of the pancreas. I'm uncertain wheth er this represents true cysts or ectatic sidebranches of the pancreatic duct. The cystic change has i ncreased from the previous study. The pancreas generally appears atrophic. IMPRESSION: 1. INCREASE IN THE CYSTIC CHANGE WITHIN THE BODY AND TAIL OF THE PANCREAS. I SUSPECT THIS LIKELY REPR ESENTS ECTATIC SIDEBRANCHES. DOES NOT APPEAR TO REPRESENT A PSEUDOCYST. 2. NO EVIDENCE OF FATTY INFILTRATION OF THE LIVER. 3. OTHERWISE UNREMARKABLE MRCP.
[2016-12-09] MEDS: ACETAMINOPHEN TAB 325 MG TAB PO PRN (21:35)
--- NOTE | 2016-12-09 23:37 | P.CONS ---
History of Present Illness - Reason for Consult Consult date: 12/09/16 LIZBETH MENESESD - History of Present Illness The patient is a 66-year-old lady with multiple medical problems. She was initially seen in consult last month, when she had presented with abdominal pain and fever. She has a long-standing history of chronic pancreatitis. At that admission, she was noted to have new onset leukocytosis as well as from cytopenia platelets in the 20,000 range. Her differential was normal at that time, and she had been on Keflex for a UTI prior to admission. Therefore it was felt that the neutrophilia was reactive, and from cytopenia most likely autoimmune related to recent antibiotic use. About a workup for from cytopenia was negative. It was therefore decided to follow her with monitoring. However the patient was discharged and readmitted with GI bleed.. White count had increased, and platelet counts were persistently low. In addition, it was noted that her differential had become abnormal with significant left shift, including blasts seen. The patient therefore underwent a bone marrow aspiration biopsy on 12/03/16. As the bleeding had metastases, and the patient is feeling better, she was discharged. The patient was readmitted with complains of a low-grade fever, as well as some chest pain that was worse with inspiration. T-max was 100.8. Hemoglobin was in the 7-8 range. WBC was again elevated, and the 20,000 range. However her differential was better with less of a left shift noted.. Counts and increased spontaneously to 131,000. The patient's bone marrow pathology noted a hemodiluted sample and some crush artifact in the biopsy specimen. Therefore evaluation was somewhat suboptimal. However significant dysplastic changes and fibrosis was noted. 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 Acute leukemia was felt less likely ( blasts percentage was not increase in flow cytometry ) though could not be ruled out definitively due to the quality of the sample. Cytogenetics are pending. Consult was therefore placed for further evaluation. Review of Systems Constitutional: Reports fever, Reports poor appetite, Reports weakness Eyes: denies blurred vision, denies pain Ears, nose, mouth and throat: Denies headache, Denies sore throat Cardiovascular: Reports chest pain, Reports decreased exercise tolerance, Reports dyspnea on exertion Respiratory: Reports dyspnea, Reports pain on inspiration Gastrointestinal: Reports abdominal pain Genitourinary: Denies dysuria, Denies hematuria Menstruation: Reports postmenopausal Musculoskeletal: Reports muscle weakness, Denies myalgias Integumentary: Denies pruritus, Denies rash Neurological: Reports weakness Psychiatric: Reports anxiety, Reports depression Endocrine: Reports fatigue, Denies weight change Hematologic/Lymphatic: Reports as per HPI Past Medical History Past Medical History: Coronary Artery Disease (CAD), GI Bleed, Hyperlipidemia, Hypertension, Osteoarthritis (OA), Renal Disease Additional Past Medical History / Comment(s): pancreatitis, djd, neuropathy, Chronic back pain, mild stenosis in the neck, anemia, thrombocyopenia History of Any Multi-Drug Resistant Organisms: None Reported Past Surgical History: Adenoidectomy, Appendectomy, Tonsillectomy Additional Past Surgical History / Comment(s): B/L lasix in 1999 Past Anesthesia/Blood Transfusion Reactions: No Reported Reaction Past Psychological History: Anxiety Smoking Status: Current every day smoker Past Alcohol Use History: None Reported Past Drug Use History: None Reported - Past Family History Mother Family Medical History: Diabetes Mellitus, Hypertension, Renal Disease Additional Family Medical History / Comment(s): Heart and anxiety issues. Had quadraple bypass, Father Additional Family Medical History / Comment(s): Quad heart bypass Medications and Allergies Home Medications Medication Instructions Recorded Confirmed Type ALPRAZolam [Xanax] 0.25 mg PO Q8HR PRN 11/15/16 12/08/16 History Cholecalciferol [Vitamin D3] 5,000 unit PO Q48H 11/15/16 12/08/16 History Cyanocobalamin (Vitamin B-12) 1,000 mcg PO MOWEFR 11/15/16 12/08/16 History [Vitamin B-12] Diltiazem HCl 120 mg PO TID@0600,1400,2200 11/15/16 12/08/16 History Folic Acid 0.4 mg PO DAILY 11/15/16 12/08/16 History Lutein 20 mg PO DAILY 11/15/16 12/08/16 History Vitamin A 8,000 unit PO DAILY 11/15/16 12/08/16 History oxyCODONE HCL 10 mg PO Q4HR PRN 11/15/16 12/08/16 History Compounded Cream 1 applic TOPICAL QID PRN 12/08/16 12/08/16 History Furosemide [Lasix] 20 mg PO DAILY PRN 12/08/16 12/08/16 History Lactulose [Cephulac] 20 gm PO BID PRN 12/08/16 12/08/16 History SILVER sulfADIAZINE CREAM 1 applic TOPICAL BID 12/08/16 12/08/16 History [Silvadene Cream] Unknown Cream 1 applic TOPICAL DIRECTED 12/08/16 12/08/16 History Vitamin C Odt Tablet 1 tab PO DAILY 12/08/16 12/08/16 History Allergies Allergy/AdvReac Type Severity Reaction Status Date / Time erythromycin base Allergy Rash/Hives Verified 12/08/16 20:25 hydrochlorothiazide Allergy "DROPS Verified 12/08/16 20:25 SODIUM LEVEL" peppermint Allergy Rash/Hives Verified 12/08/16 20:25 Tetracyclines Allergy Swelling Verified 12/08/16 20:25 atenolol AdvReac PASSES OUT Verified 12/08/16 20:25 nifedipine [From Procardia] AdvReac HAIR LOSS Verified 12/08/16 20:25 pregabalin [From Lyrica] AdvReac LEG PAIN Verified 12/08/16 20:25 [place]-Kdn-Ref Reductase AdvReac LEG PAIN Verified 12/08/16 20:25 Inhibitor [employer] Allergy Rash/Hives Uncoded 12/08/16 20:25 Physical Exam Vitals: Vital Signs Temp Pulse Pulse Resp BP BP Pulse Ox 12/09/16 16:00 98.2 F 101 H 18 118/66 96 12/09/16 12:00 98.1 F 100 18 122/70 98 12/09/16 08:00 97.3 F L 88 18 126/73 99 12/09/16 04:00 88 18 135/67 100 12/09/16 01:22 100.8 F H 100 16 158/72 100 12/09/16 01:03 99.0 F 105 H 18 125/59 98 12/09/16 00:01 100.6 F H 97 16 151/69 99 Intake and Output 12/09/16 12/09/16 12/10/16 14:59 22:59 06:59 Intake Total 450 150 Output Total 200 400 Balance 250 -250 Intake: Intake, IV Titration 450 Amount Piperacillin-Tazobactam 3 50 .375 gm In Dextrose/Water 1 50ml.bag @ 12.5 mls/hr IVPB Q8H [facility] Rx#: [id number] Sodium Chloride 0.9% 1, 400 000 ml @ 100 mls/hr IV . Q10H [facility] Rx#:[id number] Oral 0 150 Output: Urine 200 400 Other: Voiding Method Bedside Commode Bedside Commode # Voids 2 Weight 50.3 kg Patient Weight 12/10/16 06:59 Weight 50.3 kg - Constitutional General appearance: no acute distress - EENT Eyes: EOMI, PERRLA ENT: hearing grossly normal, normal oropharynx - Neck Neck: no lymphadenopathy Thyroid: bilateral: normal size - Respiratory Respiratory: bilateral: CTA - Cardiovascular Rhythm: regular Heart sounds: normal: S1, S2 - Gastrointestinal General gastrointestinal: normal bowel sounds, soft - Integumentary Integumentary: normal - Neurologic Neurologic: CNII-XII intact - Musculoskeletal Musculoskeletal: generalized weakness, strength equal bilaterally - Psychiatric Psychiatric: A&O x's 3, appropriate affect Results CBC & Chem 7: 12/08/16 21:23 12/08/16 21:23 Labs: Abnormal Lab Results - Last 24 Hours (Table) 12/09/16 Range/Units 09:27 Creatine Kinase <20 L (30-135) U/L Lipase 16 L (23-300) U/L Microbiology - Last 24 Hours (Table) 12/08/16 22:44 Urine Culture - Preliminary Urine,Voided Chest x-ray: report reviewed CT scan - chest: report reviewed MRI - abdomen: report reviewed Assessment and Plan (1) Myeloproliferative disorder Narrative/Plan: The bone marrow specimen was somewhat suboptimal, the pathology results and clinical situation are most suggestive of a myeloproliferative disorder, with primary myelofibrosis favored. A packed marrow, which commonly occurs in myelofibrosis can lead to a dry tap or hemodiluted aspirate, as well as crush artifact. Flow cytometry did not show any increased percentage of blasts. While his blast percentage may be falsely underrepresented in a hemodiluted flow sample, the spontaneous improvement in the patient's differential as well as platelet count argues against transformation to acute leukemia. The above, and indications were discussed with the patient in detail. assuming that the patient does have primary myelofibrosis, she likely has an accelerated presentation, in which case prognosis is quite guarded. I will request HERMELINDO 2 and and other MPD related genetic marker testing on her marrow specimen. In the meantime continue to follow and treat supportively. As noted, some aspects of her CBC have improved spontaneously. If Hermelindo 2 mutation is positive, she can be treated with Jakafi. As treatment options for primary myelofibrosis, especially if accelerated, are limited, we will also obtain a second opinion for her at [facility] in [place], after discharge Status: Acute Plan: Case was discussed with ID. Her low-grade fever, as well as arthralgias and myalgias, may be related to her underlying hematologic disorder. Therefore if in their opinion, infection can't be ruled out, from our standpoint she can be discharged home and follow-up in the office.
[2016-12-10] MEDS: ALPRAZolam 0.25 MG TAB PO PRN ×3 (04:00→21:24)
[2016-12-10] MEDS: PIPERACILLIN-TAZOBACTAM 3.375 GM in DEXTROSE/WATER 1 50ML.BAG IVPB SCH ×3 (04:00→21:15)
[2016-12-10] MEDS: DILTIAZEM ORAL 60 MG TAB PO SCH ×3 (06:38→21:16)
[2016-12-10 06:57] LABS: Aty Lym Flag Moderate; CH 29.3; CHCM 33.2; HCT 21.4 % (34.0-46.0); HDW 2.99; HGB 7.1 gm/dL (11.4-16.0); Immature Gran Flag Moderate; MCH 29.6 pg (25.0-35.0); MCHC 33.3 g/dL (31.0-37.0); MCV 88.9 fL (80.0-100.0); Mean Platelet Volume 9.9; RBC 2.41 m/uL (3.80-5.40); RDW 15.5 % (11.5-15.5); WBC (Perox) 21.64
[2016-12-10 07:15] LABS: ALT 19 U/L (9-52); AST 36 U/L (14-36); Alkaline Phosphatase 274 U/L (38-126); Anion Gap 8 mmol/L; Blood Urea Nitrogen 13 mg/dL (7-17); Calcium 8.9 mg/dL (8.4-10.2); Carbon Dioxide 29 mmol/L (22-30); Chloride 93 mmol/L (98-107); Glucose 104 mg/dL (74-99); Non-African American GFR(MDRD) >60 (>60 ml/min/1.73 sqM); Potassium 3.9 mmol/L (3.5-5.1); Sodium 130 mmol/L (137-145); Total Bilirubin 0.7 mg/dL (0.2-1.3); Total Protein 5.5 g/dL (6.3-8.2)
[2016-12-10 08:19] LABS: Add Differential Manual Differential
[2016-12-10 08:27] LABS: Band Neutrophils % 1.5 %; Blast Cells 0.5; Metamyelocytes % 0.5 %; Myelocytes % 0.5 %; Nucleated Red Blood Cells 1 /100 WBC (0-0); Total Cells Counted 200; WBC 20.6 k/uL (3.8-10.6)
[2016-12-10 08:28] LABS: Manual Review Performed; Polychromasia Present
[2016-12-10] MEDS: TAMSULOSIN 0.4 MG CAP.ER.24H PO SCH (09:12)
[2016-12-10] MEDS: FOLIC ACID 1 MG TAB PO SCH (09:12)
[2016-12-10] MEDS: PANTOPRAZOLE 40 MG TABLET PO SCH (09:12)
[2016-12-10] MEDS: ASCORBIC ACID 500 MG TAB PO SCH (09:12)
[2016-12-10] MEDS: NYSTATIN 100,000 UNIT/ML SUSP 500,000 UNIT/5 ML CUP PO SCH ×5 (09:12→21:16)
[2016-12-10] MEDS: VITAMIN A 10,000 UNIT CAPSULE PO SCH (09:12)
[2016-12-10] MEDS: ENOXAPARIN 40 MG/0.4 ML SYRINGE SQ SCH (09:13)
[2016-12-10] MEDS ORDERED: SIMETHICONE 80 MG CHEWABLE PO STA (10:25)
--- NOTE | 2016-12-10 11:48 | XR ---
EXAMINATION TYPE: XR abdomen 1V DATE OF EXAM: 12/10/2016 CLINICAL DATA: 66-year-old female with ileus, obstipation, PHH COMPARISON: 11/15/2016 FINDINGS: Supine image of limited for assessment of free air. Moderate stool within the right hemicolon. There is air seen throughout prominent small and large bow el loops. No evident abnormal small bowel dilatation. End-stage degenerative change at both hips. IMPRESSION: 1. Nonspecific bowel gas pattern. Moderate stool in the right hemicolon and prominent air distention of small and large bowel loops. Possible ileus. Follow-up may be helpful. 2. Spine imaging limited for assessment of free air. If this is a clinical concern, consider upright or decubitus imaging.
[2016-12-10] MEDS: MAG HYDROX/AL HYDROX/SIMETH 30 ML CUP PO SCH ×3 (12:17→21:15)
[2016-12-10] MEDS: CYANOCOBALAMIN 500 MCG TAB PO SCH (12:17)
[2016-12-10] MEDS: ONDANSETRON ODT 4 MG TAB PO PRN (12:45)
[2016-12-10] MEDS: LACTULOSE 20 GM/30 ML CUP PO PRN (18:04)
--- NOTE | 2016-12-10 20:20 | P.PN ---
Subjective This is a 66-year-old female patient of Dr. Dorantes with underlying history of CAD, hyperlipidemia, hypertension, pancreatitis, neuropathy chronic back pain chronic opioid-induced constipation. She has had several recent hospitalizations due to lower GI bleed thought to be due to diverticulitis as well as thrombocytopenia and anemia and leukocytosis followed by Dr. Navarrete. Patient recently underwent bone marrow biopsy. Results were not available during her last hospitalization but she was discharged home with a white count of 18.7, hemoglobin was 8.9 and platelet count of 43 on improved. She also had an elevated alkaline phosphatase of 205. Patient presented back to [facility] emergency center on December 08 with complaints of chest pain that started the day before and continued to worsen. She also had temperature of 100.8 and was complaining of shortness of breath and it hurt when she took a deep breath. There was no trauma to the chest wall or recent fall. She underwent a CTA of the chest that showed no definite acute pulmonary embolism. Trace bilateral pleural effusions. Chest x-ray showed no acute cardiopulmonary disease. She again presented with leukocytosis of 27.2, hemoglobin 7.6 and platelet count was up to 131. Her d-dimer was elevated at 3.26. Sodium 1:30 and chloride 93. Initial troponin was 0.012, proBNP 2120. Urinalysis was cloudy, nitrate and leukoesterase negative. Cardiology consult requested, repeat troponins, consult with Dr. Saravia from infectious disease and consult has been added for Dr. Navarrete. Recent biopsy report is stating possible be lymphoma or of leukemia. Patient is scheduled for an MRCP as an outpatient tomorrow which will be ordered for this hospitalization. Patient is complaining of sternal chest pain, generalized abdominal pain and back pain over her kidneys. Echocardiogram reveals mild concentric left ventricular hypertrophy, EF between 55 and 60%, trace mitral regurgitation, trace tricuspid regurgitation. 12/10, patient's to have chills, recurrent fevers, today complaining of gassiness and abdominal pain which is new from yesterday MRCP failed to reveal any gallbladder thickening, increased size of the pancreatic cyst that was noted however there is no obstructive process is noted, patient has abdominal pain and no flatness, no bowel movement for the past 1 week of the abdomen was requested, Maalox plus or symmetric on would be given for gas relief, previous x -ray from the MR shows large amount of gas in the large colon and a small colon Objective - Vital Signs Vital signs: Vital Signs Temp 97.1 F L 12/10/16 12:10 Pulse 106 H 12/10/16 16:00 Resp 18 12/10/16 12:10 BP 132/57 12/10/16 16:00 Pulse Ox 91 L 12/10/16 16:00 Intake & Output 12/10/16 12/10/16 12/11/16 06:59 18:59 06:59 Intake Total 50 336 Output Total 700 Balance -650 336 Weight 50.3 kg Intake: IV 50 Piperacillin-Tazobactam 3 50 .375 gm In Dextrose/Water 1 50ml.bag @ 12.5 mls/hr IVPB Q8H [facility] Rx#: [id number] Oral 336 Output: Urine 700 Other: Voiding Method Bedside Commode # Voids 1 - Constitutional General appearance: Present: cooperative, no acute distress - EENT Eyes: Present: anicteric sclerae, EOMI, dentition normal ENT: Present: hard of hearing, NA/AT, normal oropharynx - Neck Neck: Present: normal ROM - Respiratory Respiratory: bilateral: CTA, negative: dullness, rales, rhonchi, wheezing, prolonged expiration - Cardiovascular Rhythm: regular Heart sounds: normal: S1, S2 Abnormal Heart Sounds: Absent: systolic murmur, diastolic murmur, rub, S3 Gallop , S4 Gallop, click, other - Gastrointestinal General gastrointestinal: Present: normal bowel sounds, tenderness - Integumentary Integumentary: Present: normal, normal turgor - Musculoskeletal Musculoskeletal: Present: gait normal, strength equal bilaterally - Psychiatric Psychiatric: Present: A&O x's 3, intact judgment & insight - Labs CBC & Chem 7: 12/10/16 06:08 12/10/16 06:08 Labs: Abnormal Lab Results - Last 24 Hours (Table) 12/10/16 12/10/16 Range/Units 06:08 06:08 WBC 20.6 H (3.8-10.6) k/uL RBC 2.41 L (3.80-5.40) m/uL Hgb 7.1 L (11.4-16.0) gm/dL Hct 21.4 L (34.0-46.0) % Plt Count 114 L (150-450) k/uL Neutrophils # (Manual) 14.2 H (1.3-7.7) k/uL Monocytes # (Manual) 3.8 H (0-1.0) k/uL Nucleated RBCs 1 H (0-0) /100 WBC Sodium 130 L (137-145) mmol/L Chloride 93 L (98-107) mmol/L Glucose 104 H (74-99) mg/dL Alkaline Phosphatase 274 H (38-126) U/L Total Protein 5.5 L (6.3-8.2) g/dL Albumin 2.9 L (3.5-5.0) g/dL Microbiology - Last 24 Hours (Table) 12/08/16 22:44 Urine Culture - Final Urine,Voided 12/08/16 23:30 Blood Culture - Preliminary Blood No Growth after 24 hours Assessment and Plan Plan: ssessment and Plan Plan: 1. Chest pain with negative initial troponin. Cardiology consult requested. Repeat troponins have been ordered. Echocardiogram. 2. Previous admissions with bicytopenia with thrombocytopenia and anemia along with leukocytosis followed by Dr. Navarrete. Patient recently underwent bone marrow biopsy as above. Concerns regarding myelodysplastic disorder with myelofibrosis however bone marrow has hemodilution and does not confer any specific diagnosis at this time 3. Leukocytosis with fever with concern for underlying infection vs fever related to myelodysplasia. Dr. Saravia is on consult. MRCP is scheduled performed showing slight increase in the size of the cyst, chronic elevation of the pancreatic duct, no duct stone Dr. saravia has ordered Zosyn. 4. Chronic history of pancreatic duct stent, last MRCP was in December 2015. MRCP wasperformed results as above was from a previous outpatient scheduling 5. Chronic malabsorption state from poor oral intake, and ongoing pancreas problems, lipase to be checked, with weight loss of 17 pounds in 15 months with severe protein calorie malnutrition. Continue supplements. 6. Generalized anxiety disorder. Continue Xanax as needed. 7. Urinary retention on last hospitalization. Monitor for same. Continue Flomax. 8. Patient self reports chronic kidney disease stage II. Avoid nonsteroidal anti-inflammatories. 9. Severe osteoarthritis of both hips. Continue use walker and avoid falling. 10. Chronic pain syndrome. 11. Gastrointestinal prophylaxis. Pepcid. 12. DVT prophylaxis. Lovenox. 13. Gaseousness with abdominal pain, patient would have an x-ray of the abdomen today, Maalox plus or simethicone would be altered, monitor for increasing abdominal pain, might need general surgeon for follow patient CODE STATUS: Full code Patient will be admitted to the hospital for a minimum of 2 midnights today. Discharge plan: Most likely return home. PT ordered.
[2016-12-10] MEDS: CHOLECALCIFEROL 1,000 UNIT TAB PO SCH (21:16)
[2016-12-10] MEDS: ACETAMINOPHEN TAB 325 MG TAB PO PRN (23:29)
[2016-12-11] MEDS: PIPERACILLIN-TAZOBACTAM 3.375 GM in DEXTROSE/WATER 1 50ML.BAG IVPB SCH ×3 (05:34→20:13)
[2016-12-11] MEDS: ALPRAZolam 0.25 MG TAB PO PRN ×2 (05:45→18:21)
[2016-12-11] MEDS: DILTIAZEM ORAL 60 MG TAB PO SCH ×2 (05:48→14:35)
[2016-12-11] MEDS: MAG HYDROX/AL HYDROX/SIMETH 30 ML CUP PO SCH ×3 (08:12→18:20)
[2016-12-11] MEDS: NYSTATIN 100,000 UNIT/ML SUSP 500,000 UNIT/5 ML CUP PO SCH ×3 (08:12→18:20)
[2016-12-11] MEDS: ENOXAPARIN 40 MG/0.4 ML SYRINGE SQ SCH (08:12)
[2016-12-11] MEDS: FOLIC ACID 1 MG TAB PO SCH (08:12)
[2016-12-11] MEDS: TAMSULOSIN 0.4 MG CAP.ER.24H PO SCH (08:12)
[2016-12-11] MEDS: VITAMIN A 10,000 UNIT CAPSULE PO SCH (08:12)
[2016-12-11] MEDS: PANTOPRAZOLE 40 MG TABLET PO SCH (08:12)
[2016-12-11] MEDS: ASCORBIC ACID 500 MG TAB PO SCH (08:22)
[2016-12-11] MEDS ORDERED: POLYETHYLENE GLYCOL LYTES SOLN 4,000 ML SOLN.RECON PO ONE (08:56)
[2016-12-11] MEDS ORDERED: ONDANSETRON 4 MG/2 ML VIAL ONE (10:00)
[2016-12-11 10:19] LABS: CH 29.2; CHCM 33.7; HDW 3.09; HGB 7.8 gm/dL (11.4-16.0); Large Platelets Flag Slight; MCH 29.7 pg (25.0-35.0); MCHC 33.9 g/dL (31.0-37.0); MCV 87.5 fL (80.0-100.0); Mean Platelet Volume 10.6; RBC 2.63 m/uL (3.80-5.40); RDW 15.8 % (11.5-15.5)
[2016-12-11 10:33] LABS: WBC 33.1 k/uL (3.8-10.6)
[2016-12-11 10:39] LABS: Anion Gap 11 mmol/L; Blood Urea Nitrogen 19 mg/dL (7-17); Calcium 9.4 mg/dL (8.4-10.2); Carbon Dioxide 30 mmol/L (22-30); Chloride 90 mmol/L (98-107); Glucose 135 mg/dL (74-99); Non-African American GFR(MDRD) >60 (>60 ml/min/1.73 sqM); Potassium 3.9 mmol/L (3.5-5.1); Sodium 131 mmol/L (137-145)
--- NOTE | 2016-12-11 11:58 | P.PN ---
Subjective This is a 66-year-old female patient of Dr. Dorantes with underlying history of CAD, hyperlipidemia, hypertension, pancreatitis, neuropathy chronic back pain chronic opioid-induced constipation. She has had several recent hospitalizations due to lower GI bleed thought to be due to diverticulitis as well as thrombocytopenia and anemia and leukocytosis followed by Dr. Navarrete. Patient recently underwent bone marrow biopsy. Results were not available during her last hospitalization but she was discharged home with a white count of 18.7, hemoglobin was 8.9 and platelet count of 43 on improved. She also had an elevated alkaline phosphatase of 205. Patient presented back to [facility] emergency center on December 08 with complaints of chest pain that started the day before and continued to worsen. She also had temperature of 100.8 and was complaining of shortness of breath and it hurt when she took a deep breath. There was no trauma to the chest wall or recent fall. She underwent a CTA of the chest that showed no definite acute pulmonary embolism. Trace bilateral pleural effusions. Chest x-ray showed no acute cardiopulmonary disease. She again presented with leukocytosis of 27.2, hemoglobin 7.6 and platelet count was up to 131. Her d-dimer was elevated at 3.26. Sodium 1:30 and chloride 93. Initial troponin was 0.012, proBNP 2120. Urinalysis was cloudy, nitrate and leukoesterase negative. Cardiology consult requested, repeat troponins, consult with Dr. Strauss from infectious disease and consult has been added for Dr. Navarrete. Recent biopsy report is stating possible be lymphoma or of leukemia. Patient is scheduled for an MRCP as an outpatient tomorrow which will be ordered for this hospitalization. Patient is complaining of sternal chest pain, generalized abdominal pain and back pain over her kidneys. Echocardiogram reveals mild concentric left ventricular hypertrophy, EF between 55 and 60%, trace mitral regurgitation, trace tricuspid regurgitation. 12/10, patient's to have chills, recurrent fevers, today complaining of gassiness and abdominal pain which is new from yesterday MRCP failed to reveal any gallbladder thickening, increased size of the pancreatic cyst that was noted however there is no obstructive process is noted, patient has abdominal pain and no flatness, no bowel movement for the past 1 week of the abdomen was requested, Maalox plus or symmetric on would be given for gas relief, previous x -ray from the MR shows large amount of gas in the large colon and a small colon. 12/11: Today the patient was evaluated, she is complaining of constipation although refusing Fleet enema and other oral medications for constipation. GoLYTELY was ordered, patient was in agreement of trying this. Final urine culture showed no growth blood culture still pending. Vital signs are stable she remains afebrile. We'll possibly plan for discharge tomorrow with follow- up with oncology. Objective - Vital Signs Vital signs: Vital Signs Temp 97.1 F L 12/11/16 11:14 Pulse 99 12/11/16 11:14 Resp 16 12/11/16 11:14 BP 145/65 12/11/16 11:14 Pulse Ox 97 12/11/16 11:14 Intake & Output 12/10/16 12/11/16 12/11/16 18:59 06:59 18:59 Intake Total 336 100 Balance 336 100 Weight 49.8 kg Intake: IV 100 Piperacillin-Tazobactam 3 100 .375 gm In Dextrose/Water 1 50ml.bag @ 12.5 mls/hr IVPB Q8H [facility] Rx#: [id number] Oral 336 Other: Voiding Method Bedside Commode # Voids 1 0 - Exam - Constitutional General appearance: Present: cooperative, no acute distress - EENT Eyes: Present: anicteric sclerae, EOMI, dentition normal ENT: Present: hard of hearing, NA/AT, normal oropharynx - Neck Neck: Present: normal ROM - Respiratory Respiratory: bilateral: CTA, negative: dullness, rales, rhonchi, wheezing, prolonged expiration - Cardiovascular Rhythm: regular Heart sounds: normal: S1, S2 Abnormal Heart Sounds: Absent: systolic murmur, diastolic murmur, rub, S3 Gallop , S4 Gallop, click, other - Gastrointestinal General gastrointestinal: Present: normal bowel sounds, tenderness - Integumentary Integumentary: Present: normal, normal turgor - Musculoskeletal Musculoskeletal: Present: gait normal, strength equal bilaterally - Psychiatric Psychiatric: Present: A&O x's 3, intact judgment & insight - Labs CBC & Chem 7: 12/11/16 09:54 12/11/16 09:54 Labs: Abnormal Lab Results - Last 24 Hours (Table) 12/11/16 12/11/16 Range/Units 09:54 09:54 WBC 33.1 H* (3.8-10.6) k/uL RBC 2.63 L (3.80-5.40) m/uL Hgb 7.8 L (11.4-16.0) gm/dL Hct 23.0 L (34.0-46.0) % RDW 15.8 H (11.5-15.5) % Plt Count 138 L (150-450) k/uL Sodium 131 L (137-145) mmol/L Chloride 90 L (98-107) mmol/L BUN 19 H (7-17) mg/dL Glucose 135 H (74-99) mg/dL Microbiology - Last 24 Hours (Table) 12/08/16 23:30 Blood Culture - Preliminary Blood No Growth after 48 hours 12/08/16 22:44 Urine Culture - Final Urine,Voided Assessment and Plan Plan: Plan: 1. Chest pain with negative initial troponin. Cardiology consult requested. Repeat troponins have been ordered. Echocardiogram completed 2. Previous admissions with bicytopenia with thrombocytopenia and anemia along with leukocytosis followed by Dr. Navarrete. Patient recently underwent bone marrow biopsy as above. Concerns regarding myelodysplastic disorder with myelofibrosis however bone marrow has hemodilution and does not confer any specific diagnosis at this time 3. Leukocytosis with fever with concern for underlying infection vs fever related to myelodysplasia. Dr. Strauss is on consult. MRCP is scheduled performed showing slight increase in the size of the cyst, chronic elevation of the pancreatic duct, no duct stone Dr. strauss has ordered Zosyn. 4. Chronic history of pancreatic duct stent, last MRCP was in December 2015. MRCP wasperformed results as above was from a previous outpatient scheduling 5. Chronic malabsorption state from poor oral intake, and ongoing pancreas problems, lipase to be checked, with weight loss of 17 pounds in 15 months with severe protein calorie malnutrition. Continue supplements. 6. Generalized anxiety disorder. Continue Xanax as needed. 7. Urinary retention on last hospitalization. Monitor for same. Continue Flomax. 8. Patient self reports chronic kidney disease stage II. Avoid nonsteroidal anti-inflammatories. 9. Severe osteoarthritis of both hips. Continue use walker and avoid falling. 10. Chronic pain syndrome. 11. Gastrointestinal prophylaxis. Pepcid. 12. DVT prophylaxis. Lovenox. 13. Gaseousness with abdominal pain, x-ray shows large amount of stool GoLYTELY ordered for constipation CODE STATUS: Full code The above impression and plan of care have been discussed and directed by signing physician. Genevieve House nurse practitioner acting as scribe for signing physician.
[2016-12-11] MEDS: ONDANSETRON ODT 4 MG TAB PO PRN (12:00)
--- NOTE | 2016-12-11 14:22 | P.CONS ---
History of Present Illness - Reason for Consult Consult date: 12/09/16 Fever and a question of sepsis Requesting physician: Shaneka Burrell - Chief Complaint Chest pain and fever - History of Present Illness Pt was Recently admitted to [facility] with a GI bleed at that time the patient did have evidence of leukocytosis and thrombocytopenia, the patient was evaluated by myself during that admission the patient culture remained to be negative and no clear focus of infection except mild thrush, patient subsequently did have a bone marrow aspirate done on 12/03/[address] 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 garsia. Patient is now presenting to [facility] last night with chief complaints of chest pain patient has been c/o pain to the lower left chest area it hurts with taking a deep breath patient did have very mild cough not bringing up any sputum denies any difficulty swallowing some nausea and one episode of vomiting yesterday but no significant abdominal pain or any diarrhea patient was evaluated by the ER physician patient did have fever 100.8 white count was elevated 27,[address] angiogram that was negative for PE or any significant consolidation UA has been negative subsequently the patient has been admitted to the hospital and ID was consulted for further recommendation regarding antibiotic therapy Review of Systems Review of system Constitutional: The patient with fever or rigors or chills, the patient does complain of weakness. Eyes: No complaint ENT: No complaint Respiratory: as per HPI Cardiovascular: No complaint Gastrointestinal: per HPI Genitourinary: No complaint Musculoskeletal: No complaint Integumentary: No complaint Endocrine : No complaint Psycologial : No complaint Neurological: No complaint. Past Medical History Past Medical History: Coronary Artery Disease (CAD), GI Bleed, Hyperlipidemia, Hypertension, Osteoarthritis (OA), Renal Disease Additional Past Medical History / Comment(s): pancreatitis, djd, neuropathy, Chronic back pain, mild stenosis in the neck, anemia, thrombocyopenia History of Any Multi-Drug Resistant Organisms: None Reported Past Surgical History: Adenoidectomy, Appendectomy, Tonsillectomy Additional Past Surgical History / Comment(s): B/L lasix in 1999 Past Anesthesia/Blood Transfusion Reactions: No Reported Reaction Past Psychological History: Anxiety Smoking Status: Current every day smoker Past Alcohol Use History: None Reported Past Drug Use History: None Reported - Past Family History Mother Family Medical History: Diabetes Mellitus, Hypertension, Renal Disease Additional Family Medical History / Comment(s): Heart and anxiety issues. Had quadraple bypass, Father Additional Family Medical History / Comment(s): Quad heart bypass Medications and Allergies Home Medications Medication Instructions Recorded Confirmed Type ALPRAZolam [Xanax] 0.25 mg PO Q8HR PRN 11/15/16 12/08/16 History Cholecalciferol [Vitamin D3] 5,000 unit PO Q48H 11/15/16 12/08/16 History Cyanocobalamin (Vitamin B-12) 1,000 mcg PO MOWEFR 11/15/16 12/08/16 History [Vitamin B-12] Diltiazem HCl 120 mg PO TID@0600,1400,2200 11/15/16 12/08/16 History Folic Acid 0.4 mg PO DAILY 11/15/16 12/08/16 History Lutein 20 mg PO DAILY 11/15/16 12/08/16 History Vitamin A 8,000 unit PO DAILY 11/15/16 12/08/16 History oxyCODONE HCL 10 mg PO Q4HR PRN 11/15/16 12/08/16 History Compounded Cream 1 applic TOPICAL QID PRN 12/08/16 12/08/16 History Furosemide [Lasix] 20 mg PO DAILY PRN 12/08/16 12/08/16 History Lactulose [Cephulac] 20 gm PO BID PRN 12/08/16 12/08/16 History SILVER sulfADIAZINE CREAM 1 applic TOPICAL BID 12/08/16 12/08/16 History [Silvadene Cream] Unknown Cream 1 applic TOPICAL DIRECTED 12/08/16 12/08/16 History Vitamin C Odt Tablet 1 tab PO DAILY 12/08/16 12/08/16 History Allergies Allergy/AdvReac Type Severity Reaction Status Date / Time erythromycin base Allergy Rash/Hives Verified 12/08/16 20:25 hydrochlorothiazide Allergy "DROPS Verified 12/08/16 20:25 SODIUM LEVEL" peppermint Allergy Rash/Hives Verified 12/08/16 20:25 Tetracyclines Allergy Swelling Verified 12/08/16 20:25 atenolol AdvReac PASSES OUT Verified 12/08/16 20:25 nifedipine [From Procardia] AdvReac HAIR LOSS Verified 12/08/16 20:25 pregabalin [From Lyrica] AdvReac LEG PAIN Verified 12/08/16 20:25 Xwgndoc-Ark-Fct Reductase AdvReac LEG PAIN Verified 12/08/16 20:25 Inhibitor [employer] Allergy Rash/Hives Uncoded 12/08/16 20:25 Physical Exam Vitals: Vital Signs Temp Pulse Pulse Resp BP BP Pulse Ox 12/09/16 08:00 97.3 F L 88 18 126/73 99 12/09/16 04:00 88 18 135/67 100 12/09/16 01:22 100.8 F H 100 16 158/72 100 12/09/16 01:03 99.0 F 105 H 18 125/59 98 12/09/16 00:01 100.6 F H 97 16 151/69 99 12/08/16 22:46 99.0 F 97 16 144/67 98 12/08/16 21:26 97 16 148/68 98 12/08/16 20:21 100.8 F H 104 H 20 129/60 96 Intake and Output 12/08/16 12/09/16 12/09/16 22:59 06:59 14:59 Intake Total 150 Output Total 100 Balance 50 Intake: Intake, IV Titration 150 Amount Sodium Chloride 0.9% 1, 150 000 ml @ 100 mls/hr IV . Q10H [facility] Rx#:[id number] Oral 0 Output: Urine 100 Other: Voiding Method Bedside Commode Bedside Commode # Voids 1 Weight 50.349 kg 50.3 kg General: The patient is awake and alert, in no distress. Skin: no rashes or lesions are noted no masses palpable. Eye: Pupils are equal, round and reactive to light, there is normal conjunctiva bilaterally. Ears, nose, mouth and throat: There are moist mucous membranes and mild thrush. Neck: The neck is supple, there is no thyromegaly. Cardiovascular: S1-S2 regular rate and rhythm. No murmur. Respiratory: Unlabored breathing clear to auscultation bilaterally Gastrointestinal: Soft, non-distended, non-tender abdomen without masses or organomegaly no tenderness Neurological: There are no obvious motor or sensory deficits. Coordination appears grossly intact. Speech is normal. Psychiatric: Patient is awake and alert and oriented 3, appropriate mood & affect, normal judgment. Results CBC & Chem 7: 12/11/16 09:54 12/11/16 09:54 Labs: Abnormal Lab Results - Last 24 Hours (Table) 12/08/16 12/08/16 12/08/16 Range/Units 21:23 21:23 21:23 WBC 27.2 H* (3.8-10.6) k/uL RBC 2.47 L (3.80-5.40) m/uL Hgb 7.6 L (11.4-16.0) gm/dL Hct 21.7 L (34.0-46.0) % RDW 15.7 H (11.5-15.5) % Plt Count 131 L (150-450) k/uL Neutrophils # (Manual) 15.6 H (1.3-7.7) k/uL Monocytes # (Manual) 5.4 H (0-1.0) k/uL PT (9.0-12.0) sec D-Dimer (<0.60) mg/L FEU Sodium 130 L (137-145) mmol/L Chloride 93 L (98-107) mmol/L Glucose 129 H (74-99) mg/dL AST 40 H (14-36) U/L Alkaline Phosphatase 273 H (38-126) U/L Creatine Kinase (30-135) U/L Total Creatine Kinase <20 L (30-135) U/L Lipase (23-300) U/L Urine Appearance (Clear) Urine Protein (Negative) Urine WBC (0-5) /hpf Ur Squamous Epith Cells (0-4) /hpf Hyaline Casts (0-2) /lpf Urine Mucus (None) /hpf 12/08/16 12/08/16 12/09/16 Range/Units 21:23 22:44 09:27 WBC (3.8-10.6) k/uL RBC (3.80-5.40) m/uL Hgb (11.4-16.0) gm/dL Hct (34.0-46.0) % RDW (11.5-15.5) % Plt Count (150-450) k/uL Neutrophils # (Manual) (1.3-7.7) k/uL Monocytes # (Manual) (0-1.0) k/uL PT 12.9 H (9.0-12.0) sec D-Dimer 3.26 H (<0.60) mg/L FEU Sodium (137-145) mmol/L Chloride (98-107) mmol/L Glucose (74-99) mg/dL AST (14-36) U/L Alkaline Phosphatase (38-126) U/L Creatine Kinase <20 L (30-135) U/L Total Creatine Kinase (30-135) U/L Lipase 16 L (23-300) U/L Urine Appearance Cloudy H (Clear) Urine Protein 2+ H (Negative) Urine WBC 6 H (0-5) /hpf Ur Squamous Epith Cells 5 H (0-4) /hpf Hyaline Casts 7 H (0-2) /lpf Urine Mucus Rare H (None) /hpf Assessment and Plan (1) Fever Status: Acute (2) Leukocytosis Status: Acute Plan: 1-patient admitted hospital with the left-sided chest pain along with the fever rigors and chills and temperature of 100.[address] that has been negative for any PE no evidence of any consolidation UA has been negative abdomen has been soft on clinical examination with likely differential could be fever related to her myelofibrosis however would need to rule out any intra- abdominal source for the patient may benefit from CT of abdominal pelvis though an MRCP has been ordered for tomorrow for which we will wait 2-Zosyn 3.375 g IV piggyback every 8 hours while waiting for the culture finalized 3-we'll follow-up on clinical condition and culture to further adjust her medication if needed thank you for this consultation will follow this patient along with you Time with Patient: Greater than 30
[2016-12-12] MEDS: DILTIAZEM ORAL 60 MG TAB PO SCH ×5 (00:25→22:56)
[2016-12-12] MEDS: NYSTATIN 100,000 UNIT/ML SUSP 500,000 UNIT/5 ML CUP PO SCH ×5 (00:25→22:42)
[2016-12-12] MEDS: MAG HYDROX/AL HYDROX/SIMETH 30 ML CUP PO SCH ×5 (00:25→22:41)
[2016-12-12] MEDS: ALPRAZolam 0.25 MG TAB PO PRN ×3 (03:25→20:26)
[2016-12-12] MEDS: PIPERACILLIN-TAZOBACTAM 3.375 GM in DEXTROSE/WATER 1 50ML.BAG IVPB SCH ×3 (05:39→20:11)
[2016-12-12 08:20] LABS: Aty Lym Flag Marked; CH 29.5; CHCM 33.8; HCT 20.6 % (34.0-46.0); HDW 2.96; Immature Gran Flag Marked; MCH 29.8 pg (25.0-35.0); MCV 87.8 fL (80.0-100.0); Mean Platelet Volume 10.1; RBC 2.34 m/uL (3.80-5.40); RDW 15.6 % (11.5-15.5); WBC 24.6 k/uL (3.8-10.6); WBC (Perox) 23.84
[2016-12-12 08:28] LABS: ALT 27 U/L (9-52); AST 45 U/L (14-36); Alkaline Phosphatase 347 U/L (38-126); Anion Gap 10 mmol/L; Blood Urea Nitrogen 25 mg/dL (7-17); Calcium 8.4 mg/dL (8.4-10.2); Carbon Dioxide 32 mmol/L (22-30); Chloride 90 mmol/L (98-107); Glucose 114 mg/dL (74-99); Non-African American GFR(MDRD) 58 (>60 ml/min/1.73 sqM); Potassium 3.2 mmol/L (3.5-5.1); Sodium 132 mmol/L (137-145); Total Bilirubin 1.4 mg/dL (0.2-1.3); Total Protein 5.4 g/dL (6.3-8.2)
[2016-12-12 09:04] LABS: Add Differential Manual Differential
[2016-12-12 09:06] LABS: Nucleated Red Blood Cells 0 /100 WBC (0-0)
[2016-12-12 09:08] LABS: Band Neutrophils % 10.5 %; Manual Review Performed; Metamyelocytes % 4.5 %; Myelocytes % 4.5 %; Total Cells Counted 200
--- NOTE | 2016-12-12 09:08 | XR ---
EXAMINATION TYPE: XR chest 2V DATE OF EXAM: 12/12/2016 COMPARISON: 12/08/2016 HISTORY: 66-year-old female with decreased O2 saturations TECHNIQUE: Frontal and lateral views FINDINGS: Heart is normal size. Atherosclerotic arch calcifications. Pulmonary vasculature within normal limits . However, there are small bilateral pleural effusions with adjacent posterior basilar opacities. IMPRESSION: New small pleural effusions with prominent adjacent posterior basilar atelectasis and/or consolidatio n.
[2016-12-12 09:09] LABS: Spherocytes Present
[2016-12-12] MEDS: ENOXAPARIN 40 MG/0.4 ML SYRINGE SQ SCH (09:11)
[2016-12-12] MEDS: TAMSULOSIN 0.4 MG CAP.ER.24H PO SCH (09:12)
[2016-12-12] MEDS: VITAMIN A 10,000 UNIT CAPSULE PO SCH (09:12)
[2016-12-12] MEDS: FOLIC ACID 1 MG TAB PO SCH (09:13)
[2016-12-12] MEDS: PANTOPRAZOLE 40 MG TABLET PO SCH (09:13)
[2016-12-12] MEDS: ASCORBIC ACID 500 MG TAB PO SCH (09:13)
[2016-12-12] MEDS ORDERED: ONDANSETRON 4 MG/2 ML VIAL IVP PRN (10:07)
[2016-12-12] MEDS ORDERED: Potassium Replacement Protocol 1 EACH MISC MISCELLANE PRN ×2 (11:12→16:42)
[2016-12-12] MEDS: DEXTROSE 5%-0.45% NACL 1,000 ML IV SCH ×2 (11:16→22:41)
--- NOTE | 2016-12-12 11:21 | P.GSCN ---
History of Present Illness Consult date: 12/12/16 Reason for Consult: Abdominal pain constipation History of present illness: patient is known to our service. She was hospitalized last month for rectal bleeding and thrombocytopenia. Since that time the patient had a bone marrow performed which showed findings consistent with myelofibrosis. During this hospital stay the patient has had progressive constipation and some abdominal bloating. She describes abdominal pain as well as a result of the constipation. She is tolerating a liquid diet. No vomiting. Some mild nausea. No rectal bleeding recently. X-rays from today confirmed constipation with dilated loops of small bowel as well. Apparently she tried enemas yesterday without relief. Unclear as to when her last colonoscopy was performed. During her CAT scan from last month no bowel obstruction was identified and there we was stool seen extending down into the rectum. Review of Systems The patient denies any acute changes in vision or hearing, no dysphagia or odynophagia, no dysuria or hematuria, no headache, no runny nose, no rectal bleeding or melena Past Medical History Past Medical History: Coronary Artery Disease (CAD), GI Bleed, Hyperlipidemia, Hypertension, Osteoarthritis (OA), Renal Disease Additional Past Medical History / Comment(s): pancreatitis, djd, neuropathy, Chronic back pain, mild stenosis in the neck, anemia, thrombocyopenia History of Any Multi-Drug Resistant Organisms: None Reported Past Surgical History: Adenoidectomy, Appendectomy, Tonsillectomy Additional Past Surgical History / Comment(s): B/L lasix in 1999 Past Anesthesia/Blood Transfusion Reactions: No Reported Reaction Past Psychological History: Anxiety Smoking Status: Current every day smoker Past Alcohol Use History: None Reported Past Drug Use History: None Reported - Past Family History Mother Family Medical History: Diabetes Mellitus, Hypertension, Renal Disease Additional Family Medical History / Comment(s): Heart and anxiety issues. Had quadraple bypass, Father Additional Family Medical History / Comment(s): Quad heart bypass Medications and Allergies Home Medications Medication Instructions Recorded Confirmed Type ALPRAZolam [Xanax] 0.25 mg PO Q8HR PRN 11/15/16 12/08/16 History Cholecalciferol [Vitamin D3] 5,000 unit PO Q48H 11/15/16 12/08/16 History Cyanocobalamin (Vitamin B-12) 1,000 mcg PO MOWEFR 11/15/16 12/08/16 History [Vitamin B-12] Diltiazem HCl 120 mg PO TID@0600,1400,2200 11/15/16 12/08/16 History Folic Acid 0.4 mg PO DAILY 11/15/16 12/08/16 History Lutein 20 mg PO DAILY 11/15/16 12/08/16 History Vitamin A 8,000 unit PO DAILY 11/15/16 12/08/16 History oxyCODONE HCL 10 mg PO Q4HR PRN 11/15/16 12/08/16 History Compounded Cream 1 applic TOPICAL QID PRN 12/08/16 12/08/16 History Furosemide [Lasix] 20 mg PO DAILY PRN 12/08/16 12/08/16 History Lactulose [Cephulac] 20 gm PO BID PRN 12/08/16 12/08/16 History SILVER sulfADIAZINE CREAM 1 applic TOPICAL BID 12/08/16 12/08/16 History [Silvadene Cream] Unknown Cream 1 applic TOPICAL DIRECTED 12/08/16 12/08/16 History Vitamin C Odt Tablet 1 tab PO DAILY 12/08/16 12/08/16 History Allergies Allergy/AdvReac Type Severity Reaction Status Date / Time erythromycin base Allergy Rash/Hives Verified 12/08/16 20:25 hydrochlorothiazide Allergy "DROPS Verified 12/08/16 20:25 SODIUM LEVEL" peppermint Allergy Rash/Hives Verified 12/08/16 20:25 Tetracyclines Allergy Swelling Verified 12/08/16 20:25 atenolol AdvReac PASSES OUT Verified 12/08/16 20:25 nifedipine [From Procardia] AdvReac HAIR LOSS Verified 12/08/16 20:25 pregabalin [From Lyrica] AdvReac LEG PAIN Verified 12/08/16 20:25 Noiqcvd-Hgg-Hsf Reductase AdvReac LEG PAIN Verified 12/08/16 20:25 Inhibitor [employer] Allergy Rash/Hives Uncoded 12/08/16 20:25 Surgical - Exam Vital Signs Temp Pulse Resp BP Pulse Ox 100.8 F H 104 H 20 129/60 96 12/08/16 20:21 12/08/16 20:21 12/08/16 20:21 12/08/16 20:21 12/08/16 20:21 Physical exam: General: Well-developed, well-nourished HEENT: Normocephalic, sclerae nonicteric Abdomen: mild diffuse tenderness, distended, tympanic Extremities: No edema Neuro: Alert and oriented Results - Labs 12/12/16 07:51 12/12/16 07:51 Abnormal Lab Results - Last 24 Hours (Table) 12/12/16 12/12/16 Range/Units 07:51 07:51 WBC 24.6 H (3.8-10.6) k/uL RBC 2.34 L (3.80-5.40) m/uL Hgb 7.0 L* (11.4-16.0) gm/dL Hct 20.6 L (34.0-46.0) % RDW 15.6 H (11.5-15.5) % Plt Count 110 L (150-450) k/uL Neutrophils # (Manual) 16.4 H (1.3-7.7) k/uL Monocytes # (Manual) 3.1 H (0-1.0) k/uL Sodium 132 L (137-145) mmol/L Potassium 3.2 L (3.5-5.1) mmol/L Chloride 90 L (98-107) mmol/L Carbon Dioxide 32 H (22-30) mmol/L BUN 25 H (7-17) mg/dL Glucose 114 H (74-99) mg/dL Total Bilirubin 1.4 H (0.2-1.3) mg/dL AST 45 H (14-36) U/L Alkaline Phosphatase 347 H (38-126) U/L Total Protein 5.4 L (6.3-8.2) g/dL Albumin 2.8 L (3.5-5.0) g/dL Microbiology - Last 24 Hours (Table) 12/08/16 23:30 Blood Culture - Preliminary Blood No Growth after 72 hours Diabetes panel 12/12/16 Range/Units 07:51 Sodium 132 L (137-145) mmol/L Potassium 3.2 L (3.5-5.1) mmol/L Chloride 90 L (98-107) mmol/L Carbon Dioxide 32 H (22-30) mmol/L BUN 25 H (7-17) mg/dL Creatinine 0.96 (0.52-1.04) mg/dL Glucose 114 H (74-99) mg/dL Calcium 8.4 (8.4-10.2) mg/dL AST 45 H (14-36) U/L ALT 27 (9-52) U/L Alkaline Phosphatase 347 H (38-126) U/L Total Protein 5.4 L (6.3-8.2) g/dL Albumin 2.8 L (3.5-5.0) g/dL Calcium panel 12/12/16 Range/Units 07:51 Calcium 8.4 (8.4-10.2) mg/dL Albumin 2.8 L (3.5-5.0) g/dL Pituitary panel 12/12/16 Range/Units 07:51 Sodium 132 L (137-145) mmol/L Potassium 3.2 L (3.5-5.1) mmol/L Chloride 90 L (98-107) mmol/L Carbon Dioxide 32 H (22-30) mmol/L BUN 25 H (7-17) mg/dL Creatinine 0.96 (0.52-1.04) mg/dL Glucose 114 H (74-99) mg/dL Calcium 8.4 (8.4-10.2) mg/dL Adrenal panel 12/12/16 Range/Units 07:51 Sodium 132 L (137-145) mmol/L Potassium 3.2 L (3.5-5.1) mmol/L Chloride 90 L (98-107) mmol/L Carbon Dioxide 32 H (22-30) mmol/L BUN 25 H (7-17) mg/dL Creatinine 0.96 (0.52-1.04) mg/dL Glucose 114 H (74-99) mg/dL Calcium 8.4 (8.4-10.2) mg/dL Total Bilirubin 1.4 H (0.2-1.3) mg/dL AST 45 H (14-36) U/L ALT 27 (9-52) U/L Alkaline Phosphatase 347 H (38-126) U/L Total Protein 5.4 L (6.3-8.2) g/dL Albumin 2.8 L (3.5-5.0) g/dL Assessment and Plan (1) Constipation Narrative/Plan: resume soapsuds enemas today. Keep nothing by mouth except for medications. Patient I discussed continuing with small sips of GoLYTELY today. Status: Acute
--- NOTE | 2016-12-12 11:23 | XR ---
EXAMINATION TYPE: XR abdomen 2V DATE OF EXAM: 12/12/2016 CLINICAL DATA: 66-year-old female with abdominal pain. COMPARISON: 12/10/2016 FINDINGS: There is persistent gaseous distention of central and peripheral bowel loops including colon. Moderat e stool in the right hemicolon. Small bowel loops are now dilated up to 4.4 cm. Small amount of recta l gas is noted. No evidence for free intraperitoneal air. End-stage degenerative change both hips. IMPRESSION: Persistent distention of central and peripheral bowel loops with worsening small bowel dilatation now up to 4.4 cm. Correlate for worsening generalized ileus or a colonic obstruction. No evidence for fr ee air.
--- NOTE | 2016-12-12 12:45 | P.PN ---
Subjective This is a 66-year-old female patient of Dr. Dorantes with underlying history of CAD, hyperlipidemia, hypertension, pancreatitis, neuropathy chronic back pain chronic opioid-induced constipation. She has had several recent hospitalizations due to lower GI bleed thought to be due to diverticulitis as well as thrombocytopenia and anemia and leukocytosis followed by Dr. Navarrete. Patient recently underwent bone marrow biopsy. Results were not available during her last hospitalization but she was discharged home with a white count of 18.7, hemoglobin was 8.9 and platelet count of 43 on improved. She also had an elevated alkaline phosphatase of 205. Patient presented back to [facility] emergency center on December 08 with complaints of chest pain that started the day before and continued to worsen. She also had temperature of 100.8 and was complaining of shortness of breath and it hurt when she took a deep breath. There was no trauma to the chest wall or recent fall. She underwent a CTA of the chest that showed no definite acute pulmonary embolism. Trace bilateral pleural effusions. Chest x-ray showed no acute cardiopulmonary disease. She again presented with leukocytosis of 27.2, hemoglobin 7.6 and platelet count was up to 131. Her d-dimer was elevated at 3.26. Sodium 1:30 and chloride 93. Initial troponin was 0.012, proBNP 2120. Urinalysis was cloudy, nitrate and leukoesterase negative. Cardiology consult requested, repeat troponins, consult with Dr. Strauss from infectious disease and consult has been added for Dr. Navarrete. Recent biopsy report is stating possible be lymphoma or of leukemia. Patient is scheduled for an MRCP as an outpatient tomorrow which will be ordered for this hospitalization. Patient is complaining of sternal chest pain, generalized abdominal pain and back pain over her kidneys. Echocardiogram reveals mild concentric left ventricular hypertrophy, EF between 55 and 60%, trace mitral regurgitation, trace tricuspid regurgitation. 12/10, patient's to have chills, recurrent fevers, today complaining of gassiness and abdominal pain which is new from yesterday MRCP failed to reveal any gallbladder thickening, increased size of the pancreatic cyst that was noted however there is no obstructive process is noted, patient has abdominal pain and no flatness, no bowel movement for the past 1 week of the abdomen was requested, Maalox plus or symmetric on would be given for gas relief, previous x -ray from the MR shows large amount of gas in the large colon and a small colon. 12/11: Today the patient was evaluated, she is complaining of constipation although refusing Fleet enema and other oral medications for constipation. GoLYTELY was ordered, patient was in agreement of trying this. Final urine culture showed no growth blood culture still pending. Vital signs are stable she remains afebrile. We'll possibly plan for discharge tomorrow with follow- up with oncology. 12/12: Patient was seen and evaluated today. She is still having some abdominal distention and constipation. Yesterday the patient attempted to drink the GoLYTELY and apparently she had one bout of emesis after taking only a few sips. A soapsuds enema was given, but the patient did not have any results. Repeat abdominal x-ray shows persistent distention of central and peripheral bowel loops with worsening small bowel dilatation no evidence for free air. Surgery consult appreciated. Recommends to resume soapsuds enema, remain nothing by mouth except for medications, and continue to take small sips of GoLYTELY. Hemoglobin 7.0 most likely related to her myelofibrosis. Blood and urine cultures show no growth. Vital signs remaine stable and she remains afebrile. Objective - Vital Signs Vital signs: Vital Signs Temp 98.0 F 12/12/16 07:00 Pulse 104 H 12/12/16 08:00 Resp 16 12/12/16 08:00 BP 123/47 12/12/16 07:00 Pulse Ox 88 L 12/12/16 07:00 Intake & Output 12/11/16 12/12/16 12/12/16 18:59 06:59 18:59 Output Total 300 Balance -300 Weight 49.8 kg Output: Urine 300 Other: Voiding Method Bedside Commode Bedside Commode # Voids 0 2 2 # Bowel Movements 0 1 # Emeses 1 - Exam - Constitutional General appearance: Present: cooperative, no acute distress - EENT Eyes: Present: anicteric sclerae, EOMI, dentition normal ENT: Present: hard of hearing, NA/AT, normal oropharynx - Neck Neck: Present: normal ROM - Respiratory Respiratory: bilateral: CTA, negative: dullness, rales, rhonchi, wheezing, prolonged expiration - Cardiovascular Rhythm: regular Heart sounds: normal: S1, S2 Abnormal Heart Sounds: Absent: systolic murmur, diastolic murmur, rub, S3 Gallop , S4 Gallop, click, other - Gastrointestinal General gastrointestinal: Present: normal bowel sounds, tenderness - Integumentary Integumentary: Present: normal, normal turgor - Musculoskeletal Musculoskeletal: Present: gait normal, strength equal bilaterally - Psychiatric Psychiatric: Present: A&O x's 3, intact judgment & insight - Labs CBC & Chem 7: 12/12/16 07:51 12/12/16 07:51 Labs: Abnormal Lab Results - Last 24 Hours (Table) 12/12/16 12/12/16 Range/Units 07:51 07:51 WBC 24.6 H (3.8-10.6) k/uL RBC 2.34 L (3.80-5.40) m/uL Hgb 7.0 L* (11.4-16.0) gm/dL Hct 20.6 L (34.0-46.0) % RDW 15.6 H (11.5-15.5) % Plt Count 110 L (150-450) k/uL Neutrophils # (Manual) 16.4 H (1.3-7.7) k/uL Monocytes # (Manual) 3.1 H (0-1.0) k/uL Sodium 132 L (137-145) mmol/L Potassium 3.2 L (3.5-5.1) mmol/L Chloride 90 L (98-107) mmol/L Carbon Dioxide 32 H (22-30) mmol/L BUN 25 H (7-17) mg/dL Glucose 114 H (74-99) mg/dL Total Bilirubin 1.4 H (0.2-1.3) mg/dL AST 45 H (14-36) U/L Alkaline Phosphatase 347 H (38-126) U/L Total Protein 5.4 L (6.3-8.2) g/dL Albumin 2.8 L (3.5-5.0) g/dL Microbiology - Last 24 Hours (Table) 12/08/16 23:30 Blood Culture - Preliminary Blood No Growth after 72 hours Assessment and Plan Plan: Plan: 1. Chest pain with negative initial troponin. Cardiology consult appreciated. Repeat troponins have been negative. Echocardiogram completed 2. Previous admissions with bicytopenia with thrombocytopenia and anemia along with leukocytosis followed by Dr. Navarrete. Patient recently underwent bone marrow biopsy as above. Concerns regarding myelodysplastic disorder with myelofibrosis however bone marrow has hemodilution and does not confer any specific diagnosis at this time 3. Leukocytosis with fever with concern for underlying infection vs fever related to myelodysplasia. Dr. Strauss is on consult. MRCP is scheduled performed showing slight increase in the size of the cyst, chronic elevation of the pancreatic duct, no duct stone Dr. strauss has ordered Zosyn. 4. Chronic history of pancreatic duct stent, last MRCP was in December 2015. MRCP was performed results as above was from a previous outpatient scheduling 5. Chronic malabsorption state from poor oral intake, and ongoing pancreas problems, lipase to be checked, with weight loss of 17 pounds in 15 months with severe protein calorie malnutrition. Continue supplements. 6. Generalized anxiety disorder. Continue Xanax as needed. 7. Urinary retention on last hospitalization. Monitor for same. Continue Flomax. 8. Patient self reports chronic kidney disease stage II. Avoid nonsteroidal anti-inflammatories. 9. Severe osteoarthritis of both hips. Continue use walker and avoid falling. 10. Chronic pain syndrome. 11. Gaseousness with abdominal pain, x-ray shows large amount of stool, surgery consult appreciated, nothing by mouth, soapsuds enema, small sips of GoLYTELY. 13. Gastrointestinal prophylaxis. Pepcid. 12. DVT prophylaxis. Continue knee high TRISTAN hose, and ambulation CODE STATUS: Full code The above impression and plan of care have been discussed and directed by signing physician. Genevieve House nurse practitioner acting as scribe for signing physician.
[2016-12-12] MEDS: POTASSIUM CHLORIDE 10 MEQ in WATER FOR INJECTION 1 100ML.BAG IVPB SCH ×2 (17:22→18:43)
[2016-12-12] MEDS: ONDANSETRON 4 MG/2 ML VIAL IVP PRN (17:31)
[2016-12-12] MEDS: ONDANSETRON ODT 4 MG TAB PO PRN (20:12)
[2016-12-12] MEDS ORDERED: PROCHLORPERAZINE 10 MG TAB PO PRN (22:24)
[2016-12-13] MEDS: PIPERACILLIN-TAZOBACTAM 3.375 GM in DEXTROSE/WATER 1 50ML.BAG IVPB SCH ×3 (04:54→22:32)
[2016-12-13] MEDS: SIMETHICONE 80 MG CHEWABLE PO SCH ×4 (04:55→18:23)
[2016-12-13] MEDS: CYANOCOBALAMIN 500 MCG TAB PO SCH (04:55)
[2016-12-13] MEDS: CHOLECALCIFEROL 1,000 UNIT TAB PO SCH (04:55)
[2016-12-13] MEDS: MORPHINE SULFATE 4 MG/ML SYRINGE IV PRN ×4 (06:47→21:02)
[2016-12-13] MEDS: DILTIAZEM ORAL 60 MG TAB PO SCH ×3 (06:49→22:38)
[2016-12-13] MEDS: DEXTROSE 5%-0.45% NACL 1,000 ML IV SCH ×2 (06:49→18:21)
[2016-12-13] MEDS: TAMSULOSIN 0.4 MG CAP.ER.24H PO SCH (08:30)
[2016-12-13] MEDS: VITAMIN A 10,000 UNIT CAPSULE PO SCH (08:30)
[2016-12-13] MEDS: ASCORBIC ACID 500 MG TAB PO SCH (08:30)
[2016-12-13] MEDS: MAG HYDROX/AL HYDROX/SIMETH 30 ML CUP PO SCH ×3 (08:30→17:55)
[2016-12-13] MEDS: NYSTATIN 100,000 UNIT/ML SUSP 500,000 UNIT/5 ML CUP PO SCH ×4 (08:30→22:38)
[2016-12-13] MEDS: PANTOPRAZOLE 40 MG TABLET PO SCH (08:30)
[2016-12-13] MEDS: FOLIC ACID 1 MG TAB PO SCH (08:30)
[2016-12-13] MEDS: ALPRAZolam 0.25 MG TAB PO PRN ×2 (09:18→18:21)
[2016-12-13 09:34] LABS: CH 28.6; CHCM 32.7; HDW 2.96; Immature Gran Flag Marked; MCH 29.8 pg (25.0-35.0); MCHC 33.9 g/dL (31.0-37.0); MCV 87.8 fL (80.0-100.0); Mean Platelet Volume 10.2; RBC 2.28 m/uL (3.80-5.40); RDW 15.6 % (11.5-15.5); WBC (Perox) 27.07
[2016-12-13 09:45] LABS: ALT 24 U/L (9-52); AST 37 U/L (14-36); Alkaline Phosphatase 313 U/L (38-126); Anion Gap 9 mmol/L; Blood Urea Nitrogen 31 mg/dL (7-17); Calcium 8.1 mg/dL (8.4-10.2); Carbon Dioxide 38 mmol/L (22-30); Chloride 88 mmol/L (98-107); Glucose 98 mg/dL (74-99); Non-African American GFR(MDRD) 59 (>60 ml/min/1.73 sqM); Sodium 135 mmol/L (137-145); Total Protein 5.3 g/dL (6.3-8.2); WBC 25.3 k/uL (3.8-10.6)
[2016-12-13 09:47] LABS: HGB 6.8 gm/dL (11.4-16.0)
[2016-12-13 09:51] LABS: Potassium 2.8 mmol/L (3.5-5.1)
[2016-12-13] MEDS: POTASSIUM CHLORIDE 20 MEQ, LIDOCAINE 2% INJ 20 MG in SODIUM CHLORIDE 0.9% 100 ML IVPB SCH ×5 (10:48→21:05)
[2016-12-13] MEDS: ONDANSETRON 4 MG/2 ML VIAL IVP PRN (10:49)
[2016-12-13 11:32] VITALS: BMI 18.8
[2016-12-13 12:08] LABS: Add Differential Manual Differential
[2016-12-13 12:12] LABS: Metamyelocytes % 1.5 %; Myelocytes % 1.5 %; Nucleated Red Blood Cells 0 /100 WBC (0-0); Promyelocytes % 1.5 %; Total Cells Counted 200
--- NOTE | 2016-12-13 13:38 | XR ---
EXAMINATION TYPE: XR abdomen 2V DATE OF EXAM: 12/13/2016 CLINICAL DATA: 66-year-old female possible bowel obstruction, H COMPARISON: 12/12/2016 FINDINGS: NG tube sidehole is just above the level of the GE junction. This could be further advanced by 6 cm. No evidence for free intraperitoneal air. Numerous prominent air-filled central and peripheral bowel loops. Moderate stool in the right hemicol on. Multiple small bowel loops remain dilated now measuring 4.1 cm versus 4.4 cm, previously. End-stage degenerative change at both hips. IMPRESSION: 1. The NG tube sidehole is just above the GE junction. Consider further advancement by about 6 cm. 2. No evidence for free air. 3. Continued air distended central and peripheral bowel loops. Colonic gas remains. Small bowel calib er is minimally improved (4.1 cm versus 4.4 cm, previously). Continued follow-up recommended.
--- NOTE | 2016-12-13 14:18 | P.PN ---
Subjective This is a 66-year-old female patient of Dr. Dorantes with underlying history of CAD, hyperlipidemia, hypertension, pancreatitis, neuropathy chronic back pain chronic opioid-induced constipation. She has had several recent hospitalizations due to lower GI bleed thought to be due to diverticulitis as well as thrombocytopenia and anemia and leukocytosis followed by Dr. Navarrete. Patient recently underwent bone marrow biopsy. Results were not available during her last hospitalization but she was discharged home with a white count of 18.7, hemoglobin was 8.9 and platelet count of 43 on improved. She also had an elevated alkaline phosphatase of 205. Patient presented back to [facility] emergency center on December 08 with complaints of chest pain that started the day before and continued to worsen. She also had temperature of 100.8 and was complaining of shortness of breath and it hurt when she took a deep breath. There was no trauma to the chest wall or recent fall. She underwent a CTA of the chest that showed no definite acute pulmonary embolism. Trace bilateral pleural effusions. Chest x-ray showed no acute cardiopulmonary disease. She again presented with leukocytosis of 27.2, hemoglobin 7.6 and platelet count was up to 131. Her d-dimer was elevated at 3.26. Sodium 1:30 and chloride 93. Initial troponin was 0.012, proBNP 2120. Urinalysis was cloudy, nitrate and leukoesterase negative. Cardiology consult requested, repeat troponins, consult with Dr. Strauss from infectious disease and consult has been added for Dr. Navarrete. Recent biopsy report is stating possible be lymphoma or of leukemia. Patient is scheduled for an MRCP as an outpatient tomorrow which will be ordered for this hospitalization. Patient is complaining of sternal chest pain, generalized abdominal pain and back pain over her kidneys. Echocardiogram reveals mild concentric left ventricular hypertrophy, EF between 55 and 60%, trace mitral regurgitation, trace tricuspid regurgitation. 12/10, patient's to have chills, recurrent fevers, today complaining of gassiness and abdominal pain which is new from yesterday MRCP failed to reveal any gallbladder thickening, increased size of the pancreatic cyst that was noted however there is no obstructive process is noted, patient has abdominal pain and no flatness, no bowel movement for the past 1 week of the abdomen was requested, Maalox plus or symmetric on would be given for gas relief, previous x -ray from the MR shows large amount of gas in the large colon and a small colon. 12/11: Today the patient was evaluated, she is complaining of constipation although refusing Fleet enema and other oral medications for constipation. GoLYTELY was ordered, patient was in agreement of trying this. Final urine culture showed no growth blood culture still pending. Vital signs are stable she remains afebrile. We'll possibly plan for discharge tomorrow with follow- up with oncology. 12/12: Patient was seen and evaluated today. She is still having some abdominal distention and constipation. Yesterday the patient attempted to drink the GoLYTELY and apparently she had one bout of emesis after taking only a few sips. A soapsuds enema was given, but the patient did not have any results. Repeat abdominal x-ray shows persistent distention of central and peripheral bowel loops with worsening small bowel dilatation no evidence for free air. Surgery consult appreciated. Recommends to resume soapsuds enema, remain nothing by mouth except for medications, and continue to take small sips of GoLYTELY. Hemoglobin 7.0 most likely related to her myelofibrosis. Blood and urine cultures show no growth. Vital signs remaine stable and she remains afebrile. 12/13: Patient was seen by Dr. Freire yesterday with recommendations for soapsuds enemas and nothing by mouth status except for medications. Patient has subsequently had an NG tube placed with return of greater than 1 000 mL. She has not had a bowel movement or pass gas. X-ray films show NG tube is above the GE junction, no evidence of free air, continued air distended central and peripheral bowel loops. Colonic gas remains. Small bowel caliber is minimally improved Her potassium is low at 2.8 and 100 mEq of potassium has been ordered with plan for recheck of potassium this afternoon. Hemoglobin today is at 6.8 and patient will be transfused 1 unit of packed RBCs. Objective - Vital Signs Vital signs: Vital Signs Temp 96.9 F L 12/13/16 07:00 Pulse 89 12/13/16 07:00 Resp 16 12/13/16 07:00 BP 142/63 12/13/16 07:00 Pulse Ox 96 12/13/16 07:00 Intake & Output 12/12/16 12/13/16 12/13/16 18:59 06:59 18:59 Intake Total 0 500 Output Total 300 1300 Balance -300 -800 Weight 49.8 kg 49.8 kg 49.8 kg Intake: IV 100 Piperacillin-Tazobactam 3 100 .375 gm In Dextrose/Water 1 50ml.bag @ 12.5 mls/hr IVPB Q8H KRISTI Rx#: [id number] Intake, IV Titration 400 Amount Dextrose 5%-0.45% NaCl 1, 400 000 ml @ 100 mls/hr IV . Q10H KRISTI Rx#:[id number] Oral 0 Output: Gastric Drainage 1000 Urine 300 300 Other: Voiding Method Bedside Commode Bedside Commode # Voids 2 1 - Exam General appearance: Present: cooperative, no acute distress - EENT Eyes: Present: anicteric sclerae, EOMI, dentition normal ENT: Present: hard of hearing, NA/AT, normal oropharynx - Neck Neck: Present: normal ROM - Respiratory Respiratory: bilateral: CTA, negative: dullness, rales, rhonchi, wheezing, prolonged expiration - Cardiovascular Rhythm: regular Heart sounds: normal: S1, S2 Abnormal Heart Sounds: Absent: systolic murmur, diastolic murmur, rub, S3 Gallop , S4 Gallop, click, other - Gastrointestinal General gastrointestinal: Present: normal bowel sounds, tenderness - Integumentary Integumentary: Present: normal, normal turgor - Musculoskeletal Musculoskeletal: Present: gait normal, strength equal bilaterally - Psychiatric Psychiatric: Present: A&O x's 3, intact judgment & insight - Labs CBC & Chem 7: 12/13/16 08:35 12/13/16 08:35 Labs: Abnormal Lab Results - Last 24 Hours (Table) 12/13/16 12/13/16 12/13/16 Range/Units 08:35 08:35 08:35 WBC 25.3 H* (3.8-10.6) k/uL RBC 2.28 L (3.80-5.40) m/uL Hgb 6.8 L* (11.4-16.0) gm/dL Hct 20.0 L* (34.0-46.0) % RDW 15.6 H (11.5-15.5) % Plt Count 76 L (150-450) k/uL Sodium 135 L (137-145) mmol/L Potassium 2.8 L* (3.5-5.1) mmol/L Chloride 88 L (98-107) mmol/L Carbon Dioxide 38 H (22-30) mmol/L BUN 31 H (7-17) mg/dL Calcium 8.1 L (8.4-10.2) mg/dL Magnesium 3.0 H (1.6-2.3) mg/dL AST 37 H (14-36) U/L Alkaline Phosphatase 313 H (38-126) U/L Total Protein 5.3 L (6.3-8.2) g/dL Albumin 2.6 L (3.5-5.0) g/dL Microbiology - Last 24 Hours (Table) 12/08/16 23:30 Blood Culture - Preliminary Blood No Growth after 96 hours Assessment and Plan Plan: 1. Chest pain with negative initial troponin. Cardiology consult appreciated. Acute coronary syndrome ruled out 2. Previous admissions with bicytopenia with thrombocytopenia and anemia along with leukocytosis followed by Dr. Navarrete. Patient recently underwent bone marrow biopsy as above. Concerns regarding myelodysplastic disorder with myelofibrosis however bone marrow has hemodilution and does not confer any specific diagnosis at this time 3. Leukocytosis with fever with concern for underlying infection vs fever related to myelodysplasia. Dr. Strauss is on consult. MRCP is scheduled performed showing slight increase in the size of the cyst, chronic elevation of the pancreatic duct, no duct stone Dr. strauss has ordered Zosyn. 4. Chronic history of pancreatic duct stent, last MRCP was in December 2015. MRCP was performed results as above was from a previous outpatient scheduling 5. Chronic malabsorption state from poor oral intake, and ongoing pancreas problems, lipase to be checked, with weight loss of 17 pounds in 15 months with severe protein calorie malnutrition. Continue supplements. 6. Generalized anxiety disorder. Continue Xanax as needed. 7. Urinary retention on last hospitalization. Monitor for same. Continue Flomax. 8. Patient self reports chronic kidney disease stage II. Avoid nonsteroidal anti-inflammatories. 9. Severe osteoarthritis of both hips. Continue use walker and avoid falling. 10. Chronic pain syndrome. 11. Gaseousness with abdominal pain, x-ray shows large amount of stool, surgery consult appreciated, nothing by mouth, soapsuds enema, small sips of GoLYTELY. 12. Gastrointestinal prophylaxis. Pepcid. 13. DVT prophylaxis. Continue knee high TRISTAN hose, and ambulation 14. Acute bowel obstruction. NG tube in place. Dr. Abrams is following. CODE STATUS: Full code The above impression and plan of care have been discussed and directed by signing physician. Genevieve House nurse practitioner acting as scribe for signing physician.
[2016-12-13] MEDS: MICAFUNGIN 100 MG in SODIUM CHLORIDE 0.9% 100 ML IVPB SCH (15:47)
--- NOTE | 2016-12-13 17:54 | P.PN ---
Subjective Principal diagnosis: Patient had a nasogastric tube placed last night without difficulty. Today's abdominal x-rays still show proximal bowel dilation however there is air and stool also noted in the colon. The patient does feel better. She had approximately 1100 mL out initially. A small amount of flatus today. No bowel movement. Objective - Vital Signs Vital signs: Vital Signs Temp 97.1 F L 12/13/16 17:10 Pulse 96 12/13/16 17:10 Resp 16 12/13/16 17:10 BP 142/66 12/13/16 17:10 Pulse Ox 97 12/13/16 17:10 Intake & Output 12/12/16 12/13/16 12/13/16 18:59 06:59 18:59 Intake Total 0 500 970 Output Total 300 1300 400 Balance -300 -800 570 Weight 49.8 kg 49.8 kg 49.8 kg Intake: IV 100 50 Piperacillin-Tazobactam 3 100 50 .375 gm In Dextrose/Water 1 50ml.bag @ 12.5 mls/hr IVPB Q8H [facility]STI Rx#: [id number] Intake, IV Titration 400 300 Amount Dextrose 5%-0.45% NaCl 1, 400 000 ml @ 100 mls/hr IV . Q10H [facility]STI Rx#:[id number] Micafungin 100 mg In 100 Sodium Chloride 0.9% 100 ml @ 100 mls/hr IVPB DAILY KRISTI Rx#:[id number] Potassium Chloride 20 meq 100 Lidocaine 2% Inj 20 mg In Sodium Chloride 0.9% 100 ml @ 55.5 mls/hr IVPB Q2HR [facility]STI Rx#:[id number] Potassium Chloride 20 meq 100 Lidocaine 2% Inj 20 mg In Sodium Chloride 0.9% 100 ml @ 55.5 mls/hr IVPB Q2HR KRISTI Rx#:[id number] Oral 0 0 Blood Product 620 Rc As-3 Unit 310 [id number] Output: Gastric Drainage 1000 400 Urine 300 300 Other: Voiding Method Bedside Commode Bedside Commode Bedside Commode # Voids 2 1 - Exam Abdomen: Soft, less distended, mild tenderness - Labs CBC & Chem 7: 12/13/16 08:35 12/13/16 08:35 Labs: Abnormal Lab Results - Last 24 Hours (Table) 12/13/16 12/13/16 12/13/16 Range/Units 08:35 08:35 08:35 WBC 25.3 H* (3.8-10.6) k/uL RBC 2.28 L (3.80-5.40) m/uL Hgb 6.8 L* (11.4-16.0) gm/dL Hct 20.0 L* (34.0-46.0) % RDW 15.6 H (11.5-15.5) % Plt Count 76 L (150-450) k/uL Neutrophils # (Manual) 15.8 H (1.3-7.7) k/uL Lymphocytes # (Manual) 5.1 H (1.0-4.8) k/uL Monocytes # (Manual) 2.4 H (0-1.0) k/uL Sodium 135 L (137-145) mmol/L Potassium 2.8 L* (3.5-5.1) mmol/L Chloride 88 L (98-107) mmol/L Carbon Dioxide 38 H (22-30) mmol/L BUN 31 H (7-17) mg/dL Calcium 8.1 L (8.4-10.2) mg/dL Magnesium 3.0 H (1.6-2.3) mg/dL AST 37 H (14-36) U/L Alkaline Phosphatase 313 H (38-126) U/L Total Protein 5.3 L (6.3-8.2) g/dL Albumin 2.6 L (3.5-5.0) g/dL Crossmatch 12/13/16 Range/Units 11:44 WBC (3.8-10.6) k/uL RBC (3.80-5.40) m/uL Hgb (11.4-16.0) gm/dL Hct (34.0-46.0) % RDW (11.5-15.5) % Plt Count (150-450) k/uL Neutrophils # (Manual) (1.3-7.7) k/uL Lymphocytes # (Manual) (1.0-4.8) k/uL Monocytes # (Manual) (0-1.0) k/uL Sodium (137-145) mmol/L Potassium (3.5-5.1) mmol/L Chloride (98-107) mmol/L Carbon Dioxide (22-30) mmol/L BUN (7-17) mg/dL Calcium (8.4-10.2) mg/dL Magnesium (1.6-2.3) mg/dL AST (14-36) U/L Alkaline Phosphatase (38-126) U/L Total Protein (6.3-8.2) g/dL Albumin (3.5-5.0) g/dL Crossmatch See Detail Microbiology - Last 24 Hours (Table) 12/08/16 23:30 Blood Culture - Preliminary Blood No Growth after 96 hours Assessment and Plan (1) Constipation Narrative/Plan: Continue nasogastric tube to suction. Will order CT abdomen and pelvis to better define the etiology the patient's ongoing bowel distention. Status: Acute
--- NOTE | 2016-12-13 23:32 | P.PN ---
Subjective The patient has developed bowel obstruction versus ileus, and is currently with NG tube in situ. She is starting to pass gas. No obvious bleeding noted. Objective - Vital Signs Vital signs: Vital Signs Temp 97.1 F L 12/13/16 17:10 Pulse 96 12/13/16 17:10 Resp 16 12/13/16 17:10 BP 142/66 12/13/16 17:10 Pulse Ox 97 12/13/16 17:10 Intake & Output 12/13/16 12/13/16 12/14/16 06:59 18:59 06:59 Intake Total 500 970 Output Total 1300 400 100 Balance -800 570 -100 Weight 49.8 kg 49.8 kg Intake: IV 100 50 Piperacillin-Tazobactam 3 100 50 .375 gm In Dextrose/Water 1 50ml.bag @ 12.5 mls/hr IVPB Q8H [facility]STI Rx#: [id number] Intake, IV Titration 400 300 Amount Dextrose 5%-0.45% NaCl 1, 400 000 ml @ 100 mls/hr IV . Q10H [facility]STI Rx#:[id number] Micafungin 100 mg In 100 Sodium Chloride 0.9% 100 ml @ 100 mls/hr IVPB DAILY [facility]STI Rx#:[id number] Potassium Chloride 20 meq 100 Lidocaine 2% Inj 20 mg In Sodium Chloride 0.9% 100 ml @ 55.5 mls/hr IVPB Q2HR [facility]STI Rx#:[id number] Potassium Chloride 20 meq 100 Lidocaine 2% Inj 20 mg In Sodium Chloride 0.9% 100 ml @ 55.5 mls/hr IVPB Q2HR [facility]STI Rx#:[id number] Oral 0 Blood Product 620 Rc As-3 Unit 310 [id number] Output: Gastric Drainage 1000 400 100 Urine 300 Other: Voiding Method Bedside Commode Bedside Commode # Voids 1 1 - Constitutional General appearance: Present: no acute distress - EENT Eyes: Present: EOMI, PERRLA ENT: Present: hearing grossly normal, normal oropharynx - Respiratory Respiratory: bilateral: CTA - Cardiovascular Rhythm: regular Heart sounds: normal: S1, S2 - Gastrointestinal General gastrointestinal: Present: decreased bowel sounds, soft - Integumentary Integumentary: Present: normal - Neurologic Neurologic: Present: CNII-XII intact - Musculoskeletal Musculoskeletal: Present: strength equal bilaterally - Psychiatric Psychiatric: Present: A&O x's 3, appropriate affect - Labs CBC & Chem 7: 12/13/16 08:35 12/13/16 08:35 Labs: Abnormal Lab Results - Last 24 Hours (Table) 12/13/16 12/13/16 12/13/16 Range/Units 08:35 08:35 08:35 WBC 25.3 H* (3.8-10.6) k/uL RBC 2.28 L (3.80-5.40) m/uL Hgb 6.8 L* (11.4-16.0) gm/dL Hct 20.0 L* (34.0-46.0) % RDW 15.6 H (11.5-15.5) % Plt Count 76 L (150-450) k/uL Neutrophils # (Manual) 15.8 H (1.3-7.7) k/uL Lymphocytes # (Manual) 5.1 H (1.0-4.8) k/uL Monocytes # (Manual) 2.4 H (0-1.0) k/uL Sodium 135 L (137-145) mmol/L Potassium 2.8 L* (3.5-5.1) mmol/L Chloride 88 L (98-107) mmol/L Carbon Dioxide 38 H (22-30) mmol/L BUN 31 H (7-17) mg/dL Calcium 8.1 L (8.4-10.2) mg/dL Magnesium 3.0 H (1.6-2.3) mg/dL AST 37 H (14-36) U/L Alkaline Phosphatase 313 H (38-126) U/L Total Protein 5.3 L (6.3-8.2) g/dL Albumin 2.6 L (3.5-5.0) g/dL Crossmatch 12/13/16 Range/Units 11:44 WBC (3.8-10.6) k/uL RBC (3.80-5.40) m/uL Hgb (11.4-16.0) gm/dL Hct (34.0-46.0) % RDW (11.5-15.5) % Plt Count (150-450) k/uL Neutrophils # (Manual) (1.3-7.7) k/uL Lymphocytes # (Manual) (1.0-4.8) k/uL Monocytes # (Manual) (0-1.0) k/uL Sodium (137-145) mmol/L Potassium (3.5-5.1) mmol/L Chloride (98-107) mmol/L Carbon Dioxide (22-30) mmol/L BUN (7-17) mg/dL Calcium (8.4-10.2) mg/dL Magnesium (1.6-2.3) mg/dL AST (14-36) U/L Alkaline Phosphatase (38-126) U/L Total Protein (6.3-8.2) g/dL Albumin (3.5-5.0) g/dL Crossmatch See Detail Microbiology - Last 24 Hours (Table) 12/08/16 23:30 Blood Culture - Preliminary Blood No Growth after 96 hours Assessment and Plan (1) Myeloproliferative disorder Narrative/Plan: Other bone marrow pathology, and clinical impression as well as further plans were discussed in detail with the patient and her famil y (sister and [id number]) who were present at the bedside today. As noted previously the specimen was hemodiluted and therefore a totally different diagnosis was not possible. However given the dysplastic changes, deposition of reticulin, as well as an elevated white count, myeloproliferative disorder is most likely. Acute leukemia was a concern, but is unlikely, given spontaneous improvement in WBC differential as well as platelet count. The pathology report mentioned myelofibrosis is the most likely differential. Clinically, this does appear to be most likely, given the hemodiluted aspirate, which is indicative of a packed marrow, and is more likely to present with elevation in as well as depression of different cell lines. Cytogenetics are still pending. In addition MPD markers such as Alfa 2 mutation, BCR-ABL and PDGFR mutations have been requested on the bone marrow sample. If positive, the appropriate targeted agent will be started. If gene markers are negative, or ALFA 2 positivity is noted (which would indicate accelerated myelofibrosis), the patient will be referred to [facility] for another opinion. In the meantime, platelets and WBC are in a safe range. I recommend continued supportive care with blood transfusions as needed. She will need a unit of PRBC today for hemoglobin less than 7. The patient has multiple other complains most of which are chronic. Those are unlikely to be related to her MPD. In addition her current GI complaints are also likely to be related. Her fever, however, could be due to her myeloproliferative disorder. This was discussed with the ID service. They, too , who feels that an infection is unlikely. Cultures have been negative. Therefore antibiotic coverage will be adjusted by them. Status: Acute Plan: Her new complaint of obstruction versus ileus is unlikely to be related to her underlying MPD. A possible explanation could be bowel slowing due to chronic pain as well as use of pain medications and constipation. Other etiologies are not ruled out at this time. Surgery is following. Defer to them for further management
[2016-12-14] MEDS: MAG HYDROX/AL HYDROX/SIMETH 30 ML CUP PO SCH ×5 (00:29→22:17)
[2016-12-14] MEDS: SIMETHICONE 80 MG CHEWABLE PO SCH ×5 (00:29→22:17)
[2016-12-14] MEDS: MORPHINE SULFATE 4 MG/ML SYRINGE IV PRN ×6 (01:41→23:35)
[2016-12-14] MEDS: POTASSIUM CHLORIDE 10 MEQ, LIDOCAINE 2% INJ 10 MG in SODIUM CHLORIDE 0.9% 100 ML IVPB SCH ×2 (04:25→05:26)
[2016-12-14] MEDS: DILTIAZEM ORAL 60 MG TAB PO SCH ×3 (05:09→22:17)
[2016-12-14] MEDS: PIPERACILLIN-TAZOBACTAM 3.375 GM in DEXTROSE/WATER 1 50ML.BAG IVPB SCH ×3 (05:22→19:38)
[2016-12-14] MEDS: DEXTROSE 5%-0.45% NACL 1,000 ML IV SCH ×3 (05:27→23:22)
[2016-12-14] MEDS: IOHEXOL 350 MG/ML 25 ML BOTTLE (ORAL USE) PO PRN ×2 (06:39→07:52)
[2016-12-14] MEDS: ONDANSETRON 4 MG/2 ML VIAL IVP PRN (07:08)
[2016-12-14] MEDS: VITAMIN A 10,000 UNIT CAPSULE PO SCH (08:12)
[2016-12-14] MEDS: PANTOPRAZOLE 40 MG TABLET PO SCH (08:12)
[2016-12-14] MEDS: TAMSULOSIN 0.4 MG CAP.ER.24H PO SCH ×2 (08:12→12:35)
[2016-12-14] MEDS: ASCORBIC ACID 500 MG TAB PO SCH (08:12)
[2016-12-14] MEDS: NYSTATIN 100,000 UNIT/ML SUSP 500,000 UNIT/5 ML CUP PO SCH ×4 (08:12→22:17)
[2016-12-14] MEDS: MICAFUNGIN 100 MG in SODIUM CHLORIDE 0.9% 100 ML IVPB SCH (08:15)
[2016-12-14] MEDS: FOLIC ACID 1 MG TAB PO SCH (08:32)
--- NOTE | 2016-12-14 09:23 | CT ---
EXAMINATION TYPE: CT abdomen pelvis wo con DATE OF EXAM: 12/14/2016 COMPARISON: 11/16/2016 HISTORY: 66-year-old female abdominal pain, rule out bowel obstruction Bowel Obstruction CT DLP: 272.1 mGycm. Automated exposure control for dose reduction was used. TECHNIQUE: Contiguous axial scanning of the abdomen and pelvis without IV contrast. Oral contrast was administered. Coronal and sagittal reconstructions performed. FINDINGS: The heart is normal size without pericardial effusion. There is a small left effusion with prominent dependent consolidation in both lower lobes. NG tube courses into the proximal body of the stomach. Lack of IV contrast limits assessment of the solid abdominal viscera, lymph nodes, and vascular struc tures. Within this limitation, the liver, kidneys, adrenal glands, spleen, and pancreas show no gross abnorm ality. Small dependent 4 mm gallstone is noted. No abnormal gallbladder distention. The bile duct remains si milarly dilated at 1.2 cm. Small bowel loops are dilated up to 3.7 cm, coronal image 20 There appear to be a smaller caliber small bowel loops in the lower abdomen and right lower quadrant and terminal ileum appears to be nondistended as well, coronal image 26. Oral contrast has only progr essed to the mid small bowel level. Moderate stool within the left hemicolon. Some mild colonic gas is present in the right hemicolon. No free fluid or free air is seen in the abdomen. Moderate atherosclerotic calcifications within the abdominal aorta and iliac arteries. No mesenteric or retroperitoneal lymphadenopathy. Bladder is urine distended. Uterus with a 1.2 cm posterior subserosal fibroid. Ovaries are not well d elineated. Trace pelvic free fluid. Bones: End-stage degenerative change of both hips. Bilateral L5 pars defects with grade 1 anterolisth esis at L5-S1. Moderate to severe disc/endplate degenerative change from L1 through L3 levels. Left p aracentral disc herniation at L1-L2 and a large disc osteophyte complex at L2-L3 narrowing the spinal canal. No osseous destructive process. IMPRESSION: 1. Prominent dependent consolidation at the lower lobes with trace left effusion. Correlate to exclu de infectious or aspiration pneumonitis. 2. Oral contrast progressed to the level of the mid small bowel. Small bowel loops are dilated up to 3.7 cm and some lower abdominal and right lower quadrant loops are collapsed including the terminal ileum. While the transition point is not clearly identified, small bowel obstruction not excluded. Fo llow-up can be considered to assess the progression of oral contrast. 3. Trace pelvic free fluid. 4. 4 mm gallstone. Dilatation of the bile duct at 1.2 cm is stable from 11/16/2016. 5. L5 pars defects with grade 1 anterolisthesis at L5-S1 and moderate to advanced multilevel degener ative changes in the spine.
[2016-12-14 10:40] LABS: Anisocytosis Slight; CH 28.2; CHCM 33.2; HCT 22.8 % (34.0-46.0); HDW 3.19; HGB 7.7 gm/dL (11.4-16.0); Immature Gran Flag Marked; Large Platelets Flag Slight; MCH 28.8 pg (25.0-35.0); MCHC 33.7 g/dL (31.0-37.0); MCV 85.6 fL (80.0-100.0); Mean Platelet Volume 10.7; RBC 2.66 m/uL (3.80-5.40); RDW 17.1 % (11.5-15.5); WBC (Perox) 31.17
[2016-12-14 10:45] LABS: WBC 29.5 k/uL (3.8-10.6)
[2016-12-14] MEDS: ALPRAZolam 0.25 MG TAB PO PRN ×2 (10:45→17:38)
[2016-12-14 11:00] LABS: Anion Gap 7 mmol/L; Blood Urea Nitrogen 23 mg/dL (7-17); Calcium 8.7 mg/dL (8.4-10.2); Carbon Dioxide 30 mmol/L (22-30); Chloride 97 mmol/L (98-107); Glucose 89 mg/dL (74-99); Non-African American GFR(MDRD) >60 (>60 ml/min/1.73 sqM); Potassium 4.4 mmol/L (3.5-5.1); Sodium 134 mmol/L (137-145)
[2016-12-14 11:41] LABS: Add Differential Manual Differential
[2016-12-14 11:44] LABS: Band Neutrophils % 11.5 %; Blast Cells 2.5; Nucleated Red Blood Cells 0 /100 WBC (0-0); Total Cells Counted 200
--- NOTE | 2016-12-14 12:24 | P.PN ---
Subjective This is a 66-year-old female patient of Dr. Dorantes with underlying history of CAD, hyperlipidemia, hypertension, pancreatitis, neuropathy chronic back pain chronic opioid-induced constipation. She has had several recent hospitalizations due to lower GI bleed thought to be due to diverticulitis as well as thrombocytopenia and anemia and leukocytosis followed by Dr. Navarrete. Patient recently underwent bone marrow biopsy. Results were not available during her last hospitalization but she was discharged home with a white count of 18.7, hemoglobin was 8.9 and platelet count of 43 on improved. She also had an elevated alkaline phosphatase of 205. Patient presented back to [facility] emergency center on December 08 with complaints of chest pain that started the day before and continued to worsen. She also had temperature of 100.8 and was complaining of shortness of breath and it hurt when she took a deep breath. There was no trauma to the chest wall or recent fall. She underwent a CTA of the chest that showed no definite acute pulmonary embolism. Trace bilateral pleural effusions. Chest x-ray showed no acute cardiopulmonary disease. She again presented with leukocytosis of 27.2, hemoglobin 7.6 and platelet count was up to 131. Her d-dimer was elevated at 3.26. Sodium 1:30 and chloride 93. Initial troponin was 0.012, proBNP 2120. Urinalysis was cloudy, nitrate and leukoesterase negative. Cardiology consult requested, repeat troponins, consult with Dr. Strauss from infectious disease and consult has been added for Dr. Navarrete. Recent biopsy report is stating possible be lymphoma or of leukemia. Patient is scheduled for an MRCP as an outpatient tomorrow which will be ordered for this hospitalization. Patient is complaining of sternal chest pain, generalized abdominal pain and back pain over her kidneys. Echocardiogram reveals mild concentric left ventricular hypertrophy, EF between 55 and 60%, trace mitral regurgitation, trace tricuspid regurgitation. 12/10, patient's to have chills, recurrent fevers, today complaining of gassiness and abdominal pain which is new from yesterday MRCP failed to reveal any gallbladder thickening, increased size of the pancreatic cyst that was noted however there is no obstructive process is noted, patient has abdominal pain and no flatness, no bowel movement for the past 1 week of the abdomen was requested, Maalox plus or symmetric on would be given for gas relief, previous x -ray from the MR shows large amount of gas in the large colon and a small colon. 12/11: Today the patient was evaluated, she is complaining of constipation although refusing Fleet enema and other oral medications for constipation. GoLYTELY was ordered, patient was in agreement of trying this. Final urine culture showed no growth blood culture still pending. Vital signs are stable she remains afebrile. We'll possibly plan for discharge tomorrow with follow- up with oncology. 12/12: Patient was seen and evaluated today. She is still having some abdominal distention and constipation. Yesterday the patient attempted to drink the GoLYTELY and apparently she had one bout of emesis after taking only a few sips. A soapsuds enema was given, but the patient did not have any results. Repeat abdominal x-ray shows persistent distention of central and peripheral bowel loops with worsening small bowel dilatation no evidence for free air. Surgery consult appreciated. Recommends to resume soapsuds enema, remain nothing by mouth except for medications, and continue to take small sips of GoLYTELY. Hemoglobin 7.0 most likely related to her myelofibrosis. Blood and urine cultures show no growth. Vital signs remaine stable and she remains afebrile. 12/13: Patient was seen by Dr. Freire yesterday with recommendations for soapsuds enemas and nothing by mouth status except for medications. Patient has subsequently had an NG tube placed with return of greater than 1 000 mL. She has not had a bowel movement or pass gas. X-ray films show NG tube is above the GE junction, no evidence of free air, continued air distended central and peripheral bowel loops. Colonic gas remains. Small bowel caliber is minimally improved Her potassium is low at 2.8 and 100 mEq of potassium has been ordered with plan for recheck of potassium this afternoon. Hemoglobin today is at 6.8 and patient will be transfused 1 unit of packed RBCs. 12/14: Patient states that she slept well during the night. She denies having any bowel movement but is passing gas. Dr. Abrams has ordered a CAT scan with oral contrast per NG. Objective - Vital Signs Vital signs: Vital Signs Temp 96.4 F L 12/14/16 07:00 Pulse 95 12/14/16 07:00 Resp 16 12/14/16 07:00 BP 150/70 12/14/16 07:00 Pulse Ox 94 L 12/14/16 07:00 Intake & Output 12/13/16 12/14/16 12/14/16 18:59 06:59 18:59 Intake Total 970 1900 Output Total 400 200 Balance 570 1700 Weight 49.8 kg Intake: IV 50 100 Piperacillin-Tazobactam 3 50 100 .375 gm In Dextrose/Water 1 50ml.bag @ 12.5 mls/hr IVPB Q8H [facility] Rx#: [id number] Intake, IV Titration 300 1200 Amount Dextrose 5%-0.45% NaCl 1, 800 000 ml @ 100 mls/hr IV . Q10H [facility] Rx#:[id number] Micafungin 100 mg In 100 Sodium Chloride 0.9% 100 ml @ 100 mls/hr IVPB DAILY [facility] Rx#:[id number] Potassium Chloride 10 meq 200 Lidocaine 2% Inj 10 mg In Sodium Chloride 0.9% 100 ml @ 100 mls/hr IVPB Q1HR [facility] Rx#:[id number] Potassium Chloride 20 meq 100 Lidocaine 2% Inj 20 mg In Sodium Chloride 0.9% 100 ml @ 55.5 mls/hr IVPB Q2HR [facility] Rx#:[id number] Potassium Chloride 20 meq 100 200 Lidocaine 2% Inj 20 mg In Sodium Chloride 0.9% 100 ml @ 55.5 mls/hr IVPB Q2HR [facility] Rx#:[id number] Oral 0 600 Blood Product 620 Rc As-3 Unit 310 [id number] Output: Gastric Drainage 400 200 Other: Voiding Method Bedside Commode # Voids 1 1 - Exam General appearance: Present: cooperative, no acute distress - EENT Eyes: Present: anicteric sclerae, EOMI, dentition normal ENT: Present: hard of hearing, NA/AT, normal oropharynx - Neck Neck: Present: normal ROM - Respiratory Respiratory: bilateral: CTA, negative: dullness, rales, rhonchi, wheezing, prolonged expiration - Cardiovascular Rhythm: regular Heart sounds: normal: S1, S2 Abnormal Heart Sounds: Absent: systolic murmur, diastolic murmur, rub, S3 Gallop , S4 Gallop, click, other - Gastrointestinal General gastrointestinal: Present: normal bowel sounds, tenderness - Integumentary Integumentary: Present: normal, normal turgor - Musculoskeletal Musculoskeletal: Present: gait normal, strength equal bilaterally - Psychiatric Psychiatric: Present: A&O x's 3, intact judgment & insight - Labs CBC & Chem 7: 12/14/16 10:14 12/14/16 10:14 Labs: Abnormal Lab Results - Last 24 Hours (Table) 12/13/16 12/13/16 12/13/16 Range/Units 08:35 08:35 11:44 Neutrophils # (Manual) 15.8 H (1.3-7.7) k/uL Lymphocytes # (Manual) 5.1 H (1.0-4.8) k/uL Monocytes # (Manual) 2.4 H (0-1.0) k/uL Magnesium 3.0 H (1.6-2.3) mg/dL Crossmatch See Detail Microbiology - Last 24 Hours (Table) 12/08/16 23:30 Blood Culture - Preliminary Blood No Growth after 120 hours Assessment and Plan Plan: 1. Chest pain with negative initial troponin. Cardiology consult appreciated. Acute coronary syndrome ruled out 2. Previous admissions with bicytopenia with thrombocytopenia and anemia along with leukocytosis followed by Dr. Navarrete. Patient recently underwent bone marrow biopsy as above. Concerns regarding myelodysplastic disorder with myelofibrosis however bone marrow has hemodilution and does not confer any specific diagnosis at this time 3. Leukocytosis with fever with concern for underlying infection vs fever related to myelodysplasia. Dr. Strauss is on consult. MRCP is scheduled performed showing slight increase in the size of the cyst, chronic elevation of the pancreatic duct, no duct stone Dr. strauss has ordered Zosyn. 4. Chronic history of pancreatic duct stent, last MRCP was in December 2015. MRCP was performed results as above was from a previous outpatient scheduling 5. Chronic malabsorption state from poor oral intake, and ongoing pancreas problems, lipase to be checked, with weight loss of 17 pounds in 15 months with severe protein calorie malnutrition. Continue supplements. 6. Generalized anxiety disorder. Continue Xanax as needed. 7. Urinary retention on last hospitalization. Monitor for same. Continue Flomax. 8. Patient self reports chronic kidney disease stage II. Avoid nonsteroidal anti-inflammatories. 9. Severe osteoarthritis of both hips. Continue use walker and avoid falling. 10. Chronic pain syndrome. 11. Gaseousness with abdominal pain, x-ray shows large amount of stool, surgery consult appreciated, nothing by mouth, soapsuds enema, small sips of GoLYTELY. 12. Gastrointestinal prophylaxis. Pepcid. 13. DVT prophylaxis. Continue knee high TRISTAN hose, and ambulation 14. Acute bowel obstruction. NG tube in place. Dr. Abrams is following. CT of the abdomen and pelvis. CODE STATUS: Full code The above impression and plan of care have been discussed and directed by signing physician. Genevieve House nurse practitioner acting as scribe for signing physician.
--- NOTE | 2016-12-14 18:26 | P.PN ---
Subjective Principal diagnosis: Fever and leukocytosis questionably secondary to myelodysplasia The patient overall fever pattern has improved with no fever last 48 hours, the patient did have constipation and evidence of possible bowel obstruction soapstuds enema has been ordered and an NG tube the patient white count still elevated at 24though slightly improved from initial high of 31,000, Patient did have MRCP which did shows evidence of dilated cyst in the body and tail of pancreas, patient did have evidence of oral thrush currently being treated with an Mycostatin swish and swallow Objective - Vital Signs Vital signs: Vital Signs Temp 96.9 F L 12/13/16 07:00 Pulse 89 12/13/16 07:00 Resp 16 12/13/16 07:00 BP 142/63 12/13/16 07:00 Pulse Ox 96 12/13/16 07:00 Intake & Output 12/12/16 12/13/16 12/13/16 18:59 06:59 18:59 Intake Total 0 500 Output Total 300 1300 Balance -300 -800 Weight 49.8 kg 49.8 kg 49.8 kg Intake: IV 100 Piperacillin-Tazobactam 3 100 .375 gm In Dextrose/Water 1 50ml.bag @ 12.5 mls/hr IVPB Q8H [facility] Rx#: [id number] Intake, IV Titration 400 Amount Dextrose 5%-0.45% NaCl 1, 400 000 ml @ 100 mls/hr IV . Q10H [facility] Rx#:[id number] Oral 0 Output: Gastric Drainage 1000 Urine 300 300 Other: Voiding Method Bedside Commode Bedside Commode # Voids 2 1 - Exam Elderly female lying in bed in no distress HEENT: Oral thrush LUNGS: Unlabored breathing and is clear to auscultation anteriorly heart: S1,S2 regular rate and rhythm ABDOMEN: Soft no tenderness no organomegaly Extremities no edema feet - Labs CBC & Chem 7: 12/14/16 10:14 12/14/16 10:14 Labs: Abnormal Lab Results - Last 24 Hours (Table) 12/13/16 12/13/16 12/13/16 Range/Units 08:35 08:35 08:35 WBC 25.3 H* (3.8-10.6) k/uL RBC 2.28 L (3.80-5.40) m/uL Hgb 6.8 L* (11.4-16.0) gm/dL Hct 20.0 L* (34.0-46.0) % RDW 15.6 H (11.5-15.5) % Plt Count 76 L (150-450) k/uL Neutrophils # (Manual) 15.8 H (1.3-7.7) k/uL Lymphocytes # (Manual) 5.1 H (1.0-4.8) k/uL Monocytes # (Manual) 2.4 H (0-1.0) k/uL Sodium 135 L (137-145) mmol/L Potassium 2.8 L* (3.5-5.1) mmol/L Chloride 88 L (98-107) mmol/L Carbon Dioxide 38 H (22-30) mmol/L BUN 31 H (7-17) mg/dL Calcium 8.1 L (8.4-10.2) mg/dL Magnesium 3.0 H (1.6-2.3) mg/dL AST 37 H (14-36) U/L Alkaline Phosphatase 313 H (38-126) U/L Total Protein 5.3 L (6.3-8.2) g/dL Albumin 2.6 L (3.5-5.0) g/dL Microbiology - Last 24 Hours (Table) 12/08/16 23:30 Blood Culture - Preliminary Blood No Growth after 96 hours Assessment and Plan (1) Fever Status: Acute (2) Leukocytosis Status: Acute (3) Oral thrush Status: Acute Plan: 1-patient with low-grade fever admission that has resolved however the white count remains to be elevated questionable secondary to underlying myelofibrosis as no clear focus of infection Except the oral thrush with the cultures remain to be negative 2-we will discuss with the surgery team if CT of abdomen and pelvis be done, especially with abnormality seen on the MRCP 3-continue the Zosyn however add micafungin to cover for the oral thrush in addition to the Mycostatin swish and swallow
--- NOTE | 2016-12-14 19:12 | P.PN ---
Subjective Principal diagnosis: Patient had a nasogastric tube placed last night without difficulty. Today's abdominal x-rays still show proximal bowel dilation however there is air and stool also noted in the colon. The patient does feel better. She had approximately 1100 mL out initially. A small amount of flatus today. No bowel movement. Patient did have flatus today. Abdominal bloating seems improved. Computed tomography scan was reviewed and does show evidence of constipation. There is stool and air seen scattered throughout the colon. There is some degree of decompression of the distal small bowel loops with some small bowel dilation the persist. Unclear if this is simply all related to the patient's constipation/ileus or a possible partial small bowel obstruction. Objective - Vital Signs Vital signs: Vital Signs Temp 97.9 F 12/14/16 15:00 Pulse 98 12/14/16 15:00 Resp 16 12/14/16 16:00 BP 144/65 12/14/16 15:00 Pulse Ox 93 L 12/14/16 15:00 Intake & Output 12/14/16 12/14/16 12/15/16 06:59 18:59 06:59 Intake Total 1900 150 Output Total 200 800 Balance 1700 -650 Weight 49.8 kg Intake: IV 100 50 Piperacillin-Tazobactam 3 100 50 .375 gm In Dextrose/Water 1 50ml.bag @ 12.5 mls/hr IVPB Q8H [facility] Rx#: [id number] Intake, IV Titration 1200 100 Amount Dextrose 5%-0.45% NaCl 1, 800 000 ml @ 100 mls/hr IV . Q10H [facility] Rx#:[id number] Potassium Chloride 10 meq 200 100 Lidocaine 2% Inj 10 mg In Sodium Chloride 0.9% 100 ml @ 100 mls/hr IVPB Q1HR [facility] Rx#:[id number] Potassium Chloride 20 meq 200 Lidocaine 2% Inj 20 mg In Sodium Chloride 0.9% 100 ml @ 55.5 mls/hr IVPB Q2HR [facility] Rx#:[id number] Oral 600 0 Output: Gastric Drainage 200 500 Urine 300 Other: Voiding Method Bedside Commode # Voids 1 2 - Exam Abdomen: Soft, distended but less impressive, minimal diffuse tenderness - Labs CBC & Chem 7: 12/14/16 10:14 12/14/16 10:14 Labs: Abnormal Lab Results - Last 24 Hours (Table) 0712/14/16 12/14/16 Range/Units 10:14 10:14 10:14 WBC 29.5 H* (3.8-10.6) k/uL RBC 2.66 L (3.80-5.40) m/uL Hgb 7.7 L (11.4-16.0) gm/dL Hct 22.8 L (34.0-46.0) % RDW 17.1 H (11.5-15.5) % Plt Count 66 L (150-450) k/uL Neutrophils # (Manual) 22.7 H (1.3-7.7) k/uL Monocytes # (Manual) 2.1 H (0-1.0) k/uL Sodium 134 L (137-145) mmol/L Chloride 97 L (98-107) mmol/L BUN 23 H (7-17) mg/dL Magnesium 2.8 H (1.6-2.3) mg/dL Microbiology - Last 24 Hours (Table) 12/08/16 23:30 Blood Culture - Preliminary Blood No Growth after 120 hours Assessment and Plan (1) Constipation Narrative/Plan: Suspect given the CAT scan findings and history this represents ileus with constipation. Soapsuds enemas will be administered this evening. The patient is at risk for fecal impaction and this will be monitored clinically as well. Status: Acute
[2016-12-15] MEDS: CYANOCOBALAMIN 500 MCG TAB PO SCH (04:14)
[2016-12-15] MEDS: CHOLECALCIFEROL 1,000 UNIT TAB PO SCH (04:14)
[2016-12-15] MEDS: PIPERACILLIN-TAZOBACTAM 3.375 GM in DEXTROSE/WATER 1 50ML.BAG IVPB SCH ×3 (04:18→19:37)
[2016-12-15] MEDS: ALPRAZolam 0.25 MG TAB PO PRN ×3 (04:43→22:00)
[2016-12-15] MEDS: DILTIAZEM ORAL 60 MG TAB PO SCH ×3 (06:43→21:01)
[2016-12-15] MEDS: MORPHINE SULFATE 4 MG/ML SYRINGE IV PRN ×3 (06:43→14:48)
[2016-12-15] MEDS: ASCORBIC ACID 500 MG TAB PO SCH (07:33)
[2016-12-15] MEDS: FOLIC ACID 1 MG TAB PO SCH (07:33)
[2016-12-15] MEDS: SIMETHICONE 80 MG CHEWABLE PO SCH ×4 (07:34→21:02)
[2016-12-15] MEDS: VITAMIN A 10,000 UNIT CAPSULE PO SCH (07:34)
[2016-12-15] MEDS: DEXTROSE 5%-0.45% NACL 1,000 ML IV SCH ×2 (07:38→18:45)
[2016-12-15] MEDS: NYSTATIN 100,000 UNIT/ML SUSP 500,000 UNIT/5 ML CUP PO SCH ×4 (07:38→21:02)
[2016-12-15] MEDS: PANTOPRAZOLE 40 MG TABLET PO SCH (07:39)
[2016-12-15] MEDS: TAMSULOSIN 0.4 MG CAP.ER.24H PO SCH (07:39)
[2016-12-15] MEDS: MAG HYDROX/AL HYDROX/SIMETH 30 ML CUP PO SCH ×4 (07:39→21:01)
[2016-12-15] MEDS: MICAFUNGIN 100 MG in SODIUM CHLORIDE 0.9% 100 ML IVPB SCH (08:25)
[2016-12-15 08:58] LABS: ALT 23 U/L (9-52); AST 34 U/L (14-36); Alkaline Phosphatase 290 U/L (38-126); Anion Gap 7 mmol/L; Anisocytosis Slight; Blood Urea Nitrogen 19 mg/dL (7-17); CH 27.6; CHCM 31.5; Calcium 9.1 mg/dL (8.4-10.2); Carbon Dioxide 30 mmol/L (22-30); Chloride 97 mmol/L (98-107); Glucose 78 mg/dL (74-99); HDW 3.05; HGB 8.1 gm/dL (11.4-16.0); Hypochromasia Slight; Immature Gran Flag Marked; MCH 28.6 pg (25.0-35.0); MCHC 32.4 g/dL (31.0-37.0); MCV 88.3 fL (80.0-100.0); Mean Platelet Volume 10.3; Non-African American GFR(MDRD) >60 (>60 ml/min/1.73 sqM); Potassium 4.3 mmol/L (3.5-5.1); RBC 2.83 m/uL (3.80-5.40); RDW 16.8 % (11.5-15.5); Sodium 134 mmol/L (137-145); Total Bilirubin 1.3 mg/dL (0.2-1.3); Total Protein 5.3 g/dL (6.3-8.2); WBC (Perox) 31.78
[2016-12-15 08:59] LABS: WBC 30.4 k/uL (3.8-10.6)
[2016-12-15 10:22] LABS: Add Differential Manual Differential
[2016-12-15 10:29] LABS: Manual Review Performed; Metamyelocytes % 4.5 %; Nucleated Red Blood Cells 0 /100 WBC (0-0); Total Cells Counted 200
[2016-12-15] MEDS ORDERED: MAGNESIUM CITRATE 296 ML BOTTLE NG-TUBE ONE (11:24)
--- NOTE | 2016-12-15 11:26 | P.PN ---
Subjective Principal diagnosis: Patient had a nasogastric tube placed last night without difficulty. Today's abdominal x-rays still show proximal bowel dilation however there is air and stool also noted in the colon. The patient does feel better. She had approximately 1100 mL out initially. A small amount of flatus today. No bowel movement. Patient without new complaints. She is having bowel movements with her enemas. Still complains of some nausea. Nasogastric tube output significantly decreased at this point. Objective - Vital Signs Vital signs: Vital Signs Temp 96.3 F L 12/15/16 08:27 Pulse 92 12/15/16 08:27 Resp 16 12/15/16 08:27 BP 144/67 12/15/16 08:27 Pulse Ox 95 12/15/16 07:00 Intake & Output 12/14/16 12/15/16 12/15/16 18:59 06:59 18:59 Intake Total 150 0 Output Total 800 75 Balance -650 -75 Weight 49.8 kg Intake: IV 50 Piperacillin-Tazobactam 3 50 .375 gm In Dextrose/Water 1 50ml.bag @ 12.5 mls/hr IVPB Q8H [facility] Rx#: [id number] Intake, IV Titration 100 Amount Potassium Chloride 10 meq 100 Lidocaine 2% Inj 10 mg In Sodium Chloride 0.9% 100 ml @ 100 mls/hr IVPB Q1HR [facility] Rx#:[id number] Oral 0 0 Output: Gastric Drainage 500 75 Urine 300 Other: Voiding Method Bedside Commode Bedside Commode Bedside Commode # Voids 2 1 # Bowel Movements 1 - Exam Abdomen: Soft, less distended, nontender - Labs CBC & Chem 7: 12/15/16 07:43 12/15/16 07:43 Labs: Abnormal Lab Results - Last 24 Hours (Table) 12/14/16 12/14/16 12/15/16 Range/Units 10:14 10:14 07:43 WBC 30.4 H* (3.8-10.6) k/uL RBC 2.83 L (3.80-5.40) m/uL Hgb 8.1 L (11.4-16.0) gm/dL Hct 25.0 L (34.0-46.0) % RDW 16.8 H (11.5-15.5) % Plt Count 56 L (150-450) k/uL Neutrophils # (Manual) 22.7 H 19.0 H (1.3-7.7) k/uL Monocytes # (Manual) 2.1 H 3.0 H (0-1.0) k/uL Sodium (137-145) mmol/L Chloride (98-107) mmol/L BUN (7-17) mg/dL Magnesium 2.8 H (1.6-2.3) mg/dL Alkaline Phosphatase (38-126) U/L Total Protein (6.3-8.2) g/dL Albumin (3.5-5.0) g/dL 12/15/16 Range/Units 07:43 WBC (3.8-10.6) k/uL RBC (3.80-5.40) m/uL Hgb (11.4-16.0) gm/dL Hct (34.0-46.0) % RDW (11.5-15.5) % Plt Count (150-450) k/uL Neutrophils # (Manual) (1.3-7.7) k/uL Monocytes # (Manual) (0-1.0) k/uL Sodium 134 L (137-145) mmol/L Chloride 97 L (98-107) mmol/L BUN 19 H (7-17) mg/dL Magnesium (1.6-2.3) mg/dL Alkaline Phosphatase 290 H (38-126) U/L Total Protein 5.3 L (6.3-8.2) g/dL Albumin 2.7 L (3.5-5.0) g/dL Microbiology - Last 24 Hours (Table) 12/08/16 23:30 Blood Culture - Final Blood No Growth after 144 hours Assessment and Plan (1) Constipation Narrative/Plan: Will try one half bottle mag citrate down the nasogastric tube today. Continue enemas for now. Status: Acute
--- NOTE | 2016-12-15 15:07 | P.PN ---
Subjective Principal diagnosis: Abdominal pain, nausea vomiting, clinical pneumonitis, pancytopenia, pancreatic duct stent, malabsorption, chronic pain syndrome This is a 66-year-old female patient of Dr. Dorantes with underlying history of CAD, hyperlipidemia, hypertension, pancreatitis, neuropathy chronic back pain chronic opioid-induced constipation. She has had several recent hospitalizations due to lower GI bleed thought to be due to diverticulitis as well as thrombocytopenia and anemia and leukocytosis followed by Dr. Navarrete. Patient recently underwent bone marrow biopsy. Results were not available during her last hospitalization but she was discharged home with a white count of 18.7, hemoglobin was 8.9 and platelet count of 43 on improved. She also had an elevated alkaline phosphatase of 205. Patient presented back to [facility] emergency center on December 08 with complaints of chest pain that started the day before and continued to worsen. She also had temperature of 100.8 and was complaining of shortness of breath and it hurt when she took a deep breath. There was no trauma to the chest wall or recent fall. She underwent a CTA of the chest that showed no definite acute pulmonary embolism. Trace bilateral pleural effusions. Chest x-ray showed no acute cardiopulmonary disease. She again presented with leukocytosis of 27.2, hemoglobin 7.6 and platelet count was up to 131. Her d-dimer was elevated at 3.26. Sodium 1:30 and chloride 93. Initial troponin was 0.012, proBNP 2120. Urinalysis was cloudy, nitrate and leukoesterase negative. Cardiology consult requested, repeat troponins, consult with Dr. Strauss from infectious disease and consult has been added for Dr. Navarrete. Recent biopsy report is stating possible be lymphoma or of leukemia. Patient is scheduled for an MRCP as an outpatient tomorrow which will be ordered for this hospitalization. Patient is complaining of sternal chest pain, generalized abdominal pain and back pain over her kidneys. Echocardiogram reveals mild concentric left ventricular hypertrophy, EF between 55 and 60%, trace mitral regurgitation, trace tricuspid regurgitation. 12/10, patient's to have chills, recurrent fevers, today complaining of gassiness and abdominal pain which is new from yesterday MRCP failed to reveal any gallbladder thickening, increased size of the pancreatic cyst that was noted however there is no obstructive process is noted, patient has abdominal pain and no flatness, no bowel movement for the past 1 week of the abdomen was requested, Maalox plus or symmetric on would be given for gas relief, previous x -ray from the MR shows large amount of gas in the large colon and a small colon. 12/11: Today the patient was evaluated, she is complaining of constipation although refusing Fleet enema and other oral medications for constipation. GoLYTELY was ordered, patient was in agreement of trying this. Final urine culture showed no growth blood culture still pending. Vital signs are stable she remains afebrile. We'll possibly plan for discharge tomorrow with follow- up with oncology. 12/12: Patient was seen and evaluated today. She is still having some abdominal distention and constipation. Yesterday the patient attempted to drink the GoLYTELY and apparently she had one bout of emesis after taking only a few sips. A soapsuds enema was given, but the patient did not have any results. Repeat abdominal x-ray shows persistent distention of central and peripheral bowel loops with worsening small bowel dilatation no evidence for free air. Surgery consult appreciated. Recommends to resume soapsuds enema, remain nothing by mouth except for medications, and continue to take small sips of GoLYTELY. Hemoglobin 7.0 most likely related to her myelofibrosis. Blood and urine cultures show no growth. Vital signs remaine stable and she remains afebrile. 12/13: Patient was seen by Dr. Freire yesterday with recommendations for soapsuds enemas and nothing by mouth status except for medications. Patient has subsequently had an NG tube placed with return of greater than 1 000 mL. She has not had a bowel movement or pass gas. X-ray films show NG tube is above the GE junction, no evidence of free air, continued air distended central and peripheral bowel loops. Colonic gas remains. Small bowel caliber is minimally improved Her potassium is low at 2.8 and 100 mEq of potassium has been ordered with plan for recheck of potassium this afternoon. Hemoglobin today is at 6.8 and patient will be transfused 1 unit of packed RBCs. 12/14: Patient states that she slept well during the night. She denies having any bowel movement but is passing gas. Dr. Abrams has ordered a CAT scan with oral contrast per NG. 712: Patient is doing better so far had some bowel movement still have an NG tube and will keep NG tube till tomorrow she still seen Dr. suggs no need for any surgical intervention and she doesn't have any total bowel obstruction but more partial. Objective - Vital Signs Vital signs: Vital Signs Temp 96.3 F L 12/15/16 15:00 Pulse 96 12/15/16 15:00 Resp 18 12/15/16 15:00 BP 141/62 12/15/16 15:00 Pulse Ox 95 12/15/16 15:00 Intake & Output 12/14/16 12/15/16 12/15/16 18:59 06:59 18:59 Intake Total 150 0 450 Output Total 800 75 Balance -650 -75 450 Weight 49.8 kg Intake: IV 50 450 Dextrose 5%-0.45% NaCl 1, 400 000 ml @ 100 mls/hr IV . Q10H [facility]I Rx#:[id number] Piperacillin-Tazobactam 3 50 50 .375 gm In Dextrose/Water 1 50ml.bag @ 12.5 mls/hr IVPB Q8H [facility]STI Rx#: [id number] Intake, IV Titration 100 Amount Potassium Chloride 10 meq 100 Lidocaine 2% Inj 10 mg In Sodium Chloride 0.9% 100 ml @ 100 mls/hr IVPB Q1HR K[facility]STI Rx#:[id number] Oral 0 0 Output: Gastric Drainage 500 75 Urine 300 Other: Voiding Method Bedside Commode Bedside Commode Bedside Commode # Voids 2 1 5 # Bowel Movements 1 2 - Constitutional General appearance: Present: cooperative, disheveled, no acute distress. Absent : average body habitus, mild distress, morbidly obese, obese, severe distress, thin - EENT Eyes: Present: normal appearance. Absent: abnormal pupil, anicteric sclerae, disc margins sharp, edentulous, EOMI, PERRLA, fundus normal, photophobia, dentition normal, poor dentition, ptosis, scleral icterus ENT: Present: hard of hearing, normal oropharynx, pharyngeal erythema. Absent: hearing grossly normal, NA/AT, other, thrush, tonsillar exudates, tonsillar swelling Ears: bilateral: normal - Neck Neck: Present: normal ROM. Absent: lymphadenopathy, other, rigidity, stridor, thyromegaly Carotids: bilateral: upstroke normal Thyroid: bilateral: normal size - Respiratory Respiratory: bilateral: CTA, diminished - Cardiovascular Rhythm: regular Heart sounds: normal: S1, S2 Abnormal Heart Sounds: Present: systolic murmur, S3 Gallop - Gastrointestinal General gastrointestinal: Present: distended, hepatomegaly, organomegaly, splenomegaly, tenderness. Absent: absent bowel sounds, decreased bowel sounds, hyperactive bowel sounds, normal bowel sounds, rigid, scaphoid, soft, umbilical hernia, ventral hernia - Integumentary Integumentary: Present: cellulitis, flushed, jaundiced, pale, rash. Absent: calor, cyanotic, decreased turgor, normal, normal turgor, ulcer - Neurologic Neurologic: Present: CNII-XII intact - Musculoskeletal Musculoskeletal: Present: gait normal, generalized weakness, strength equal bilaterally. Absent: right sided weakness, left sided weakness - Psychiatric Psychiatric: Present: A&O x's 3, appropriate affect - Labs CBC & Chem 7: 12/15/16 07:43 12/15/16 07:43 Labs: Abnormal Lab Results - Last 24 Hours (Table) 12/15/16 12/15/16 Range/Units 07:43 07:43 WBC 30.4 H* (3.8-10.6) k/uL RBC 2.83 L (3.80-5.40) m/uL Hgb 8.1 L (11.4-16.0) gm/dL Hct 25.0 L (34.0-46.0) % RDW 16.8 H (11.5-15.5) % Plt Count 56 L (150-450) k/uL Neutrophils # (Manual) 19.0 H (1.3-7.7) k/uL Monocytes # (Manual) 3.0 H (0-1.0) k/uL Sodium 134 L (137-145) mmol/L Chloride 97 L (98-107) mmol/L BUN 19 H (7-17) mg/dL Alkaline Phosphatase 290 H (38-126) U/L Total Protein 5.3 L (6.3-8.2) g/dL Albumin 2.7 L (3.5-5.0) g/dL Microbiology - Last 24 Hours (Table) 12/08/16 23:30 Blood Culture - Final Blood No Growth after 144 hours Assessment and Plan Plan: 1. abdominal pain and partial obstruction: Patient is doing better so far continue NG tube continued see Dr. suggs and patient had the colitis finally with some bowel movement since yesterday to do aggressive bowel regime to improve her impaction and partial obstruction. 2. Pancytopenia and bone marrow fibrosis and myeloproliferative disorders: followed by Dr. Navarrete. Patient recently underwent bone marrow biopsy as above. Concerns regarding myelodysplastic disorder with myelofibrosis however bone marrow has hemodilution and does not confer any specific diagnosis at this time 3. Leukocytosis with fever with concern for underlying infection vs fever related to myelodysplasia. Dr. Strauss is on consult. MRCP is scheduled performed showing slight increase in the size of the cyst, chronic elevation of the pancreatic duct, no duct stone Dr. strauss has ordered Zosyn. 4. Chronic history of pancreatic duct stent, last MRCP was in December 2015. MRCP was performed results as above was from a previous outpatient scheduling 5. Chest pain on admission: With no sign of acute coronary syndrome or cardiac disease she is not seeing cardiology anymore this point. 6. Generalized anxiety disorder. Continue Xanax as needed. 7. Urinary retention on last hospitalization. Monitor for same. Continue Flomax. 8. Patient self reports chronic kidney disease stage II. Avoid nonsteroidal anti-inflammatories. 9. Severe osteoarthritis of both hips. Continue use walker and avoid falling. 10. Chronic pain syndrome: On hydrocodone smaller dose only. 11. Gaseousness with abdominal pain, x-ray shows large amount of stool, surgery consult appreciated, nothing by mouth, soapsuds enema, small sips of GoLYTELY. Discharge planning: Possible going to sn[facility] rehab tomorrow.
--- NOTE | 2016-12-15 15:52 | P.PN ---
Subjective Principal diagnosis: Fever and leukocytosis questionably secondary to myelodysplasia The patient remains to be afebrile, the patient still has an NG in and did not have any bowel movement., The patient denies significant abdominal pain she is complaining of some shortness of breath very minimal cough but not bringing up any sputum Objective - Vital Signs Vital signs: Vital Signs Temp 97.9 F 12/14/16 15:00 Pulse 98 12/14/16 15:00 Resp 16 12/14/16 16:00 BP 144/65 12/14/16 15:00 Pulse Ox 93 L 12/14/16 15:00 Intake & Output 12/13/16 12/14/16 12/14/16 18:59 06:59 18:59 Intake Total 970 1900 150 Output Total 400 200 800 Balance 570 1700 -650 Weight 49.8 kg 49.8 kg Intake: IV 50 100 50 Piperacillin-Tazobactam 3 50 100 50 .375 gm In Dextrose/Water 1 50ml.bag @ 12.5 mls/hr IVPB Q8H [facility] Rx#: [id number] Intake, IV Titration 300 1200 100 Amount Dextrose 5%-0.45% NaCl 1, 800 000 ml @ 100 mls/hr IV . Q10H [facility] Rx#:[id number] Micafungin 100 mg In 100 Sodium Chloride 0.9% 100 ml @ 100 mls/hr IVPB DAILY [facility]I Rx#:[id number] Potassium Chloride 10 meq 200 100 Lidocaine 2% Inj 10 mg In Sodium Chloride 0.9% 100 ml @ 100 mls/hr IVPB Q1HR [facility]I Rx#:[id number] Potassium Chloride 20 meq 100 Lidocaine 2% Inj 20 mg In Sodium Chloride 0.9% 100 ml @ 55.5 mls/hr IVPB Q2HR [facility]I Rx#:[id number] Potassium Chloride 20 meq 100 200 Lidocaine 2% Inj 20 mg In Sodium Chloride 0.9% 100 ml @ 55.5 mls/hr IVPB Q2HR [facility]I Rx#:[id number] Oral 0 600 0 Blood Product 620 Rc As-3 Unit 310 [id number] Output: Gastric Drainage 400 200 500 Urine 300 Other: Voiding Method Bedside Commode Bedside Commode # Voids 1 1 2 - Exam Elderly female lying in bed in no distress HEENT: Oral thrush LUNGS: Unlabored breathing and is clear to auscultation anteriorly heart: S1,S2 regular rate and rhythm ABDOMEN: Soft no tenderness no organomegaly Extremities no edema feet - Labs CBC & Chem 7: 12/15/16 07:43 12/15/16 07:43 Labs: Abnormal Lab Results - Last 24 Hours (Table) 12/14/16 12/14/16 12/14/16 Range/Units 10:14 10:14 10:14 WBC 29.5 H* (3.8-10.6) k/uL RBC 2.66 L (3.80-5.40) m/uL Hgb 7.7 L (11.4-16.0) gm/dL Hct 22.8 L (34.0-46.0) % RDW 17.1 H (11.5-15.5) % Plt Count 66 L (150-450) k/uL Neutrophils # (Manual) 22.7 H (1.3-7.7) k/uL Monocytes # (Manual) 2.1 H (0-1.0) k/uL Sodium 134 L (137-145) mmol/L Chloride 97 L (98-107) mmol/L BUN 23 H (7-17) mg/dL Magnesium 2.8 H (1.6-2.3) mg/dL Microbiology - Last 24 Hours (Table) 12/08/16 23:30 Blood Culture - Preliminary Blood No Growth after 120 hours Assessment and Plan (1) Fever Status: Acute (2) Leukocytosis Status: Acute (3) Oral thrush Status: Acute Plan: 1-patient with low-grade fever admission that has resolved however the white count remains to be elevated questionable secondary to underlying myelofibrosis , patient with evidence of thrush she did have CT of abdominal pelvis which it shows evidence of dependent consultation the lower lobes small bowel dilatation but with a question of possible aspiration pneumonia not entirely excluded, he will try to been his sputum and continue the patient on on Zosyn and micafungin. Time with Patient: Less than 30
--- NOTE | 2016-12-15 15:55 | P.PN ---
Subjective Principal diagnosis: Fever and leukocytosis questionably secondary to myelodysplasia The patient is afebrile, the patient still has an NG in but did have small bowel movement., The patient denies significant abdominal pain, no nausea or vomiting she has some shortness of breath and cough but no sputum Objective - Vital Signs Vital signs: Vital Signs Temp 96.3 F L 12/15/16 15:00 Pulse 96 12/15/16 15:21 Resp 18 12/15/16 15:21 BP 141/62 12/15/16 15:00 Pulse Ox 95 12/15/16 15:00 Intake & Output 12/14/16 12/15/16 12/15/16 18:59 06:59 18:59 Intake Total 150 0 450 Output Total 800 75 Balance -650 -75 450 Weight 49.8 kg Intake: IV 50 450 Dextrose 5%-0.45% NaCl 1, 400 000 ml @ 100 mls/hr IV . Q10H [facility] Rx#:[id number] Piperacillin-Tazobactam 3 50 50 .375 gm In Dextrose/Water 1 50ml.bag @ 12.5 mls/hr IVPB Q8H [facility] Rx#: [id number] Intake, IV Titration 100 Amount Potassium Chloride 10 meq 100 Lidocaine 2% Inj 10 mg In Sodium Chloride 0.9% 100 ml @ 100 mls/hr IVPB Q1HR [facility] Rx#:[id number] Oral 0 0 Output: Gastric Drainage 500 75 Urine 300 Other: Voiding Method Bedside Commode Bedside Commode Bedside Commode # Voids 2 1 5 # Bowel Movements 1 2 - Exam Elderly female lying in bed in no distress HEENT: Oral thrush some improvement LUNGS: Unlabored breathing and decreased breath sound at the bases heart: S1,S2 regular rate and rhythm ABDOMEN: Soft no tenderness no organomegaly Extremities no edema feet - Labs CBC & Chem 7: 12/15/16 07:43 12/15/16 07:43 Labs: Abnormal Lab Results - Last 24 Hours (Table) 12/15/16 12/15/16 Range/Units 07:43 07:43 WBC 30.4 H* (3.8-10.6) k/uL RBC 2.83 L (3.80-5.40) m/uL Hgb 8.1 L (11.4-16.0) gm/dL Hct 25.0 L (34.0-46.0) % RDW 16.8 H (11.5-15.5) % Plt Count 56 L (150-450) k/uL Neutrophils # (Manual) 19.0 H (1.3-7.7) k/uL Monocytes # (Manual) 3.0 H (0-1.0) k/uL Sodium 134 L (137-145) mmol/L Chloride 97 L (98-107) mmol/L BUN 19 H (7-17) mg/dL Alkaline Phosphatase 290 H (38-126) U/L Total Protein 5.3 L (6.3-8.2) g/dL Albumin 2.7 L (3.5-5.0) g/dL Microbiology - Last 24 Hours (Table) 12/08/16 23:30 Blood Culture - Final Blood No Growth after 144 hours Assessment and Plan (1) Fever Status: Acute (2) Leukocytosis Status: Acute (3) Oral thrush Status: Acute (4) Aspiration pneumonitis Status: Acute Plan: 1-patient with low-grade fever admission that has resolved however the white count remains to be elevated questionable secondary to underlying myelofibrosis , patient with evidence of thrush she did have CT of abdominal pelvis with evidence of dependent consultation the lower lobes small bowel dilatation and a question of possible aspiration pneumonia we will try to obtain sputum and continue the patient on on Zosyn and micafungin. And continue with the nystatin swish and swallow Plan of care discussed with attending physician possible discharge antibiotic will be Avelox 400 daily for another 7-10 days Time with Patient: Less than 30
[2016-12-15] MEDS: LACTULOSE 20 GM/30 ML CUP PO PRN (22:00)
[2016-12-16] MEDS: DEXTROSE 5%-0.45% NACL 1,000 ML IV SCH ×2 (04:08→16:12)
[2016-12-16] MEDS: PIPERACILLIN-TAZOBACTAM 3.375 GM in DEXTROSE/WATER 1 50ML.BAG IVPB SCH ×2 (04:08→12:23)
[2016-12-16] MEDS: ALPRAZolam 0.25 MG TAB PO PRN (06:22)
[2016-12-16] MEDS: DILTIAZEM ORAL 60 MG TAB PO SCH ×2 (06:23→16:12)
[2016-12-16 08:00] VITALS: RESP 20; TEMP 97.3
[2016-12-16] MEDS: VITAMIN A 10,000 UNIT CAPSULE PO SCH (08:34)
[2016-12-16] MEDS: SIMETHICONE 80 MG CHEWABLE PO SCH ×2 (08:34→12:23)
[2016-12-16] MEDS: MICAFUNGIN 100 MG in SODIUM CHLORIDE 0.9% 100 ML IVPB SCH (08:34)
[2016-12-16] MEDS: FOLIC ACID 1 MG TAB PO SCH (08:34)
[2016-12-16] MEDS: MORPHINE SULFATE 4 MG/ML SYRINGE IV PRN (08:35)
[2016-12-16] MEDS: TAMSULOSIN 0.4 MG CAP.ER.24H PO SCH (08:35)
[2016-12-16] MEDS: PANTOPRAZOLE 40 MG TABLET PO SCH (08:35)
[2016-12-16] MEDS: NYSTATIN 100,000 UNIT/ML SUSP 500,000 UNIT/5 ML CUP PO SCH ×2 (08:35→12:23)
[2016-12-16] MEDS: ASCORBIC ACID 500 MG TAB PO SCH (08:35)
[2016-12-16 09:16] LABS: Anisocytosis Slight; CH 27.5; CHCM 31.7; HCT 24.8 % (34.0-46.0); HDW 3.07; HGB 8.1 gm/dL (11.4-16.0); Hypochromasia Slight; Immature Gran Flag Marked; Large Platelets Flag Moderate; MCH 28.5 pg (25.0-35.0); MCHC 32.7 g/dL (31.0-37.0); MCV 87.4 fL (80.0-100.0); Mean Platelet Volume 11.8; RBC 2.83 m/uL (3.80-5.40); RDW 16.5 % (11.5-15.5); WBC 33.9 k/uL (3.8-10.6); WBC (Perox) 35.59
[2016-12-16 09:33] LABS: ALT 21 U/L (9-52); AST 35 U/L (14-36); Alkaline Phosphatase 301 U/L (38-126); Anion Gap 8 mmol/L; Blood Urea Nitrogen 14 mg/dL (7-17); Calcium 9.4 mg/dL (8.4-10.2); Carbon Dioxide 29 mmol/L (22-30); Chloride 97 mmol/L (98-107); Glucose 80 mg/dL (74-99); Non-African American GFR(MDRD) >60 (>60 ml/min/1.73 sqM); Potassium 3.9 mmol/L (3.5-5.1); Sodium 134 mmol/L (137-145); Total Bilirubin 1.2 mg/dL (0.2-1.3); Total Protein 5.5 g/dL (6.3-8.2)
[2016-12-16 10:45] LABS: Add Differential Manual Differential
[2016-12-16 10:54] LABS: Band Neutrophils % 8.5 %; Blast Cells 0.5; Myelocytes % 11.5 %; Nucleated Red Blood Cells 0 /100 WBC (0-0); Promyelocytes % 0.5 %; Total Cells Counted 200
[2016-12-16 10:55] LABS: Large Platelets Present; Manual Review Performed
[2016-12-16] MEDS: MAG HYDROX/AL HYDROX/SIMETH 30 ML CUP PO SCH ×2 (11:00→13:56)
[2016-12-16] MEDS: LACTULOSE 20 GM/30 ML CUP PO PRN (13:56)
--- NOTE | 2016-12-16 14:26 | P.DS ---
Providers Date of admission: 12/09/16 00:47 Attending physician: Shaneka Burrell Consults: 12/09/16 00:46 Consult Physician Stat Consulting Provider: Getachew Martinez Consult Reason/Comments: Chest pain Do you want consulting provider notified?: Yes Consult Physician Stat Consulting Provider: Vinicius Saravia Consult Reason/Comments: leukocytosis, early sepsis Do you want consulting provider notified?: Yes 12/09/16 08:56 Consult Physician Routine Consulting Provider: Nimesh Navarrete Consult Reason/Comments: Leukocytosis Do you want consulting provider notified?: Yes 12/12/16 07:51 Consult Physician Routine Consulting Provider: Tony Abrams Consult Reason/Comments: possible ileus Do you want consulting provider notified?: Yes Primary care physician: Zachary Dorantes [facility] Course: This is a 66-year-old female patient of Dr. Dorantes with underlying history of CAD, hyperlipidemia, hypertension, pancreatitis, neuropathy chronic back pain chronic opioid-induced constipation. She has had several recent hospitalizations due to lower GI bleed thought to be due to diverticulitis as well as thrombocytopenia and anemia and leukocytosis followed by Dr. Navarrete. Patient recently underwent bone marrow biopsy. Results were not available during her last hospitalization but she was discharged home with a white count of 18.7, hemoglobin was 8.9 and platelet count of 43 on improved. She also had an elevated alkaline phosphatase of 205. Patient presented back to [facility] emergency center on December 08 with complaints of chest pain that started the day before and continued to worsen. She also had temperature of 100.8 and was complaining of shortness of breath and it hurt when she took a deep breath. There was no trauma to the chest wall or recent fall. She underwent a CTA of the chest that showed no definite acute pulmonary embolism. Trace bilateral pleural effusions. Chest x-ray showed no acute cardiopulmonary disease. She again presented with leukocytosis of 27.2, hemoglobin 7.6 and platelet count was up to 131. Her d-dimer was elevated at 3.26. Sodium 1:30 and chloride 93. Initial troponin was 0.012, proBNP 2120. Urinalysis was cloudy, nitrate and leukoesterase negative. Cardiology consult requested, repeat troponins, consult with Dr. Saravia from infectious disease and consult has been added for Dr. Navarrete. Recent biopsy report is stating possible be lymphoma or of leukemia. Patient is scheduled for an MRCP as an outpatient tomorrow which will be ordered for this hospitalization. Patient is complaining of sternal chest pain, generalized abdominal pain and back pain over her kidneys. Echocardiogram reveals mild concentric left ventricular hypertrophy, EF between 55 and 60%, trace mitral regurgitation, trace tricuspid regurgitation. 12/10, patient's to have chills, recurrent fevers, today complaining of gassiness and abdominal pain which is new from yesterday MRCP failed to reveal any gallbladder thickening, increased size of the pancreatic cyst that was noted however there is no obstructive process is noted, patient has abdominal pain and no flatness, no bowel movement for the past 1 week of the abdomen was requested, Maalox plus or symmetric on would be given for gas relief, previous x -ray from the MR shows large amount of gas in the large colon and a small colon. 12/11: Today the patient was evaluated, she is complaining of constipation although refusing Fleet enema and other oral medications for constipation. GoLYTELY was ordered, patient was in agreement of trying this. Final urine culture showed no growth blood culture still pending. Vital signs are stable she remains afebrile. We'll possibly plan for discharge tomorrow with follow- up with oncology. 12/12: Patient was seen and evaluated today. She is still having some abdominal distention and constipation. Yesterday the patient attempted to drink the GoLYTELY and apparently she had one bout of emesis after taking only a few sips. A soapsuds enema was given, but the patient did not have any results. Repeat abdominal x-ray shows persistent distention of central and peripheral bowel loops with worsening small bowel dilatation no evidence for free air. Surgery consult appreciated. Recommends to resume soapsuds enema, remain nothing by mouth except for medications, and continue to take small sips of GoLYTELY. Hemoglobin 7.0 most likely related to her myelofibrosis. Blood and urine cultures show no growth. Vital signs remaine stable and she remains afebrile. 12/13: Patient was seen by Dr. Freire yesterday with recommendations for soapsuds enemas and nothing by mouth status except for medications. Patient has subsequently had an NG tube placed with return of greater than 1 000 mL. She has not had a bowel movement or pass gas. X-ray films show NG tube is above the GE junction, no evidence of free air, continued air distended central and peripheral bowel loops. Colonic gas remains. Small bowel caliber is minimally improved Her potassium is low at 2.8 and 100 mEq of potassium has been ordered with plan for recheck of potassium this afternoon. Hemoglobin today is at 6.8 and patient will be transfused 1 unit of packed RBCs. 12/14: Patient states that she slept well during the night. She denies having any bowel movement but is passing gas. Dr. Abrams has ordered a CAT scan with oral contrast per NG. 12/15: Patient is doing better so far had some bowel movement still have an NG tube and will keep NG tube till tomorrow she still seen Dr. suggs no need for any surgical intervention and she doesn't have any total bowel obstruction but more partial. 12/16: The patient was seen and evaluated today. She reports she is feeling much better today. She did have a very large bowel movement last night per nursing staff. Patients denies any abdominal pain or nausea. She is asking to eat today. Will pull her NG tube today and diet as tolerated. Her white blood count is still elevated secondary to her myelofirbosis. She will be discharged with subacute rehab. Discharge diagnoses 1. abdominal pain and partial obstruction 2. Pancytopenia and bone marrow fibrosis and myeloproliferative disorders 3. Leukocytosis with fever 4. Chronic history of pancreatic duct stent 5. Chest pain on admission 6. Generalized anxiety disorder 7. Urinary retention on last hospitalization 8. Patient self reports chronic kidney disease stage II 9. Severe osteoarthritis of both hips 10. Chronic pain syndrome 11. Gaseousness with abdominal pain The above impression and plan have been discussed and directed by the signing physician. Genevieve House nurse practitioner, acting as scribe for signing physician. Patient Condition at Discharge: Good Plan - Discharge Summary New Discharge Prescriptions: New Acetaminophen Tab [Tylenol] 650 mg PO Q6HR PRN tab PRN Reason: Mild Pain Or Fever > 100.5 Bisacodyl [Dulcolax] 5 mg PO BID #60 tablet. Prochlorperazine [Compazine] 10 mg PO Q6HR PRN tab PRN Reason: Nausea And Vomiting Wheat Dextrin [Benefiber] 1 each PO DAILY #30 powd.pack Continue ALPRAZolam [Xanax] 0.25 mg PO Q8HR PRN #60 PRN Reason: Muscle Spasm oxyCODONE HCL 10 mg PO Q4HR PRN #60 PRN Reason: Severe Pain No Action Ondansetron Odt [Zofran ODT] 4 mg PO Q8HR PRN #20 tab PRN Reason: Nausea Lutein 20 mg PO DAILY Folic Acid 0.4 mg PO DAILY Cyanocobalamin (Vitamin B-12) [Vitamin B-12] 1,000 mcg PO MOWEFR Cholecalciferol [Vitamin D3] 5,000 unit PO Q48H ALPRAZolam [Xanax] 0.25 mg PO Q8HR PRN PRN Reason: Muscle Spasm oxyCODONE HCL 10 mg PO Q4HR PRN PRN Reason: Severe Pain Diltiazem HCl 120 mg PO TID@0600,1400,2200 Vitamin A 8,000 unit PO DAILY Nystatin 100,000 Unit/ml Susp [Mycostatin Oral Susp] 500,000 unit PO QID # 250 ml Pantoprazole [Protonix] 40 mg PO DAILY #30 tab Tamsulosin [Flomax] 0.4 mg PO PC-BRKFST #30 cap Vitamin C Odt Tablet 1 tab PO DAILY Lactulose [Cephulac] 20 gm PO BID PRN PRN Reason: Constipation Furosemide [Lasix] 20 mg PO DAILY PRN PRN Reason: Edema Unknown Cream 1 applic TOPICAL DIRECTED SILVER sulfADIAZINE CREAM [Silvadene Cream] 1 applic TOPICAL BID Compounded Cream 1 applic TOPICAL QID PRN PRN Reason: Skin Irritation Discharge Medication List Ondansetron Odt [Zofran ODT] 4 mg PO Q8HR PRN #20 tab 05/08/15 [Rx] ALPRAZolam [Xanax] 0.25 mg PO Q8HR PRN 11/15/16 [History] Cholecalciferol [Vitamin D3] 5,000 unit PO Q48H 11/15/16 [History] Cyanocobalamin (Vitamin B-12) [Vitamin B-12] 1,000 mcg PO MOWEFR 11/15/16 [ History] Diltiazem HCl 120 mg PO TID@0600,1400,2200 11/15/16 [History] Folic Acid 0.4 mg PO DAILY 11/15/16 [History] Lutein 20 mg PO DAILY 11/15/16 [History] Vitamin A 8,000 unit PO DAILY 11/15/16 [History] oxyCODONE HCL 10 mg PO Q4HR PRN 11/15/16 [History] Nystatin 100,000 Unit/ml Susp [Mycostatin Oral Susp] 500,000 unit PO QID #250 ml 11/22/16 [Rx] Pantoprazole [Protonix] 40 mg PO DAILY #30 tab 11/22/16 [Rx] Tamsulosin [Flomax] 0.4 mg PO PC-BRKFST #30 cap 11/22/16 [Rx] Compounded Cream 1 applic TOPICAL QID PRN 12/08/16 [History] Furosemide [Lasix] 20 mg PO DAILY PRN 12/08/16 [History] Lactulose [Cephulac] 20 gm PO BID PRN 12/08/16 [History] SILVER sulfADIAZINE CREAM [Silvadene Cream] 1 applic TOPICAL BID 12/08/16 [ History] Unknown Cream 1 applic TOPICAL DIRECTED 12/08/16 [History] Vitamin C Odt Tablet 1 tab PO DAILY 12/08/16 [History] ALPRAZolam [Xanax] 0.25 mg PO Q8HR PRN #60 12/16/16 [Rx] Acetaminophen Tab [Tylenol] 650 mg PO Q6HR PRN tab 12/16/16 [Rx] Bisacodyl [Dulcolax] 5 mg PO BID #60 tablet. 12/16/16 [Rx] Prochlorperazine [Compazine] 10 mg PO Q6HR PRN tab 12/16/16 [Rx] Wheat Dextrin [Benefiber] 1 each PO DAILY #30 powd.pack 12/16/16 [Rx] oxyCODONE HCL 10 mg PO Q4HR PRN #60 12/16/16 [Rx] Follow up Appointment(s)/Referral(s): [facility], [NON-STAFF] - As Needed Zachary Dorantes DO [Primary Care Provider] - 1-2 days Patient Instructions/Handouts: Constipation (DC) Activity/Diet/Wound Care/Special Instructions: Up with assist and walker, following fall precautions.
[2016-12-16 15:26] VITALS: BP 132/62; PULSE 93
--- NOTE | 2016-12-20 20:04 | P.PN ---
Subjective Principal diagnosis: Fever and leukocytosis questionably secondary to myelodysplasia The patient is afebrile, the patient NG is out and tolerating a clear liquid diet and did have small bowel movement., The patient denies significant abdominal pain, no nausea or vomiting she has some shortness of breath , mild cough but no sputum Objective - Vital Signs Vital signs: Vital Signs Temp 97.3 F L 12/16/16 07:00 Pulse 103 H 12/16/16 07:00 Resp 20 12/16/16 07:00 BP 134/75 12/16/16 07:00 Pulse Ox 94 L 12/16/16 07:00 Intake & Output 12/15/16 12/16/16 12/16/16 18:59 06:59 18:59 Intake Total 450 Output Total 0 Balance 450 0 Weight 49.8 kg Intake: IV 450 Dextrose 5%-0.45% NaCl 1, 400 000 ml @ 100 mls/hr IV . Q10H KRISTI Rx#:[id number] Piperacillin-Tazobactam 3 50 .375 gm In Dextrose/Water 1 50ml.bag @ 12.5 mls/hr IVPB Q8H KRISTI Rx#: [id number] Output: Gastric Drainage 0 Other: Voiding Method Bedside Commode # Voids 5 3 # Bowel Movements 2 1 - Exam Elderly female lying in bed in no distress HEENT: Oral thrush some improvement LUNGS: Unlabored breathing and decreased breath sound at the bases heart: S1,S2 regular rate and rhythm ABDOMEN: Soft no tenderness no organomegaly Extremities no edema feet - Labs CBC & Chem 7: 12/16/16 08:26 12/16/16 08:26 Labs: Abnormal Lab Results - Last 24 Hours (Table) 12/16/16 12/16/16 Range/Units 08:26 08:26 WBC 33.9 H* (3.8-10.6) k/uL RBC 2.83 L (3.80-5.40) m/uL Hgb 8.1 L (11.4-16.0) gm/dL Hct 24.8 L (34.0-46.0) % RDW 16.5 H (11.5-15.5) % Plt Count 53 L (150-450) k/uL Neutrophils # (Manual) 21.2 H (1.3-7.7) k/uL Monocytes # (Manual) 3.6 H (0-1.0) k/uL Eosinophils # (Manual) 0.8 H (0-0.7) k/uL Sodium 134 L (137-145) mmol/L Chloride 97 L (98-107) mmol/L Alkaline Phosphatase 301 H (38-126) U/L Total Protein 5.5 L (6.3-8.2) g/dL Albumin 2.8 L (3.5-5.0) g/dL Assessment and Plan (1) Fever Status: Acute (2) Leukocytosis Status: Acute (3) Oral thrush Status: Acute (4) Aspiration pneumonitis Status: Acute Plan: 1-patient with low-grade fever admission that has resolved however the white count remains to be elevated questionable secondary to underlying myelofibrosis , patient with evidence of thrush she did have CT of abdominal pelvis with evidence of dependent consultation the lower lobes small bowel dilatation and a question of possible aspiration pneumonia, we were unable to obtain sputum , pt will finish therapy with PO Avelox 400mg daily x 7 days along with the nystatin swish and swallow Time with Patient: Less than 30
== END 2016-12-16 16:25 | DRG 840 ==
LOC: EC 20:18 → 6SEL 12-09 00:47 → 4MS4W 12-11 10:23
PROVIDERS: ADMIT Family Medicine; ATTEND Family Medicine
PROC: 0D9670Z Drainage of Stomach with Drainage Device, Via Natural or Artificial Opening (ICD-10-PCS; principal; 2016-12-12)
PROC: 30233N1 Transfusion of Nonautologous Red Blood Cells into Peripheral Vein, Percutaneous Approach (ICD-10-PCS; 2016-12-13)
DX: C94.6 Myelodysplastic disease, not elsewhere classified (principal); E43 Unspecified severe protein-calorie malnutrition; J69.0 Pneumonitis due to inhalation of food and vomit; K56.60 Unspecified intestinal obstruction; D61.818 Other pancytopenia; B37.0 Candidal stomatitis; K90.9 Intestinal malabsorption, unspecified; K86.1 Other chronic pancreatitis; D47.1 Chronic myeloproliferative disease; G62.9 Polyneuropathy, unspecified; T40.2X5A Adverse effect of other opioids, initial encounter; K59.03 Drug induced constipation; F41.1 Generalized anxiety disorder; I12.9 Hypertensive chronic kidney disease with stage 1 through stage 4 chronic kidney disease, or unspecified chronic kidney disease; N18.2 Chronic kidney disease, stage 2 (mild); F17.200 Nicotine dependence, unspecified, uncomplicated; M16.0 Bilateral primary osteoarthritis of hip; G89.4 Chronic pain syndrome; E78.5 Hyperlipidemia, unspecified; Z90.49 Acquired absence of other specified parts of digestive tract; I25.10 Atherosclerotic heart disease of native coronary artery without angina pectoris; Z96.89 Presence of other specified functional implants; Z79.899 Other long term (current) drug therapy; Z88.8 Allergy status to other drugs, medicaments and biological substances; Z88.9 Allergy status to unspecified drugs, medicaments and biological substances; Z91.02 Food additives allergy status
CPT/HCPCS: 36415; 71020; 71275; 74000; 74020; 74176; 74181; 80048; 80053; 81001; 82550; 82553; 83690; 83735; 83880; 84132; 84484; 85025; 85027; 85379; 85610; 85730; 86850; 86900; 86901; 86920; 87040; 87086; 93005; 93306; 96361; 96365; 96366; 96375; 99285

== ENCOUNTER 2017-01-11 18:35 | Inpatient (IN) | payer MEDICARE ==
[2017-01-11] MEDS ORDERED: ACETAMINOPHEN TAB 325 MG TAB PO PRN (20:50)
[2017-01-11] MEDS ORDERED: NALOXONE 0.4 MG/ML 1 ML VIAL IV PRN (20:50)
--- NOTE | 2017-01-11 20:50 | ED ---
General Adult HPI - General Chief complaint: Recheck/Abnormal Lab/Rx Stated complaint: Low Hemoglobin Time Seen by Provider: 01/11/17 19:29 Source: patient Mode of arrival: wheelchair Limitations: no limitations - History of Present Illness Initial comments: 66 years old lady came from home was sent in by Dr. Espino stating her hemoglobin is 5.7 and she needs a transfusion. She been feeling weak and dizzy but no other symptoms denies any headaches no migraines no chest pain or shortness of breath no abdominal pain no frequency urgency dysuria - Related Data Home Medications Medication Instructions Recorded Confirmed Cholecalciferol [Vitamin D3] 5,000 unit PO Q48H 11/15/16 01/11/17 Cyanocobalamin (Vitamin B-12) 1,000 mcg PO MOWEFR 11/15/16 01/11/17 [Vitamin B-12] Diltiazem HCl 120 mg PO TID@0600,1400,2200 11/15/16 01/11/17 Folic Acid 0.4 mg PO DAILY 11/15/16 01/11/17 Lutein 20 mg PO DAILY 11/15/16 01/11/17 Vitamin A 8,000 unit PO DAILY 11/15/16 01/11/17 Compounded Cream 1 applic TOPICAL QID PRN 12/08/16 01/11/17 Furosemide [Lasix] 20 mg PO DAILY PRN 12/08/16 01/11/17 Lactulose [Cephulac] 20 gm PO BID PRN 12/08/16 01/11/17 Vitamin C Odt Tablet 1 tab PO DAILY 12/08/16 01/11/17 Bisacodyl [Dulcolax] 5 mg PO BID PRN 01/11/17 01/11/17 Metoprolol Tartrate [Lopressor] 25 mg PO DAILY PRN 01/11/17 01/11/17 Wheat Dextrin [Benefiber] 1 pack PO DAILY 01/11/17 01/11/17 Previous Rx's Medication Instructions Recorded Ondansetron Odt [Zofran ODT] 4 mg PO Q8HR PRN #20 tab 05/08/15 Pantoprazole [Protonix] 40 mg PO DAILY #30 tab 11/22/16 Tamsulosin [Flomax] 0.4 mg PO PC-BRKFST #30 cap 11/22/16 ALPRAZolam [Xanax] 0.25 mg PO Q8HR PRN #60 12/16/16 oxyCODONE HCL 10 mg PO Q4HR PRN #60 12/16/16 Allergies Allergy/AdvReac Type Severity Reaction Status Date / Time erythromycin base Allergy Rash/Hives Verified 01/11/17 18:50 hydrochlorothiazide Allergy "DROPS Verified 01/11/17 18:50 SODIUM LEVEL" peppermint Allergy Rash/Hives Verified 01/11/17 18:50 Tetracyclines Allergy Swelling Verified 01/11/17 18:50 atenolol AdvReac PASSES OUT Verified 01/11/17 18:50 nifedipine [From Procardia] AdvReac HAIR LOSS Verified 01/11/17 18:50 pregabalin [From Lyrica] AdvReac LEG PAIN Verified 01/11/17 18:50 Dbbozaq-Qts-Awd Reductase AdvReac LEG PAIN Verified 01/11/17 18:50 Inhibitor [employer] Allergy Rash/Hives Uncoded 01/11/17 18:50 Review of Systems ROS Statement: Those systems with pertinent positive or pertinent negative responses have been documented in the HPI. ROS Other: All systems not noted in ROS Statement are negative. Past Medical History Past Medical History: Coronary Artery Disease (CAD), GI Bleed, Hyperlipidemia, Hypertension, Osteoarthritis (OA), Renal Disease Additional Past Medical History / Comment(s): pancreatitis, djd, neuropathy, Chronic back pain, mild stenosis in the neck, anemia, thrombocyopenia History of Any Multi-Drug Resistant Organisms: None Reported Past Surgical History: Adenoidectomy, Appendectomy, Tonsillectomy Additional Past Surgical History / Comment(s): B/L lasix in 1999 Past Anesthesia/Blood Transfusion Reactions: No Reported Reaction Past Psychological History: Anxiety Smoking Status: Current every day smoker Past Alcohol Use History: None Reported Past Drug Use History: None Reported - Past Family History Mother Family Medical History: Diabetes Mellitus, Hypertension, Renal Disease Additional Family Medical History / Comment(s): Heart and anxiety issues. Had quadraple bypass, Father Additional Family Medical History / Comment(s): Quad heart bypass General Exam - General Exam Comments Initial Comments: General: The patient is awake and alert, in no distress, and does not appear acutely ill. Looks pale and tired GCS is 15 Skin: Skin is warm and dry and no rashes or lesions are noted. Eye: Pupils are equal, round and reactive to light, extra-ocular movements are intact; there is normal conjunctiva bilaterally. Ears, nose, mouth and throat: There are moist mucous membranes and no oral lesions. Neck: The neck is supple, there is no tenderness or JVD. Cardiovascular: There is a regular rate and rhythm. No murmur, rub or gallop is appreciated. Respiratory: To auscultation bilateral, no wheezing no rhonchi no distress respiratory moreira noticed Gastrointestinal: Soft, non-distended, non-tender abdomen without masses or organomegaly noted. There is no rebound or guarding present. Bowel sounds are unremarkable. Back: There is no tenderness to palpation in the midline. There is no obvious deformity. Musculoskeletal: Normal ROM, no tenderness, There is no pedal edema. There is no calf tenderness or swelling. No cords were appreciated. Neurological: CN II-XII intact, Cranial nerves III through XII are intact. There are no obvious motor or sensory deficits. Coordination appears grossly intact. Speech is normal. Psychiatric: Cooperative, appropriate mood & affect, normal judgment. Limitations: no limitations Course Vital Signs 01/11/17 18:49 Temperature 98.6 F Pulse Rate 98 Respiratory 20 Rate Blood Pressure 120/60 O2 Sat by Pulse 100 Oximetry She was sent in by Dr. Dorantes patient showed me her hemoglobin herself on her according to today's hemoglobin she has 5.6 [address] spoke with the Dr[address] Burrell her and now Dr. Dorantes she be admitted under selective unit for 2 units of packed red cells EKG Findings - EKG Comments: EKG Findings:: This is normal sinus rhythm ventricular rate is 93 SD interval is 142 QRS duration is 68 QT/QTc is 348/432 and we have this EKG reveals some T- wave flattening in aVL no ST elevation or ST depression noticed in the other EKGs Disposition Clinical Impression: Severe anemia Disposition: ADMITTED IP TO THIS HOSP Condition: Good Referrals: Zachary Dorantes DO [Primary Care Provider] - 1-2 days
[2017-01-11] MEDS ORDERED: FUROSEMIDE 20 MG TAB PO PRN (20:57)
[2017-01-11] MEDS ORDERED: METOPROLOL TARTRATE 25 MG TAB PO PRN (20:57)
[2017-01-11] MEDS ORDERED: BISACODYL 5 MG TABLET.DR PO PRN (20:57)
[2017-01-11] MEDS ORDERED: ONDANSETRON ODT 4 MG TAB PO PRN (20:57)
[2017-01-11] MEDS ORDERED: LACTULOSE 20 GM/30 ML CUP PO PRN (20:57)
[2017-01-11 21:01] LABS: Anisocytosis Moderate; Aty Lym Flag Slight; CH 27.3; CHCM 31.9; HDW 4.04; Hypochromasia Moderate; Immature Gran Flag Moderate; Large Platelets Flag Slight; MCH 27.9 pg (25.0-35.0); MCHC 32.2 g/dL (31.0-37.0); MCV 86.6 fL (80.0-100.0); Mean Platelet Volume 10.2; Poikilocytosis Moderate; RBC 1.88 m/uL (3.80-5.40); RDW 20.3 % (11.5-15.5); WBC 15.7 k/uL (3.8-10.6); WBC (Perox) 16.07
[2017-01-11 21:03] LABS: HGB 5.2 gm/dL (11.4-16.0)
[2017-01-11 21:04] LABS: HCT 16.2 % (34.0-46.0)
[2017-01-11 21:19] LABS: Add Differential Manual Differential
[2017-01-11 21:24] LABS: Manual Review Performed; Metamyelocytes % 4 %; Myelocytes % 4 %; Nucleated Red Blood Cells 0 /100 WBC (0-0); Ovalocytes Present; Polychromasia Present; Tear Drop Cells Present; Total Cells Counted 100
[2017-01-11 23:05] VITALS: BMI 19.3
[2017-01-11] MEDS: DILTIAZEM ORAL 60 MG TAB PO SCH (23:10)
[2017-01-11] MEDS: ALPRAZolam 0.25 MG TAB PO PRN (23:10)
[2017-01-12] MEDS: DILTIAZEM ORAL 60 MG TAB PO SCH (05:49)
[2017-01-12 08:23] VITALS: RESP 16
[2017-01-12] MEDS: ALPRAZolam 0.25 MG TAB PO PRN (08:28)
[2017-01-12] MEDS ORDERED: TAMSULOSIN 0.4 MG CAP.ER.24H PO SCH (08:30)
[2017-01-12] MEDS ORDERED: NON-FORMULARY DRUG (Lutein [Lutein] 20 MG) PO SCH (09:00)
[2017-01-12] MEDS ORDERED: PANTOPRAZOLE 40 MG TABLET PO SCH (09:00)
[2017-01-12 10:44] LABS: ALT 24 U/L (9-52); AST 20 U/L (14-36); Alkaline Phosphatase 258 U/L (38-126); Anion Gap 9 mmol/L; Blood Urea Nitrogen 11 mg/dL (7-17); Calcium 8.8 mg/dL (8.4-10.2); Carbon Dioxide 27 mmol/L (22-30); Chloride 101 mmol/L (98-107); Glucose 82 mg/dL (74-99); Non-African American GFR(MDRD) >60 (>60 ml/min/1.73 sqM); Potassium 4.6 mmol/L (3.5-5.1); Sodium 137 mmol/L (137-145); Total Bilirubin 0.3 mg/dL (0.2-1.3); Total Protein 5.6 g/dL (6.3-8.2)
[2017-01-12 11:01] LABS: Anisocytosis Slight; CH 29.2; HCT 24.4 % (34.0-46.0); HDW 4.27; Hypochromasia Slight; Immature Gran Flag Marked; MCH 29.3 pg (25.0-35.0); MCHC 32.9 g/dL (31.0-37.0); MCV 89.1 fL (80.0-100.0); Mean Platelet Volume 9.5; Poikilocytosis Moderate; RBC 2.74 m/uL (3.80-5.40); RDW 17.7 % (11.5-15.5); WBC (Perox) 13.42
[2017-01-12 11:48] VITALS: BP 129/60; PULSE 93; TEMP 97.2
[2017-01-12] MEDS ORDERED: CALCIUM POLYCARBOPHIL 625 MG TAB PO SCH (12:00)
[2017-01-12] MEDS ORDERED: VITAMIN A 10,000 UNIT CAPSULE PO SCH (12:00)
[2017-01-12] MEDS ORDERED: FOLIC ACID 1 MG TAB PO SCH (12:00)
[2017-01-12] MEDS ORDERED: CYANOCOBALAMIN 500 MCG TAB PO SCH (12:00)
[2017-01-12] MEDS ORDERED: ASCORBIC ACID 500 MG TAB PO SCH (12:00)
[2017-01-12] MEDS ORDERED: CHOLECALCIFEROL 1,000 UNIT TAB PO SCH (12:00)
--- NOTE | 2017-01-12 14:16 | P.HPIM ---
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 This is a 66-year-old female patient of Dr. Dorantes with underlying history of CAD, hyperlipidemia, hypertension, pancreatitis, neuropathy chronic back pain chronic opioid-induced constipation. She has had several recent hospitalizations due to lower GI bleed thought to be due to diverticulitis as well as thrombocytopenia and anemia and leukocytosis followed by Dr. Navarrete. Patient recently underwent bone marrow biopsy. Results were not available during her last hospitalization but she was discharged home with a white count of 18.7, hemoglobin was 8.9 and platelet count of 43 on improved. She also had an elevated alkaline phosphatase of 205. Patient presented back to [facility] emergency center on December 08 with complaints of chest pain that started the day before and continued to worsen. She also had temperature of 100.8 and was complaining of shortness of breath and it hurt when she took a deep breath. There was no trauma to the chest wall or recent fall. She underwent a CTA of the chest that showed no definite acute pulmonary embolism. Trace bilateral pleural effusions. Chest x-ray showed no acute cardiopulmonary disease. She again presented with leukocytosis of 27.2, hemoglobin 7.6 and platelet count was up to 131. Her d-dimer was elevated at 3.26. Sodium 1:30 and chloride 93. Initial troponin was 0.012, proBNP 2120. Urinalysis was cloudy, nitrate and leukoesterase negative. Cardiology consult requested, repeat troponins, consult with Dr. Saravia from infectious disease and consult has been added for Dr. Navarrete. 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 Iraheta for second opinion prior to her starting on Jakafi(Ruxolutinib), however the patient ended up going to see Dr. Dorantes for laboratory evaluation she was found to have a hemoglobin of 5.70 ask her to go to the ER for evaluation patient showed up in the ER yesterday and she was admitted to the hospital for blood transfusion, patient did receive 2 units of packed red blood cells her hemoglobin is up to 8.9 she is wanted to be discharged home today in follow-up with her primary care physician as an outpatient. Review of Systems Constitutional: Reports anorexia, Reports fatigue, Reports malaise, Reports weakness, Reports weight loss, Denies chronic headaches, Denies chronic pain, Denies lethargy Eyes: denies blurred vision, denies bulging eye, denies decreased vision Ears: deny: decreased hearing Ears, nose, mouth and throat: Denies dysphagia, Denies neck lump, Denies swelling in throat, Denies sore throat, Denies vertigo Cardiovascular: Reports dyspnea on exertion, Reports shortness of breath, Denies chest pain, Denies claudication, Denies irregular heart beat Respiratory: Reports cough with sputum, Reports dyspnea, Denies congestion, Denies home oxygen, Denies sleep apnea, Denies snoring, Denies wheezing Gastrointestinal: Reports nausea, Denies abdominal pain, Denies bloating, Denies change in bowel habits, Denies heartburn, Denies hematemesis, Denies melena, Denies vomiting Genitourinary: Denies dysuria, Denies hematuria Menstruation: Reports postmenopausal Musculoskeletal: Reports gait dysfunction, Reports low back pain, Denies myalgias Musculoskeletal: absent: ankle pain, ankle stiffness, ankle swelling, elbow pain , elbow stiffness, elbow swelling, foot pain, foot stiffness, foot swelling, hand pain, hand stiffness, hand swelling, hip pain, hip stiffness, hip swelling , knee pain, knee stiffness, knee swelling, shoulder pain, shoulder stiffness, shoulder swelling, wrist pain, wrist stiffness, wrist swelling Integumentary: Denies pruritus, Denies rash Neurological: Denies numbness, Denies weakness Psychiatric: Reports anxiety, Reports depression, Reports sadness/tearfulness, Denies sleep disturbances, Denies suicidal ideation Endocrine: Denies fatigue, Denies weight change Past Medical History Past Medical History: Coronary Artery Disease (CAD), GI Bleed, Hyperlipidemia, Hypertension, Osteoarthritis (OA), Renal Disease Additional Past Medical History / Comment(s): pancreatitis, djd, neuropathy, Chronic back pain, mild stenosis in the neck, anemia, thrombocyopenia, fibromyalgia History of Any Multi-Drug Resistant Organisms: None Reported Past Surgical History: Adenoidectomy, Appendectomy, Tonsillectomy Additional Past Surgical History / Comment(s): B/L lasix in 1999 Past Anesthesia/Blood Transfusion Reactions: No Reported Reaction Past Psychological History: Anxiety Smoking Status: Current every day smoker Past Alcohol Use History: None Reported Additional Past Alcohol Use History / Comment(s): patient states she takes one or two puffs a day. currently trying to quit. Past Drug Use History: None Reported - Past Family History Mother Family Medical History: Diabetes Mellitus, Hypertension, Renal Disease Additional Family Medical History / Comment(s): Heart and anxiety issues. Had quadraple bypass, Father Additional Family Medical History / Comment(s): Quad heart bypass Medications and Allergies Home Medications Medication Instructions Recorded Confirmed Type Cholecalciferol [Vitamin D3] 5,000 unit PO Q48H 11/15/16 01/11/17 History Cyanocobalamin (Vitamin B-12) 1,000 mcg PO MOWEFR 11/15/16 01/11/17 History [Vitamin B-12] Diltiazem HCl 120 mg PO TID@0600,1400,2200 11/15/16 01/11/17 History Folic Acid 0.4 mg PO DAILY 11/15/16 01/11/17 History Lutein 20 mg PO DAILY 11/15/16 01/11/17 History Vitamin A 8,000 unit PO DAILY 11/15/16 01/11/17 History Compounded Cream 1 applic TOPICAL QID PRN 12/08/16 01/11/17 History Furosemide [Lasix] 20 mg PO DAILY PRN 12/08/16 01/11/17 History Lactulose [Cephulac] 20 gm PO BID PRN 12/08/16 01/11/17 History Vitamin C Odt Tablet 1 tab PO DAILY 12/08/16 01/11/17 History Bisacodyl [Dulcolax] 5 mg PO BID PRN 01/11/17 01/11/17 History Metoprolol Tartrate [Lopressor] 25 mg PO DAILY PRN 01/11/17 01/11/17 History Wheat Dextrin [Benefiber] 1 pack PO DAILY 01/11/17 01/11/17 History Allergies Allergy/AdvReac Type Severity Reaction Status Date / Time erythromycin base Allergy Rash/Hives Verified 01/11/17 18:50 hydrochlorothiazide Allergy "DROPS Verified 01/11/17 18:50 SODIUM LEVEL" peppermint Allergy Rash/Hives Verified 01/11/17 18:50 Tetracyclines Allergy Swelling Verified 01/11/17 18:50 atenolol AdvReac PASSES OUT Verified 01/11/17 18:50 nifedipine [From Procardia] AdvReac HAIR LOSS Verified 01/11/17 18:50 pregabalin [From Lyrica] AdvReac LEG PAIN Verified 01/11/17 18:50 Xpbeflu-Voi-Edo Reductase AdvReac LEG PAIN Verified 01/11/17 18:50 Inhibitor [employer] Allergy Rash/Hives Uncoded 01/11/17 18:50 Physical Exam Vitals: Vital Signs Temp Pulse Pulse Resp BP BP Pulse Ox 01/12/17 08:00 97.0 F L 84 16 113/51 97 01/12/17 06:00 97.1 F L 83 18 118/56 97 01/12/17 05:43 97.1 F L 83 16 118/56 97 01/12/17 04:00 86 16 01/12/17 03:54 97.1 F L 86 16 129/59 98 01/12/17 03:34 98.0 F 89 16 113/56 99 01/12/17 03:04 89 16 116/55 98 01/12/17 02:58 97.2 F L 87 16 125/58 99 01/12/17 02:54 97.0 F L 89 16 116/56 100 01/12/17 02:28 97.0 F L 90 16 131/57 100 01/12/17 00:09 97.4 F L 90 16 108/53 100 01/12/17 00:00 97.7 F 91 16 117/54 100 01/11/17 23:39 93 16 126/55 100 01/11/17 23:37 92 16 126/55 100 01/11/17 23:29 97.7 F 91 16 117/54 100 01/11/17 22:20 97.3 F L 95 16 128/61 100 01/11/17 20:50 92 16 118/57 100 01/11/17 18:49 98.6 F 98 20 120/60 100 Intake and Output 01/11/17 01/12/17 01/12/17 22:59 06:59 14:59 Intake Total 180 1480 120 Balance 180 1480 120 Intake: IV 180 860 0.9 180 240 PRBC 620 Oral 120 Blood Product 620 Rc As-1 Unit 310 [id number] Rc As-3 Unit 310 [id number] Other: Voiding Method Toilet Toilet # Voids 1 Weight 51.256 kg 50.4 kg - Constitutional General appearance: mild distress, thin - EENT Eyes: anicteric sclerae, EOMI, PERRLA, no ptosis, no scleral icterus, normal appearance ENT: hearing grossly normal, NA/AT, normal oropharynx, no thrush Ears: bilateral: normal - Neck Neck: no lymphadenopathy, normal ROM, no rigidity, no stridor, no thyromegaly Carotids: bilateral: upstroke normal Thyroid: bilateral: normal size - Respiratory Respiratory: bilateral: diminished, negative: dullness, rales, rhonchi, wheezing , prolonged expiration, prolonged inspiration - Cardiovascular Rhythm: regular Heart sounds: normal: S1, S2 Abnormal Heart Sounds: systolic murmur, no diastolic murmur, no rub, S3 Gallop, no S4 Gallop, no click - Gastrointestinal General gastrointestinal: normal bowel sounds, soft, splenomegaly, no tenderness , no umbilical hernia, no ventral hernia - Integumentary Integumentary: normal, normal turgor - Musculoskeletal Musculoskeletal: generalized weakness, strength equal bilaterally - Psychiatric Psychiatric: A&O x's 3, appropriate affect, intact judgment & insight Results CBC & Chem 7: 01/12/17 10:04 01/12/17 10:04 Labs: Abnormal Lab Results - Last 24 Hours (Table) 01/11/17 01/11/17 Range/Units 19:05 19:05 WBC 15.7 H (3.8-10.6) k/uL RBC 1.88 L (3.80-5.40) m/uL Hgb 5.2 L* (11.4-16.0) gm/dL Hct 16.2 L* (34.0-46.0) % RDW 20.3 H (11.5-15.5) % Plt Count 95 L (150-450) k/uL Monocytes # (Manual) 3.45 H (0-1.0) k/uL Crossmatch See Detail Thrombosis Risk Factor Assmnt - DVT/VTE Prophylaxis DVT/VTE Prophylaxis: Mechanical Prophylaxis ordered - Choose All That Apply Any of the Below Risk Factors Present?: Yes Each Factor Represents 1 point: Age 41-60 years, Swollen legs (current) Each Risk Factor Represents 2 Points: Age 61-74 years Thrombosis Risk Factor Assessment Total Risk Factor Score: 4 Thrombosis Risk Factor Assessment Level: Moderate Risk Assessment and Plan Plan: Assessment and plan: 1. 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 Status post type and cross and transfuse 2 units of packed red blood cells. Patient is in the process of see Dr. Myrtle liu in [place] to be started on Jakafi as a treatment for myelofibrosis. 2. Bicytopenia with thrombocytopenia and anemia. This is due to myelofibrosis. 3. Chronic history of pancreatic duct stent, last MRCP was in December 2015. Her computed tomography scan of the abdomen and pelvis did show dilatation of the extrahepatic biliary and pancreatic duct. Without any significant changes 4. Chronic malabsorption state from poor oral intake, and ongoing pancreas problems, lipase to be checked, vitamin B12 would be obtained later await CAT scan 5. Weight loss off 17 pounds in 15 months nutritional supplementation would be ordered, patient would need to go for an EGD and colonoscopy, she would need to have a celiac panel. 6. GI prophylaxis on Protonix 40 mg orally once every day. 7. DVT prophylaxis on TRISTAN hose and SCDs. 8. Anxiety. Continue Xanax as needed. 9. Urinary retention. Continue patient on Flomax 0.4 mg orally once every day. 10. Reported history of renal disease stage II. Her GFR is greater than 60. Avoid NSAIDs. Her intact PTH is elevated. 11. Chronic pain syndrome. Continue patient on current pain management. 12. Severe osteoarthritis of both hips. Continue to use the walker and avoid falling. 13. Is stable to be discharged home with follow-up with her primary care physician as an outpatient 1 week. 14. Patient is to follow-up with Dr. Navarrete and Dr. Iraheta as an outpatient to be started as soon as possible on Jakafi.
[2017-01-12 14:51] LABS: Add Differential Manual Differential
[2017-01-12 15:00] LABS: Metamyelocytes % 3 %; Myelocytes % 3 %; Nucleated Red Blood Cells 1 /100 WBC (0-0); Total Cells Counted 200
[2017-01-12 15:01] LABS: WBC 12.8 k/uL (3.8-10.6)
[2017-01-12 15:05] LABS: Polychromasia Present
--- NOTE | 2017-01-12 17:38 | P.CONS ---
History of Present Illness - Reason for Consult Consult date: 01/12/17 anemia Requesting physician: Jennifer Saravia - Chief Complaint Hgb<6 on routine lab - History of Present Illness Ms. Bucio is a very pleasant female pt of Dr. Navarrete recently diagnosed with myelofibrosis, has not yet started treatment. Pt has been having CBC monitoring and transfusions as needed until treatment gets started. Pt states routine CBC at PCP showed Hgb5.7, pt admitted to have transfusion. Pt denies any severe s/s of anemia, no bleeding. Review of Systems All systems: negative Constitutional: Reports as per HPI Past Medical History Past Medical History: Coronary Artery Disease (CAD), GI Bleed, Hyperlipidemia, Hypertension, Osteoarthritis (OA), Renal Disease Additional Past Medical History / Comment(s): pancreatitis, djd, neuropathy, Chronic back pain, mild stenosis in the neck, anemia, thrombocyopenia, fibromyalgia History of Any Multi-Drug Resistant Organisms: None Reported Past Surgical History: Adenoidectomy, Appendectomy, Tonsillectomy Additional Past Surgical History / Comment(s): B/L lasix in 1999 Past Anesthesia/Blood Transfusion Reactions: No Reported Reaction Past Psychological History: Anxiety Smoking Status: Current every day smoker Past Alcohol Use History: None Reported Additional Past Alcohol Use History / Comment(s): patient states she takes one or two puffs a day. currently trying to quit. Past Drug Use History: None Reported - Past Family History Mother Family Medical History: Diabetes Mellitus, Hypertension, Renal Disease Additional Family Medical History / Comment(s): Heart and anxiety issues. Had quadraple bypass, Father Additional Family Medical History / Comment(s): Quad heart bypass Medications and Allergies Home Medications Medication Instructions Recorded Confirmed Type Cholecalciferol [Vitamin D3] 5,000 unit PO Q48H 11/15/16 01/11/17 History Cyanocobalamin (Vitamin B-12) 1,000 mcg PO MOWEFR 11/15/16 01/11/17 History [Vitamin B-12] Diltiazem HCl 120 mg PO TID@0600,1400,2200 11/15/16 01/11/17 History Folic Acid 0.4 mg PO DAILY 11/15/16 01/11/17 History Lutein 20 mg PO DAILY 11/15/16 01/11/17 History Vitamin A 8,000 unit PO DAILY 11/15/16 01/11/17 History Compounded Cream 1 applic TOPICAL QID PRN 12/08/16 01/11/17 History Furosemide [Lasix] 20 mg PO DAILY PRN 12/08/16 01/11/17 History Lactulose [Cephulac] 20 gm PO BID PRN 12/08/16 01/11/17 History Vitamin C Odt Tablet 1 tab PO DAILY 12/08/16 01/11/17 History Bisacodyl [Dulcolax] 5 mg PO BID PRN 01/11/17 01/11/17 History Metoprolol Tartrate [Lopressor] 25 mg PO DAILY PRN 01/11/17 01/11/17 History Wheat Dextrin [Benefiber] 1 pack PO DAILY 01/11/17 01/11/17 History Allergies Allergy/AdvReac Type Severity Reaction Status Date / Time erythromycin base Allergy Rash/Hives Verified 01/11/17 18:50 hydrochlorothiazide Allergy "DROPS Verified 01/11/17 18:50 SODIUM LEVEL" peppermint Allergy Rash/Hives Verified 01/11/17 18:50 Tetracyclines Allergy Swelling Verified 01/11/17 18:50 atenolol AdvReac PASSES OUT Verified 01/11/17 18:50 nifedipine [From Procardia] AdvReac HAIR LOSS Verified 01/11/17 18:50 pregabalin [From Lyrica] AdvReac LEG PAIN Verified 01/11/17 18:50 Gbwljkm-Oyz-Yaq Reductase AdvReac LEG PAIN Verified 01/11/17 18:50 Inhibitor [employer] Allergy Rash/Hives Uncoded 01/11/17 18:50 Physical Exam Vitals: Vital Signs Temp Pulse Pulse Resp BP BP Pulse Ox 01/12/17 11:44 97.2 F L 93 16 129/60 95 01/12/17 08:00 97.0 F L 84 16 113/51 97 01/12/17 06:00 97.1 F L 83 18 118/56 97 01/12/17 05:43 97.1 F L 83 16 118/56 97 01/12/17 04:00 86 16 01/12/17 03:54 97.1 F L 86 16 129/59 98 01/12/17 03:34 98.0 F 89 16 113/56 99 01/12/17 03:04 89 16 116/55 98 01/12/17 02:58 97.2 F L 87 16 125/58 99 01/12/17 02:54 97.0 F L 89 16 116/56 100 01/12/17 02:28 97.0 F L 90 16 131/57 100 01/12/17 00:09 97.4 F L 90 16 108/53 100 01/12/17 00:00 97.7 F 91 16 117/54 100 01/11/17 23:39 93 16 126/55 100 01/11/17 23:37 92 16 126/55 100 01/11/17 23:29 97.7 F 91 16 117/54 100 01/11/17 22:20 97.3 F L 95 16 128/61 100 01/11/17 20:50 92 16 118/57 100 01/11/17 18:49 98.6 F 98 20 120/60 100 Intake and Output 01/12/17 01/12/17 01/12/17 06:59 14:59 22:59 Intake Total 1480 120 Balance 1480 120 Intake: IV 860 0.9 240 PRBC 620 Oral 120 Blood Product 620 As-1 Unit 310 [id number] As-3 Unit 310 [id number] Other: Voiding Method Toilet # Voids 1 Weight 50.4 kg - Constitutional General appearance: no acute distress, thin - EENT Eyes: anicteric sclerae - Respiratory Respiratory: bilateral: CTA - Cardiovascular Heart sounds: normal: S1, S2 - Gastrointestinal General gastrointestinal: no absent bowel sounds, no decreased bowel sounds, no distended, no hepatomegaly, no hyperactive bowel sounds, normal bowel sounds, no organomegaly, no rigid, no scaphoid, soft, no splenomegaly, no tenderness, no umbilical hernia, no ventral hernia - Neurologic Neurologic: CNII-XII intact - Musculoskeletal Musculoskeletal: generalized weakness - Psychiatric Psychiatric: A&O x's 3, appropriate affect, intact judgment & insight Results CBC & Chem 7: 01/12/17 10:04 01/12/17 10:04 Labs: Abnormal Lab Results - Last 24 Hours (Table) 01/11/17 01/11/17 01/12/17 Range/Units 19:05 19:05 10:04 WBC 15.7 H 12.8 H (3.8-10.6) k/uL RBC 1.88 L 2.74 L (3.80-5.40) m/uL Hgb 5.2 L* 8.0 L D (11.4-16.0) gm/dL Hct 16.2 L* 24.4 L (34.0-46.0) % RDW 20.3 H 17.7 H (11.5-15.5) % Plt Count 95 L 83 L (150-450) k/uL Neutrophils # (Manual) 9.47 H (1.3-7.7) k/uL Lymphocytes # (Manual) 0.90 L (1.0-4.8) k/uL Monocytes # (Manual) 3.45 H 1.41 H (0-1.0) k/uL Nucleated RBCs 1 H (0-0) /100 WBC Alkaline Phosphatase (38-126) U/L Total Protein (6.3-8.2) g/dL Albumin (3.5-5.0) g/dL Crossmatch See Detail 01/12/17 Range/Units 10:04 WBC (3.8-10.6) k/uL RBC (3.80-5.40) m/uL Hgb (11.4-16.0) gm/dL Hct (34.0-46.0) % RDW (11.5-15.5) % Plt Count (150-450) k/uL Neutrophils # (Manual) (1.3-7.7) k/uL Lymphocytes # (Manual) (1.0-4.8) k/uL Monocytes # (Manual) (0-1.0) k/uL Nucleated RBCs (0-0) /100 WBC Alkaline Phosphatase 258 H (38-126) U/L Total Protein 5.6 L (6.3-8.2) g/dL Albumin 3.1 L (3.5-5.0) g/dL Crossmatch Assessment and Plan (1) Bicytopenia Narrative/Plan: Secondary to myelofibrosis. Severe anemia, transfuse to keep Hgb around 7, platelets adequate. Status: Acute (2) Myelofibrosis Narrative/Plan: Pt has treatment ordered and will be starting ruxolitinib soon. Status: Acute (3) Leukocytosis Narrative/Plan: Stable, neutrophilia, no acute intervention. Status: Chronic Plan: Pt ok from Hem [id number] to be discharged after transfusion and H&H review. She will need to keep follow up appts.
== END 2017-01-12 12:05 | disposition home health service (06) | DRG 812 ==
LOC: EC 18:35 → 6SEL 20:51
PROVIDERS: ADMIT Internal Medicine; ATTEND Internal Medicine
PROC: 30233N1 Transfusion of Nonautologous Red Blood Cells into Peripheral Vein, Percutaneous Approach (ICD-10-PCS; principal; 2017-01-11)
DX: D64.89 Other specified anemias (principal); D69.59 Other secondary thrombocytopenia; D75.81 Myelofibrosis; K90.9 Intestinal malabsorption, unspecified; G62.9 Polyneuropathy, unspecified; I25.10 Atherosclerotic heart disease of native coronary artery without angina pectoris; R33.9 Retention of urine, unspecified; I12.9 Hypertensive chronic kidney disease with stage 1 through stage 4 chronic kidney disease, or unspecified chronic kidney disease; N18.2 Chronic kidney disease, stage 2 (mild); E78.5 Hyperlipidemia, unspecified; M79.7 Fibromyalgia; R26.9 Unspecified abnormalities of gait and mobility; R63.4 Abnormal weight loss; M54.9 Dorsalgia, unspecified; M19.90 Unspecified osteoarthritis, unspecified site; F41.9 Anxiety disorder, unspecified; G89.4 Chronic pain syndrome; M16.0 Bilateral primary osteoarthritis of hip; T40.2X5A Adverse effect of other opioids, initial encounter; K59.03 Drug induced constipation; K86.9 Disease of pancreas, unspecified; R42 Dizziness and giddiness; D72.828 Other elevated white blood cell count; R53.1 Weakness; F32.9 Major depressive disorder, single episode, unspecified; F17.200 Nicotine dependence, unspecified, uncomplicated; Z79.899 Other long term (current) drug therapy; Z81.8 Family history of other mental and behavioral disorders; Z84.1 Family history of disorders of kidney and ureter; Z88.1 Allergy status to other antibiotic agents; Z88.8 Allergy status to other drugs, medicaments and biological substances; Z91.018 Allergy to other foods; Z87.19 Personal history of other diseases of the digestive system; Z86.19 Personal history of other infectious and parasitic diseases; Z91.048 Other nonmedicinal substance allergy status; Z83.3 Family history of diabetes mellitus; Z82.49 Family history of ischemic heart disease and other diseases of the circulatory system; Z90.49 Acquired absence of other specified parts of digestive tract; Z78.0 Asymptomatic menopausal state; Z96.89 Presence of other specified functional implants
CPT/HCPCS: 36415; 80053; 85025; 86850; 86900; 86901; 86920; 93005; 99284

== ENCOUNTER 2017-02-24 03:00 | Inpatient (IN) | payer MEDICARE ==
[2017-02-24] MEDS ORDERED: HYDROmorphone 1 MG/ML 1 ML SYRINGE IVP STA ×2 (03:16→04:37)
[2017-02-24] MEDS ORDERED: ONDANSETRON 4 MG/2 ML VIAL IVP STA (03:16)
--- NOTE | 2017-02-24 03:20 | ED ---
General Adult HPI - General Source: patient, EMS, RN notes reviewed Mode of arrival: EMS Limitations: no limitations <Vinicius Prescott - Last Filed: 02/24/17 03:18> <Jennifer Saravia - Last Filed: 02/24/17 06:47> - General Chief complaint: Back Pain/Injury Stated complaint: pain Time Seen by Provider: 02/24/17 03:10 - History of Present Illness Initial comments: This a 66-year-old female presents emergency department via EMS chief complaint of diffuse uncontrolled pain. Patient states that she does take OxyContin at home along with fentanyl patch. Patient states that the pain is worse since Tuesday when she tried to lift herself up. Patient states that she has myelofibrosis and recurrent she is Dr. Navarrete. Patient is not any treatment at this time. She states that this is worst pain she's ever had. Patient probably her hemoglobin the past in which she is required transfusions. Patient denies chest pain or shortness of breath. Patient denies any trauma. Patient denies fever or chills. (Vinicius Prescott) - Related Data Home Medications Medication Instructions Recorded Confirmed Cholecalciferol [Vitamin D3] 5,000 unit PO Q48H 11/15/16 02/24/17 Cyanocobalamin (Vitamin B-12) 1,000 mcg PO MOWEFR 11/15/16 02/24/17 [Vitamin B-12] Diltiazem HCl 120 mg PO TID@0600,1400,2200 11/15/16 02/24/17 Folic Acid 0.4 mg PO DAILY 11/15/16 02/24/17 Lutein 20 mg PO DAILY 11/15/16 02/24/17 Vitamin A 8,000 unit PO DAILY 11/15/16 02/24/17 Compounded Cream 1 applic TOPICAL QID PRN 12/08/16 02/24/17 Furosemide [Lasix] 20 mg PO DAILY PRN 12/08/16 02/24/17 Lactulose [Cephulac] 20 gm PO BID PRN 12/08/16 02/24/17 Vitamin C Odt Tablet 1 tab PO DAILY 12/08/16 02/24/17 Bisacodyl [Dulcolax] 5 mg PO BID PRN 01/11/17 02/24/17 Metoprolol Tartrate [Lopressor] 25 mg PO DAILY PRN 01/11/17 02/24/17 Wheat Dextrin [Benefiber] 1 pack PO DAILY 01/11/17 02/24/17 fentaNYL 75MCG/HR PATCH [Duragesic 75 mcg TRANSDERM Q48H 02/24/17 02/24/17 75MCG/HR] Previous Rx's Medication Instructions Recorded Ondansetron Odt [Zofran ODT] 4 mg PO Q8HR PRN #20 tab 05/08/15 Pantoprazole [Protonix] 40 mg PO DAILY #30 tab 11/22/16 Tamsulosin [Flomax] 0.4 mg PO PC-BRKFST #30 cap 11/22/16 ALPRAZolam [Xanax] 0.25 mg PO Q8HR PRN #60 12/16/16 oxyCODONE HCL 10 mg PO Q4HR PRN #60 12/16/16 Allergies Allergy/AdvReac Type Severity Reaction Status Date / Time erythromycin base Allergy Rash/Hives Verified 02/24/17 03:36 hydrochlorothiazide Allergy "DROPS Verified 02/24/17 03:36 SODIUM LEVEL" peppermint Allergy Rash/Hives Verified 02/24/17 03:36 Tetracyclines Allergy Swelling Verified 02/24/17 03:36 atenolol AdvReac PASSES OUT Verified 02/24/17 03:36 nifedipine [From Procardia] AdvReac HAIR LOSS Verified 02/24/17 03:36 pregabalin [From Lyrica] AdvReac LEG PAIN Verified 02/24/17 03:36 Gkxceiz-Krp-Eoy Reductase AdvReac LEG PAIN Verified 02/24/17 03:36 Inhibitor [employer] Allergy Rash/Hives Uncoded 02/24/17 03:36 Review of Systems ROS Other: All systems not noted in ROS Statement are negative. <Vinicius Prescott - Last Filed: 02/24/17 03:18> ROS Other: All systems not noted in ROS Statement are negative. <Jennifer Saravia - Last Filed: 02/24/17 06:47> ROS Statement: Those systems with pertinent positive or pertinent negative responses have been documented in the HPI. Past Medical History Past Medical History: Coronary Artery Disease (CAD), GI Bleed, Hyperlipidemia, Hypertension, Osteoarthritis (OA), Renal Disease Additional Past Medical History / Comment(s): pancreatitis, djd, neuropathy, Chronic back pain, mild stenosis in the neck, anemia, thrombocyopenia, fibromyalgia History of Any Multi-Drug Resistant Organisms: None Reported Past Surgical History: Adenoidectomy, Appendectomy, Tonsillectomy Additional Past Surgical History / Comment(s): B/L lasix in 1999 Past Anesthesia/Blood Transfusion Reactions: No Reported Reaction Past Psychological History: Anxiety Smoking Status: Current every day smoker Past Alcohol Use History: None Reported Past Drug Use History: None Reported - Past Family History Mother Family Medical History: Diabetes Mellitus, Hypertension, Renal Disease Additional Family Medical History / Comment(s): Heart and anxiety issues. Had quadraple bypass, Father Additional Family Medical History / Comment(s): Quad heart bypass <Vinicius Prescott - Last Filed: 02/24/17 03:18> General Exam Limitations: no limitations General appearance: alert, in no apparent distress Head exam: Present: atraumatic, normocephalic, normal inspection Respiratory exam: Present: normal lung sounds bilaterally. Absent: respiratory distress, wheezes, rales, rhonchi, stridor Cardiovascular Exam: Present: regular rate, normal rhythm, normal heart sounds. Absent: systolic murmur, diastolic murmur, rubs, gallop, clicks GI/Abdominal exam: Present: soft, normal bowel sounds. Absent: distended, tenderness, guarding, rebound, rigid Neurological exam: Present: oriented X3, CN II-XII intact Skin exam: Present: warm, dry, intact, normal color. Absent: rash <Vinicius Prescott - Last Filed: 02/24/17 03:18> Course <Vinicius Prescott - Last Filed: 02/24/17 03:18> <Jennifer Saravia - Last Filed: 02/24/17 06:47> Vital Signs 02/24/17 02/24/17 02/24/17 03:04 04:42 05:50 Temperature 97.3 F L Pulse Rate 84 93 96 Respiratory 20 18 18 Rate Blood Pressure 143/67 142/65 133/63 O2 Sat by Pulse 100 100 100 Oximetry 02/24/17 06:22 Temperature Pulse Rate 94 Respiratory 20 Rate Blood Pressure O2 Sat by Pulse 98 Oximetry she was reassessed at 6:30, she required quite a few doses of Dilaudid, she sounded Dilaudid not very effective, she wanted to cry or CONTIN and Ativan. Her labs were reviewed her hemoglobin is notable for white count is elevated 16.6 and considering elevated white count with elevated blood cultures urine cultures and Cordarone] dose of Rocephin considering she is immune compromised. Also noticed that she had a couple of fracture (though she denies any trauma I think that back pain could be secondary to fractured ribs (Jennifer Saravia) - Reevaluation(s) Reevaluation #1: 02/24/17 06:46 patient was crying with the pain at 645 and ongoing bladder and admit her for the pain management and leukocytosis him to Dr. Cooper service of Dr. Segovia be a consult (Jennifer Saravia) Medical Decision Making - Lab Data Result diagrams: 02/24/17 03:40 02/24/17 03:40 <Jennifer Saravia - Last Filed: 02/24/17 06:47> - Lab Data Lab Results 02/24/17 02/24/17 02/24/17 Range/Units 03:40 03:40 04:56 WBC 16.6 H (3.8-10.6) k/uL RBC 2.59 L (3.80-5.40) m/uL Hgb 7.5 L (11.4-16.0) gm/dL Hct 23.8 L (34.0-46.0) % MCV 92.0 (80.0-100.0) fL MCH 28.8 (25.0-35.0) pg MCHC 31.4 (31.0-37.0) g/dL RDW 19.8 H (11.5-15.5) % Plt Count 90 L (150-450) k/uL Neutrophils % (Manual) 43 % Band Neutrophils % 10 % Lymphocytes % (Manual) 14 % Monocytes % (Manual) 20 % Eosinophils % (Manual) 5 % Metamyelocytes % 6 % Myelocytes % 1 % Blast Cells % 2 % Neutrophils # (Manual) 8.70 H (1.3-7.7) k/uL Lymphocytes # (Manual) 2.32 (1.0-4.8) k/uL Monocytes # (Manual) 3.32 H (0-1.0) k/uL Eosinophils # (Manual) 0.83 H (0-0.7) k/uL Metamyelocytes # (Man) 1.00 H (0) k/uL Myelocytes # (Manual) 0.17 H (0) k/uL Blast Cells # (Man) 0.33 H (0) k/uL Nucleated RBCs 2 H (0-0) /100 WBC Manual Slide Review Performed Large Platelets Present Hypochromasia Moderate Poikilocytosis Slight Anisocytosis Slight Anisocytosis (manual) Present Sodium 132 L (137-145) mmol/L Potassium 4.5 (3.5-5.1) mmol/L Chloride 99 (98-107) mmol/L Carbon Dioxide 26 (22-30) mmol/L Anion Gap 7 mmol/L BUN 15 (7-17) mg/dL Creatinine 0.80 (0.52-1.04) mg/dL Est GFR (MDRD) Af Amer >60 (>60 ml/min/1.73 sqM) Est GFR (MDRD) Non-Af >60 (>60 ml/min/1.73 sqM) Glucose 119 H (74-99) mg/dL Calcium 9.8 (8.4-10.2) mg/dL Total Bilirubin 0.4 (0.2-1.3) mg/dL AST 22 (14-36) U/L ALT 30 (9-52) U/L Alkaline Phosphatase 232 H (38-126) U/L Total Protein 6.2 L (6.3-8.2) g/dL Albumin 3.6 (3.5-5.0) g/dL Urine Color Yellow Urine Appearance Cloudy H (Clear) Urine pH 5.5 (5.0-8.0) Ur Specific [place]ridge 1.013 (1.001-1.035) Urine Protein Trace H (Negative) Urine Glucose (UA) Negative (Negative) Urine Ketones Negative (Negative) Urine Blood Negative (Negative) Urine Nitrite Negative (Negative) Urine Bilirubin Negative (Negative) Urine Urobilinogen <2.0 (<2.0) mg/dL Ur Leukocyte Esterase Negative (Negative) Urine RBC 1 (0-5) /hpf Urine WBC 1 (0-5) /hpf Ur Squamous Epith Cells 5 H (0-4) /hpf Urine Bacteria Rare H (None) /hpf Hyaline Casts 3 H (0-2) /lpf Urine Mucus Rare H (None) /hpf Disposition <Vinicius Prescott - Last Filed: 02/24/17 03:18> <Jennifer Saravia - Last Filed: 02/24/17 06:47> Clinical Impression: Back pain, Leukocytosis Disposition: ADMITTED IP TO THIS HOSP Condition: Poor Referrals: Zachary Dorantes DO [Primary Care Provider] - 1-2 days
[2017-02-24 04:02] LABS: Anisocytosis Slight; Aty Lym Flag Marked; CH 28.9; CHCM 31.6; HCT 23.8 % (34.0-46.0); HDW 3.94; HGB 7.5 gm/dL (11.4-16.0); Hypochromasia Moderate; Immature Gran Flag Moderate; Large Platelets Flag Moderate; MCH 28.8 pg (25.0-35.0); MCHC 31.4 g/dL (31.0-37.0); Mean Platelet Volume 11.4; Poikilocytosis Slight; RBC 2.59 m/uL (3.80-5.40); RDW 19.8 % (11.5-15.5); WBC (Perox) 16.32
[2017-02-24 04:19] LABS: ALT 30 U/L (9-52); AST 22 U/L (14-36); Alkaline Phosphatase 232 U/L (38-126); Anion Gap 7 mmol/L; Blood Urea Nitrogen 15 mg/dL (7-17); Calcium 9.8 mg/dL (8.4-10.2); Carbon Dioxide 26 mmol/L (22-30); Chloride 99 mmol/L (98-107); Glucose 119 mg/dL (74-99); Non-African American GFR(MDRD) >60 (>60 ml/min/1.73 sqM); Potassium 4.5 mmol/L (3.5-5.1); Sodium 132 mmol/L (137-145); Total Bilirubin 0.4 mg/dL (0.2-1.3); Total Protein 6.2 g/dL (6.3-8.2)
[2017-02-24 04:26] LABS: Add Differential Manual Differential
[2017-02-24 04:34] LABS: Band Neutrophils % 10 %; Metamyelocytes % 6 %; Myelocytes % 1 %; Nucleated Red Blood Cells 2 /100 WBC (0-0); Total Cells Counted 200; WBC 16.6 k/uL (3.8-10.6)
[2017-02-24 04:35] LABS: Manual Review Performed
[2017-02-24 04:38] LABS: Large Platelets Present
--- NOTE | 2017-02-24 05:40 | XR ---
INDICATION: Chest pain COMPARISON: CXR 12/12/16 FINDINGS: Single frontal view of the chest is provided. Heart size and pulmonary vascularity are normal. There is atherosclerosis of the aortic arch. There is no airspace consolidation, pleural effusion, or pneumothorax. There is mild bronchial wall thickening. Nondisplaced fractures of the lateral right eighth and ninth ribs are suggested, acute or subacute. IMPRESSION: 1. Suspect acute or subacute nondisplaced fractures of the lateral right eighth and ninth ribs. 2. Otherwise, no evidence of acute abnormality.
[2017-02-24] MEDS ORDERED: cefTRIAXone 2,000 MG in SODIUM CHLORIDE 0.9% 100 ML IVPB STA (05:49)
[2017-02-24 05:54] LABS: Appearance,Urine Cloudy (Clear); Bacteria,Urine Rare /hpf; Bilirubin,Urine Negative (Negative); Glucose,Urine (UA) Negative (Negative); Ketones,Urine Negative (Negative); Leukocyte Esterase,Urine Negative (Negative); Mucus,Urine Rare /hpf; Nitrite,Urine Negative (Negative); PH, Urine 5.5 (5.0-8.0); Particle Count 3221; Protein,Urine Trace (Negative); RBC,Urine 1 /hpf (0-5); Specific Gravity,Urine 1.013 (1.001-1.035); Squamous Epithelial Cell,Urine 5 /hpf (0-4); UA Billing (MACRO vs. MICRO) MICRO; Urobilinogen,Urine <2.0 mg/dL (<2.0); WBC,Urine 1 /hpf (0-5)
[2017-02-24] MEDS ORDERED: ONDANSETRON 4 MG/2 ML VIAL IVP PRN (06:47)
[2017-02-24] MEDS ORDERED: HYDROmorphone 1 MG/ML 1 ML SYRINGE IV PRN (06:47)
[2017-02-24] MEDS ORDERED: NALOXONE 0.4 MG/ML 1 ML VIAL IV PRN (06:47)
[2017-02-24] MEDS ORDERED: FUROSEMIDE 20 MG TAB PO PRN (06:58)
[2017-02-24] MEDS ORDERED: LACTULOSE 20 GM/30 ML CUP PO PRN (06:58)
[2017-02-24] MEDS ORDERED: BISACODYL 5 MG TABLET.DR PO PRN (06:58)
[2017-02-24] MEDS ORDERED: METOPROLOL TARTRATE 25 MG TAB PO PRN (06:58)
[2017-02-24] MEDS ORDERED: ONDANSETRON ODT 4 MG TAB PO PRN (06:58)
[2017-02-24] MEDS ORDERED: [UNRECOGNIZED DRUG - OTHER] TOPICAL PRN (06:58)
[2017-02-24] MEDS: TAMSULOSIN 0.4 MG CAP.ER.24H PO SCH (08:44)
[2017-02-24] MEDS: CHOLECALCIFEROL 1,000 UNIT TAB PO SCH (08:45)
[2017-02-24] MEDS: FOLIC ACID 1 MG TAB PO SCH (08:45)
[2017-02-24] MEDS ORDERED: VITAMIN A 8000 UNIT PO SCH (09:00)
[2017-02-24] MEDS ORDERED: WHEAT DEXTRIN PO SCH (09:00)
[2017-02-24] MEDS ORDERED: NON-FORMULARY DRUG (Lutein [Lutein] 20 MG) PO SCH (09:00)
[2017-02-24] MEDS ORDERED: VITAMIN C PO SCH (09:00)
[2017-02-24] MEDS: HYDROmorphone 1 MG/ML 1 ML SYRINGE IM PRN ×5 (10:54→20:47)
[2017-02-24] MEDS: DOCUSATE 100 MG CAP PO SCH (12:14)
--- NOTE | 2017-02-24 12:35 | P.HPIM ---
History of Present Illness H&P Date: 02/24/17 Chief Complaint: diffuse bone pain/myelofibrosis This is a 66-year-old female patient of Dr. Dorantes with underlying history of CAD, hyperlipidemia, hypertension, pancreatitis, neuropathy chronic back pain chronic opioid-induced constipation. She has had several recent hospitalizations due to lower GI bleed thought to be due to diverticulitis as well as thrombocytopenia and anemia and leukocytosis followed by Dr. Navarrete. Patient recently underwent bone marrow biopsy. Results were not available during her last hospitalization but she was discharged home with a white count of 18.7, hemoglobin was 8.9 and platelet count of 43 on improved. She also had an elevated alkaline phosphatase of 205. Patient presented back to [facility] emergency center on December 08 with complaints of chest pain that started the day before and continued to worsen. She also had temperature of 100.8 and was complaining of shortness of breath and it hurt when she took a deep breath. There was no trauma to the chest wall or recent fall. She underwent a CTA of the chest that showed no definite acute pulmonary embolism. Trace bilateral pleural effusions. Chest x-ray showed no acute cardiopulmonary disease. She again presented with leukocytosis of 27.2, hemoglobin 7.6 and platelet count was up to 131. Her d-dimer was elevated at 3.26. Sodium 1:30 and chloride 93. Initial troponin was 0.012, proBNP 2120. Urinalysis was cloudy, nitrate and leukoesterase negative. Cardiology consult requested, repeat troponins, consult with Dr. Saravia from infectious disease and consult has been added for Dr. Navarrete. 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 Iraheta for second opinion prior to her starting on Jakafi(Ruxolutinib), however the patient ended up going to see Dr. Dorantes for laboratory evaluation she was found to have a hemoglobin of 5.70 ask her to go to the ER for evaluation patient showed up in the ER yesterday and she was admitted to the hospital for blood transfusion, patient did receive 2 units of packed red blood cells her hemoglobin is up to 8.9 she is wanted to be discharged home on January 2017, patient was seen and evaluated by Dr. Navarrete at that time she also was referred to [facility] [place] and she was supposed to have another appointment to the liver on today however the patient canceled the appointment because she is having severe bone pain and she ended up coming to the ER at [facility] 3:00 in the morning and she is not able template very well she had lost quite a bit of weight and she appears to be very cachectic, she never started Jakafi and there was a discussion about the stem cell transplant for her. Review of Systems Constitutional: Reports chronic headaches, Reports chronic pain, Reports malaise , Reports weakness, Reports weight loss, Denies sweats Eyes: denies blurred vision, denies bulging eye, denies decreased vision, denies diplopia Ears: deny: decreased hearing Ears, nose, mouth and throat: Denies dysphagia, Denies neck lump, Denies nose pain, Denies sore throat Cardiovascular: Reports decreased exercise tolerance, Reports dyspnea on exertion, Reports shortness of breath, Denies chest pain, Denies paroxysmal nocturnal dyspnea, Denies phlebitis, Denies rapid heart beat, Denies syncope Respiratory: Denies congestion, Denies cough, Denies cough with sputum, Denies home oxygen, Denies sleep apnea, Denies snoring, Denies wheezing Gastrointestinal: Reports loss of appetite, Reports nausea, Denies abdominal pain, Denies bloating, Denies change in bowel habits, Denies heartburn, Denies hematochezia, Denies melena, Denies vomiting Genitourinary: Denies dysuria, Denies hematuria Menstruation: Reports postmenopausal Musculoskeletal: Reports atrophy, Reports gait dysfunction, Denies myalgias Musculoskeletal: absent: ankle pain, ankle stiffness, ankle swelling, elbow pain , elbow stiffness, elbow swelling, foot pain, foot stiffness, foot swelling, hand pain, hand stiffness, hand swelling, hip pain, hip stiffness, hip swelling , knee pain, knee stiffness, knee swelling, shoulder pain, shoulder stiffness, shoulder swelling, wrist pain, wrist stiffness, wrist swelling Integumentary: Denies pruritus, Denies rash Neurological: Reports gait dysfunction, Reports numbness, Reports paresthesias, Reports weakness Psychiatric: Reports anxiety, Reports depression, Reports sadness/tearfulness, Denies paranoia, Denies sleep disturbances, Denies suicidal ideation Endocrine: Denies fatigue, Denies weight change Past Medical History Past Medical History: Coronary Artery Disease (CAD), Fibromyalgia, GI Bleed, Hyperlipidemia, Hypertension, Osteoarthritis (OA), Renal Disease Additional Past Medical History / Comment(s): Myelofibrosis, leukocytosis, thrombocytopenia, bicytopenia, anemia, lower GI bleeds, hyponatremia, hyperkalemia, chronic pain syndrome, chronic back pain, mild cervical stenosis, arthtitis bilateral hips, DJD, neuropathy bilateral lower extremitis, chronic opiod constipation, chronic kidney dx stage 2, urinary retention, pancreatitis, malabsorption, diverticular dx. Pt states she has an appointment tomorrow at [facility] to discuss tx options for her myelofibrosis. She is interested in obtaining a medical marijuana card. History of Any Multi-Drug Resistant Organisms: None Reported Past Surgical History: Adenoidectomy, Appendectomy, Tonsillectomy Additional Past Surgical History / Comment(s): B/L lasik in 1999, BMA, pancreatic duct stent. Past Anesthesia/Blood Transfusion Reactions: No Reported Reaction Smoking Status: Current every day smoker - Past Family History Mother Family Medical History: Cancer, Coronary Artery Disease (CAD), Diabetes Mellitus , Hypertension, Renal Disease Additional Family Medical History / Comment(s): Heart and anxiety issues. Had quadraple bypass, Father Family Medical History: Coronary Artery Disease (CAD) Additional Family Medical History / Comment(s): Quad heart bypass Medications and Allergies Home Medications Medication Instructions Recorded Confirmed Type Ondansetron Odt [Zofran ODT] 4 mg PO Q8HR PRN #20 tab 05/08/15 02/24/17 Rx Cholecalciferol [Vitamin D3] 5,000 unit PO Q48H 11/15/16 02/24/17 History Cyanocobalamin (Vitamin B-12) 1,000 mcg PO MOWEFR 11/15/16 02/24/17 History [Vitamin B-12] Diltiazem HCl 60 mg PO TID 11/15/16 02/24/17 History Folic Acid 0.4 mg PO DAILY 11/15/16 02/24/17 History Lutein 40 mg PO DAILY 11/15/16 02/24/17 History Compounded Cream 1 applic TOPICAL TID PRN 12/08/16 02/24/17 History Furosemide [Lasix] 20 mg PO DAILY PRN 12/08/16 02/24/17 History Lactulose [Cephulac] 20 gm PO BID PRN 12/08/16 02/24/17 History Vitamin C Odt Tablet 1 tab PO DAILY 12/08/16 02/24/17 History ALPRAZolam [Xanax] 0.25 mg PO Q8HR PRN #60 12/16/16 02/24/17 Rx oxyCODONE HCL 10 mg PO Q4HR PRN #60 12/16/16 02/24/17 Rx Bisacodyl [Dulcolax] 10 mg PO BID PRN 01/11/17 02/24/17 History Metoprolol Tartrate [Lopressor] 25 mg PO DAILY PRN 01/11/17 02/24/17 History Wheat Dextrin [Benefiber] 1 pack PO DAILY 01/11/17 02/24/17 History Carboxymethylcellulose Sodium 1 drop BOTH EYES DAILY PRN 02/24/17 02/24/17 History [Refresh Tears] Docusate [Colace] 100 mg PO BID 02/24/17 02/24/17 History SILVER sulfADIAZINE Cream 1 applic TOPICAL BID 02/24/17 02/24/17 History [Silvadene 1% Cream] Vitamin A 1,000 Unit 1,000 unit PO DAILY 02/24/17 02/24/17 History Vitamin E 1,000 unit PO DAILY 02/24/17 02/24/17 History Zinc 50 mg PO DAILY 02/24/17 02/24/17 History fentaNYL 75MCG/HR PATCH [Duragesic 75 mcg TRANSDERM Q48H 02/24/17 02/24/17 History 75MCG/HR] Allergies Allergy/AdvReac Type Severity Reaction Status Date / Time amoxicillin Allergy Unknown Verified 02/24/17 07:15 cephalexin [From Keflex] Allergy Unknown Verified 02/24/17 07:15 erythromycin base Allergy Rash/Hives Verified 02/24/17 07:15 hydrochlorothiazide Allergy "DROPS Verified 02/24/17 07:15 SODIUM LEVEL" peppermint Allergy Rash/Hives Verified 02/24/17 07:15 Tetracyclines Allergy Swelling Verified 02/24/17 07:15 atenolol AdvReac PASSES OUT Verified 02/24/17 07:15 nifedipine [From Procardia] AdvReac HAIR LOSS Verified 02/24/17 07:15 pregabalin [From Lyrica] AdvReac LEG PAIN Verified 02/24/17 07:15 Ejpyhyz-Kkg-Flm Reductase AdvReac LEG PAIN Verified 02/24/17 07:15 Inhibitor multivitamins Allergy Severe Rash/Hives Uncoded 02/24/17 09:00 D[employer] Allergy Rash/Hives Uncoded 02/24/17 03:36 Physical Exam Vitals: Vital Signs Temp Pulse Pulse Resp BP BP Pulse Ox 02/24/17 08:50 98.3 F 98 18 151/67 99 02/24/17 08:00 99.4 F 98 18 155/74 100 02/24/17 06:22 94 20 98 02/24/17 05:50 96 18 133/63 100 02/24/17 04:42 93 18 142/65 100 02/24/17 03:04 97.3 F L 84 20 143/67 100 Intake and Output 02/23/17 02/24/17 02/24/17 22:59 06:59 14:59 Other: Weight 47.627 kg - Constitutional General appearance: mild distress, thin - EENT Eyes: anicteric sclerae, EOMI, no ptosis, no scleral icterus, normal appearance ENT: hearing grossly normal, NA/AT, normal oropharynx, no thrush Ears: bilateral: normal - Neck Neck: no lymphadenopathy, normal ROM, no rigidity, no stridor, no thyromegaly Carotids: bilateral: upstroke normal Thyroid: bilateral: normal size - Respiratory Respiratory: bilateral: diminished, negative: dullness, rales, rhonchi, wheezing , prolonged expiration - Cardiovascular Rhythm: regular Heart sounds: normal: S1, S2 Abnormal Heart Sounds: systolic murmur, no S3 Gallop, no S4 Gallop, no click - Gastrointestinal General gastrointestinal: normal bowel sounds, soft, no splenomegaly, no tenderness, no umbilical hernia, no ventral hernia - Integumentary Integumentary: normal, normal turgor - Neurologic Neurologic: CNII-XII intact - Musculoskeletal Musculoskeletal: no gait normal, generalized weakness - Psychiatric Psychiatric: A&O x's 3, appropriate affect, intact judgment & insight Results CBC & Chem 7: 02/24/17 03:40 02/24/17 03:40 Labs: Abnormal Lab Results - Last 24 Hours (Table) 02/24/17 02/24/17 02/24/17 Range/Units 03:40 03:40 04:56 WBC 16.6 H (3.8-10.6) k/uL RBC 2.59 L (3.80-5.40) m/uL Hgb 7.5 L (11.4-16.0) gm/dL Hct 23.8 L (34.0-46.0) % RDW 19.8 H (11.5-15.5) % Plt Count 90 L (150-450) k/uL Neutrophils # (Manual) 8.70 H (1.3-7.7) k/uL Monocytes # (Manual) 3.32 H (0-1.0) k/uL Eosinophils # (Manual) 0.83 H (0-0.7) k/uL Metamyelocytes # (Man) 1.00 H (0) k/uL Myelocytes # (Manual) 0.17 H (0) k/uL Blast Cells # (Man) 0.33 H (0) k/uL Nucleated RBCs 2 H (0-0) /100 WBC Sodium 132 L (137-145) mmol/L Glucose 119 H (74-99) mg/dL Alkaline Phosphatase 232 H (38-126) U/L Total Protein 6.2 L (6.3-8.2) g/dL Urine Appearance Cloudy H (Clear) Urine Protein Trace H (Negative) Ur Squamous Epith Cells 5 H (0-4) /hpf Urine Bacteria Rare H (None) /hpf Hyaline Casts 3 H (0-2) /lpf Urine Mucus Rare H (None) /hpf Microbiology - Last 24 Hours (Table) 02/24/17 04:56 Urine Culture - Preliminary Urine,Voided Thrombosis Risk Factor Assmnt - DVT/VTE Prophylaxis DVT/VTE Prophylaxis: Mechanical Prophylaxis ordered - Choose All That Apply Any of the Below Risk Factors Present?: Yes Each Factor Represents 1 point: Medical pt on bed rest Other Risk Factors: Yes Each Risk Factor Represents 2 Points: Age 61-74 years, Malignancy Other congenital or acquired thrombophilia - If yes, enter type in comment: No Thrombosis Risk Factor Assessment Total Risk Factor Score: 5 Thrombosis Risk Factor Assessment Level: High Risk Assessment and Plan Plan: Assessment and plan: 1. 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 we monitor cbc and will repeat in AM and transfuse for HGb less than 7. 2. Diffuse bone pain secondary to her myelofibrosis and significant neuropathy. Start the patient on fentanyl patch 75 g every 72 hours, oxycodone 10 mg every 4 hours, Dilaudid 1 mg IV push every 3 hours for breakthrough pain, and also start the patient on Lyrica 50 mg orally at bedtime. 3. Chronic history of pancreatic duct stent, last MRCP was in December 2015. Her computed tomography scan of the abdomen and pelvis did show dilatation of the extrahepatic biliary and pancreatic duct. Without any significant changes 4. Chronic malabsorption state from poor oral intake, and ongoing pancreas problems, lipase to be checked, vitamin B12 would be obtained later await CAT scan 5. Weight loss of 17 pounds in 15 months nutritional supplementation would be ordered. 6. GI prophylaxis on Protonix 40 mg orally once every day. 7. DVT prophylaxis on TRISTAN hose and SCDs. 8. Anxiety. Continue Xanax as needed. 9. Urinary retention. Continue patient on Flomax 0.4 mg orally once every day. 10. Reported history of renal disease stage II. Her GFR is greater than 60. Avoid NSAIDs. Her intact PTH is elevated. 11. Chronic pain syndrome. Continue patient on current pain management. 12. Severe osteoarthritis of both hips. Continue to use the walker and avoid falling. 13. Admit to inpatient. Estimate a length of stay 2 midnights. 14. Patient is full code.
[2017-02-24 14:00] VITALS: BMI 18.0
[2017-02-24] MEDS: ALPRAZolam 0.25 MG TAB PO PRN (15:07)
--- NOTE | 2017-02-24 16:15 | P.CONS ---
History of Present Illness - Reason for Consult Consult date: 02/24/17 myelofibrosis Requesting physician: Jennifer Saravia - Chief Complaint joint pain - History of Present Illness Ms. Bucio was initially seen in consult back in November for leukocytosis and bicytopenia, she had a bone marrow biopsy and aspirate revealing myeolfibrosis, she was recommended treatment but refused it, she was referred to [facility] for transplant evaluation, she had appt for tomorrow, pt having conservative supportive transfusions PRN. Pt came to ER due to pain, it is in every joint, constant, severe, she states it hurts to "even be touched", pain flared up yesterday when she had to copper etcher herself without assistance, she states none of the pain meds are really working. Pt denied fevers, vomiting or acute changes in bowel or bladder habits. Review of Systems ROS is as stated in HPI Past Medical History Past Medical History: Coronary Artery Disease (CAD), Fibromyalgia, GI Bleed, Hyperlipidemia, Hypertension, Osteoarthritis (OA), Renal Disease Additional Past Medical History / Comment(s): Myelofibrosis, leukocytosis, thrombocytopenia, bicytopenia, anemia, lower GI bleeds, hyponatremia, hyperkalemia, chronic pain syndrome, chronic back pain, mild cervical stenosis, arthtitis bilateral hips, DJD, neuropathy bilateral lower extremitis, chronic opiod constipation, chronic kidney dx stage 2, urinary retention, pancreatitis, malabsorption, diverticular dx. Pt states she has an appointment tomorrow at [facility] to discuss tx options for her myelofibrosis. She is interested in obtaining a medical marijuana card. History of Any Multi-Drug Resistant Organisms: None Reported Past Surgical History: Adenoidectomy, Appendectomy, Tonsillectomy Additional Past Surgical History / Comment(s): B/L lasik in 1999, BMA, pancreatic duct stent. Past Anesthesia/Blood Transfusion Reactions: No Reported Reaction Smoking Status: Current every day smoker - Past Family History Mother Family Medical History: Cancer, Coronary Artery Disease (CAD), Diabetes Mellitus , Hypertension, Renal Disease Additional Family Medical History / Comment(s): Heart and anxiety issues. Had quadraple bypass, Father Family Medical History: Coronary Artery Disease (CAD) Additional Family Medical History / Comment(s): Quad heart bypass Medications and Allergies Home Medications Medication Instructions Recorded Confirmed Type Ondansetron Odt [Zofran ODT] 4 mg PO Q8HR PRN #20 tab 05/08/15 02/24/17 Rx Cholecalciferol [Vitamin D3] 5,000 unit PO Q48H 11/15/16 02/24/17 History Cyanocobalamin (Vitamin B-12) 1,000 mcg PO MOWEFR 11/15/16 02/24/17 History [Vitamin B-12] Diltiazem HCl 60 mg PO TID 11/15/16 02/24/17 History Folic Acid 0.4 mg PO DAILY 11/15/16 02/24/17 History Lutein 40 mg PO DAILY 11/15/16 02/24/17 History Compounded Cream 1 applic TOPICAL TID PRN 12/08/16 02/24/17 History Furosemide [Lasix] 20 mg PO DAILY PRN 12/08/16 02/24/17 History Lactulose [Cephulac] 20 gm PO BID PRN 12/08/16 02/24/17 History Vitamin C Odt Tablet 1 tab PO DAILY 12/08/16 02/24/17 History ALPRAZolam [Xanax] 0.25 mg PO Q8HR PRN #60 12/16/16 02/24/17 Rx oxyCODONE HCL 10 mg PO Q4HR PRN #60 12/16/16 02/24/17 Rx Bisacodyl [Dulcolax] 10 mg PO BID PRN 01/11/17 02/24/17 History Metoprolol Tartrate [Lopressor] 25 mg PO DAILY PRN 01/11/17 02/24/17 History Wheat Dextrin [Benefiber] 1 pack PO DAILY 01/11/17 02/24/17 History Carboxymethylcellulose Sodium 1 drop BOTH EYES DAILY PRN 02/24/17 02/24/17 History [Refresh Tears] Docusate [Colace] 100 mg PO BID 02/24/17 02/24/17 History SILVER sulfADIAZINE Cream 1 applic TOPICAL BID 02/24/17 02/24/17 History [Silvadene 1% Cream] Vitamin A 1,000 Unit 1,000 unit PO DAILY 02/24/17 02/24/17 History Vitamin E 1,000 unit PO DAILY 02/24/17 02/24/17 History Zinc 50 mg PO DAILY 02/24/17 02/24/17 History fentaNYL 75MCG/HR PATCH [Duragesic 75 mcg TRANSDERM Q48H 02/24/17 02/24/17 History 75MCG/HR] Allergies Allergy/AdvReac Type Severity Reaction Status Date / Time amoxicillin Allergy Unknown Verified 02/24/17 07:15 cephalexin [From Keflex] Allergy Unknown Verified 02/24/17 07:15 erythromycin base Allergy Rash/Hives Verified 02/24/17 07:15 hydrochlorothiazide Allergy "DROPS Verified 02/24/17 07:15 SODIUM LEVEL" peppermint Allergy Rash/Hives Verified 02/24/17 07:15 Tetracyclines Allergy Swelling Verified 02/24/17 07:15 atenolol AdvReac PASSES OUT Verified 02/24/17 07:15 nifedipine [From Procardia] AdvReac HAIR LOSS Verified 02/24/17 07:15 pregabalin [From Lyrica] AdvReac LEG PAIN Verified 02/24/17 07:15 Hgnkrrr-Dqf-Yhm Reductase AdvReac LEG PAIN Verified 02/24/17 07:15 Inhibitor multivitamins Allergy Severe Rash/Hives Uncoded 02/24/17 09:00 D[employer] Allergy Rash/Hives Uncoded 02/24/17 03:36 Physical Exam Vitals: Vital Signs Temp Pulse Pulse Resp BP BP Pulse Ox 02/24/17 15:00 98.3 F 106 H 18 147/64 100 02/24/17 08:50 98.3 F 98 18 151/67 99 02/24/17 08:00 99.4 F 98 18 155/74 100 02/24/17 06:22 94 20 98 02/24/17 05:50 96 18 133/63 100 02/24/17 04:42 93 18 142/65 100 02/24/17 03:04 97.3 F L 84 20 143/67 100 Intake and Output 02/24/17 02/24/17 02/24/17 06:59 14:59 22:59 Other: Weight 47.627 kg 47.627 kg Patient Weight 02/25/17 06:59 Weight 47.627 kg - Constitutional General appearance: disheveled, mild distress, thin - EENT Eyes: anicteric sclerae, poor dentition, normal appearance - Respiratory respirations even and unlabored, no audible breath sounds leg Peripheral Edema: bilateral: Trace - Integumentary Integumentary: pale - Neurologic Neurologic: CNII-XII intact - Musculoskeletal Musculoskeletal: generalized weakness - Psychiatric Psychiatric: A&O x's 3 Results CBC & Chem 7: 02/24/17 03:40 02/24/17 03:40 Labs: Abnormal Lab Results - Last 24 Hours (Table) 02/24/17 02/24/17 02/24/17 Range/Units 03:40 03:40 04:56 WBC 16.6 H (3.8-10.6) k/uL RBC 2.59 L (3.80-5.40) m/uL Hgb 7.5 L (11.4-16.0) gm/dL Hct 23.8 L (34.0-46.0) % RDW 19.8 H (11.5-15.5) % Plt Count 90 L (150-450) k/uL Neutrophils # (Manual) 8.70 H (1.3-7.7) k/uL Monocytes # (Manual) 3.32 H (0-1.0) k/uL Eosinophils # (Manual) 0.83 H (0-0.7) k/uL Metamyelocytes # (Man) 1.00 H (0) k/uL Myelocytes # (Manual) 0.17 H (0) k/uL Blast Cells # (Man) 0.33 H (0) k/uL Nucleated RBCs 2 H (0-0) /100 WBC Sodium 132 L (137-145) mmol/L Glucose 119 H (74-99) mg/dL Alkaline Phosphatase 232 H (38-126) U/L Total Protein 6.2 L (6.3-8.2) g/dL Urine Appearance Cloudy H (Clear) Urine Protein Trace H (Negative) Ur Squamous Epith Cells 5 H (0-4) /hpf Urine Bacteria Rare H (None) /hpf Hyaline Casts 3 H (0-2) /lpf Urine Mucus Rare H (None) /hpf Microbiology - Last 24 Hours (Table) 02/24/17 04:56 Urine Culture - Preliminary Urine,Voided Chest x-ray: report reviewed Assessment and Plan (1) Myelofibrosis Narrative/Plan: Pt was due a [facility] tomorrow for appt to be evaluated for transplant as she refused to take medications for myelofibrosis, she will reschedule that appt Status: Chronic (2) Leukocytosis Narrative/Plan: Pt is at her baseline WBC at this time, no acute intervention Status: Acute (3) Bicytopenia Narrative/Plan: Conservative transfusions only for Hgb<7, if pt candidate for transplant it is better to expose her to as few blood products as possible. Plt adequate, no transfusion needed. Status: Acute
[2017-02-24] MEDS: DILTIAZEM ORAL 60 MG TAB PO SCH ×2 (16:26→20:50)
[2017-02-24] MEDS: LACTULOSE 20 GM/30 ML CUP PO SCH (20:48)
[2017-02-24] MEDS ORDERED: PREGABALIN 50 MG CAP PO SCH (21:00)
[2017-02-25] MEDS: HYDROmorphone 1 MG/ML 1 ML SYRINGE IM PRN ×5 (03:48→17:23)
[2017-02-25] MEDS: DILTIAZEM ORAL 60 MG TAB PO SCH ×3 (06:11→22:38)
[2017-02-25] MEDS: PANTOPRAZOLE 40 MG TABLET PO SCH (08:09)
[2017-02-25] MEDS: TAMSULOSIN 0.4 MG CAP.ER.24H PO SCH (08:09)
[2017-02-25] MEDS: CYANOCOBALAMIN 500 MCG TAB PO SCH (08:10)
[2017-02-25] MEDS: ALPRAZolam 0.25 MG TAB PO PRN ×3 (08:10→23:40)
[2017-02-25] MEDS: FOLIC ACID 1 MG TAB PO SCH (08:11)
[2017-02-25] MEDS: LACTULOSE 20 GM/30 ML CUP PO SCH ×2 (08:11→22:56)
[2017-02-25] MEDS: DOCUSATE 100 MG CAP PO SCH (08:11)
[2017-02-25] MEDS: PREGABALIN 50 MG CAP PO SCH ×2 (11:06→21:01)
--- NOTE | 2017-02-25 12:02 | P.PN ---
Subjective This is a 66-year-old female patient of Dr. Dorantes with underlying history of CAD, hyperlipidemia, hypertension, pancreatitis, neuropathy chronic back pain chronic opioid-induced constipation. She has had several recent hospitalizations due to lower GI bleed thought to be due to diverticulitis as well as thrombocytopenia and anemia and leukocytosis followed by Dr. Navarrete. Patient recently underwent bone marrow biopsy. Results were not available during her last hospitalization but she was discharged home with a white count of 18.7, hemoglobin was 8.9 and platelet count of 43 on improved. She also had an elevated alkaline phosphatase of 205. Patient presented back to [facility] emergency center on December 08 with complaints of chest pain that started the day before and continued to worsen. She also had temperature of 100.8 and was complaining of shortness of breath and it hurt when she took a deep breath. There was no trauma to the chest wall or recent fall. She underwent a CTA of the chest that showed no definite acute pulmonary embolism. Trace bilateral pleural effusions. Chest x-ray showed no acute cardiopulmonary disease. She again presented with leukocytosis of 27.2, hemoglobin 7.6 and platelet count was up to 131. Her d-dimer was elevated at 3.26. Sodium 1:30 and chloride 93. Initial troponin was 0.012, proBNP 2120. Urinalysis was cloudy, nitrate and leukoesterase negative. Cardiology consult requested, repeat troponins, consult with Dr. Saravia from infectious disease and consult has been added for Dr. Navarrete. 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 Iraheta for second opinion prior to her starting on Jakafi(Ruxolutinib), however the patient ended up going to see Dr. Dorantes for laboratory evaluation she was found to have a hemoglobin of 5.70 ask her to go to the ER for evaluation patient showed up in the ER yesterday and she was admitted to the hospital for blood transfusion, patient did receive 2 units of packed red blood cells her hemoglobin is up to 8.9 she is wanted to be discharged home on January 2017, patient was seen and evaluated by Dr. Navarrete at that time she also was referred to [facility] [place] and she was supposed to have another appointment to the liver on today however the patient canceled the appointment because she is having severe bone pain and she ended up coming to the ER at [facility] 3:00 in the morning and she is not able template very well she had lost quite a bit of weight and she appears to be very cachectic, she never started Jakafi and there was a discussion about the stem cell transplant for her. 02/25: Patient continues to complain of pain and neuropathy and she states Lyrica did help her at nighttime but this has worn off. Will increase Lyrica to twice daily. Anticipate discharge home by tomorrow. Objective - Vital Signs Vital signs: Vital Signs Temp 98.5 F 02/25/17 07:00 Pulse 97 02/25/17 08:00 Resp 18 02/25/17 08:00 BP 135/58 02/25/17 07:00 Pulse Ox 97 02/25/17 07:00 Intake & Output 02/24/17 02/25/17 02/25/17 18:59 06:59 18:59 Intake Total 480 400 Balance 480 400 Weight 47.627 kg Intake: Oral 480 400 Other: Voiding Method Toilet Toilet Toilet Bedpan Bedpan Bedpan # Voids 1 1 - Exam General appearance: mild distress, thin - EENT Eyes: anicteric sclerae, EOMI, no ptosis, no scleral icterus, normal appearance ENT: hearing grossly normal, NA/AT, normal oropharynx, no thrush Ears: bilateral: normal - Neck Neck: no lymphadenopathy, normal ROM, no rigidity, no stridor, no thyromegaly Carotids: bilateral: upstroke normal Thyroid: bilateral: normal size - Respiratory Respiratory: bilateral: diminished, negative: dullness, rales, rhonchi, wheezing , prolonged expiration - Cardiovascular Rhythm: regular Heart sounds: normal: S1, S2 Abnormal Heart Sounds: systolic murmur, no S3 Gallop, no S4 Gallop, no click - Gastrointestinal General gastrointestinal: normal bowel sounds, soft, no splenomegaly, no tenderness, no umbilical hernia, no ventral hernia - Integumentary Integumentary: normal, normal turgor - Neurologic Neurologic: CNII-XII intact - Musculoskeletal Musculoskeletal: no gait normal, generalized weakness - Psychiatric Psychiatric: A&O x's 3, appropriate affect, intact judgment & insight - Labs CBC & Chem 7: 02/24/17 03:40 02/24/17 03:40 Labs: Microbiology - Last 24 Hours (Table) 02/24/17 05:45 Blood Culture - Preliminary Blood No Growth after 24 hours 02/24/17 04:56 Urine Culture - Preliminary Urine,Voided Assessment and Plan Plan: 1. 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 we monitor cbc and will repeat in AM and transfuse for HGb less than 7. 2. Diffuse bone pain secondary to her myelofibrosis and significant neuropathy. Start the patient on fentanyl patch 75 g every 72 hours, oxycodone 10 mg every 4 hours, Dilaudid 1 mg IV push every 3 hours for breakthrough pain, and also start the patient on Lyrica 50 mg orally at bedtime and increased frequency to twice daily. 3. Chronic history of pancreatic duct stent, last MRCP was in December 2015. Her computed tomography scan of the abdomen and pelvis did show dilatation of the extrahepatic biliary and pancreatic duct. Without any significant changes 4. Chronic malabsorption state from poor oral intake, and ongoing pancreas problems, lipase to be checked, vitamin B12 would be obtained later await CAT scan 5. Weight loss of 17 pounds in 15 months nutritional supplementation would be ordered. 6. GI prophylaxis on Protonix 40 mg orally once every day. 7. DVT prophylaxis on TRISTAN hose and SCDs. 8. Anxiety. Continue Xanax as needed. 9. Urinary retention. Continue patient on Flomax 0.4 mg orally once every day. 10. Reported history of renal disease stage II. Her GFR is greater than 60. Avoid NSAIDs. Her intact PTH is elevated. 11. Chronic pain syndrome. Continue patient on current pain management. 12. Severe osteoarthritis of both hips. Continue to use the walker and avoid falling. 13. Admit to inpatient. Estimate a length of stay 2 midnights. 14. Patient is full code. Discharge plan: return home, possible home care Impression and plan of care have been directed as dictated by the signing physician. Kelli Marion nurse practitioner acting as scribe for signing physician.
[2017-02-25] MEDS: HYDROmorphone 1 MG/ML 1 ML SYRINGE IVP PRN (20:51)
[2017-02-26] MEDS ORDERED: VANCOMYCIN IV PER PHARMACY 1 EACH MISC MISCELLANE PRN (00:42)
[2017-02-26] MEDS ORDERED: VANCOMYCIN 750 MG in SODIUM CHLORIDE 0.9% 250 ML IVPB ONE (01:30)
[2017-02-26] MEDS: HYDROmorphone 1 MG/ML 1 ML SYRINGE IVP PRN ×4 (06:18→23:06)
[2017-02-26] MEDS: DILTIAZEM ORAL 60 MG TAB PO SCH ×4 (07:37→23:11)
[2017-02-26] MEDS: CHOLECALCIFEROL 1,000 UNIT TAB PO SCH (07:37)
[2017-02-26] MEDS: DOCUSATE 100 MG CAP PO SCH (07:38)
[2017-02-26] MEDS: PANTOPRAZOLE 40 MG TABLET PO SCH ×2 (07:38→08:06)
[2017-02-26] MEDS: TAMSULOSIN 0.4 MG CAP.ER.24H PO SCH (07:38)
[2017-02-26] MEDS: ALPRAZolam 0.25 MG TAB PO PRN ×2 (07:44→17:09)
[2017-02-26] MEDS: LACTULOSE 20 GM/30 ML CUP PO SCH ×3 (07:55→20:59)
[2017-02-26] MEDS: FOLIC ACID 1 MG TAB PO SCH (07:55)
[2017-02-26] MEDS: PREGABALIN 50 MG CAP PO SCH ×2 (07:57→20:58)
[2017-02-26 09:05] LABS: ALT 34 U/L (9-52); AST 30 U/L (14-36); Alkaline Phosphatase 241 U/L (38-126); Anion Gap 7 mmol/L; Blood Urea Nitrogen 22 mg/dL (7-17); Carbon Dioxide 26 mmol/L (22-30); Chloride 97 mmol/L (98-107); Glucose 97 mg/dL (74-99); Non-African American GFR(MDRD) >60 (>60 ml/min/1.73 sqM); Potassium 4.1 mmol/L (3.5-5.1); Sodium 130 mmol/L (137-145); Total Bilirubin 0.4 mg/dL (0.2-1.3); Total Protein 5.3 g/dL (6.3-8.2)
[2017-02-26 09:14] LABS: Anisocytosis Slight; Aty Lym Flag Marked; CH 28.4; HDW 3.66; Hypochromasia Marked; Immature Gran Flag Slight; Large Platelets Flag Slight; MCH 29.5 pg (25.0-35.0); MCHC 30.9 g/dL (31.0-37.0); MCV 95.5 fL (80.0-100.0); Macrocytosis Slight; Mean Platelet Volume 10.5; Poikilocytosis Slight; RBC 2.02 m/uL (3.80-5.40); RDW 19.5 % (11.5-15.5); WBC (Perox) 14.81
[2017-02-26 09:29] LABS: HCT 19.3 % (34.0-46.0)
[2017-02-26 10:57] LABS: Add Differential Manual Differential
[2017-02-26 10:59] LABS: Band Neutrophils % 4 %; Metamyelocytes % 6 %; Myelocytes % 2 %; Nucleated Red Blood Cells 2 /100 WBC (0-0); Total Cells Counted 200
[2017-02-26 11:00] LABS: Polychromasia Present; WBC 14.8 k/uL (3.8-10.6)
[2017-02-26] MEDS: ACETAMINOPHEN TAB 325 MG TAB PO PRN (13:08)
[2017-02-26] MEDS ORDERED: IBUPROFEN 800 MG TAB PO PRN (14:09)
[2017-02-26] MEDS: IBUPROFEN 800 MG TAB PO STA ×2 (14:11→22:27)
[2017-02-26] MEDS ORDERED: ACETAMINOPHEN TAB 325 MG TAB PO STA (14:18)
--- NOTE | 2017-02-26 15:03 | P.PN ---
Subjective This is a 66-year-old female patient of Dr. Dorantes with underlying history of CAD, hyperlipidemia, hypertension, pancreatitis, neuropathy chronic back pain chronic opioid-induced constipation. She has had several recent hospitalizations due to lower GI bleed thought to be due to diverticulitis as well as thrombocytopenia and anemia and leukocytosis followed by Dr. Navarrete. Patient recently underwent bone marrow biopsy. Results were not available during her last hospitalization but she was discharged home with a white count of 18.7, hemoglobin was 8.9 and platelet count of 43 on improved. She also had an elevated alkaline phosphatase of 205. Patient presented back to [facility] emergency center on December 08 with complaints of chest pain that started the day before and continued to worsen. She also had temperature of 100.8 and was complaining of shortness of breath and it hurt when she took a deep breath. There was no trauma to the chest wall or recent fall. She underwent a CTA of the chest that showed no definite acute pulmonary embolism. Trace bilateral pleural effusions. Chest x-ray showed no acute cardiopulmonary disease. She again presented with leukocytosis of 27.2, hemoglobin 7.6 and platelet count was up to 131. Her d-dimer was elevated at 3.26. Sodium 1:30 and chloride 93. Initial troponin was 0.012, proBNP 2120. Urinalysis was cloudy, nitrate and leukoesterase negative. Cardiology consult requested, repeat troponins, consult with Dr. Saravia from infectious disease and consult has been added for Dr. Navarrete. 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 Iraheta for second opinion prior to her starting on Jakafi(Ruxolutinib), however the patient ended up going to see Dr. Dorantes for laboratory evaluation she was found to have a hemoglobin of 5.70 ask her to go to the ER for evaluation patient showed up in the ER yesterday and she was admitted to the hospital for blood transfusion, patient did receive 2 units of packed red blood cells her hemoglobin is up to 8.9 she is wanted to be discharged home on January 2017, patient was seen and evaluated by Dr. Navarrete at that time she also was referred to [facility] [place] and she was supposed to have another appointment to the liver on today however the patient canceled the appointment because she is having severe bone pain and she ended up coming to the ER at [facility] 3:00 in the morning and she is not able template very well she had lost quite a bit of weight and she appears to be very cachectic, she never started Jakafi and there was a discussion about the stem cell transplant for her. 02/25: Patient continues to complain of pain and neuropathy and she states Lyrica did help her at nighttime but this has worn off. Will increase Lyrica to twice daily. Anticipate discharge home by tomorrow. 02/26: Patient having high-grade fevers, serial uncontrolled pain, generalized pain all over, patient is physically debilitated even prior to admission, has refused to entertain skilled rehab in [facility], patient is being transfused 2 units of packed red blood cell for hemoglobin of 6, fentanyl patch 75 g for the past 4 weeks is not working, we'll going to increase it to 100 g, patient also has paresthesias all over uncontrolled, patient's recently adjusted on her Lyrica to 50 twice a day. 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 Saravia is on consult, patient refused IV Rocephin, vancomycin is on hold, previous admissions also had similar events, cultures are negative in the past was ordered we'll going to wait for final recommendations from Dr. Saravia urinalysis negative. We'll check for influenza. Blood cultures have been sent Objective - Vital Signs Vital signs: Vital Signs Temp 102.7 F H 02/26/17 13:49 Pulse 106 H 02/26/17 06:26 Resp 18 02/26/17 06:26 BP 134/60 02/26/17 06:26 Pulse Ox 98 02/26/17 06:26 Intake & Output 02/25/17 02/26/17 02/26/17 18:59 06:59 18:59 Intake Total 540 540 Balance 540 540 Intake: Oral 540 540 Other: Voiding Method Toilet Toilet Bedpan Bedpan # Voids 1 1 - Constitutional General appearance: Present: cooperative, no acute distress - EENT Eyes: Present: anicteric sclerae, dentition normal, normal appearance ENT: Present: NA/AT, normal oropharynx - Neck Neck: Present: normal ROM - Respiratory Respiratory: bilateral: CTA, negative: diminished, dullness, rales, rhonchi - Cardiovascular Rhythm: regular Heart sounds: normal: S1, S2 Abnormal Heart Sounds: Absent: systolic murmur, diastolic murmur, rub, S3 Gallop , S4 Gallop, click, other - Gastrointestinal General gastrointestinal: Present: normal bowel sounds, soft - Integumentary Integumentary: Present: decreased turgor, normal - Neurologic Neurologic: Present: CNII-XII intact - Musculoskeletal Musculoskeletal: Present: gait normal, strength equal bilaterally - Psychiatric Psychiatric: Present: A&O x's 3, appropriate affect, intact judgment & insight - Labs CBC & Chem 7: 02/27/17 09:31 02/27/17 09:31 Labs: Abnormal Lab Results - Last 24 Hours (Table) 02/26/17 02/26/17 02/26/17 Range/Units 07:31 07:31 10:33 WBC 14.8 H (3.8-10.6) k/uL RBC 2.02 L (3.80-5.40) m/uL Hgb 6.0 L* D (11.4-16.0) gm/dL Hct 19.3 L* (34.0-46.0) % MCHC 30.9 L (31.0-37.0) g/dL RDW 19.5 H (11.5-15.5) % Plt Count 79 L (150-450) k/uL Neutrophils # (Manual) 9.70 H (1.3-7.7) k/uL Monocytes # (Manual) 1.63 H (0-1.0) k/uL Metamyelocytes # (Man) 0.89 H (0) k/uL Myelocytes # (Manual) 0.30 H (0) k/uL Nucleated RBCs 2 H (0-0) /100 WBC Sodium 130 L (137-145) mmol/L Chloride 97 L (98-107) mmol/L BUN 22 H (7-17) mg/dL Alkaline Phosphatase 241 H (38-126) U/L Total Protein 5.3 L (6.3-8.2) g/dL Albumin 2.8 L (3.5-5.0) g/dL Crossmatch See Detail Microbiology - Last 24 Hours (Table) 02/24/17 05:45 Blood Culture - Preliminary Blood No Growth after 48 hours 02/24/17 04:56 Urine Culture - Final Urine,Voided Assessment and Plan Plan: 1. 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 we monitor cbc and will repeat in AM and transfuse for HGb less than 7. 2. Diffuse bone pain secondary to her myelofibrosis and significant neuropathy. increase on fentanyl patch 100 g every 72 hours, oxycodone 10 mg every 4 hours, Dilaudid 1 mg IV push every 3 hours for breakthrough pain, and also start the patient on Lyrica 50 mg orally at bedtime and increased frequency to twice daily. 3. Chronic history of pancreatic duct stent, last MRCP was in December 2015. Her computed tomography scan of the abdomen and pelvis did show dilatation of the extrahepatic biliary and pancreatic duct. Without any significant changes 4. Chronic malabsorption state from poor oral intake, and ongoing pancreas problems, lipase to be checked, vitamin B12 would be obtained later await CAT scan 5. Weight loss of 17 pounds in 15 months nutritional supplementation would be ordered. 6. GI prophylaxis on Protonix 40 mg orally once every day. 7. DVT prophylaxis on TRISTAN hose and SCDs. 8. Anxiety. Continue Xanax as needed. 9. Urinary retention. Continue patient on Flomax 0.4 mg orally once every day. 10. Reported history of renal disease stage II. Her GFR is greater than 60. Avoid NSAIDs. Her intact PTH is elevated. 11. Chronic pain syndrome. Continue patient on current pain management. 12. Severe osteoarthritis of both hips. Continue to use the walker and avoid falling. 13. Admit to inpatient. Estimate a length of stay 2 midnights. 14. Patient is full code. Discharge plan: return home, possible home care
--- NOTE | 2017-02-26 16:27 | P.CONS ---
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 She has a very extensive recent past medical history in that she's had significant hematological abnormalities. She underwent bone marrow evaluations and was found to have evidence of myelofibrosis. She was sent [facility] for further evaluation. She was to be started on Jakafi(Ruxolutinib) but appears she refused to start this treatment. She was looking for further evaluation for potential stem cell transplantation. She was to have an appointment yesterday, however her pain became so severe she presents the emergency center instead. Her sister is present in the room. Upon introducing myself to her. She relates at the end is near for her. She is not suicidal, but is very miserable and relates that any touching to her body causes or worsening of her severe pain, and just wants to have her pain better controlled. She is great difficulties with nutrition has had weight loss. She however is now having significant fevers and with that the infectious diseases consultation was requested. The patient relates to severe pain all over. She was not aware of her high- grade fevers, not having significant chills or rigors. But just feels horrible. Denies sinus congestion, denies shortness of breath cough or sputum production, denies nausea or emesis but has no appetite. No stiffing of diarrhea or urinary symptoms changes. Review of Systems HEENT:Denies headache or acute visual change. Denies sinus or mouth discomforts. Denies neck stiffness . Denies significant oral cavity pain. Denies difficulty on swallowing. Lungs: Denies significant shortness of breath, cough, sputum production, or hemoptysis. Cardiovascular: Denies significant shortness of breath, chest pain, orthopnea, dyspnea on exertion, syncope Gastrointestinal:Denies nausea, vomiting, diarrhea, constipation, hematemesis, melena, hematochezia. No no significant change of bowel habit noticed. But does have significant difficulties with diarrhea and gastrointestinal bleeding in the past Musculoskeletal: He has severe generalized myalgia or arthralgia. No acute joint swelling has been noted. The joints are not hot but are very painful to motion and touch. Skin: Denies new rash or lesions. No new ulcers or wounds are related.. Neuro: Denies headache or visual change. Denies any new onset weakness or difficulty with ambulation. Denies falls or seizures. Psychiatric: Chronic anxiety and depression related to her progressive disease state Endocrine: Severe progressive fatigue and weight loss Past Medical History Past Medical History: Coronary Artery Disease (CAD), Fibromyalgia, GI Bleed, Hyperlipidemia, Hypertension, Osteoarthritis (OA), Renal Disease Additional Past Medical History / Comment(s): Myelofibrosis, leukocytosis, thrombocytopenia, bicytopenia, anemia, lower GI bleeds, hyponatremia, hyperkalemia, chronic pain syndrome, chronic back pain, mild cervical stenosis, arthtitis bilateral hips, DJD, neuropathy bilateral lower extremitis, chronic opiod constipation, chronic kidney dx stage 2, urinary retention, pancreatitis, malabsorption, diverticular dx. Pt states she has an appointment tomorrow at [facility] to discuss tx options for her myelofibrosis. She is interested in obtaining a medical marijuana card. History of Any Multi-Drug Resistant Organisms: None Reported Past Surgical History: Adenoidectomy, Appendectomy, Tonsillectomy Additional Past Surgical History / Comment(s): B/L lasik in 1999, BMA, pancreatic duct stent. Past Anesthesia/Blood Transfusion Reactions: No Reported Reaction Additional Psychological History / Comment(s): Single. Retired nurse positive tobacco use but denies recreational drug use. Has traveled to [place] in the past. No experience. no animal exposures. Relates that she does have medical advocate Smoking Status: Current every day smoker - Past Family History Mother Family Medical History: Cancer, Coronary Artery Disease (CAD), Diabetes Mellitus , Hypertension, Renal Disease Additional Family Medical History / Comment(s): Heart and anxiety issues. Had quadraple bypass, Father Family Medical History: Coronary Artery Disease (CAD) Additional Family Medical History / Comment(s): Quad heart bypass Medications and Allergies Home Medications and Allergies Comment(s): Current Medications Acetaminophen (Tylenol Tab) 650 mg PO Q6HR PRN PRN Reason: Fever and/ or MILD Pain Last Admin: 02/26/17 13:08 Dose: 650 mg Alprazolam (Xanax) 0.25 mg PO Q8HR PRN PRN Reason: Muscle Spasm Last Admin: 02/26/17 07:44 Dose: 0.25 mg Bisacodyl (Dulcolax) 5 mg PO BID PRN PRN Reason: Constipation Cholecalciferol (Vitamin D3) 5,000 unit PO Q48H [facility] Last Admin: 02/26/17 07:37 Dose: 5,000 unit Cyanocobalamin (Vitamin B-12) 1,000 mcg PO MOWEFR [facility] Last Admin: 02/25/17 08:10 Dose: 1,000 mcg Diltiazem HCl (Cardizem Oral) 120 mg PO TID@0600,1400,2200 [facility] Last Admin: 02/26/17 08:04 Dose: 60 mg Docusate Sodium (Colace) 100 mg PO DAILY [facility] Last Admin: 02/26/17 07:38 Dose: 100 mg Fentanyl (Duragesic 100mcg/Hr Patch) 1 patch TRANSDERM Q72H [facility] Folic Acid (Folic Acid) 0.5 mg PO DAILY [facility] Last Admin: 02/26/17 07:55 Dose: 0.5 mg Furosemide (Lasix) 20 mg PO DAILY PRN PRN Reason: Edema Hydromorphone HCl (Dilaudid) 1 mg IVP Q3HR PRN PRN Reason: Pain Last Admin: 02/26/17 10:03 Dose: 1 mg Lactulose (Cephulac) 20 gm PO BID [facility] Last Admin: 02/26/17 08:05 Dose: Not Given Metoprolol Tartrate (Lopressor) 25 mg PO DAILY PRN PRN Reason: HEART RATE-HIGH Naloxone HCl (Narcan) 0.2 mg IV Q2M PRN PRN Reason: Opioid Reversal Ondansetron HCl (Zofran) 4 mg IVP Q8HR PRN PRN Reason: Nausea And Vomiting Oxycodone HCl (Oxyir) 15 mg PO Q4HR PRN PRN Reason: Pain Last Admin: 02/26/17 12:24 Dose: 15 mg Pantoprazole Sodium (Protonix) 40 mg PO AC-BRKFST [facility] Last Admin: 02/26/17 08:06 Dose: Not Given Pregabalin (Lyrica) 50 mg PO BID [facility] Last Admin: 02/26/17 07:57 Dose: 50 mg Tamsulosin HCl (Flomax) 0.4 mg PO PC-BRKFST [facility] Last Admin: 02/26/17 07:38 Dose: 0.4 mg Home Medications Medication Instructions Recorded Confirmed Type Ondansetron Odt [Zofran ODT] 4 mg PO Q8HR PRN #20 tab 05/08/15 02/24/17 Rx Cholecalciferol [Vitamin D3] 5,000 unit PO Q48H 11/15/16 02/24/17 History Cyanocobalamin (Vitamin B-12) 1,000 mcg PO MOWEFR 11/15/16 02/24/17 History [Vitamin B-12] Diltiazem HCl 60 mg PO TID 11/15/16 02/24/17 History Folic Acid 0.4 mg PO DAILY 11/15/16 02/24/17 History Lutein 40 mg PO DAILY 11/15/16 02/24/17 History Compounded Cream 1 applic TOPICAL TID PRN 12/08/16 02/24/17 History Furosemide [Lasix] 20 mg PO DAILY PRN 12/08/16 02/24/17 History Lactulose [Cephulac] 20 gm PO BID PRN 12/08/16 02/24/17 History Vitamin C Odt Tablet 1 tab PO DAILY 12/08/16 02/24/17 History ALPRAZolam [Xanax] 0.25 mg PO Q8HR PRN #60 12/16/16 02/24/17 Rx oxyCODONE HCL 10 mg PO Q4HR PRN #60 12/16/16 02/24/17 Rx Bisacodyl [Dulcolax] 10 mg PO BID PRN 01/11/17 02/24/17 History Metoprolol Tartrate [Lopressor] 25 mg PO DAILY PRN 01/11/17 02/24/17 History Wheat Dextrin [Benefiber] 1 pack PO DAILY 01/11/17 02/24/17 History Carboxymethylcellulose Sodium 1 drop BOTH EYES DAILY PRN 02/24/17 02/24/17 History [Refresh Tears] Docusate [Colace] 100 mg PO BID 02/24/17 02/24/17 History SILVER sulfADIAZINE Cream 1 applic TOPICAL BID 02/24/17 02/24/17 History [Silvadene 1% Cream] Vitamin A 1,000 Unit 1,000 unit PO DAILY 02/24/17 02/24/17 History Vitamin E 1,000 unit PO DAILY 02/24/17 02/24/17 History Zinc 50 mg PO DAILY 02/24/17 02/24/17 History fentaNYL 75MCG/HR PATCH [Duragesic 75 mcg TRANSDERM Q48H 02/24/17 02/24/17 History 75MCG/HR] Allergies Allergy/AdvReac Type Severity Reaction Status Date / Time amoxicillin Allergy Unknown Verified 02/24/17 07:15 cephalexin [From Keflex] Allergy Unknown Verified 02/24/17 07:15 erythromycin base Allergy Rash/Hives Verified 02/24/17 07:15 hydrochlorothiazide Allergy "DROPS Verified 02/24/17 07:15 SODIUM LEVEL" peppermint Allergy Rash/Hives Verified 02/24/17 07:15 Tetracyclines Allergy Swelling Verified 02/24/17 07:15 atenolol AdvReac PASSES OUT Verified 02/24/17 07:15 nifedipine [From Procardia] AdvReac HAIR LOSS Verified 02/24/17 07:15 pregabalin [From Lyrica] AdvReac LEG PAIN Verified 02/24/17 07:15 [id number]-Paa Reductase AdvReac LEG PAIN Verified 02/24/17 07:15 Inhibitor multivitamins Allergy Severe Rash/Hives Uncoded 02/24/17 09:00 D[employer] Allergy Rash/Hives Uncoded 02/24/17 03:36 Physical Exam Vitals: Vital Signs Temp Pulse Pulse Resp BP BP Pulse Ox 02/26/17 15:54 97.9 F 99 18 116/59 100 02/26/17 13:49 102.7 F H 02/26/17 13:05 101.6 F H 02/26/17 06:26 98.8 F 106 H 18 134/60 98 02/26/17 00:00 120 H 02/25/17 22:50 99.3 F 02/25/17 21:20 99.9 F H 120 H 18 128/59 99 Intake and Output 02/26/17 02/26/17 02/26/17 06:59 14:59 22:59 Intake Total 0 Balance 0 Intake: Blood Product 0 Rc As-3 Unit 0 [id number] Other: Voiding Method Toilet Bedpan # Voids 1 66-year-old female of a cachectic build HEENT: Anicteric conjunctiva are pink and moist nasal mucosa grossly intact without significant lesions, there is no thrush. Poor oral hygiene Neck: The neck is supple without significant lymphadenopathy or thyromegaly. Lungs: Good bilateral air entry without significant crackles or wheezing. There is no significant bronchial sounds. There is no egophony or dullness. Heart: Regular rate and rhythm with an audible S1-S2, no S3 no S4. There is no significant murmur click or rub, PMI was nondisplaced. Abdomen: Positive bowel sounds soft she has generalized tenderness throughout her body including abdominal wall without palpable masses or organomegaly. There was no guarding or rebound. Extremities: The upper and lower extremities are warm to touch. She however complains of severe pain upon manipulation. Does have the heels up off the bed with pillows. Neuro: Awake alert oriented to person place and time. There are no acute new gross focal sensory motor deficits. Psych: Patient has depression she states as I arrived into the room she does not have long left to live. she however is surprisingly pleasant and cooperative. She is an excellent historian and his history being a retired nurse. Results CBC & Chem 7: 02/26/17 07:31 02/26/17 07:31 Labs: Abnormal Lab Results - Last 24 Hours (Table) 02/26/17 02/26/17 02/26/17 Range/Units 07:31 07:31 10:33 WBC 14.8 H (3.8-10.6) k/uL RBC 2.02 L (3.80-5.40) m/uL Hgb 6.0 L* D (11.4-16.0) gm/dL Hct 19.3 L* (34.0-46.0) % MCHC 30.9 L (31.0-37.0) g/dL RDW 19.5 H (11.5-15.5) % Plt Count 79 L (150-450) k/uL Neutrophils # (Manual) 9.70 H (1.3-7.7) k/uL Monocytes # (Manual) 1.63 H (0-1.0) k/uL Metamyelocytes # (Man) 0.89 H (0) k/uL Myelocytes # (Manual) 0.30 H (0) k/uL Nucleated RBCs 2 H (0-0) /100 WBC Sodium 130 L (137-145) mmol/L Chloride 97 L (98-107) mmol/L BUN 22 H (7-17) mg/dL Alkaline Phosphatase 241 H (38-126) U/L Total Protein 5.3 L (6.3-8.2) g/dL Albumin 2.8 L (3.5-5.0) g/dL Crossmatch See Detail Microbiology - Last 24 Hours (Table) 02/24/17 05:45 Blood Culture - Preliminary Blood No Growth after 48 hours 02/24/17 04:56 Urine Culture - Final Urine,Voided Laboratory Results WBC 14.8 k/uL (3.8-10.6) H 02/26/17 07:31 RBC 2.02 m/uL (3.80-5.40) L 02/26/17 07:31 Hgb 6.0 gm/dL (11.4-16.0) L* D 02/26/17 07:31 Hct 19.3 % (34.0-46.0) L* 02/26/17 07:31 MCV 95.5 fL (80.0-100.0) 02/26/17 07:31 MCH 29.5 pg (25.0-35.0) 02/26/17 07:31 MCHC 30.9 g/dL (31.0-37.0) L 02/26/17 07:31 RDW 19.5 % (11.5-15.5) H 02/26/17 07:31 Plt Count 79 k/uL (150-450) L 02/26/17 07:31 Neutrophils % (Manual) 62 % 02/26/17 07:31 Band Neutrophils % 4 % 02/26/17 07:31 Lymphocytes % (Manual) 15 % 02/26/17 07:31 Monocytes % (Manual) 11 % 02/26/17 07:31 Eosinophils % (Manual) 2 % 02/26/17 07:31 Metamyelocytes % 6 % 02/26/17 07:31 Myelocytes % 2 % 02/26/17 07:31 Blast Cells % 2 % 02/24/17 03:40 Neutrophils # (Manual) 9.70 k/uL (1.3-7.7) H 02/26/17 07:31 Lymphocytes # (Manual) 2.22 k/uL (1.0-4.8) 02/26/17 07:31 Monocytes # (Manual) 1.63 k/uL (0-1.0) H 02/26/17 07:31 Eosinophils # (Manual) 0.30 k/uL (0-0.7) 02/26/17 07:31 Metamyelocytes # (Man) 0.89 k/uL (0) H 02/26/17 07:31 Myelocytes # (Manual) 0.30 k/uL (0) H 02/26/17 07:31 Blast Cells # (Man) 0.33 k/uL (0) H 02/24/17 03:40 Nucleated RBCs 2 /100 WBC (0-0) H 02/26/17 07:31 Manual Slide Review Performed 02/24/17 03:40 Large Platelets Present 02/24/17 03:40 Polychromasia Present 02/26/17 07:31 Hypochromasia Marked 02/26/17 07:31 Poikilocytosis Slight 02/26/17 07:31 Anisocytosis Slight 02/26/17 07:31 Anisocytosis (manual) Present 02/24/17 03:40 Macrocytosis Slight 02/26/17 07:31 Sodium 130 mmol/L (137-145) L 02/26/17 07:31 Potassium 4.1 mmol/L (3.5-5.1) 02/26/17 07:31 Chloride 97 mmol/L (98-107) L 02/26/17 07:31 Carbon Dioxide 26 mmol/L (22-30) 02/26/17 07:31 Anion Gap 7 mmol/L 02/26/17 07:31 BUN 22 mg/dL (7-17) H 02/26/17 07:31 Creatinine 0.87 mg/dL (0.52-1.04) 02/26/17 07:31 Est GFR (MDRD) Af Amer >60 (>60 ml/min/1.73 sqM) 02/26/17 07:31 Est GFR (MDRD) Non-Af >60 (>60 ml/min/1.73 sqM) 02/26/17 07:31 Glucose 97 mg/dL (74-99) 02/26/17 07:31 Calcium 9.0 mg/dL (8.4-10.2) 02/26/17 07:31 Total Bilirubin 0.4 mg/dL (0.2-1.3) 02/26/17 07:31 AST 30 U/L (14-36) 02/26/17 07:31 ALT 34 U/L (9-52) 02/26/17 07:31 Alkaline Phosphatase 241 U/L (38-126) H 02/26/17 07:31 Total Protein 5.3 g/dL (6.3-8.2) L 02/26/17 07:31 Albumin 2.8 g/dL (3.5-5.0) L 02/26/17 07:31 Urine Color Yellow 02/24/17 04:56 Urine Appearance Cloudy (Clear) H 02/24/17 04:56 Urine pH 5.5 (5.0-8.0) 02/24/17 04:56 Ur Specific [place] 1.013 (1.001-1.035) 02/24/17 04:56 Urine Protein Trace (Negative) H 02/24/17 04:56 Urine Glucose (UA) Negative (Negative) 02/24/17 04:56 Urine Ketones Negative (Negative) 02/24/17 04:56 Urine Blood Negative (Negative) 02/24/17 04:56 Urine Nitrite Negative (Negative) 02/24/17 04:56 Urine Bilirubin Negative (Negative) 02/24/17 04:56 Urine Urobilinogen <2.0 mg/dL (<2.0) 02/24/17 04:56 Ur Leukocyte Esterase Negative (Negative) 02/24/17 04:56 Urine RBC 1 /hpf (0-5) 02/24/17 04:56 Urine WBC 1 /hpf (0-5) 02/24/17 04:56 Ur Squamous Epith Cells 5 /hpf (0-4) H 02/24/17 04:56 Urine Bacteria Rare /hpf (None) H 02/24/17 04:56 Hyaline Casts 3 /lpf (0-2) H 02/24/17 04:56 Urine Mucus Rare /hpf (None) H 02/24/17 04:56 Blood Type O Positive 02/26/17 10:33 Blood Type Recheck No 02/26/17 10:33 Antibody Screen NEGATIVE 02/26/17 10:33 Crossmatch See Detail 02/26/17 10:33 Spec Expiration Date 03/01/2017 - 6610 02/26/17 10:33 Microbiology 02/24/17 05:45 Blood Blood Culture - Preliminary No Growth after 48 hours 02/24/17 04:56 Urine,Voided Urine Culture - Final Assessment and Plan (1) Fever Narrative/Plan: 66-year-old female who has a known history of myeloproliferative disorder, who deferred treatment and was looking for further input from [facility] possible stem cell transplant. However she became quite ill with severe generalized pain as well as worsening anemia. Presented to Hospital. She knows to help the fever to 102.7 and feels even worse. Cultures are in process. Given her current significant level of immunosuppression concerns for stiffing underlying sepsis. Antimicrobial therapy with cefepime will be utilized. Immunoglobulin levels will be checked given her significant marrow failure and supplement if indicated. She does not seem to have pulmonary symptoms, also does not have significant urine symptoms. Chest x-ray is negative urinalysis negative. She has no evidence of any significant cellulitis despite her significant tenderness. Cultures will be followed and antibiotic suggested as possible. The Status: Acute (2) Myeloproliferative disorder Status: Acute (3) Leukocytosis Status: Acute
[2017-02-26 16:32] LABS: Creatine Kinase <20 U/L (30-135); Uric Acid 7.5 mg/dL (3.7-7.4)
[2017-02-26 16:42] LABS: LDH 4142 U/L (313-618)
[2017-02-26] MEDS ORDERED: IBUPROFEN 800 MG TAB PO SCH (21:00)
[2017-02-26 21:17] LABS: Amorphous Sediment,Urine Occasional /hpf; Appearance,Urine Cloudy (Clear); Bilirubin,Urine Negative (Negative); Glucose,Urine (UA) Negative (Negative); Ketones,Urine Negative (Negative); Leukocyte Esterase,Urine Negative (Negative); Mucus,Urine Rare /hpf; Nitrite,Urine Negative (Negative); Particle Count 6174; Protein,Urine 1+ (Negative); Specific Gravity,Urine 1.019 (1.001-1.035); Squamous Epithelial Cell,Urine 7 /hpf (0-4); UA Billing (MACRO vs. MICRO) MICRO; WBC,Urine 3 /hpf (0-5)
[2017-02-26] MEDS: CEFEPIME 2 GM in SODIUM CHLORIDE 0.9% 50 ML IVPB SCH (23:09)
[2017-02-27] MEDS: ALPRAZolam 0.25 MG TAB PO PRN ×3 (01:18→17:23)
[2017-02-27] MEDS: DILTIAZEM ORAL 60 MG TAB PO SCH ×3 (05:38→21:39)
[2017-02-27] MEDS: HYDROmorphone 1 MG/ML 1 ML SYRINGE IVP PRN ×5 (06:16→21:47)
[2017-02-27] MEDS: CEFEPIME 2 GM in SODIUM CHLORIDE 0.9% 50 ML IVPB SCH ×3 (08:44→23:44)
[2017-02-27] MEDS: DOCUSATE 100 MG CAP PO SCH (08:45)
[2017-02-27] MEDS: TAMSULOSIN 0.4 MG CAP.ER.24H PO SCH (08:45)
[2017-02-27] MEDS: FOLIC ACID 1 MG TAB PO SCH (08:45)
[2017-02-27] MEDS: LACTULOSE 20 GM/30 ML CUP PO SCH ×2 (08:46→21:39)
[2017-02-27] MEDS: PANTOPRAZOLE 40 MG TABLET PO SCH (08:48)
[2017-02-27] MEDS: PREGABALIN 50 MG CAP PO SCH ×2 (08:56→21:39)
[2017-02-27 09:44] LABS: Anisocytosis Slight; Aty Lym Flag Marked; CH 29.6; CHCM 32.2; HCT 27.6 % (34.0-46.0); HDW 4.21; Hypochromasia Moderate; Immature Gran Flag Slight; Large Platelets Flag Moderate; MCH 30.5 pg (25.0-35.0); MCHC 32.9 g/dL (31.0-37.0); MCV 92.7 fL (80.0-100.0); Mean Platelet Volume 11.4; Poikilocytosis Moderate; RBC 2.97 m/uL (3.80-5.40); RDW 18.3 % (11.5-15.5); WBC 16.7 k/uL (3.8-10.6); WBC (Perox) 18.08
[2017-02-27 09:47] LABS: HGB 9.1 gm/dL (11.4-16.0)
[2017-02-27 09:51] LABS: Anion Gap 7 mmol/L; Blood Urea Nitrogen 22 mg/dL (7-17); Calcium 9.1 mg/dL (8.4-10.2); Carbon Dioxide 25 mmol/L (22-30); Chloride 100 mmol/L (98-107); Glucose 98 mg/dL (74-99); Non-African American GFR(MDRD) >60 (>60 ml/min/1.73 sqM); Potassium 4.4 mmol/L (3.5-5.1); Sodium 132 mmol/L (137-145)
[2017-02-27 10:28] LABS: Add Differential Manual Differential
[2017-02-27 10:32] LABS: Band Neutrophils % 4 %; Metamyelocytes % 5 %; Myelocytes % 1 %; Nucleated Red Blood Cells 0 /100 WBC (0-0); Polychromasia Present; Promyelocytes % 2 %; Total Cells Counted 200
--- NOTE | 2017-02-27 10:44 | P.PN ---
Subjective The patient is complaining of marked generalized pain. She remains quite weak. No obvious bleeding noted. Patient complains of significant pain, even on just light touch. Objective - Vital Signs Vital signs: Vital Signs Temp 98.9 F 02/27/17 07:00 Pulse 117 H 02/27/17 07:00 Resp 16 02/27/17 07:00 BP 132/72 02/27/17 07:00 Pulse Ox 99 02/27/17 07:26 Intake & Output 02/26/17 02/27/17 02/27/17 18:59 06:59 18:59 Intake Total 1080 2170 200 Output Total 1170 Balance 1080 1000 200 Intake: Intake, IV Titration 50 Amount Cefepime 2 gm In Sodium 50 Chloride 0.9% 50 ml @ 100 mls/hr IVPB Q8HR [facility] Rx# :[id number] Oral 1080 1190 200 Blood Product 0 930 Rc As-3 Unit 310 [id number] Rc As-3 Unit 0 310 [id number] Output: Urine 1170 Other: Voiding Method Toilet Bedside Commode Bedside Commode Bedpan # Voids 1 # Bowel Movements 1 - Constitutional General appearance: Present: mild distress - EENT Eyes: Present: EOMI, PERRLA ENT: Present: hearing grossly normal, normal oropharynx - Respiratory Respiratory: bilateral: diminished - Cardiovascular Rhythm: regular Heart sounds: normal: S1, S2 - Gastrointestinal General gastrointestinal: Present: normal bowel sounds, soft - Integumentary Integumentary: Present: normal - Neurologic Neurologic: Present: CNII-XII intact - Musculoskeletal Musculoskeletal: Present: generalized weakness, strength equal bilaterally - Psychiatric Psychiatric: Present: A&O x's 3 - Labs CBC & Chem 7: 02/27/17 09:31 02/27/17 09:31 Labs: Abnormal Lab Results - Last 24 Hours (Table) 02/26/17 02/26/17 02/26/17 Range/Units 07:31 07:31 10:33 WBC 14.8 H (3.8-10.6) k/uL RBC (3.80-5.40) m/uL Hgb (11.4-16.0) gm/dL Hct (34.0-46.0) % RDW (11.5-15.5) % Plt Count (150-450) k/uL Neutrophils # (Manual) 9.70 H (1.3-7.7) k/uL Monocytes # (Manual) 1.63 H (0-1.0) k/uL Metamyelocytes # (Man) 0.89 H (0) k/uL Myelocytes # (Manual) 0.30 H (0) k/uL Promyelocytes # (Man) (0) k/uL Blast Cells # (Man) (0) k/uL Nucleated RBCs 2 H (0-0) /100 WBC Sodium (137-145) mmol/L BUN (7-17) mg/dL Uric Acid 7.5 H (3.7-7.4) mg/dL Lactate Dehydrogenase 4142 H (313-618) U/L Creatine Kinase <20 L (30-135) U/L Urine Appearance (Clear) Urine Protein (Negative) Ur Squamous Epith Cells (0-4) /hpf Amorphous Sediment (None) /hpf Urine Mucus (None) /hpf Crossmatch See Detail 02/26/17 02/27/17 02/27/17 Range/Units 20:50 09:31 09:31 WBC 16.7 H (3.8-10.6) k/uL RBC 2.97 L (3.80-5.40) m/uL Hgb 9.1 L D (11.4-16.0) gm/dL Hct 27.6 L (34.0-46.0) % RDW 18.3 H (11.5-15.5) % Plt Count 76 L (150-450) k/uL Neutrophils # (Manual) 9.80 H (1.3-7.7) k/uL Monocytes # (Manual) 3.01 H (0-1.0) k/uL Metamyelocytes # (Man) 0.84 H (0) k/uL Myelocytes # (Manual) 0.17 H (0) k/uL Promyelocytes # (Man) 0.33 H (0) k/uL Blast Cells # (Man) 0.33 H (0) k/uL Nucleated RBCs (0-0) /100 WBC Sodium 132 L (137-145) mmol/L BUN 22 H (7-17) mg/dL Uric Acid (3.7-7.4) mg/dL Lactate Dehydrogenase (313-618) U/L Creatine Kinase (30-135) U/L Urine Appearance Cloudy H (Clear) Urine Protein 1+ H (Negative) Ur Squamous Epith Cells 7 H (0-4) /hpf Amorphous Sediment Occasional H (None) /hpf Urine Mucus Rare H (None) /hpf Crossmatch Microbiology - Last 24 Hours (Table) 02/26/17 20:50 Urine Culture - Preliminary Urine,Clean Catch 02/24/17 05:45 Blood Culture - Preliminary Blood No Growth after 72 hours 02/26/17 01:08 Blood Culture - Preliminary Blood No Growth after 24 hours 02/26/17 01:29 Blood Culture - Preliminary Blood No Growth after 24 hours Assessment and Plan (1) Myelofibrosis Narrative/Plan: The patient appears to be fairly stable in terms of the myelofibrosis. Platelet counts have dropped into the 70 range, which is within her usual range of fluctuation. WBC is also overall stable with adequate neutrophils. The patient is awaiting a bone marrow transplant evaluation. She was not felt to be a good candidate for Jakafi, after evaluation at [facility]. Status: Chronic (2) Anemia Narrative/Plan: She has had periodic drops in hemoglobin because of her myelofibrosis. Previously there has also been GI bleeding noted. Hemoglobin did drop into the 6 range today, after which the patient received 2 units of PRBC appropriately. No obvious bleeding. [facility] recommended possible trial of Procrit, if the patient is not found to be a candidate for BMT. It was discussed with her, and the family, that this major is essentially palliative and would not really change the course of disease, but could improve need for transfusion if it is effective Status: Acute (3) Chronic pain Narrative/Plan: The patient has had issues with chronic pain due to fibromyalgia. Marked generalized pain appears to be a main complaint at this time. Clinically, this does not appear to be related to myelofibrosis. The patient has really not had any significant change in her blood count other than fluctuations which are within her usual range. Bone pain can occur with rapidly progressive myelofibrosis, but we are not seeing any evidence of that at this time. The patient on the other hand, has overall generalized pain, and even experiences distress on light touch essentially all over her body. Clinically, this does not appear to be characteristic of pain related to her blood issues. Patient is on pain medications per Dr Macedo. Defer to him for continued management Status: Acute
--- NOTE | 2017-02-27 13:34 | P.PN ---
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 She has a very extensive recent past medical history in that she's had significant hematological abnormalities. She underwent bone marrow evaluations and was found to have evidence of myelofibrosis. She was sent [facility] for further evaluation. She was to be started on Jakafi(Ruxolutinib) but appears she refused to start this treatment. She was looking for further evaluation for potential stem cell transplantation. She was to have an appointment yesterday, however her pain became so severe she presents the emergency center instead. Her sister is present in the room. Upon introducing myself to her. She relates at the end is near for her. She is not suicidal, but is very miserable and relates that any touching to her body causes or worsening of her severe pain, and just wants to have her pain better controlled. She is great difficulties with nutrition has had weight loss. She however is now having significant fevers and with that the infectious diseases consultation was requested. The patient relates to severe pain all over. She was not aware of her high- grade fevers, not having significant chills or rigors. But just feels horrible. Denies sinus congestion, denies shortness of breath cough or sputum production, denies nausea or emesis but has no appetite. No stiffing of diarrhea or urinary symptoms changes. 2 sisters present and questions answered. Objective - Vital Signs Vital signs: Vital Signs Temp 98.9 F 02/27/17 07:00 Pulse 117 H 02/27/17 07:00 Resp 16 02/27/17 07:00 BP 132/72 02/27/17 07:00 Pulse Ox 99 02/27/17 07:26 Intake & Output 02/26/17 02/27/17 02/27/17 18:59 06:59 18:59 Intake Total 1080 2170 200 Output Total 1170 Balance 1080 1000 200 Intake: Intake, IV Titration 50 Amount Cefepime 2 gm In Sodium 50 Chloride 0.9% 50 ml @ 100 mls/hr IVPB Q8HR [facility] Rx# :[id number] Oral 1080 1190 200 Blood Product 0 930 Rc As-3 Unit 310 [id number] Rc As-3 Unit 0 310 [id number] Output: Urine 1170 Other: Voiding Method Toilet Bedside Commode Bedside Commode Bedpan # Voids 1 # Bowel Movements 1 - Exam 66-year-old female of a cachectic build HEENT: Anicteric conjunctiva are pink and moist nasal mucosa grossly intact without significant lesions, there is no thrush. Poor oral hygiene Neck: The neck is supple without significant lymphadenopathy or thyromegaly. Lungs: Good bilateral air entry without significant crackles or wheezing. There is no significant bronchial sounds. There is no egophony or dullness. Heart: Regular rate and rhythm with an audible S1-S2, no S3 no S4. There is no significant murmur click or rub, PMI was nondisplaced. Abdomen: Positive bowel sounds soft she has generalized tenderness throughout her body including abdominal wall without palpable masses or organomegaly. There was no guarding or rebound. Extremities: The upper and lower extremities are warm to touch. She however complains of severe pain upon manipulation. Does have the heels up off the bed with pillows. Neuro: Awake alert oriented to person place and time. There are no acute new gross focal sensory motor deficits. Psych: Patient has depression she states as I arrived into the room she does not have long left to live. she is more sedated today, Ate a doughnut form her sister. - Labs CBC & Chem 7: 02/27/17 09:31 02/27/17 09:31 Labs: Abnormal Lab Results - Last 24 Hours (Table) 02/26/17 02/26/17 02/26/17 Range/Units 07:31 10:33 20:50 WBC (3.8-10.6) k/uL RBC (3.80-5.40) m/uL Hgb (11.4-16.0) gm/dL Hct (34.0-46.0) % RDW (11.5-15.5) % Plt Count (150-450) k/uL Neutrophils # (Manual) (1.3-7.7) k/uL Monocytes # (Manual) (0-1.0) k/uL Metamyelocytes # (Man) (0) k/uL Myelocytes # (Manual) (0) k/uL Promyelocytes # (Man) (0) k/uL Blast Cells # (Man) (0) k/uL Sodium (137-145) mmol/L BUN (7-17) mg/dL Uric Acid 7.5 H (3.7-7.4) mg/dL Lactate Dehydrogenase 4142 H (313-618) U/L Creatine Kinase <20 L (30-135) U/L Urine Appearance Cloudy H (Clear) Urine Protein 1+ H (Negative) Ur Squamous Epith Cells 7 H (0-4) /hpf Amorphous Sediment Occasional H (None) /hpf Urine Mucus Rare H (None) /hpf Crossmatch See Detail 02/27/17 02/27/17 Range/Units 09:31 09:31 WBC 16.7 H (3.8-10.6) k/uL RBC 2.97 L (3.80-5.40) m/uL Hgb 9.1 L D (11.4-16.0) gm/dL Hct 27.6 L (34.0-46.0) % RDW 18.3 H (11.5-15.5) % Plt Count 76 L (150-450) k/uL Neutrophils # (Manual) 9.80 H (1.3-7.7) k/uL Monocytes # (Manual) 3.01 H (0-1.0) k/uL Metamyelocytes # (Man) 0.84 H (0) k/uL Myelocytes # (Manual) 0.17 H (0) k/uL Promyelocytes # (Man) 0.33 H (0) k/uL Blast Cells # (Man) 0.33 H (0) k/uL Sodium 132 L (137-145) mmol/L BUN 22 H (7-17) mg/dL Uric Acid (3.7-7.4) mg/dL Lactate Dehydrogenase (313-618) U/L Creatine Kinase (30-135) U/L Urine Appearance (Clear) Urine Protein (Negative) Ur Squamous Epith Cells (0-4) /hpf Amorphous Sediment (None) /hpf Urine Mucus (None) /hpf Crossmatch Microbiology - Last 24 Hours (Table) 02/26/17 20:50 Urine Culture - Preliminary Urine,Clean Catch 02/24/17 05:45 Blood Culture - Preliminary Blood No Growth after 72 hours 02/26/17 01:08 Blood Culture - Preliminary Blood No Growth after 24 hours 02/26/17 01:29 Blood Culture - Preliminary Blood No Growth after 24 hours Laboratory Results WBC 16.7 k/uL (3.8-10.6) H 02/27/17 09:31 RBC 2.97 m/uL (3.80-5.40) L 02/27/17 09:31 Hgb 9.1 gm/dL (11.4-16.0) L D 02/27/17 09:31 Hct 27.6 % (34.0-46.0) L 02/27/17 09:31 MCV 92.7 fL (80.0-100.0) 02/27/17 09:31 MCH 30.5 pg (25.0-35.0) 02/27/17 09:31 MCHC 32.9 g/dL (31.0-37.0) 02/27/17 09:31 RDW 18.3 % (11.5-15.5) H 02/27/17 09:31 Plt Count 76 k/uL (150-450) L 02/27/17 09:31 Neutrophils % (Manual) 55 % 02/27/17 09:31 Band Neutrophils % 4 % 02/27/17 09:31 Lymphocytes % (Manual) 13 % 02/27/17 09:31 Monocytes % (Manual) 18 % 02/27/17 09:31 Eosinophils % (Manual) 2 % 02/27/17 09:31 Metamyelocytes % 5 % 02/27/17 09:31 Myelocytes % 1 % 02/27/17 09:31 Promyelocytes % 2 % 02/27/17 09:31 Blast Cells % 2 % 02/27/17 09:31 Neutrophils # (Manual) 9.80 k/uL (1.3-7.7) H 02/27/17 09:31 Lymphocytes # (Manual) 2.17 k/uL (1.0-4.8) 02/27/17 09:31 Monocytes # (Manual) 3.01 k/uL (0-1.0) H 02/27/17 09:31 Eosinophils # (Manual) 0.33 k/uL (0-0.7) 02/27/17 09:31 Metamyelocytes # (Man) 0.84 k/uL (0) H 02/27/17 09:31 Myelocytes # (Manual) 0.17 k/uL (0) H 02/27/17 09:31 Promyelocytes # (Man) 0.33 k/uL (0) H 02/27/17 09:31 Blast Cells # (Man) 0.33 k/uL (0) H 02/27/17 09:31 Nucleated RBCs 0 /100 WBC (0-0) 02/27/17 09:31 Manual Slide Review Performed 02/24/17 03:40 Large Platelets Present 02/24/17 03:40 Polychromasia Present 02/27/17 09:31 Hypochromasia Moderate 02/27/17 09:31 Poikilocytosis Moderate 02/27/17 09:31 Anisocytosis Slight 02/27/17 09:31 Anisocytosis (manual) Present 02/24/17 03:40 Macrocytosis Slight 02/26/17 07:31 Sodium 132 mmol/L (137-145) L 02/27/17 09:31 Potassium 4.4 mmol/L (3.5-5.1) 02/27/17 09:31 Chloride 100 mmol/L (98-107) 02/27/17 09:31 Carbon Dioxide 25 mmol/L (22-30) 02/27/17 09:31 Anion Gap 7 mmol/L 02/27/17 09:31 BUN 22 mg/dL (7-17) H 02/27/17 09:31 Creatinine 0.80 mg/dL (0.52-1.04) 02/27/17 09:31 Est GFR (MDRD) Af Amer >60 (>60 ml/min/1.73 sqM) 02/27/17 09:31 Est GFR (MDRD) Non-Af >60 (>60 ml/min/1.73 sqM) 02/27/17 09:31 Glucose 98 mg/dL (74-99) 02/27/17 09:31 Uric Acid 7.5 mg/dL (3.7-7.4) H 02/26/17 07:31 Calcium 9.1 mg/dL (8.4-10.2) 02/27/17 09:31 Total Bilirubin 0.4 mg/dL (0.2-1.3) 02/26/17 07:31 AST 30 U/L (14-36) 02/26/17 07:31 ALT 34 U/L (9-52) 02/26/17 07:31 Alkaline Phosphatase 241 U/L (38-126) H 02/26/17 07:31 Lactate Dehydrogenase 4142 U/L (313-618) H 02/26/17 07:31 Creatine Kinase <20 U/L (30-135) L 02/26/17 07:31 Total Protein 5.3 g/dL (6.3-8.2) L 02/26/17 07:31 Albumin 2.8 g/dL (3.5-5.0) L 02/26/17 07:31 Urine Color Yellow 02/26/17 20:50 Urine Appearance Cloudy (Clear) H 02/26/17 20:50 Urine pH 6.0 (5.0-8.0) 02/26/17 20:50 Ur Specific Ona 1.019 (1.001-1.035) 02/26/17 20:50 Urine Protein 1+ (Negative) H 02/26/17 20:50 Urine Glucose (UA) Negative (Negative) 02/26/17 20:50 Urine Ketones Negative (Negative) 02/26/17 20:50 Urine Blood Negative (Negative) 02/26/17 20:50 Urine Nitrite Negative (Negative) 02/26/17 20:50 Urine Bilirubin Negative (Negative) 02/26/17 20:50 Urine Urobilinogen 2.0 mg/dL (<2.0) 02/26/17 20:50 Ur Leukocyte Esterase Negative (Negative) 02/26/17 20:50 Urine RBC 1 /hpf (0-5) 02/24/17 04:56 Urine WBC 3 /hpf (0-5) 02/26/17 20:50 Ur Squamous Epith Cells 7 /hpf (0-4) H 02/26/17 20:50 Amorphous Sediment Occasional /hpf (None) H 02/26/17 20:50 Urine Bacteria Rare /hpf (None) H 02/24/17 04:56 Hyaline Casts 3 /lpf (0-2) H 02/24/17 04:56 Urine Mucus Rare /hpf (None) H 02/26/17 20:50 Blood Type O Positive 02/26/17 10:33 Blood Type Recheck No 02/26/17 10:33 Antibody Screen NEGATIVE 02/26/17 10:33 Crossmatch See Detail 02/26/17 10:33 Spec Expiration Date 03/01/2017 - 02/26/17 10:33 Microbiology 02/26/17 20:50 Urine,Clean Catch Urine Culture - Preliminary 02/24/17 05:45 Blood Blood Culture - Preliminary No Growth after 72 hours 02/26/17 01:08 Blood Blood Culture - Preliminary No Growth after 24 hours 02/26/17 01:29 Blood Blood Culture - Preliminary No Growth after 24 hours 02/24/17 04:56 Urine,Voided Urine Culture - Final Assessment and Plan (1) Fever Narrative/Plan: 66-year-old female who has a known history of myeloproliferative disorder, who deferred treatment and was looking for further input from [facility] possible stem cell transplant. However she became quite ill with severe generalized pain as well as worsening anemia. Presented to Hospital. She knows to help the fever to 102.7 and feels even worse. Cultures are in process. Given her current significant level of immunosuppression concerns for stiffing underlying sepsis. Antimicrobial therapy with cefepime will be utilized. Immunoglobulin levels will be checked given her significant marrow failure and supplement if indicated. She does not seem to have pulmonary symptoms, also does not have significant urine symptoms. Chest x-ray is negative urinalysis negative. She has no evidence of any significant cellulitis despite her significant tenderness. Cultures will be followed and antibiotic suggested as possible. The patient is very miserable. I believe the family has looked at the hospice house as a potential discharge option. Status: Acute (2) Myeloproliferative disorder Status: Acute (3) Leukocytosis Status: Acute
--- NOTE | 2017-02-27 15:35 | P.PN ---
Subjective This is a 66-year-old female patient of Dr. Dorantes with underlying history of CAD, hyperlipidemia, hypertension, pancreatitis, neuropathy chronic back pain chronic opioid-induced constipation. She has had several recent hospitalizations due to lower GI bleed thought to be due to diverticulitis as well as thrombocytopenia and anemia and leukocytosis followed by Dr. Navarrete. Patient recently underwent bone marrow biopsy. Results were not available during her last hospitalization but she was discharged home with a white count of 18.7, hemoglobin was 8.9 and platelet count of 43 on improved. She also had an elevated alkaline phosphatase of 205. Patient presented back to [facility] emergency center on December 08 with complaints of chest pain that started the day before and continued to worsen. She also had temperature of 100.8 and was complaining of shortness of breath and it hurt when she took a deep breath. There was no trauma to the chest wall or recent fall. She underwent a CTA of the chest that showed no definite acute pulmonary embolism. Trace bilateral pleural effusions. Chest x-ray showed no acute cardiopulmonary disease. She again presented with leukocytosis of 27.2, hemoglobin 7.6 and platelet count was up to 131. Her d-dimer was elevated at 3.26. Sodium 1:30 and chloride 93. Initial troponin was 0.012, proBNP 2120. Urinalysis was cloudy, nitrate and leukoesterase negative. Cardiology consult requested, repeat troponins, consult with Dr. Saravia from infectious disease and consult has been added for Dr. Navarrete. 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 Iraheta for second opinion prior to her starting on Jakafi(Ruxolutinib), however the patient ended up going to see Dr. Dorantes for laboratory evaluation she was found to have a hemoglobin of 5.70 ask her to go to the ER for evaluation patient showed up in the ER yesterday and she was admitted to the hospital for blood transfusion, patient did receive 2 units of packed red blood cells her hemoglobin is up to 8.9 she is wanted to be discharged home on January 2017, patient was seen and evaluated by Dr. Navarrete at that time she also was referred to [facility] [place] and she was supposed to have another appointment to the liver on today however the patient canceled the appointment because she is having severe bone pain and she ended up coming to the ER at [facility] 3:00 in the morning and she is not able template very well she had lost quite a bit of weight and she appears to be very cachectic, she never started Jakafi and there was a discussion about the stem cell transplant for her. 02/25: Patient continues to complain of pain and neuropathy and she states Lyrica did help her at nighttime but this has worn off. Will increase Lyrica to twice daily. Anticipate discharge home by tomorrow. 02/26: Patient having high-grade fevers, serial uncontrolled pain, generalized pain all over, patient is physically debilitated even prior to admission, has refused to entertain skilled rehab in [facility], patient is being transfused 2 units of packed red blood cell for hemoglobin of 6, fentanyl patch 75 g for the past 4 weeks is not working, we'll going to increase it to 100 g, patient also has paresthesias all over uncontrolled, patient's recently adjusted on her Lyrica to 50 twice a day. 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 Saravia is on consult, patient refused IV Rocephin, vancomycin is on hold, previous admissions also had similar events, cultures are negative in the past was ordered we'll going to wait for final recommendations from Dr. Saravia urinalysis negative. We'll check for influenza. Blood cultures have been sent 02/27: Patient remains to be very uncomfortable, even minimum of body turns would put patient into excruciating pain, fentanyl 100 g was increased from yesterday seems to be inadequate, we will increase it 125 g with 4 times a day OxyCodone and every 3 when necessary Dilaudid. Patient started on cefepime IV, family was entertaining hospice home Objective - Vital Signs Vital signs: Vital Signs Temp 98.9 F 02/27/17 07:00 Pulse 117 H 02/27/17 07:00 Resp 16 02/27/17 07:00 BP 132/72 02/27/17 07:00 Pulse Ox 99 02/27/17 07:26 Intake & Output 02/26/17 02/27/17 02/27/17 18:59 06:59 18:59 Intake Total 1080 2170 650 Output Total 1170 Balance 1080 1000 650 Intake: Intake, IV Titration 50 50 Amount Cefepime 2 gm In Sodium 50 50 Chloride 0.9% 50 ml @ 100 mls/hr IVPB Q8HR [facility] Rx# :[id number] Oral 1080 1190 600 Blood Product 0 930 Rc As-3 Unit 310 [id number] Rc As-3 Unit 0 310 [id number] Output: Urine 1170 Other: Voiding Method Toilet Bedside Commode Bedside Commode Bedpan # Voids 1 1 # Bowel Movements 1 - Constitutional General appearance: Present: cooperative, no acute distress - EENT Eyes: Present: anicteric sclerae, PERRLA, dentition normal, normal appearance ENT: Present: NA/AT, normal oropharynx - Neck Neck: Present: normal ROM. Absent: lymphadenopathy, other, rigidity, stridor, thyromegaly - Respiratory Respiratory: bilateral: CTA, negative: diminished, dullness, rales - Cardiovascular Rhythm: regular Heart sounds: normal: S1, S2 Abnormal Heart Sounds: Absent: systolic murmur, diastolic murmur, rub, S3 Gallop , S4 Gallop, click, other - Gastrointestinal General gastrointestinal: Present: normal bowel sounds, soft - Integumentary Integumentary: Present: decreased turgor, normal - Neurologic Neurologic: Present: CNII-XII intact - Musculoskeletal Musculoskeletal: Present: generalized weakness - Psychiatric Psychiatric: Present: A&O x's 3, appropriate affect, intact judgment & insight - Labs CBC & Chem 7: 02/27/17 09:31 02/27/17 09:31 Labs: Abnormal Lab Results - Last 24 Hours (Table) 02/26/17 02/26/17 02/26/17 Range/Units 07:31 10:33 20:50 WBC (3.8-10.6) k/uL RBC (3.80-5.40) m/uL Hgb (11.4-16.0) gm/dL Hct (34.0-46.0) % RDW (11.5-15.5) % Plt Count (150-450) k/uL Neutrophils # (Manual) (1.3-7.7) k/uL Monocytes # (Manual) (0-1.0) k/uL Metamyelocytes # (Man) (0) k/uL Myelocytes # (Manual) (0) k/uL Promyelocytes # (Man) (0) k/uL Blast Cells # (Man) (0) k/uL Sodium (137-145) mmol/L BUN (7-17) mg/dL Uric Acid 7.5 H (3.7-7.4) mg/dL Lactate Dehydrogenase 4142 H (313-618) U/L Creatine Kinase <20 L (30-135) U/L Urine Appearance Cloudy H (Clear) Urine Protein 1+ H (Negative) Ur Squamous Epith Cells 7 H (0-4) /hpf Amorphous Sediment Occasional H (None) /hpf Urine Mucus Rare H (None) /hpf Crossmatch See Detail 02/27/17 02/27/17 Range/Units 09:31 09:31 WBC 16.7 H (3.8-10.6) k/uL RBC 2.97 L (3.80-5.40) m/uL Hgb 9.1 L D (11.4-16.0) gm/dL Hct 27.6 L (34.0-46.0) % RDW 18.3 H (11.5-15.5) % Plt Count 76 L (150-450) k/uL Neutrophils # (Manual) 9.80 H (1.3-7.7) k/uL Monocytes # (Manual) 3.01 H (0-1.0) k/uL Metamyelocytes # (Man) 0.84 H (0) k/uL Myelocytes # (Manual) 0.17 H (0) k/uL Promyelocytes # (Man) 0.33 H (0) k/uL Blast Cells # (Man) 0.33 H (0) k/uL Sodium 132 L (137-145) mmol/L BUN 22 H (7-17) mg/dL Uric Acid (3.7-7.4) mg/dL Lactate Dehydrogenase (313-618) U/L Creatine Kinase (30-135) U/L Urine Appearance (Clear) Urine Protein (Negative) Ur Squamous Epith Cells (0-4) /hpf Amorphous Sediment (None) /hpf Urine Mucus (None) /hpf Crossmatch Microbiology - Last 24 Hours (Table) 02/26/17 20:50 Urine Culture - Preliminary Urine,Clean Catch 02/24/17 05:45 Blood Culture - Preliminary Blood No Growth after 72 hours 02/26/17 01:08 Blood Culture - Preliminary Blood No Growth after 24 hours 02/26/17 01:29 Blood Culture - Preliminary Blood No Growth after 24 hours Assessment and Plan Plan: 1. 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 we monitor cbc and will repeat in AM and transfuse for HGb less than 7. 2. Diffuse bone pain secondary to her myelofibrosis and significant neuropathy. increase fentanyl patch 125 g every 72 hours, oxycodone 10 mg everyQID schedul;ed, Dilaudid 1 mg IV push every 3 hours for breakthrough pain, and also start the patient on Lyrica 50 mg orally at bedtime and increased frequency to twice daily. 3. Chronic history of pancreatic duct stent, last MRCP was in December 2015. Her computed tomography scan of the abdomen and pelvis did show dilatation of the extrahepatic biliary and pancreatic duct. Without any significant changes 4. Chronic malabsorption state from poor oral intake, and ongoing pancreas problems, lipase to be checked, vitamin B12 would be obtained later await CAT scan 5. Weight loss of 17 pounds in 15 months nutritional supplementation would be ordered. 6. GI prophylaxis on Protonix 40 mg orally once every day. 7. DVT prophylaxis on TRISTAN hose and SCDs. 8. Anxiety. Continue Xanax as needed. 9. Urinary retention. Continue patient on Flomax 0.4 mg orally once every day. 10. Reported history of renal disease stage II. Her GFR is greater than 60. Avoid NSAIDs. Her intact PTH is elevated. 11. Chronic pain syndrome. Continue patient on current pain management. 12. Severe osteoarthritis of both hips. Continue to use the walker and avoid falling. 13. Admit to inpatient. Estimate a length of stay 2 midnights. 14. Patient is full code. Discharge plan: return home, possible home care [facility] hospice house consideration
[2017-02-28] MEDS: HYDROmorphone 1 MG/ML 1 ML SYRINGE IVP PRN ×8 (01:12→22:19)
[2017-02-28] MEDS: ALPRAZolam 0.25 MG TAB PO PRN ×3 (01:12→17:58)
[2017-02-28] MEDS: DILTIAZEM ORAL 60 MG TAB PO SCH ×3 (06:13→22:07)
[2017-02-28] MEDS: PANTOPRAZOLE 40 MG TABLET PO SCH (08:35)
[2017-02-28] MEDS: CEFEPIME 2 GM in SODIUM CHLORIDE 0.9% 50 ML IVPB SCH ×3 (08:35→23:44)
[2017-02-28] MEDS: CHOLECALCIFEROL 1,000 UNIT TAB PO SCH (08:35)
[2017-02-28] MEDS: PREGABALIN 50 MG CAP PO SCH ×2 (08:37→20:43)
[2017-02-28] MEDS: FOLIC ACID 1 MG TAB PO SCH (08:38)
[2017-02-28] MEDS: TAMSULOSIN 0.4 MG CAP.ER.24H PO SCH (08:39)
[2017-02-28] MEDS: LACTULOSE 20 GM/30 ML CUP PO SCH ×3 (08:39→20:45)
[2017-02-28] MEDS: DOCUSATE 100 MG CAP PO SCH (08:39)
[2017-02-28] MEDS: CYANOCOBALAMIN 500 MCG TAB PO SCH (08:59)
--- NOTE | 2017-02-28 15:05 | US ---
EXAMINATION TYPE: US venous doppler duplex LE BI DATE OF EXAM: 02/28/2017 12:21 PM COMPARISON: 2013 US CLINICAL HISTORY: EDEMA. Edema, exam done portable SIDE PERFORMED: Bilateral TECHNIQUE: The lower extremity deep venous system is examined utilizing real time linear array sonog rizwan with graded compression, doppler sonography and color-flow sonography. VESSELS IMAGED: External Iliac Vein (EIV) Common Femoral Vein Deep Femoral Vein Greater Saphenous Vein * Femoral Vein Popliteal Vein Small Saphenous Vein * Proximal Calf Veins (* superficial vessels) Grayscale, color doppler, spectral doppler imaging performed of the deep veins of the lower extremiti es. There is normal flow, compressibility, vascular waveforms. Right Leg: Appears negative for DVT Left Leg: Appears negative for DVT IMPRESSION: No evidence for DVT at this time.
--- NOTE | 2017-02-28 21:12 | P.PN ---
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 She has a very extensive recent past medical history in that she's had significant hematological abnormalities. She underwent bone marrow evaluations and was found to have evidence of myelofibrosis. She was sent [facility] for further evaluation. She was to be started on Jakafi(Ruxolutinib) but appears she refused to start this treatment. She was looking for further evaluation for potential stem cell transplantation. She was to have an appointment yesterday, however her pain became so severe she presents the emergency center instead. Her sister is present in the room. Upon introducing myself to her. She relates at the end is near for her. She is not suicidal, but is very miserable and relates that any touching to her body causes or worsening of her severe pain, and just wants to have her pain better controlled. She is great difficulties with nutrition has had weight loss. She however is now having significant fevers and with that the infectious diseases consultation was requested. The patient relates to severe pain all over. She was not aware of her high- grade fevers, not having significant chills or rigors. Denies sinus congestion, denies shortness of breath cough or sputum production , denies nausea or emesis but has no appetite. No emesis or diarrhea or urinary symptoms changes. Sister is present and questions answered. Objective - Vital Signs Vital signs: Vital Signs Temp 99.3 F 02/28/17 15:00 Pulse 115 H 02/28/17 16:00 Resp 16 02/28/17 16:00 BP 151/81 02/28/17 15:00 Pulse Ox 94 L 02/28/17 15:00 Intake & Output 02/28/17 02/28/17 03/01/17 06:59 18:59 06:59 Intake Total 730 440 Output Total 750 Balance -20 440 Weight 47.627 kg 47.627 kg Intake: Intake, IV Titration 50 200 Amount Cefepime 2 gm In Sodium 50 200 Chloride 0.9% 50 ml @ 100 mls/hr IVPB Q8HR K[facility] Rx# :[id number] Oral 680 240 Output: Urine 750 Other: Voiding Method Bedside Commode Bedside Commode # Voids 0 3 # Bowel Movements 1 - Exam 66-year-old female of a cachectic build HEENT: Anicteric conjunctiva are pink and moist nasal mucosa grossly intact without significant lesions, there is no thrush. Poor oral hygiene Neck: The neck is supple without significant lymphadenopathy or thyromegaly. Lungs: Good bilateral air entry without significant crackles or wheezing. There is no significant bronchial sounds. There is no egophony or dullness. Heart: Regular rate and rhythm with an audible S1-S2, no S3 no S4. There is no significant murmur click or rub, PMI was nondisplaced. Abdomen: Positive bowel sounds soft she has generalized tenderness throughout her body including abdominal wall without palpable masses or organomegaly. There was no guarding or rebound. Extremities: The upper and lower extremities are warm to touch. She however complains of severe pain upon manipulation. Does have the heels up off the bed with pillows. Neuro: Awake alert oriented to person place and time. There are no acute new gross focal sensory motor deficits. Psych: Patient has depression she states as I arrived into the room she does not have long left to live. she is less sedated today, drinking a Coke. - Labs CBC & Chem 7: 02/27/17 09:31 02/27/17 09:31 Labs: Microbiology - Last 24 Hours (Table) 02/24/17 05:45 Blood Culture - Preliminary Blood No Growth after 96 hours 02/26/17 01:08 Blood Culture - Preliminary Blood No Growth after 48 hours 02/26/17 01:29 Blood Culture - Preliminary Blood No Growth after 48 hours Laboratory Results WBC 16.7 k/uL (3.8-10.6) H 02/27/17 09:31 RBC 2.97 m/uL (3.80-5.40) L 02/27/17 09:31 Hgb 9.1 gm/dL (11.4-16.0) L D 02/27/17 09:31 Hct 27.6 % (34.0-46.0) L 02/27/17 09:31 MCV 92.7 fL (80.0-100.0) 02/27/17 09:31 MCH 30.5 pg (25.0-35.0) 02/27/17 09:31 MCHC 32.9 g/dL (31.0-37.0) 02/27/17 09:31 RDW 18.3 % (11.5-15.5) H 02/27/17 09:31 Plt Count 76 k/uL (150-450) L 02/27/17 09:31 Neutrophils % (Manual) 55 % 02/27/17 09:31 Band Neutrophils % 4 % 02/27/17 09:31 Lymphocytes % (Manual) 13 % 02/27/17 09:31 Monocytes % (Manual) 18 % 02/27/17 09:31 Eosinophils % (Manual) 2 % 02/27/17 09:31 Metamyelocytes % 5 % 02/27/17 09:31 Myelocytes % 1 % 02/27/17 09:31 Promyelocytes % 2 % 02/27/17 09:31 Blast Cells % 2 % 02/27/17 09:31 Neutrophils # (Manual) 9.80 k/uL (1.3-7.7) H 02/27/17 09:31 Lymphocytes # (Manual) 2.17 k/uL (1.0-4.8) 02/27/17 09:31 Monocytes # (Manual) 3.01 k/uL (0-1.0) H 02/27/17 09:31 Eosinophils # (Manual) 0.33 k/uL (0-0.7) 02/27/17 09:31 Metamyelocytes # (Man) 0.84 k/uL (0) H 02/27/17 09:31 Myelocytes # (Manual) 0.17 k/uL (0) H 02/27/17 09:31 Promyelocytes # (Man) 0.33 k/uL (0) H 02/27/17 09:31 Blast Cells # (Man) 0.33 k/uL (0) H 02/27/17 09:31 Nucleated RBCs 0 /100 WBC (0-0) 02/27/17 09:31 Manual Slide Review Performed 02/24/17 03:40 Large Platelets Present 02/24/17 03:40 Polychromasia Present 02/27/17 09:31 Hypochromasia Moderate 02/27/17 09:31 Poikilocytosis Moderate 02/27/17 09:31 Anisocytosis Slight 02/27/17 09:31 Anisocytosis (manual) Present 02/24/17 03:40 Macrocytosis Slight 02/26/17 07:31 Sodium 132 mmol/L (137-145) L 02/27/17 09:31 Potassium 4.4 mmol/L (3.5-5.1) 02/27/17 09:31 Chloride 100 mmol/L (98-107) 02/27/17 09:31 Carbon Dioxide 25 mmol/L (22-30) 02/27/17 09:31 Anion Gap 7 mmol/L 02/27/17 09:31 BUN 22 mg/dL (7-17) H 02/27/17 09:31 Creatinine 0.80 mg/dL (0.52-1.04) 02/27/17 09:31 Est GFR (MDRD) Af Amer >60 (>60 ml/min/1.73 sqM) 02/27/17 09:31 Est GFR (MDRD) Non-Af >60 (>60 ml/min/1.73 sqM) 02/27/17 09:31 Glucose 98 mg/dL (74-99) 02/27/17 09:31 Uric Acid 7.5 mg/dL (3.7-7.4) H 02/26/17 07:31 Calcium 9.1 mg/dL (8.4-10.2) 02/27/17 09:31 Total Bilirubin 0.4 mg/dL (0.2-1.3) 02/26/17 07:31 AST 30 U/L (14-36) 02/26/17 07:31 ALT 34 U/L (9-52) 02/26/17 07:31 Alkaline Phosphatase 241 U/L (38-126) H 02/26/17 07:31 Lactate Dehydrogenase 4142 U/L (313-618) H 02/26/17 07:31 Creatine Kinase <20 U/L (30-135) L 02/26/17 07:31 Total Protein 5.3 g/dL (6.3-8.2) L 02/26/17 07:31 Albumin 2.8 g/dL (3.5-5.0) L 02/26/17 07:31 Urine Color Yellow 02/26/17 20:50 Urine Appearance Cloudy (Clear) H 02/26/17 20:50 Urine pH 6.0 (5.0-8.0) 02/26/17 20:50 Ur Specific Elida 1.019 (1.001-1.035) 02/26/17 20:50 Urine Protein 1+ (Negative) H 02/26/17 20:50 Urine Glucose (UA) Negative (Negative) 02/26/17 20:50 Urine Ketones Negative (Negative) 02/26/17 20:50 Urine Blood Negative (Negative) 02/26/17 20:50 Urine Nitrite Negative (Negative) 02/26/17 20:50 Urine Bilirubin Negative (Negative) 02/26/17 20:50 Urine Urobilinogen 2.0 mg/dL (<2.0) 02/26/17 20:50 Ur Leukocyte Esterase Negative (Negative) 02/26/17 20:50 Urine RBC 1 /hpf (0-5) 02/24/17 04:56 Urine WBC 3 /hpf (0-5) 02/26/17 20:50 Ur Squamous Epith Cells 7 /hpf (0-4) H 02/26/17 20:50 Amorphous Sediment Occasional /hpf (None) H 02/26/17 20:50 Urine Bacteria Rare /hpf (None) H 02/24/17 04:56 Hyaline Casts 3 /lpf (0-2) H 02/24/17 04:56 Urine Mucus Rare /hpf (None) H 02/26/17 20:50 Influenza Type A RNA Not Detected (Not Detectd) 02/28/17 06:15 Influenza Type B (PCR) Not Detected (Not Detectd) 02/28/17 06:15 Blood Type O Positive 02/26/17 10:33 Blood Type Recheck No 02/26/17 10:33 Antibody Screen NEGATIVE 02/26/17 10:33 Crossmatch See Detail 02/26/17 10:33 Spec Expiration Date 03/01/2017 - 0272 02/26/17 10:33 Microbiology 02/24/17 05:45 Blood Blood Culture - Preliminary No Growth after 96 hours 02/26/17 01:08 Blood Blood Culture - Preliminary No Growth after 48 hours 02/26/17 01:29 Blood Blood Culture - Preliminary No Growth after 48 hours 02/26/17 20:50 Urine,Clean Catch Urine Culture - Preliminary 02/24/17 04:56 Urine,Voided Urine Culture - Final Assessment and Plan (1) Fever Narrative/Plan: 66-year-old female who has a known history of myeloproliferative disorder, who deferred treatment and was looking for further input from [facility] possible stem cell transplant. However she became quite ill with severe generalized pain as well as worsening anemia. Presented to Hospital. She knows to help the fever to 102.7 and feels even worse. Cultures are in process. Given her current significant level of immunosuppression concerns for stiffing underlying sepsis. Antimicrobial therapy with cefepime was initiated. In general she is improved. Still feels quite poorly. High fevers have resolved is having some low-grade minimal temperature increase. Immunoglobulin levels will be checked given her significant marrow failure and supplement if indicated. She does not seem to have pulmonary symptoms, also does not have significant urine symptoms. Chest x-ray is negative urinalysis negative. She has no evidence of any significant cellulitis despite her significant tenderness. Cultures will be followed and antibiotic suggested as possible. The patient is very miserable. The patient and her family are attempting to devise an outpatient plan. Hospice was again discussed. The patient still wants to have blood products at this time. The patient's overall care plan is discussed with her hospitalist, and suggest that we could have a palliative care consult through [facility]. Status: Acute (2) Myeloproliferative disorder Status: Acute (3) Leukocytosis Status: Acute
[2017-03-01] MEDS: DILTIAZEM ORAL 60 MG TAB PO SCH ×3 (06:02→21:26)
[2017-03-01] MEDS: HYDROmorphone 1 MG/ML 1 ML SYRINGE IVP PRN ×6 (06:05→18:34)
[2017-03-01] MEDS: ALPRAZolam 0.25 MG TAB PO PRN ×2 (07:41→15:50)
[2017-03-01] MEDS: CEFEPIME 2 GM in SODIUM CHLORIDE 0.9% 50 ML IVPB SCH ×2 (07:42→15:37)
[2017-03-01] MEDS: PANTOPRAZOLE 40 MG TABLET PO SCH (07:46)
[2017-03-01] MEDS: PREGABALIN 50 MG CAP PO SCH ×2 (07:47→21:25)
[2017-03-01] MEDS: LACTULOSE 20 GM/30 ML CUP PO SCH ×2 (07:47→21:24)
[2017-03-01] MEDS: TAMSULOSIN 0.4 MG CAP.ER.24H PO SCH (07:48)
[2017-03-01] MEDS: DOCUSATE 100 MG CAP PO SCH (07:48)
[2017-03-01] MEDS: FOLIC ACID 1 MG TAB PO SCH (07:48)
--- NOTE | 2017-03-01 08:49 | P.PN ---
Subjective This is a 66-year-old female patient of Dr. Dorantes with underlying history of CAD, hyperlipidemia, hypertension, pancreatitis, neuropathy chronic back pain chronic opioid-induced constipation. She has had several recent hospitalizations due to lower GI bleed thought to be due to diverticulitis as well as thrombocytopenia and anemia and leukocytosis followed by Dr. Navarrete. Patient recently underwent bone marrow biopsy. Results were not available during her last hospitalization but she was discharged home with a white count of 18.7, hemoglobin was 8.9 and platelet count of 43 on improved. She also had an elevated alkaline phosphatase of 205. Patient presented back to [facility] emergency center on December 08 with complaints of chest pain that started the day before and continued to worsen. She also had temperature of 100.8 and was complaining of shortness of breath and it hurt when she took a deep breath. There was no trauma to the chest wall or recent fall. She underwent a CTA of the chest that showed no definite acute pulmonary embolism. Trace bilateral pleural effusions. Chest x-ray showed no acute cardiopulmonary disease. She again presented with leukocytosis of 27.2, hemoglobin 7.6 and platelet count was up to 131. Her d-dimer was elevated at 3.26. Sodium 1:30 and chloride 93. Initial troponin was 0.012, proBNP 2120. Urinalysis was cloudy, nitrate and leukoesterase negative. Cardiology consult requested, repeat troponins, consult with Dr. Saravia from infectious disease and consult has been added for Dr. Navarrete. 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 Iraheta for second opinion prior to her starting on Jakafi(Ruxolutinib), however the patient ended up going to see Dr. Dorantes for laboratory evaluation she was found to have a hemoglobin of 5.70 ask her to go to the ER for evaluation patient showed up in the ER yesterday and she was admitted to the hospital for blood transfusion, patient did receive 2 units of packed red blood cells her hemoglobin is up to 8.9 she is wanted to be discharged home on January 2017, patient was seen and evaluated by Dr. Navarrete at that time she also was referred to [facility] [place] and she was supposed to have another appointment to the liver on today however the patient canceled the appointment because she is having severe bone pain and she ended up coming to the ER at [facility] 3:00 in the morning and she is not able template very well she had lost quite a bit of weight and she appears to be very cachectic, she never started Jakafi and there was a discussion about the stem cell transplant for her. 02/25: Patient continues to complain of pain and neuropathy and she states Lyrica did help her at nighttime but this has worn off. Will increase Lyrica to twice daily. Anticipate discharge home by tomorrow. 02/26: Patient having high-grade fevers, serial uncontrolled pain, generalized pain all over, patient is physically debilitated even prior to admission, has refused to entertain skilled rehab in [facility], patient is being transfused 2 units of packed red blood cell for hemoglobin of 6, fentanyl patch 75 g for the past 4 weeks is not working, we'll going to increase it to 100 g, patient also has paresthesias all over uncontrolled, patient's recently adjusted on her Lyrica to 50 twice a day. 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 Saravia is on consult, patient refused IV Rocephin, vancomycin is on hold, previous admissions also had similar events, cultures are negative in the past was ordered we'll going to wait for final recommendations from Dr. Saravia urinalysis negative. We'll check for influenza. Blood cultures have been sent 02/27: Patient remains to be very uncomfortable, even minimum of body turns would put patient into excruciating pain, fentanyl 100 g was increased from yesterday seems to be inadequate, we will increase it 125 g with 4 times a day OxyCodone and every 3 when necessary Dilaudid. Patient started on cefepime IV, family was entertaining hospice home 02/28: Patient continues to complain of pain but she has not taken any additional dose of fentanyl. She apparently has refused the additional patch. She has also stopped taking the Lyrica as she states it she thinks it makes her too crazy. She has refused to take a number of medications. Patient is very tearful. She is pursuing a medical marijuana card. Dr. Chowdary is following regarding fever and she is currently on cefepime time. Fevers seem to have resolved. Temperature maximum 100.3 Patient wavering between hospice care and palliative care and wanting blood transfusions. Patient's brother is at the bedside. Objective - Vital Signs Vital signs: Vital Signs Temp 99.2 F 02/28/17 00:18 Pulse 106 H 02/27/17 23:45 Resp 16 02/27/17 23:45 BP 146/59 02/27/17 21:45 Pulse Ox 97 02/27/17 21:45 Intake & Output 02/27/17 02/28/17 02/28/17 18:59 06:59 18:59 Intake Total 650 730 Output Total 750 Balance 650 -20 Weight 47.627 kg Intake: Intake, IV Titration 50 50 Amount Cefepime 2 gm In Sodium 50 50 Chloride 0.9% 50 ml @ 100 mls/hr IVPB Q8HR COUNT INCLUDES THE [facility] Rx# :[id number] Oral 600 680 Output: Urine 750 Other: Voiding Method Bedside Commode Bedside Commode # Voids 1 0 - Exam General appearance: mild distress, thin - EENT Eyes: anicteric sclerae, EOMI, no ptosis, no scleral icterus, normal appearance ENT: hearing grossly normal, NA/AT, normal oropharynx, no thrush Ears: bilateral: normal - Neck Neck: no lymphadenopathy, normal ROM, no rigidity, no stridor, no thyromegaly Carotids: bilateral: upstroke normal Thyroid: bilateral: normal size - Respiratory Respiratory: bilateral: diminished, negative: dullness, rales, rhonchi, wheezing , prolonged expiration - Cardiovascular Rhythm: regular Heart sounds: normal: S1, S2 Abnormal Heart Sounds: systolic murmur, no S3 Gallop, no S4 Gallop, no click - Gastrointestinal General gastrointestinal: normal bowel sounds, soft, no splenomegaly, no tenderness, no umbilical hernia, no ventral hernia - Integumentary Integumentary: normal, normal turgor - Neurologic Neurologic: CNII-XII intact - Musculoskeletal Musculoskeletal: no gait normal, generalized weakness - Psychiatric Psychiatric: A&O x's 3, appropriate affect, intact judgment & insight - Labs CBC & Chem 7: 02/27/17 09:31 02/27/17 09:31 Labs: Abnormal Lab Results - Last 24 Hours (Table) 02/27/17 02/27/17 Range/Units 09:31 09:31 WBC 16.7 H (3.8-10.6) k/uL RBC 2.97 L (3.80-5.40) m/uL Hgb 9.1 L D (11.4-16.0) gm/dL Hct 27.6 L (34.0-46.0) % RDW 18.3 H (11.5-15.5) % Plt Count 76 L (150-450) k/uL Neutrophils # (Manual) 9.80 H (1.3-7.7) k/uL Monocytes # (Manual) 3.01 H (0-1.0) k/uL Metamyelocytes # (Man) 0.84 H (0) k/uL Myelocytes # (Manual) 0.17 H (0) k/uL Promyelocytes # (Man) 0.33 H (0) k/uL Blast Cells # (Man) 0.33 H (0) k/uL Sodium 132 L (137-145) mmol/L BUN 22 H (7-17) mg/dL Microbiology - Last 24 Hours (Table) 02/24/17 05:45 Blood Culture - Preliminary Blood No Growth after 96 hours 02/26/17 01:08 Blood Culture - Preliminary Blood No Growth after 48 hours 02/26/17 01:29 Blood Culture - Preliminary Blood No Growth after 48 hours 02/26/17 20:50 Urine Culture - Preliminary Urine,Clean Catch Assessment and Plan Plan: 1. 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 we monitor cbc and will repeat in AM and transfuse for HGb less than 7. 2. Diffuse bone pain secondary to her myelofibrosis and significant neuropathy. Start the patient on fentanyl patch 75 g every 72 hours, oxycodone 10 mg every 4 hours, Dilaudid 1 mg IV push every 3 hours for breakthrough pain, and also start the patient on Lyrica 50 mg orally at bedtime and increased frequency to twice daily. 3. Chronic history of pancreatic duct stent, last MRCP was in December 2015. Her computed tomography scan of the abdomen and pelvis did show dilatation of the extrahepatic biliary and pancreatic duct. Without any significant changes 4. Chronic malabsorption state from poor oral intake, and ongoing pancreas problems, lipase to be checked, vitamin B12 would be obtained later await CAT scan 5. Weight loss of 17 pounds in 15 months nutritional supplementation would be ordered. 6. GI prophylaxis on Protonix 40 mg orally once every day. 7. DVT prophylaxis on TRISTAN hose and SCDs. 8. Anxiety. Continue Xanax as needed. 9. Urinary retention. Continue patient on Flomax 0.4 mg orally once every day. 10. Reported history of renal disease stage II. Her GFR is greater than 60. Avoid NSAIDs. Her intact PTH is elevated. 11. Chronic pain syndrome. Continue patient on current pain management. 12. Severe osteoarthritis of both hips. Continue to use the walker and avoid falling. 13. Fever. Consult with Dr. Chowdary appreciated. Cefepime started 14. Patient is full code. Discharge plan: return home, possible home care, possible hospice care Impression and plan of care have been directed as dictated by the signing physician. Kelli Marion nurse practitioner acting as scribe for signing physician.
--- NOTE | 2017-03-01 13:14 | CDI ---
In responding to this query, please exercise your independent professional judgment. The [facility] Coding Staff and Clinical Documentation Specialists appreciate your assistance in clarifying documentation, maintaining compliance with coding guidelines, accurately documenting patients condition and capturing severity of illness. The fact that a question is asked does not imply that any particular answer is desired or expected. Communication forms are a method of clarifying documentation and are not made part of the Legal Health Record. Thank you in advance for your clarification. Last Revision, September 2016 Bridgett Roe [address] [facility] [place] [address] Documentation Clarification Form Date: 03/01/2017 12:46:00 PM From: Africa Lou RN, CDS Admit Date: 02/26/2017 2:17:00 PM Patient Name: Rosita Bucio Visit Number: [id number] Dr. Alex Mathias 66 year old patient admitted for uncontrolled pain, Myelofibrosis, with history of Marrow failure and immunosuppression. History/Risk Factors: Myeloproloferative disorder, Pancreatitis, Neuropathy, Chronic pain Clinical Indicators: VS: 97.3 84 20 143/67 100 Temp 101.6 and 102.7 on 02/26, ID Consult: and PN: "myeloproloferative d/o, immunosuppression, concerns for underlying sepsis, marrow failure Treatment: IV Cefepime, In your professional opinion, please clarify if these findings signify one of the following conditions, whether the condition is POA, and cause, if known: Sepsis, ruled out SIRS, without underlying infectious process Sepsis Unable to determine Other, please specify Present on Admission: Yes No SIRS Criteria: 2 or more of the following may indicate SIRS Temperature < 96.8F(36C) or > 101.0F (38C) Heart Rate > 90 bpm Respiratory Rate > 20 breaths/min or PaCO2 < 32 mmHg White Blood Cell Count > 12,000 or < 4,000 cells/mm3 or > 10% bands Lactate >2.0 mmol/L (>4.0 is equivalent to septic shock) Please document in your progress notes and discharge summary in order to capture severity of illness and risk of mortality. Include clinical findings that support your diagnosis. FYI: Press F11 to launch patient chart. DMITRIY
--- NOTE | 2017-03-01 13:23 | CDI ---
In responding to this query, please exercise your independent professional judgment. The [facility] Coding Staff and Clinical Documentation Specialists appreciate your assistance in clarifying documentation, maintaining compliance with coding guidelines, accurately documenting patients condition and capturing severity of illness. The fact that a question is asked does not imply that any particular answer is desired or expected. Communication forms are a method of clarifying documentation and are not made part of the Legal Health Record. Thank you in advance for your clarification. Last Revision, April 2015 Bridgett Roe [address] [facility] [place] [address] Documentation Clarification Form Date: 03/01/2017 1:14:00 PM From: Africa Lou RN, CDS Admit Date: 02/26/2017 2:17:00 PM Patient Name: Rosita Bucio Visit Number: [id number] Dr. Alex Mathias, 66 year old patient admitted for uncontrolled pain, Myelofibrosis, with history of Marrow failure and immunosuppression. Patient has lost 17 pound over 15 months due to poor oral intake History/Risk Factors: Myeloproloferative disorder, Pancreatitis, Neuropathy, Chronic pain Clinical Indicators: DIETITIAN CS: 25-50%, BMI 18.0, underweight, 17 pound weight loss, (14%) x 15 months, Albumin 2.8, Total Protein 5.3 Treatment: Ensure Clear, Dietitian consult In your professional opinion, can you please clarify if these findings signify one of the following conditions? Mild Protein-Calorie Malnutrition Moderate Protein-Calorie Malnutrition Severe Protein-Calorie Malnutrition Other condition, please specify Unable to determine Please document in your progress notes and discharge summary in order to capture severity of illness and risk of mortality. Include clinical findings that support your diagnosis. FYI: Press F11 to launch patient chart. DMITRIY
--- NOTE | 2017-03-01 14:58 | P.PN ---
Subjective This is a 66-year-old female patient of Dr. Dorantes with underlying history of CAD, hyperlipidemia, hypertension, pancreatitis, neuropathy chronic back pain chronic opioid-induced constipation. She has had several recent hospitalizations due to lower GI bleed thought to be due to diverticulitis as well as thrombocytopenia and anemia and leukocytosis followed by Dr. Navarrete. Patient recently underwent bone marrow biopsy. Results were not available during her last hospitalization but she was discharged home with a white count of 18.7, hemoglobin was 8.9 and platelet count of 43 on improved. She also had an elevated alkaline phosphatase of 205. Patient presented back to [facility] emergency center on December 08 with complaints of chest pain that started the day before and continued to worsen. She also had temperature of 100.8 and was complaining of shortness of breath and it hurt when she took a deep breath. There was no trauma to the chest wall or recent fall. She underwent a CTA of the chest that showed no definite acute pulmonary embolism. Trace bilateral pleural effusions. Chest x-ray showed no acute cardiopulmonary disease. She again presented with leukocytosis of 27.2, hemoglobin 7.6 and platelet count was up to 131. Her d-dimer was elevated at 3.26. Sodium 1:30 and chloride 93. Initial troponin was 0.012, proBNP 2120. Urinalysis was cloudy, nitrate and leukoesterase negative. Cardiology consult requested, repeat troponins, consult with Dr. Saravia from infectious disease and consult has been added for Dr. Navarrete. 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 Iraheta for second opinion prior to her starting on Jakafi(Ruxolutinib), however the patient ended up going to see Dr. Dorantes for laboratory evaluation she was found to have a hemoglobin of 5.70 ask her to go to the ER for evaluation patient showed up in the ER yesterday and she was admitted to the hospital for blood transfusion, patient did receive 2 units of packed red blood cells her hemoglobin is up to 8.9 she is wanted to be discharged home on January 2017, patient was seen and evaluated by Dr. Navarrete at that time she also was referred to [facility] [place] and she was supposed to have another appointment to the liver on today however the patient canceled the appointment because she is having severe bone pain and she ended up coming to the ER at [facility] 3:00 in the morning and she is not able template very well she had lost quite a bit of weight and she appears to be very cachectic, she never started Jakafi and there was a discussion about the stem cell transplant for her. 02/25: Patient continues to complain of pain and neuropathy and she states Lyrica did help her at nighttime but this has worn off. Will increase Lyrica to twice daily. Anticipate discharge home by tomorrow. 02/26: Patient having high-grade fevers, serial uncontrolled pain, generalized pain all over, patient is physically debilitated even prior to admission, has refused to entertain skilled rehab in [facility], patient is being transfused 2 units of packed red blood cell for hemoglobin of 6, fentanyl patch 75 g for the past 4 weeks is not working, we'll going to increase it to 100 g, patient also has paresthesias all over uncontrolled, patient's recently adjusted on her Lyrica to 50 twice a day. 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 Saravia is on consult, patient refused IV Rocephin, vancomycin is on hold, previous admissions also had similar events, cultures are negative in the past was ordered we'll going to wait for final recommendations from Dr. Saravia urinalysis negative. We'll check for influenza. Blood cultures have been sent 02/27: Patient remains to be very uncomfortable, even minimum of body turns would put patient into excruciating pain, fentanyl 100 g was increased from yesterday seems to be inadequate, we will increase it 125 g with 4 times a day OxyCodone and every 3 when necessary Dilaudid. Patient started on cefepime IV, family was entertaining hospice home 02/28: Patient continues to complain of pain but she has not taken any additional dose of fentanyl. She apparently has refused the additional patch. She has also stopped taking the Lyrica as she states it she thinks it makes her too crazy. She has refused to take a number of medications. Patient is very tearful. She is pursuing a medical marijuana card. Dr. Chowdary is following regarding fever and she is currently on cefepime time. Fevers seem to have resolved. Temperature maximum 100.3 Patient wavering between hospice care and palliative care and wanting blood transfusions. Patient's brother is at the bedside. 03/01: Patient is currently on fentanyl patch 125 g. she was able to get to the commode chair today which was a mole she has been able to do. Otherwise patient cannot do anything for herself. Ultrasound of the lower extremities was negative for DVT. Patient does have a known stage II decubitus ulcer on the right buttocks for which she normally uses [employer] at home. Patient is eating very little. Family has requested hospice meeting which occurred today. CODE STATUS will need to be addressed. Objective - Vital Signs Vital signs: Vital Signs Temp 97.7 F 03/01/17 07:00 Pulse 99 03/01/17 07:00 Resp 18 03/01/17 07:00 BP 142/63 03/01/17 07:00 Pulse Ox 95 03/01/17 07:00 Intake & Output 02/28/17 03/01/17 03/01/17 18:59 06:59 18:59 Intake Total 440 50 Balance 440 50 Weight 47.627 kg Intake: IV 50 Cefepime 2 gm In Sodium 50 Chloride 0.9% 50 ml @ 100 mls/hr IVPB Q8HR [facility] Rx# :[id number] Intake, IV Titration 200 Amount Cefepime 2 gm In Sodium 200 Chloride 0.9% 50 ml @ 100 mls/hr IVPB Q8HR [facility] Rx# :[id number] Oral 240 Other: Voiding Method Bedside Commode Bedpan Diaper Incontinent # Voids 3 6 # Bowel Movements 1 - Exam General appearance: mild distress, thin - EENT Eyes: anicteric sclerae, EOMI, no ptosis, no scleral icterus, normal appearance ENT: hearing grossly normal, NA/AT, normal oropharynx, no thrush Ears: bilateral: normal - Neck Neck: no lymphadenopathy, normal ROM, no rigidity, no stridor, no thyromegaly Carotids: bilateral: upstroke normal Thyroid: bilateral: normal size - Respiratory Respiratory: bilateral: diminished, negative: dullness, rales, rhonchi, wheezing , prolonged expiration - Cardiovascular Rhythm: regular Heart sounds: normal: S1, S2 Abnormal Heart Sounds: systolic murmur, no S3 Gallop, no S4 Gallop, no click - Gastrointestinal General gastrointestinal: normal bowel sounds, soft, no splenomegaly, no tenderness, no umbilical hernia, no ventral hernia - Integumentary Integumentary: normal, normal turgor - Neurologic Neurologic: CNII-XII intact - Musculoskeletal Musculoskeletal: no gait normal, generalized weakness - Psychiatric Psychiatric: A&O x's 3, appropriate affect, intact judgment & insight - Labs CBC & Chem 7: 02/27/17 09:31 02/27/17 09:31 Labs: Microbiology - Last 24 Hours (Table) 02/24/17 05:45 Blood Culture - Preliminary Blood No Growth after 120 hours 02/26/17 01:08 Blood Culture - Preliminary Blood No Growth after 72 hours 02/26/17 01:29 Blood Culture - Preliminary Blood No Growth after 72 hours Assessment and Plan Plan: 1. 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 we monitor cbc and will repeat in AM and transfuse for HGb less than 7. 2. Diffuse bone pain secondary to her myelofibrosis and significant neuropathy. Start the patient on fentanyl patch 75 g every 72 hours, oxycodone 10 mg every 4 hours, Dilaudid 1 mg IV push every 3 hours for breakthrough pain, and also start the patient on Lyrica 50 mg orally at bedtime and increased frequency to twice daily. 3. Chronic history of pancreatic duct stent, last MRCP was in December 2015. Her computed tomography scan of the abdomen and pelvis did show dilatation of the extrahepatic biliary and pancreatic duct. Without any significant changes 4. Chronic malabsorption state from poor oral intake, and ongoing pancreas problems, lipase to be checked, vitamin B12 would be obtained later await CAT scan 5. Weight loss of 17 pounds in 15 months nutritional supplementation would be ordered. 6. GI prophylaxis on Protonix 40 mg orally once every day. 7. DVT prophylaxis on TRISTAN hose and SCDs. 8. Anxiety. Continue Xanax as needed. 9. Urinary retention. Continue patient on Flomax 0.4 mg orally once every day. 10. Reported history of renal disease stage II. Her GFR is greater than 60. Avoid NSAIDs. Her intact PTH is elevated. 11. Chronic pain syndrome. Continue patient on current pain management. 12. Severe osteoarthritis of both hips. Continue to use the walker and avoid falling. 13. Fever secondary to severe bone marrow failure and immunocompromised state. Consult with Dr. Chowdary appreciated. Cefepime started 14. Severe protein calorie malnutrition Patient is full code. Discharge plan: return home, possible home care, possible hospice care Impression and plan of care have been directed as dictated by the signing physician. Kelli Marion nurse practitioner acting as scribe for signing physician.
--- NOTE | 2017-03-01 20:43 | P.PN ---
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 She has a very extensive recent past medical history in that she's had significant hematological abnormalities. She underwent bone marrow evaluations and was found to have evidence of myelofibrosis. She was sent [facility] for further evaluation. She was to be started on Jakafi(Ruxolutinib) but appears she refused to start this treatment. She was looking for further evaluation for potential stem cell transplantation. She was to have an appointment yesterday, however her pain became so severe she presents the emergency center instead. Her sister is present in the room. Upon introducing myself to her. She relates at the end is near for her. She is not suicidal, but is very miserable and relates that any touching to her body causes or worsening of her severe pain, and just wants to have her pain better controlled. She is great difficulties with nutrition has had weight loss. She however is now having significant fevers and with that the infectious diseases consultation was requested. The patient relates to severe pain all over. She was not aware of her high- grade fevers, not having significant chills or rigors. Denies sinus congestion, denies shortness of breath cough or sputum production , denies nausea or emesis but has no appetite. No emesis or diarrhea or urinary symptoms changes. Patient is a bit more confused today. But is more comfortable. Objective - Vital Signs Vital signs: Vital Signs Temp 99.0 F 03/01/17 15:00 Pulse 105 H 03/01/17 17:38 Resp 16 03/01/17 17:38 BP 146/63 03/01/17 15:00 Pulse Ox 97 03/01/17 15:00 Intake & Output 03/01/17 03/01/17 03/02/17 06:59 18:59 06:59 Intake Total 50 680 Balance 50 680 Weight 47.627 kg Intake: IV 50 200 Cefepime 2 gm In Sodium 50 200 Chloride 0.9% 50 ml @ 100 mls/hr IVPB Q8HR [facility] Rx# :[id number] Oral 480 Other: Voiding Method Bedpan Bedside Commode Diaper Diaper Incontinent Incontinent # Voids 6 3 # Bowel Movements 0 - Exam 66-year-old female of a cachectic build HEENT: Anicteric conjunctiva are pink and moist nasal mucosa grossly intact without significant lesions, there is no thrush. Poor oral hygiene Neck: The neck is supple without significant lymphadenopathy or thyromegaly. Lungs: Good bilateral air entry without significant crackles or wheezing. There is no significant bronchial sounds. There is no egophony or dullness. Heart: Regular rate and rhythm with an audible S1-S2, no S3 no S4. There is no significant murmur click or rub, PMI was nondisplaced. Abdomen: Positive bowel sounds soft she has generalized tenderness throughout her body including abdominal wall without palpable masses or organomegaly. There was no guarding or rebound. Extremities: The upper and lower extremities are warm to touch. She however complains of severe pain upon manipulation. Does have the heels up off the bed with pillows. Neuro: Awake alert oriented to person place and time. There are no acute new gross focal sensory motor deficits. Psych: Patient has depression and has stated that she does not have long left to live. - Labs CBC & Chem 7: 02/27/17 09:31 02/27/17 09:31 Labs: Abnormal Lab Results - Last 24 Hours (Table) 02/28/17 Range/Units 08:40 IgG 455.0 L (700.0-1600.0) mg/dL Microbiology - Last 24 Hours (Table) 02/26/17 20:50 Urine Culture - Final Urine,Clean Catch Enterococcus faecalis 02/24/17 05:45 Blood Culture - Preliminary Blood No Growth after 120 hours 02/26/17 01:08 Blood Culture - Preliminary Blood No Growth after 72 hours 02/26/17 01:29 Blood Culture - Preliminary Blood No Growth after 72 hours Laboratory Results WBC 16.7 k/uL (3.8-10.6) H 02/27/17 09:31 RBC 2.97 m/uL (3.80-5.40) L 02/27/17 09:31 Hgb 9.1 gm/dL (11.4-16.0) L D 02/27/17 09:31 Hct 27.6 % (34.0-46.0) L 02/27/17 09:31 MCV 92.7 fL (80.0-100.0) 02/27/17 09:31 MCH 30.5 pg (25.0-35.0) 02/27/17 09:31 MCHC 32.9 g/dL (31.0-37.0) 02/27/17 09:31 RDW 18.3 % (11.5-15.5) H 02/27/17 09:31 Plt Count 76 k/uL (150-450) L 02/27/17 09:31 Neutrophils % (Manual) 55 % 02/27/17 09:31 Band Neutrophils % 4 % 02/27/17 09:31 Lymphocytes % (Manual) 13 % 02/27/17 09:31 Monocytes % (Manual) 18 % 02/27/17 09:31 Eosinophils % (Manual) 2 % 02/27/17 09:31 Metamyelocytes % 5 % 02/27/17 09:31 Myelocytes % 1 % 02/27/17 09:31 Promyelocytes % 2 % 02/27/17 09:31 Blast Cells % 2 % 02/27/17 09:31 Neutrophils # (Manual) 9.80 k/uL (1.3-7.7) H 02/27/17 09:31 Lymphocytes # (Manual) 2.17 k/uL (1.0-4.8) 02/27/17 09:31 Monocytes # (Manual) 3.01 k/uL (0-1.0) H 02/27/17 09:31 Eosinophils # (Manual) 0.33 k/uL (0-0.7) 02/27/17 09:31 Metamyelocytes # (Man) 0.84 k/uL (0) H 02/27/17 09:31 Myelocytes # (Manual) 0.17 k/uL (0) H 02/27/17 09:31 Promyelocytes # (Man) 0.33 k/uL (0) H 02/27/17 09:31 Blast Cells # (Man) 0.33 k/uL (0) H 02/27/17 09:31 Nucleated RBCs 0 /100 WBC (0-0) 02/27/17 09:31 Manual Slide Review Performed 02/24/17 03:40 Large Platelets Present 02/24/17 03:40 Polychromasia Present 02/27/17 09:31 Hypochromasia Moderate 02/27/17 09:31 Poikilocytosis Moderate 02/27/17 09:31 Anisocytosis Slight 02/27/17 09:31 Anisocytosis (manual) Present 02/24/17 03:40 Macrocytosis Slight 02/26/17 07:31 Sodium 132 mmol/L (137-145) L 02/27/17 09:31 Potassium 4.4 mmol/L (3.5-5.1) 02/27/17 09:31 Chloride 100 mmol/L (98-107) 02/27/17 09:31 Carbon Dioxide 25 mmol/L (22-30) 02/27/17 09:31 Anion Gap 7 mmol/L 02/27/17 09:31 BUN 22 mg/dL (7-17) H 02/27/17 09:31 Creatinine 0.80 mg/dL (0.52-1.04) 02/27/17 09:31 Est GFR (MDRD) Af Amer >60 (>60 ml/min/1.73 sqM) 02/27/17 09:31 Est GFR (MDRD) Non-Af >60 (>60 ml/min/1.73 sqM) 02/27/17 09:31 Glucose 98 mg/dL (74-99) 02/27/17 09:31 Uric Acid 7.5 mg/dL (3.7-7.4) H 02/26/17 07:31 Calcium 9.1 mg/dL (8.4-10.2) 02/27/17 09:31 Total Bilirubin 0.4 mg/dL (0.2-1.3) 02/26/17 07:31 AST 30 U/L (14-36) 02/26/17 07:31 ALT 34 U/L (9-52) 02/26/17 07:31 Alkaline Phosphatase 241 U/L (38-126) H 02/26/17 07:31 Lactate Dehydrogenase 4142 U/L (313-618) H 02/26/17 07:31 Creatine Kinase <20 U/L (30-135) L 02/26/17 07:31 Total Protein 5.3 g/dL (6.3-8.2) L 02/26/17 07:31 Albumin 2.8 g/dL (3.5-5.0) L 02/26/17 07:31 Urine Color Yellow 02/26/17 20:50 Urine Appearance Cloudy (Clear) H 02/26/17 20:50 Urine pH 6.0 (5.0-8.0) 02/26/17 20:50 Ur Specific [place] 1.019 (1.001-1.035) 02/26/17 20:50 Urine Protein 1+ (Negative) H 02/26/17 20:50 Urine Glucose (UA) Negative (Negative) 02/26/17 20:50 Urine Ketones Negative (Negative) 02/26/17 20:50 Urine Blood Negative (Negative) 02/26/17 20:50 Urine Nitrite Negative (Negative) 02/26/17 20:50 Urine Bilirubin Negative (Negative) 02/26/17 20:50 Urine Urobilinogen 2.0 mg/dL (<2.0) 02/26/17 20:50 Ur Leukocyte Esterase Negative (Negative) 02/26/17 20:50 Urine RBC 1 /hpf (0-5) 02/24/17 04:56 Urine WBC 3 /hpf (0-5) 02/26/17 20:50 Ur Squamous Epith Cells 7 /hpf (0-4) H 02/26/17 20:50 Amorphous Sediment Occasional /hpf (None) H 02/26/17 20:50 Urine Bacteria Rare /hpf (None) H 02/24/17 04:56 Hyaline Casts 3 /lpf (0-2) H 02/24/17 04:56 Urine Mucus Rare /hpf (None) H 02/26/17 20:50 IgG 455.0 mg/dL (700.0-1600.0) L 02/28/17 08:40 IgA 192.0 mg/dL (60.0-350.0) 02/28/17 08:40 IgM 72.7 mg/dL (40.0-280.0) 02/28/17 08:40 Influenza Type A RNA Not Detected (Not Detectd) 02/28/17 06:15 Influenza Type B (PCR) Not Detected (Not Detectd) 02/28/17 06:15 Blood Type O Positive 02/26/17 10:33 Blood Type Recheck No 02/26/17 10:33 Antibody Screen NEGATIVE 02/26/17 10:33 Crossmatch See Detail 02/26/17 10:33 Spec Expiration Date 03/01/2017 - 233202/26/17 10:33 Microbiology 02/26/17 20:50 Urine,Clean Catch Urine Culture - Final Enterococcus faecalis 02/24/17 05:45 Blood Blood Culture - Preliminary No Growth after 120 hours 02/26/17 01:08 Blood Blood Culture - Preliminary No Growth after 72 hours 02/26/17 01:29 Blood Blood Culture - Preliminary No Growth after 72 hours 02/24/17 04:56 Urine,Voided Urine Culture - Final Assessment and Plan (1) Fever Narrative/Plan: 66-year-old female who has a known history of myeloproliferative disorder, who deferred treatment and was looking for further input from [facility] possible stem cell transplant. However she became quite ill with severe generalized pain as well as worsening anemia. Presented to Hospital. She knows to help the fever to 102.7 and feels even worse. Cultures are in process. Given her current significant level of immunosuppression concerns for stiffing underlying sepsis. Antimicrobial therapy with cefepime was initiated. In general she is improved. Still feels quite poorly. High fevers have resolved is having some low-grade minimal temperature increase. Immunoglobulin levels will be checked given her significant marrow failure and supplement if indicated. She does not seem to have pulmonary symptoms, also does not have significant urine symptoms. Chest x-ray is negative urinalysis negative. She has no evidence of any significant cellulitis despite her significant tenderness. Cultures are now available. Enterococcus isolate from the urine. We'll discontinue the cefepime with evidence of negative blood cultures. A short course of nitrofurantoin will be utilized for the urinary infection. The patient is very miserable. The patient and her family are attempting to devise an outpatient plan. Hospice was again discussed. The patient still wants to have blood products at this time. The patient's overall care plan is discussed with her hospitalist, and suggest that we could have a palliative care consult through [facility]. I also contacted the oncology group today. For them to come and talk to the patient about her overall prognosis, with her extremely poor functional status it is not likely she is a candidate for any interventions, if they agree we have asked this to be related to the patient and her family so they can make decisions about palliative or hospice care. Status: Acute (2) Myeloproliferative disorder Status: Acute (3) Leukocytosis Status: Acute
[2017-03-01] MEDS: ACETAMINOPHEN TAB 325 MG TAB PO PRN (21:53)
[2017-03-01] MEDS: NITROFURANTOIN MONOHYD/M-CRYST 100 MG CAP PO SCH (21:54)
[2017-03-02] MEDS: DILTIAZEM ORAL 60 MG TAB PO SCH ×3 (06:11→21:26)
[2017-03-02] MEDS: HYDROmorphone 1 MG/ML 1 ML SYRINGE IVP PRN ×3 (07:18→13:40)
[2017-03-02] MEDS: ALPRAZolam 0.25 MG TAB PO PRN ×2 (07:18→15:56)
[2017-03-02] MEDS: PREGABALIN 50 MG CAP PO SCH ×2 (09:19→20:17)
[2017-03-02] MEDS: CHOLECALCIFEROL 1,000 UNIT TAB PO SCH (09:19)
[2017-03-02] MEDS: PANTOPRAZOLE 40 MG TABLET PO SCH (09:20)
[2017-03-02] MEDS: TAMSULOSIN 0.4 MG CAP.ER.24H PO SCH (09:22)
[2017-03-02] MEDS: CYANOCOBALAMIN 500 MCG TAB PO SCH (09:22)
[2017-03-02] MEDS: LACTULOSE 20 GM/30 ML CUP PO SCH ×2 (09:22→20:16)
[2017-03-02] MEDS: DOCUSATE 100 MG CAP PO SCH (09:22)
[2017-03-02] MEDS: FOLIC ACID 1 MG TAB PO SCH (09:23)
[2017-03-02] MEDS: NITROFURANTOIN MONOHYD/M-CRYST 100 MG CAP PO SCH ×2 (09:23→20:17)
--- NOTE | 2017-03-02 16:46 | P.PN ---
Subjective This is a 66-year-old female patient of Dr. Dorantes with underlying history of CAD, hyperlipidemia, hypertension, pancreatitis, neuropathy chronic back pain chronic opioid-induced constipation. She has had several recent hospitalizations due to lower GI bleed thought to be due to diverticulitis as well as thrombocytopenia and anemia and leukocytosis followed by Dr. Navarrete. Patient recently underwent bone marrow biopsy. Results were not available during her last hospitalization but she was discharged home with a white count of 18.7, hemoglobin was 8.9 and platelet count of 43 on improved. She also had an elevated alkaline phosphatase of 205. Patient presented back to [facility] emergency center on December 08 with complaints of chest pain that started the day before and continued to worsen. She also had temperature of 100.8 and was complaining of shortness of breath and it hurt when she took a deep breath. There was no trauma to the chest wall or recent fall. She underwent a CTA of the chest that showed no definite acute pulmonary embolism. Trace bilateral pleural effusions. Chest x-ray showed no acute cardiopulmonary disease. She again presented with leukocytosis of 27.2, hemoglobin 7.6 and platelet count was up to 131. Her d-dimer was elevated at 3.26. Sodium 1:30 and chloride 93. Initial troponin was 0.012, proBNP 2120. Urinalysis was cloudy, nitrate and leukoesterase negative. Cardiology consult requested, repeat troponins, consult with Dr. Saravia from infectious disease and consult has been added for Dr. Navarrete. 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 Iraheta for second opinion prior to her starting on Jakafi(Ruxolutinib), however the patient ended up going to see Dr. Dorantes for laboratory evaluation she was found to have a hemoglobin of 5.70 ask her to go to the ER for evaluation patient showed up in the ER yesterday and she was admitted to the hospital for blood transfusion, patient did receive 2 units of packed red blood cells her hemoglobin is up to 8.9 she is wanted to be discharged home on January 2017, patient was seen and evaluated by Dr. Navarrete at that time she also was referred to [facility] [place] and she was supposed to have another appointment to the liver on today however the patient canceled the appointment because she is having severe bone pain and she ended up coming to the ER at [facility] 3:00 in the morning and she is not able template very well she had lost quite a bit of weight and she appears to be very cachectic, she never started Jakafi and there was a discussion about the stem cell transplant for her. 02/25: Patient continues to complain of pain and neuropathy and she states Lyrica did help her at nighttime but this has worn off. Will increase Lyrica to twice daily. Anticipate discharge home by tomorrow. 02/26: Patient having high-grade fevers, serial uncontrolled pain, generalized pain all over, patient is physically debilitated even prior to admission, has refused to entertain skilled rehab in [facility], patient is being transfused 2 units of packed red blood cell for hemoglobin of 6, fentanyl patch 75 g for the past 4 weeks is not working, we'll going to increase it to 100 g, patient also has paresthesias all over uncontrolled, patient's recently adjusted on her Lyrica to 50 twice a day. 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 Saravia is on consult, patient refused IV Rocephin, vancomycin is on hold, previous admissions also had similar events, cultures are negative in the past was ordered we'll going to wait for final recommendations from Dr. Saravia urinalysis negative. We'll check for influenza. Blood cultures have been sent 02/27: Patient remains to be very uncomfortable, even minimum of body turns would put patient into excruciating pain, fentanyl 100 g was increased from yesterday seems to be inadequate, we will increase it 125 g with 4 times a day OxyCodone and every 3 when necessary Dilaudid. Patient started on cefepime IV, family was entertaining hospice home 02/28: Patient continues to complain of pain but she has not taken any additional dose of fentanyl. She apparently has refused the additional patch. She has also stopped taking the Lyrica as she states it she thinks it makes her too crazy. She has refused to take a number of medications. Patient is very tearful. She is pursuing a medical marijuana card. Dr. Chowdary is following regarding fever and she is currently on cefepime time. Fevers seem to have resolved. Temperature maximum 100.3 Patient wavering between hospice care and palliative care and wanting blood transfusions. Patient's brother is at the bedside. 03/01: Patient is currently on fentanyl patch 125 g. she was able to get to the commode chair today which was a mole she has been able to do. Otherwise patient cannot do anything for herself. Ultrasound of the lower extremities was negative for DVT. Patient does have a known stage II decubitus ulcer on the right buttocks for which she normally uses Citrucel at home. Patient is eating very little. Family has requested hospice meeting which occurred today. CODE STATUS will need to be addressed. 03/02: Long discussion took place with Dr. Mathias, catalytic case operator and the patient regarding discharge planning. Patient finally decided that she would go to [facility] home and subsequently changed her mind to go to [facility] which arrangements will be completed for tomorrow. Urine cultures positive for Enterococcus faecalis. Dr. Chowdary has discontinued Rocephin and recommended Macrodantin orally. Objective - Vital Signs Vital signs: Vital Signs Temp 98.8 F 03/02/17 07:00 Pulse 110 H 03/02/17 07:00 Resp 17 03/02/17 07:00 BP 153/62 03/02/17 07:00 Pulse Ox 92 L 03/02/17 07:00 Intake & Output 03/01/17 03/02/17 03/02/17 18:59 06:59 18:59 Intake Total 680 150 Balance 680 150 Weight 47.627 kg Intake: IV 200 Cefepime 2 gm In Sodium 200 Chloride 0.9% 50 ml @ 100 mls/hr IVPB Q8HR [facility] Rx# :[id number] Oral 480 150 Other: Voiding Method Bedside Commode Bedpan Diaper Diaper Incontinent Incontinent # Voids 3 2 # Bowel Movements 0 - Exam General appearance: mild distress, thin - EENT Eyes: anicteric sclerae, EOMI, no ptosis, no scleral icterus, normal appearance ENT: hearing grossly normal, NA/AT, normal oropharynx, no thrush Ears: bilateral: normal - Neck Neck: no lymphadenopathy, normal ROM, no rigidity, no stridor, no thyromegaly Carotids: bilateral: upstroke normal Thyroid: bilateral: normal size - Respiratory Respiratory: bilateral: diminished, negative: dullness, rales, rhonchi, wheezing , prolonged expiration - Cardiovascular Rhythm: regular Heart sounds: normal: S1, S2 Abnormal Heart Sounds: systolic murmur, no S3 Gallop, no S4 Gallop, no click - Gastrointestinal General gastrointestinal: normal bowel sounds, soft, no splenomegaly, no tenderness, no umbilical hernia, no ventral hernia - Integumentary Integumentary: normal, normal turgor - Neurologic Neurologic: CNII-XII intact - Musculoskeletal Musculoskeletal: no gait normal, generalized weakness - Psychiatric Psychiatric: A&O x's 3, appropriate affect, intact judgment & insight - Labs CBC & Chem 7: 02/27/17 09:31 02/27/17 09:31 Labs: Abnormal Lab Results - Last 24 Hours (Table) 02/28/17 Range/Units 08:40 IgG 455.0 L (700.0-1600.0) mg/dL Microbiology - Last 24 Hours (Table) 02/24/17 05:45 Blood Culture - Final Blood No Growth after 144 hours 02/26/17 01:08 Blood Culture - Preliminary Blood No Growth after 96 hours 02/26/17 01:29 Blood Culture - Preliminary Blood No Growth after 96 hours 02/26/17 20:50 Urine Culture - Final Urine,Clean Catch Enterococcus faecalis Assessment and Plan Plan: 1. 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 we monitor cbc and will repeat in AM and transfuse for HGb less than 7. 2. Diffuse bone pain secondary to her myelofibrosis and significant neuropathy. Start the patient on fentanyl patch 75 g every 72 hours, oxycodone 10 mg every 4 hours, Dilaudid 1 mg IV push every 3 hours for breakthrough pain, and also start the patient on Lyrica 50 mg orally at bedtime and increased frequency to twice daily. 3. Chronic history of pancreatic duct stent, last MRCP was in December 2015. Her computed tomography scan of the abdomen and pelvis did show dilatation of the extrahepatic biliary and pancreatic duct. Without any significant changes 4. Chronic malabsorption state from poor oral intake, and ongoing pancreas problems, lipase to be checked, vitamin B12 would be obtained later await CAT scan 5. Weight loss of 17 pounds in 15 months nutritional supplementation would be ordered. 6. GI prophylaxis on Protonix 40 mg orally once every day. 7. DVT prophylaxis on TRISTAN hose and SCDs. 8. Anxiety. Continue Xanax as needed. 9. Urinary retention. Continue patient on Flomax 0.4 mg orally once every day. 10. Reported history of renal disease stage II. Her GFR is greater than 60. Avoid NSAIDs. Her intact PTH is elevated. 11. Chronic pain syndrome. Continue patient on current pain management. 12. Severe osteoarthritis of both hips. Continue to use the walker and avoid falling. 13. Fever secondary to severe bone marrow failure and immunocompromised state. Consult with Dr. Epi mcguire. Cefepime started 14. Severe protein calorie malnutrition Patient is full code. Discharge plan: ECF tomorrow Impression and plan of care have been directed as dictated by the signing physician. Kelli Marion nurse practitioner acting as scribe for signing physician.
--- NOTE | 2017-03-02 16:48 | P.DS ---
Providers Date of admission: 02/26/17 14:17 Expected date of discharge: 03/03/17 Attending physician: Shirley Macedo Consults: 02/24/17 06:47 Consult Physician Stat Consulting Provider: Nimesh Navarrete Consult Reason/Comments: Chronic hematological diseases Do you want consulting provider notified?: Yes 02/25/17 20:51 Consult Physician Routine Consulting Provider: Vinicius Saravia Consult Reason/Comments: fever with myelofibrosis Do you want consulting provider notified?: Yes, Notify in am Primary care physician: Zachary Dorantes [facility] Course: This is a 66-year-old female patient of Dr. Dorantes with underlying history of CAD, hyperlipidemia, hypertension, pancreatitis, neuropathy chronic back pain chronic opioid-induced constipation. She has had several recent hospitalizations due to lower GI bleed thought to be due to diverticulitis as well as thrombocytopenia and anemia and leukocytosis followed by Dr. Navarrete. Patient recently underwent bone marrow biopsy. Results were not available during her last hospitalization but she was discharged home with a white count of 18.7, hemoglobin was 8.9 and platelet count of 43 on improved. She also had an elevated alkaline phosphatase of 205. Patient presented back to [facility] emergency center on December 08 with complaints of chest pain that started the day before and continued to worsen. She also had temperature of 100.8 and was complaining of shortness of breath and it hurt when she took a deep breath. There was no trauma to the chest wall or recent fall. She underwent a CTA of the chest that showed no definite acute pulmonary embolism. Trace bilateral pleural effusions. Chest x-ray showed no acute cardiopulmonary disease. She again presented with leukocytosis of 27.2, hemoglobin 7.6 and platelet count was up to 131. Her d-dimer was elevated at 3.26. Sodium 1:30 and chloride 93. Initial troponin was 0.012, proBNP 2120. Urinalysis was cloudy, nitrate and leukoesterase negative. Cardiology consult requested, repeat troponins, consult with Dr. Saravia from infectious disease and consult has been added for Dr. Navarrete. 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 Iraheta for second opinion prior to her starting on Jakafi(Ruxolutinib), however the patient ended up going to see Dr. Dorantes for laboratory evaluation she was found to have a hemoglobin of 5.70 ask her to go to the ER for evaluation patient showed up in the ER yesterday and she was admitted to the hospital for blood transfusion, patient did receive 2 units of packed red blood cells her hemoglobin is up to 8.9 she is wanted to be discharged home on January 2017, patient was seen and evaluated by Dr. Navarrete at that time she also was referred to [facility] and she was supposed to have another appointment to the liver on today however the patient canceled the appointment because she is having severe bone pain and she ended up coming to the ER at [facility] 3:00 in the morning and she is not able template very well she had lost quite a bit of weight and she appears to be very cachectic, she never started Jakafi and there was a discussion about the stem cell transplant for her. 02/25: Patient continues to complain of pain and neuropathy and she states Lyrica did help her at nighttime but this has worn off. Will increase Lyrica to twice daily. Anticipate discharge home by tomorrow. 02/26: Patient having high-grade fevers, serial uncontrolled pain, generalized pain all over, patient is physically debilitated even prior to admission, has refused to entertain skilled rehab in [facility], patient is being transfused 2 units of packed red blood cell for hemoglobin of 6, fentanyl patch 75 g for the past 4 weeks is not working, we'll going to increase it to 100 g, patient also has paresthesias all over uncontrolled, patient's recently adjusted on her Lyrica to 50 twice a day. 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 Saravia is on consult, patient refused IV Rocephin, vancomycin is on hold, previous admissions also had similar events, cultures are negative in the past was ordered we'll going to wait for final recommendations from Dr. Saravia urinalysis negative. We'll check for influenza. Blood cultures have been sent 02/27: Patient remains to be very uncomfortable, even minimum of body turns would put patient into excruciating pain, fentanyl 100 g was increased from yesterday seems to be inadequate, we will increase it 125 g with 4 times a day OxyCodone and every 3 when necessary Dilaudid. Patient started on cefepime IV, family was entertaining hospice home 02/28: Patient continues to complain of pain but she has not taken any additional dose of fentanyl. She apparently has refused the additional patch. She has also stopped taking the Lyrica as she states it she thinks it makes her too crazy. She has refused to take a number of medications. Patient is very tearful. She is pursuing a medical marijuana card. Dr. Chowdary is following regarding fever and she is currently on cefepime time. Fevers seem to have resolved. Temperature maximum 100.3 Patient wavering between hospice care and palliative care and wanting blood transfusions. Patient's brother is at the bedside. 03/01: Patient is currently on fentanyl patch 125 g. she was able to get to the commode chair today which was a mole she has been able to do. Otherwise patient cannot do anything for herself. Ultrasound of the lower extremities was negative for DVT. Patient does have a known stage II decubitus ulcer on the right buttocks for which she normally uses Citrucel at home. Patient is eating very little. Family has requested hospice meeting which occurred today. CODE STATUS will need to be addressed. 03/02: Urine cultures positive for Enterococcus faecalis. Dr. Chowdary has discontinue cephapirin and recommended Macrodantin orally. Long discussion with the patient regarding discharge planning and need to decide whether she wants to go for aggressive treatment or for hospice care. Patient has decided to go to ECF. Patient will be discharged today in stable condition. Discharge diagnoses: 1. 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 2. Diffuse bone pain secondary to her myelofibrosis and significant neuropathy. 3. Chronic history of pancreatic duct stent, last MRCP was in December 2015. 4. Chronic malabsorption state from poor oral intake, and ongoing pancreas problems 5. Weight loss of 17 pounds in 15 months nutritional supplementation would be ordered. 6. GI prophylaxis 7. DVT prophylaxis 8. Anxiety, generalized. 9. Urinary retention. 10. Reported history of renal disease stage II. Her GFR is greater than 60. Avoid NSAIDs. Her intact PTH is elevated. 11. Chronic pain syndrome. 12. Severe osteoarthritis of both hips. 13. Fever secondary to severe bone marrow failure and immunocompromised state with urinary tract infection. 14. Severe protein calorie malnutrition Discharge plan: ECF Impression and plan of care have been directed as dictated by the signing physician. Kelli Marion nurse practitioner acting as scribe for signing physician. Patient Condition at Discharge: Fair Plan - Discharge Summary New Discharge Prescriptions: New Atropine Ophth Soln 1% 5Ml [Isopto Atropine 1% 5Ml] 2 drops PO Q4HR PRN #1 bottle PRN Reason: Secretions Docusate [Colace] 100 mg PO DAILY cap fentaNYL 100MCG/HR PATCH [Duragesic 100MCG/HR] 1 patch TRANSDERM Q72H #10 patch fentaNYL 25MCG/HR PATCH [Duragesic 25MCG/HR] 1 patch TRANSDERM Q48H #30 patch LORazepam ORAL CONC [Ativan Intensol] 2 mg PO Q4HR PRN #30 ml PRN Reason: Anxiety MORPHINE ORAL SOLN 20mg/mL [Roxanol Oral Soln Conc 20MG/ML] 5 mg PO Q4H PRN # 30 ml PRN Reason: Pain Nitrofurantoin Monohyd/M-Cryst [Macrobid] 100 mg PO BID #14 cap oxyCODONE HCL [OxyIR] 15 mg PO Q4HR #100 tab Pregabalin [Lyrica] 50 mg PO BID #60 cap Continue Ondansetron Odt [Zofran ODT] 4 mg PO Q8HR PRN #20 tab PRN Reason: Nausea Lutein 40 mg PO DAILY Folic Acid 0.4 mg PO DAILY Cyanocobalamin (Vitamin B-12) [Vitamin B-12] 1,000 mcg PO MOWEFR Cholecalciferol [Vitamin D3] 5,000 unit PO Q48H Diltiazem HCl 60 mg PO TID Vitamin C Odt Tablet 1 tab PO DAILY Lactulose [Cephulac] 20 gm PO BID PRN PRN Reason: Constipation Furosemide [Lasix] 20 mg PO DAILY PRN PRN Reason: Edema Compounded Cream 1 applic TOPICAL TID PRN PRN Reason: Skin Irritation Metoprolol Tartrate [Lopressor] 25 mg PO DAILY PRN PRN Reason: Blood Pressure - High Bisacodyl [Dulcolax] 10 mg PO BID PRN PRN Reason: Constipation Wheat Dextrin [Benefiber] 1 pack PO DAILY SILVER sulfADIAZINE Cream [Silvadene 1% Cream] 1 applic TOPICAL BID Docusate [Colace] 100 mg PO BID Carboxymethylcellulose Sodium [Refresh Tears] 1 drop BOTH EYES DAILY PRN PRN Reason: Dry Eye(S) Zinc 50 mg PO DAILY Vitamin E 1,000 unit PO DAILY Vitamin A 1,000 Unit 1,000 unit PO DAILY ALPRAZolam [Xanax] 0.25 mg PO Q8HR PRN #90 PRN Reason: Muscle Spasm Discontinued oxyCODONE HCL 10 mg PO Q4HR PRN #60 PRN Reason: Severe Pain fentaNYL 75MCG/HR PATCH [Duragesic 75MCG/HR] 75 mcg TRANSDERM Q48H Discharge Medication List Ondansetron Odt [Zofran ODT] 4 mg PO Q8HR PRN #20 tab 05/08/15 [Rx] Cholecalciferol [Vitamin D3] 5,000 unit PO Q48H 11/15/16 [History] Cyanocobalamin (Vitamin B-12) [Vitamin B-12] 1,000 mcg PO MOWEFR 11/15/16 [ History] Diltiazem HCl 60 mg PO TID 11/15/16 [History] Folic Acid 0.4 mg PO DAILY 11/15/16 [History] Lutein 40 mg PO DAILY 11/15/16 [History] Compounded Cream 1 applic TOPICAL TID PRN 12/08/16 [History] Furosemide [Lasix] 20 mg PO DAILY PRN 12/08/16 [History] Lactulose [Cephulac] 20 gm PO BID PRN 12/08/16 [History] Vitamin C Odt Tablet 1 tab PO DAILY 12/08/16 [History] Bisacodyl [Dulcolax] 10 mg PO BID PRN 01/11/17 [History] Metoprolol Tartrate [Lopressor] 25 mg PO DAILY PRN 01/11/17 [History] Wheat Dextrin [Benefiber] 1 pack PO DAILY 01/11/17 [History] Carboxymethylcellulose Sodium [Refresh Tears] 1 drop BOTH EYES DAILY PRN [History] Docusate [Colace] 100 mg PO BID 02/24/17 [History] SILVER sulfADIAZINE Cream [Silvadene 1% Cream] 1 applic TOPICAL BID 02/24/17 [ History] Vitamin A 1,000 Unit 1,000 unit PO DAILY 02/24/17 [History] Vitamin E 1,000 unit PO DAILY 02/24/17 [History] Zinc 50 mg PO DAILY 02/24/17 [History] ALPRAZolam [Xanax] 0.25 mg PO Q8HR PRN #90 03/02/17 [Rx] Atropine Ophth Soln 1% 5Ml [Isopto Atropine 1% 5Ml] 2 drops PO Q4HR PRN #1 bottle 03/02/17 [Rx] Docusate [Colace] 100 mg PO DAILY cap 03/02/17 [Rx] LORazepam ORAL CONC [Ativan Intensol] 2 mg PO Q4HR PRN #30 ml 03/02/17 [Rx] MORPHINE ORAL SOLN 20mg/mL [Roxanol Oral Soln Conc 20MG/ML] 5 mg PO Q4H PRN #30 ml 03/02/17 [Rx] Nitrofurantoin Monohyd/M-Cryst [Macrobid] 100 mg PO BID #14 cap 03/02/17 [Rx] Pregabalin [Lyrica] 50 mg PO BID #60 cap 03/02/17 [Rx] fentaNYL 100MCG/HR PATCH [Duragesic 100MCG/HR] 1 patch TRANSDERM Q72H #10 patch 03/02/17 [Rx] fentaNYL 25MCG/HR PATCH [Duragesic 25MCG/HR] 1 patch TRANSDERM Q48H #30 patch [Rx] oxyCODONE HCL [OxyIR] 15 mg PO Q4HR #100 tab 03/02/17 [Rx] Follow up Appointment(s)/Referral(s): Zachary Dorantes DO [Primary Care Provider] - As Needed Discharge Disposition: [facility]CH [facility]
[2017-03-03] MEDS: DILTIAZEM ORAL 60 MG TAB PO SCH ×3 (06:32→22:42)
[2017-03-03] MEDS: HYDROmorphone 1 MG/ML 1 ML SYRINGE IVP PRN ×3 (09:25→15:35)
[2017-03-03] MEDS: PANTOPRAZOLE 40 MG TABLET PO SCH (09:48)
[2017-03-03] MEDS: DOCUSATE 100 MG CAP PO SCH (09:51)
[2017-03-03] MEDS: TAMSULOSIN 0.4 MG CAP.ER.24H PO SCH (09:51)
[2017-03-03] MEDS: PREGABALIN 50 MG CAP PO SCH ×2 (09:52→22:42)
[2017-03-03] MEDS: FOLIC ACID 1 MG TAB PO SCH (09:52)
[2017-03-03] MEDS: LACTULOSE 20 GM/30 ML CUP PO SCH ×2 (09:52→22:43)
[2017-03-03] MEDS: NITROFURANTOIN MONOHYD/M-CRYST 100 MG CAP PO SCH ×2 (09:52→22:43)
--- NOTE | 2017-03-03 14:16 | P.PN ---
Subjective This is a 66-year-old female patient of Dr. Dorantes with underlying history of CAD, hyperlipidemia, hypertension, pancreatitis, neuropathy chronic back pain chronic opioid-induced constipation. She has had several recent hospitalizations due to lower GI bleed thought to be due to diverticulitis as well as thrombocytopenia and anemia and leukocytosis followed by Dr. Navarrete. Patient recently underwent bone marrow biopsy. Results were not available during her last hospitalization but she was discharged home with a white count of 18.7, hemoglobin was 8.9 and platelet count of 43 on improved. She also had an elevated alkaline phosphatase of 205. Patient presented back to [facility] emergency center on December 08 with complaints of chest pain that started the day before and continued to worsen. She also had temperature of 100.8 and was complaining of shortness of breath and it hurt when she took a deep breath. There was no trauma to the chest wall or recent fall. She underwent a CTA of the chest that showed no definite acute pulmonary embolism. Trace bilateral pleural effusions. Chest x-ray showed no acute cardiopulmonary disease. She again presented with leukocytosis of 27.2, hemoglobin 7.6 and platelet count was up to 131. Her d-dimer was elevated at 3.26. Sodium 1:30 and chloride 93. Initial troponin was 0.012, proBNP 2120. Urinalysis was cloudy, nitrate and leukoesterase negative. Cardiology consult requested, repeat troponins, consult with Dr. Saravia from infectious disease and consult has been added for Dr. Navarrete. 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 Iraheta for second opinion prior to her starting on Jakafi(Ruxolutinib), however the patient ended up going to see Dr. Dorantes for laboratory evaluation she was found to have a hemoglobin of 5.70 ask her to go to the ER for evaluation patient showed up in the ER yesterday and she was admitted to the hospital for blood transfusion, patient did receive 2 units of packed red blood cells her hemoglobin is up to 8.9 she is wanted to be discharged home on January 2017, patient was seen and evaluated by Dr. Navarrete at that time she also was referred to [facility] [place] and she was supposed to have another appointment to the liver on today however the patient canceled the appointment because she is having severe bone pain and she ended up coming to the ER at [facility] 3:00 in the morning and she is not able template very well she had lost quite a bit of weight and she appears to be very cachectic, she never started Jakafi and there was a discussion about the stem cell transplant for her. 02/25: Patient continues to complain of pain and neuropathy and she states Lyrica did help her at nighttime but this has worn off. Will increase Lyrica to twice daily. Anticipate discharge home by tomorrow. 02/26: Patient having high-grade fevers, serial uncontrolled pain, generalized pain all over, patient is physically debilitated even prior to admission, has refused to entertain skilled rehab in [facility], patient is being transfused 2 units of packed red blood cell for hemoglobin of 6, fentanyl patch 75 g for the past 4 weeks is not working, we'll going to increase it to 100 g, patient also has paresthesias all over uncontrolled, patient's recently adjusted on her Lyrica to 50 twice a day. 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 Saravia is on consult, patient refused IV Rocephin, vancomycin is on hold, previous admissions also had similar events, cultures are negative in the past was ordered we'll going to wait for final recommendations from Dr. Saravia urinalysis negative. We'll check for influenza. Blood cultures have been sent 02/27: Patient remains to be very uncomfortable, even minimum of body turns would put patient into excruciating pain, fentanyl 100 g was increased from yesterday seems to be inadequate, we will increase it 125 g with 4 times a day OxyCodone and every 3 when necessary Dilaudid. Patient started on cefepime IV, family was entertaining hospice home 02/28: Patient continues to complain of pain but she has not taken any additional dose of fentanyl. She apparently has refused the additional patch. She has also stopped taking the Lyrica as she states it she thinks it makes her too crazy. She has refused to take a number of medications. Patient is very tearful. She is pursuing a medical marijuana card. Dr. Chowdary is following regarding fever and she is currently on cefepime time. Fevers seem to have resolved. Temperature maximum 100.3 Patient wavering between hospice care and palliative care and wanting blood transfusions. Patient's brother is at the bedside. 03/01: Patient is currently on fentanyl patch 125 g. she was able to get to the commode chair today which was a mole she has been able to do. Otherwise patient cannot do anything for herself. Ultrasound of the lower extremities was negative for DVT. Patient does have a known stage II decubitus ulcer on the right buttocks for which she normally uses Citrucel at home. Patient is eating very little. Family has requested hospice meeting which occurred today. CODE STATUS will need to be addressed. 03/02: Long discussion took place with Dr. Mathias, watch case polisher and the patient regarding discharge planning. Patient finally decided that she would go to [facility] home and subsequently changed her mind to go to [facility] which arrangements will be completed for tomorrow. Urine cultures positive for Enterococcus faecalis. Dr. Chowdary has discontinued Rocephin and recommended Macrodantin orally. 03/03: Is working with the patient for discharge planning. Patient still wants to go to rehab. Awaiting PT and OT notes which have been done and we will need insurance authorization. Planning to discontinue IV Dilaudid. Hopeful for discharge tomorrow Objective - Vital Signs Vital signs: Vital Signs Temp 97.2 F L 03/03/17 07:00 Pulse 100 03/03/17 09:24 Resp 18 03/03/17 08:00 BP 143/60 03/03/17 07:00 Pulse Ox 100 03/03/17 07:00 Intake & Output 03/02/17 03/03/17 03/03/17 18:59 06:59 18:59 Intake Total 390 100 Balance 390 100 Weight 47.627 kg Intake: Oral 390 100 Other: Voiding Method Diaper Diaper Bedside Commode Incontinent Incontinent Diaper # Voids 3 1 # Bowel Movements 1 - Exam General appearance: mild distress, thin - EENT Eyes: anicteric sclerae, EOMI, no ptosis, no scleral icterus, normal appearance ENT: hearing grossly normal, NA/AT, normal oropharynx, no thrush Ears: bilateral: normal - Neck Neck: no lymphadenopathy, normal ROM, no rigidity, no stridor, no thyromegaly Carotids: bilateral: upstroke normal Thyroid: bilateral: normal size - Respiratory Respiratory: bilateral: diminished, negative: dullness, rales, rhonchi, wheezing , prolonged expiration - Cardiovascular Rhythm: regular Heart sounds: normal: S1, S2 Abnormal Heart Sounds: systolic murmur, no S3 Gallop, no S4 Gallop, no click - Gastrointestinal General gastrointestinal: normal bowel sounds, soft, no splenomegaly, no tenderness, no umbilical hernia, no ventral hernia - Integumentary Integumentary: normal, normal turgor - Neurologic Neurologic: CNII-XII intact - Musculoskeletal Musculoskeletal: no gait normal, generalized weakness - Psychiatric Psychiatric: A&O x's 3, appropriate affect, intact judgment & insight - Labs CBC & Chem 7: 02/27/17 09:31 02/27/17 09:31 Labs: Microbiology - Last 24 Hours (Table) 02/26/17 01:08 Blood Culture - Preliminary Blood No Growth after 120 hours 02/26/17 01:29 Blood Culture - Preliminary Blood No Growth after 120 hours Assessment and Plan Plan: 1. 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 we monitor cbc and will repeat in AM and transfuse for HGb less than 7. 2. Diffuse bone pain secondary to her myelofibrosis and significant neuropathy. Start the patient on fentanyl patch 75 g every 72 hours, oxycodone 10 mg every 4 hours, Dilaudid 1 mg IV push every 3 hours for breakthrough pain, and also start the patient on Lyrica 50 mg orally at bedtime and increased frequency to twice daily. 3. Chronic history of pancreatic duct stent, last MRCP was in December 2015. Her computed tomography scan of the abdomen and pelvis did show dilatation of the extrahepatic biliary and pancreatic duct. Without any significant changes 4. Chronic malabsorption state from poor oral intake, and ongoing pancreas problems, lipase to be checked, vitamin B12 would be obtained later await CAT scan 5. Weight loss of 17 pounds in 15 months nutritional supplementation would be ordered. 6. GI prophylaxis on Protonix 40 mg orally once every day. 7. DVT prophylaxis on TRISTAN hose and SCDs. 8. Anxiety. Continue Xanax as needed. 9. Urinary retention. Continue patient on Flomax 0.4 mg orally once every day. 10. Reported history of renal disease stage II. Her GFR is greater than 60. Avoid NSAIDs. Her intact PTH is elevated. 11. Chronic pain syndrome. Continue patient on current pain management. 12. Severe osteoarthritis of both hips. Continue to use the walker and avoid falling. 13. Fever secondary to severe bone marrow failure and immunocompromised state. Consult with Dr. Chowdary appreciated. Cefepime started 14. Severe protein calorie malnutrition Patient is full code. Discharge plan: ECF tomorrow Impression and plan of care have been directed as dictated by the signing physician. Kelli Marion nurse practitioner acting as scribe for signing physician.
[2017-03-03] MEDS: ACETAMINOPHEN TAB 325 MG TAB PO PRN (15:35)
--- NOTE | 2017-03-03 16:13 | XR ---
EXAMINATION TYPE: XR chest 1V portable DATE OF EXAM: 03/03/2017 Comparison: 02/24/2017 Clinical History: 66-year-old female shortness of breath, patient thinks she has rib fx Findings: Heart is normal size. Atherosclerotic arch calcifications. Elevation of right hemidiaphragm. Prominen t skinfold projecting at the peripheral right mid to lower lung. Mild interstitial prominence as a ch ronic appearance, possible chronic bronchitis/asthma. No consolidation, clear evidence for pneumothor ax, or pleural effusion. Impression: Some volume loss in the right hemithorax. There are chronic interstitial changes without acute proces s seen. Prominent skin folds on the right.
[2017-03-04] MEDS: DILTIAZEM ORAL 60 MG TAB PO SCH ×2 (06:16→16:17)
[2017-03-04] MEDS: NITROFURANTOIN MONOHYD/M-CRYST 100 MG CAP PO SCH (07:53)
[2017-03-04] MEDS: DOCUSATE 100 MG CAP PO SCH (07:53)
[2017-03-04] MEDS: TAMSULOSIN 0.4 MG CAP.ER.24H PO SCH (07:53)
[2017-03-04] MEDS: CYANOCOBALAMIN 500 MCG TAB PO SCH (07:53)
[2017-03-04] MEDS: PANTOPRAZOLE 40 MG TABLET PO SCH (07:53)
[2017-03-04] MEDS: CHOLECALCIFEROL 1,000 UNIT TAB PO SCH (07:53)
[2017-03-04] MEDS: LACTULOSE 20 GM/30 ML CUP PO SCH (07:54)
[2017-03-04] MEDS: FOLIC ACID 1 MG TAB PO SCH (07:56)
[2017-03-04] MEDS: PREGABALIN 50 MG CAP PO SCH (07:59)
[2017-03-04 08:09] VITALS: RESP 18
[2017-03-04] MEDS: NYSTATIN 100,000 UNIT/ML SUSP 500,000 UNIT/5 ML CUP PO SCH ×2 (12:51→16:19)
--- NOTE | 2017-03-04 15:33 | P.DS ---
Providers Date of admission: 02/26/17 14:17 Expected date of discharge: 03/04/17 Attending physician: Shirley Macedo Consults: 02/24/17 06:47 Consult Physician Stat Consulting Provider: Nimesh Navarrete Consult Reason/Comments: Chronic hematological diseases Do you want consulting provider notified?: Yes 02/25/17 20:51 Consult Physician Routine Consulting Provider: Vinicius Saravia Consult Reason/Comments: fever with myelofibrosis Do you want consulting provider notified?: Yes, Notify in am Primary care physician: aZchary Dorantes [facility] Course: This is a 66-year-old female patient of Dr. Dorantes with underlying history of CAD, hyperlipidemia, hypertension, pancreatitis, neuropathy chronic back pain chronic opioid-induced constipation. She has had several recent hospitalizations due to lower GI bleed thought to be due to diverticulitis as well as thrombocytopenia and anemia and leukocytosis followed by Dr. Navarrete. Patient recently underwent bone marrow biopsy. Results were not available during her last hospitalization but she was discharged home with a white count of 18.7, hemoglobin was 8.9 and platelet count of 43 on improved. She also had an elevated alkaline phosphatase of 205. Patient presented back to [facility] emergency center on December 08 with complaints of chest pain that started the day before and continued to worsen. She also had temperature of 100.8 and was complaining of shortness of breath and it hurt when she took a deep breath. There was no trauma to the chest wall or recent fall. She underwent a CTA of the chest that showed no definite acute pulmonary embolism. Trace bilateral pleural effusions. Chest x-ray showed no acute cardiopulmonary disease. She again presented with leukocytosis of 27.2, hemoglobin 7.6 and platelet count was up to 131. Her d-dimer was elevated at 3.26. Sodium 1:30 and chloride 93. Initial troponin was 0.012, proBNP 2120. Urinalysis was cloudy, nitrate and leukoesterase negative. Cardiology consult requested, repeat troponins, consult with Dr. Saravia from infectious disease and consult has been added for Dr. Navarrete. 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 Iraheta for second opinion prior to her starting on Jakafi(Ruxolutinib), however the patient ended up going to see Dr. Dorantes for laboratory evaluation she was found to have a hemoglobin of 5.70 ask her to go to the ER for evaluation patient showed up in the ER yesterday and she was admitted to the hospital for blood transfusion, patient did receive 2 units of packed red blood cells her hemoglobin is up to 8.9 she is wanted to be discharged home on January 2017, patient was seen and evaluated by Dr. Navarrete at that time she also was referred to [facility] and she was supposed to have another appointment to the liver on today however the patient canceled the appointment because she is having severe bone pain and she ended up coming to the ER at [facility] 3:00 in the morning and she is not able template very well she had lost quite a bit of weight and she appears to be very cachectic, she never started Jakafi and there was a discussion about the stem cell transplant for her. 02/25: Patient continues to complain of pain and neuropathy and she states Lyrica did help her at nighttime but this has worn off. Will increase Lyrica to twice daily. Anticipate discharge home by tomorrow. 02/26: Patient having high-grade fevers, serial uncontrolled pain, generalized pain all over, patient is physically debilitated even prior to admission, has refused to entertain skilled rehab in [facility], patient is being transfused 2 units of packed red blood cell for hemoglobin of 6, fentanyl patch 75 g for the past 4 weeks is not working, we'll going to increase it to 100 g, patient also has paresthesias all over uncontrolled, patient's recently adjusted on her Lyrica to 50 twice a day. 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 Saravia is on consult, patient refused IV Rocephin, vancomycin is on hold, previous admissions also had similar events, cultures are negative in the past was ordered we'll going to wait for final recommendations from Dr. Saravia urinalysis negative. We'll check for influenza. Blood cultures have been sent 02/27: Patient remains to be very uncomfortable, even minimum of body turns would put patient into excruciating pain, fentanyl 100 g was increased from yesterday seems to be inadequate, we will increase it 125 g with 4 times a day OxyCodone and every 3 when necessary Dilaudid. Patient started on cefepime IV, family was entertaining hospice home 02/28: Patient continues to complain of pain but she has not taken any additional dose of fentanyl. She apparently has refused the additional patch. She has also stopped taking the Lyrica as she states it she thinks it makes her too crazy. She has refused to take a number of medications. Patient is very tearful. She is pursuing a medical marijuana card. Dr. Chowdary is following regarding fever and she is currently on cefepime time. Fevers seem to have resolved. Temperature maximum 100.3 Patient wavering between hospice care and palliative care and wanting blood transfusions. Patient's brother is at the bedside. 03/01: Patient is currently on fentanyl patch 125 g. she was able to get to the commode chair today which was a mole she has been able to do. Otherwise patient cannot do anything for herself. Ultrasound of the lower extremities was negative for DVT. Patient does have a known stage II decubitus ulcer on the right buttocks for which she normally uses Citrucel at home. Patient is eating very little. Family has requested hospice meeting which occurred today. CODE STATUS will need to be addressed. 03/02: Urine cultures positive for Enterococcus faecalis. Dr. Chowdary has discontinue cephapirin and recommended Macrodantin orally. Long discussion with the patient regarding discharge planning and need to decide whether she wants to go for aggressive treatment or for hospice care. Patient has decided to go to [facility]. Patient will be discharged today in stable condition. 03/03: Is working with the patient for discharge planning. Patient still wants to go to rehab. Awaiting PT and OT notes which have been done and we will need insurance authorization. Planning to discontinue IV Dilaudid. Hopeful for discharge tomorrow 03/04: Insurance has provided authorization for subacute rehab. Patient will be discharged to [facility] and stable condition. We have added and nystatin swish and swallow 4 thrush. No other new complaints from the patient today. Discharge diagnoses: 1. 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 2. Diffuse bone pain secondary to her myelofibrosis and significant neuropathy. 3. Chronic history of pancreatic duct stent, last MRCP was in December 2015. 4. Chronic malabsorption state from poor oral intake, and ongoing pancreas problems 5. Weight loss of 17 pounds in 15 months nutritional supplementation would be ordered. 6. GI prophylaxis 7. DVT prophylaxis 8. Anxiety, generalized. 9. Urinary retention. 10. Reported history of renal disease stage II. Her GFR is greater than 60. Avoid NSAIDs. Her intact PTH is elevated. 11. Chronic pain syndrome. 12. Severe osteoarthritis of both hips. 13. Fever secondary to severe bone marrow failure and immunocompromised state with urinary tract infection. 14. Severe protein calorie malnutrition Discharge plan: ECF Impression and plan of care have been directed as dictated by the signing physician. Kelli Marion nurse practitioner acting as scribe for signing physician. Patient Condition at Discharge: Fair Plan - Discharge Summary New Discharge Prescriptions: New Atropine Ophth Soln 1% 5Ml [Isopto Atropine 1% 5Ml] 2 drops PO Q4HR PRN #1 bottle PRN Reason: Secretions Docusate [Colace] 100 mg PO DAILY cap fentaNYL 100MCG/HR PATCH [Duragesic 100MCG/HR] 1 patch TRANSDERM Q72H #10 patch fentaNYL 25MCG/HR PATCH [Duragesic 25MCG/HR] 1 patch TRANSDERM Q48H #30 patch LORazepam ORAL CONC [Ativan Intensol] 2 mg PO Q4HR PRN #30 ml PRN Reason: Anxiety MORPHINE ORAL SOLN 20mg/mL [Roxanol Oral Soln Conc 20MG/ML] 5 mg PO Q4H PRN # 30 ml PRN Reason: Pain Nitrofurantoin Monohyd/M-Cryst [Macrobid] 100 mg PO BID #14 cap oxyCODONE HCL [OxyIR] 15 mg PO Q4HR #100 tab Pregabalin [Lyrica] 50 mg PO BID #60 cap Nystatin 100,000 Unit/ml Susp [Mycostatin Oral Susp] 500,000 unit PO QID dose Continue Ondansetron Odt [Zofran ODT] 4 mg PO Q8HR PRN #20 tab PRN Reason: Nausea Lutein 40 mg PO DAILY Folic Acid 0.4 mg PO DAILY Cyanocobalamin (Vitamin B-12) [Vitamin B-12] 1,000 mcg PO MOWEFR Cholecalciferol [Vitamin D3] 5,000 unit PO Q48H Diltiazem HCl 60 mg PO TID Vitamin C Odt Tablet 1 tab PO DAILY Lactulose [Cephulac] 20 gm PO BID PRN PRN Reason: Constipation Furosemide [Lasix] 20 mg PO DAILY PRN PRN Reason: Edema Compounded Cream 1 applic TOPICAL TID PRN PRN Reason: Skin Irritation Metoprolol Tartrate [Lopressor] 25 mg PO DAILY PRN PRN Reason: Blood Pressure - High Bisacodyl [Dulcolax] 10 mg PO BID PRN PRN Reason: Constipation Wheat Dextrin [Benefiber] 1 pack PO DAILY SILVER sulfADIAZINE Cream [Silvadene 1% Cream] 1 applic TOPICAL BID Docusate [Colace] 100 mg PO BID Carboxymethylcellulose Sodium [Refresh Tears] 1 drop BOTH EYES DAILY PRN PRN Reason: Dry Eye(S) Zinc 50 mg PO DAILY Vitamin E 1,000 unit PO DAILY Vitamin A 1,000 Unit 1,000 unit PO DAILY ALPRAZolam [Xanax] 0.25 mg PO Q8HR PRN #90 PRN Reason: Muscle Spasm Discontinued oxyCODONE HCL 10 mg PO Q4HR PRN #60 PRN Reason: Severe Pain fentaNYL 75MCG/HR PATCH [Duragesic 75MCG/HR] 75 mcg TRANSDERM Q48H Discharge Medication List Ondansetron Odt [Zofran ODT] 4 mg PO Q8HR PRN #20 tab 05/08/15 [Rx] Cholecalciferol [Vitamin D3] 5,000 unit PO Q48H 11/15/16 [History] Cyanocobalamin (Vitamin B-12) [Vitamin B-12] 1,000 mcg PO MOWEFR 11/15/16 [ History] Diltiazem HCl 60 mg PO TID 11/15/16 [History] Folic Acid 0.4 mg PO DAILY 11/15/16 [History] Lutein 40 mg PO DAILY 11/15/16 [History] Compounded Cream 1 applic TOPICAL TID PRN 12/08/16 [History] Furosemide [Lasix] 20 mg PO DAILY PRN 12/08/16 [History] Lactulose [Cephulac] 20 gm PO BID PRN 12/08/16 [History] Vitamin C Odt Tablet 1 tab PO DAILY 12/08/16 [History] Bisacodyl [Dulcolax] 10 mg PO BID PRN 01/11/17 [History] Metoprolol Tartrate [Lopressor] 25 mg PO DAILY PRN 01/11/17 [History] Wheat Dextrin [Benefiber] 1 pack PO DAILY 01/11/17 [History] Carboxymethylcellulose Sodium [Refresh Tears] 1 drop BOTH EYES DAILY PRN [History] Docusate [Colace] 100 mg PO BID 02/24/17 [History] SILVER sulfADIAZINE Cream [Silvadene 1% Cream] 1 applic TOPICAL BID 02/24/17 [ History] Vitamin A 1,000 Unit 1,000 unit PO DAILY 02/24/17 [History] Vitamin E 1,000 unit PO DAILY 02/24/17 [History] Zinc 50 mg PO DAILY 02/24/17 [History] ALPRAZolam [Xanax] 0.25 mg PO Q8HR PRN #90 03/02/17 [Rx] Atropine Ophth Soln 1% 5Ml [Isopto Atropine 1% 5Ml] 2 drops PO Q4HR PRN #1 bottle 03/02/17 [Rx] Docusate [Colace] 100 mg PO DAILY cap 03/02/17 [Rx] LORazepam ORAL CONC [Ativan Intensol] 2 mg PO Q4HR PRN #30 ml 03/02/17 [Rx] MORPHINE ORAL SOLN 20mg/mL [Roxanol Oral Soln Conc 20MG/ML] 5 mg PO Q4H PRN #30 ml 03/02/17 [Rx] Nitrofurantoin Monohyd/M-Cryst [Macrobid] 100 mg PO BID #14 cap 03/02/17 [Rx] Pregabalin [Lyrica] 50 mg PO BID #60 cap 03/02/17 [Rx] fentaNYL 100MCG/HR PATCH [Duragesic 100MCG/HR] 1 patch TRANSDERM Q72H #10 patch 03/02/17 [Rx] fentaNYL 25MCG/HR PATCH [Duragesic 25MCG/HR] 1 patch TRANSDERM Q48H #30 patch [Rx] oxyCODONE HCL [OxyIR] 15 mg PO Q4HR #100 tab 03/02/17 [Rx] Nystatin 100,000 Unit/ml Susp [Mycostatin Oral Susp] 500,000 unit PO QID dose 03/04/17 [Rx] Follow up Appointment(s)/Referral(s): Zachary Dorantes DO [Primary Care Provider] - As Needed Discharge Disposition: [facility]
[2017-03-04 16:28] VITALS: PULSE 108
[2017-03-04 16:48] VITALS: BP 155/64; TEMP 97.8
== END 2017-03-04 17:04 | DRG 808 ==
LOC: EC 03:00 → 5MS5E 06:48 → OBSVTOIN 02-26 14:17
PROVIDERS: ADMIT Internal Medicine; ATTEND Internal Medicine
PROC: 30233N1 Transfusion of Nonautologous Red Blood Cells into Peripheral Vein, Percutaneous Approach (ICD-10-PCS; principal; 2017-02-26)
DX: D61.9 Aplastic anemia, unspecified (principal); E43 Unspecified severe protein-calorie malnutrition; L89.312 Pressure ulcer of right buttock, stage 2; D89.9 Disorder involving the immune mechanism, unspecified; D75.81 Myelofibrosis; E87.1 Hypo-osmolality and hyponatremia; K90.9 Intestinal malabsorption, unspecified; N39.0 Urinary tract infection, site not specified; C94.6 Myelodysplastic disease, not elsewhere classified; Z68.1 Body mass index [BMI] 19.9 or less, adult; G62.9 Polyneuropathy, unspecified; M48.02 Spinal stenosis, cervical region; I12.9 Hypertensive chronic kidney disease with stage 1 through stage 4 chronic kidney disease, or unspecified chronic kidney disease; I25.10 Atherosclerotic heart disease of native coronary artery without angina pectoris; E78.5 Hyperlipidemia, unspecified; F17.200 Nicotine dependence, unspecified, uncomplicated; R33.9 Retention of urine, unspecified; N18.2 Chronic kidney disease, stage 2 (mild); G89.4 Chronic pain syndrome; M16.0 Bilateral primary osteoarthritis of hip; R01.1 Cardiac murmur, unspecified; K59.03 Drug induced constipation; T40.2X5A Adverse effect of other opioids, initial encounter; B95.2 Enterococcus as the cause of diseases classified elsewhere; Z51.5 Encounter for palliative care; Z83.3 Family history of diabetes mellitus; Z82.49 Family history of ischemic heart disease and other diseases of the circulatory system; Z79.899 Other long term (current) drug therapy; Z79.891 Long term (current) use of opiate analgesic; Z88.1 Allergy status to other antibiotic agents; Z88.8 Allergy status to other drugs, medicaments and biological substances; F41.1 Generalized anxiety disorder; Z90.49 Acquired absence of other specified parts of digestive tract; Z90.89 Acquired absence of other organs; M79.7 Fibromyalgia; G89.3 Neoplasm related pain (acute) (chronic)
CPT/HCPCS: 36415; 71010; 80048; 80053; 81001; 82550; 82784; 83615; 84550; 85025; 86850; 86900; 86901; 86920; 87040; 87077; 87086; 87186; 87502; 93970; 94760; 96365; 96366; 96372; 96374; 96375; 96376; 99285